=== PATIENT | male | born 1935 | race Caucasian/White ===

== ENCOUNTER 2016-06-16 18:01 | Inpatient (IN) | payer OTHER ==
[~2016-06-16] VITALS: Ht 170.2 cm; Wt 59.3 kg
[2016-06-16 18:47] LABS: BASO % 1.1 %; BASO ABS # 0.06 K/uL (0-0.2); COMPLETE YES; EOS % 3.9 %; HEMATOCRIT 35.6 % (42-52); IG% 0.2 %; LYMPH % 35.4 %; LYMPH ABS # 1.92 K/uL (1.2-3.4); MEAN CELL VOLUME 92.2 fL (80-100); MEAN CORPUSCULAR HEMOGLOBIN 32.6 pg (25-34); MEAN CORPUSCULAR HGB CONC 35.4 g/dl (32-36); MEAN PLATELET VOLUME 9.3 fL (7.4-10.4); MONO % 11.2 %; NEUT % 48.2 %; PLATELET COUNT 182 K/uL (130-400); RED BLOOD COUNT 3.86 M/uL (4.7-6.1); WHITE BLOOD COUNT 5.43 K/uL (4.8-10.8)
[2016-06-16 19:08] LABS: BUN/CREATININE RATIO 16.5 (10-20); CALCIUM 8.6 mg/dl (8.5-10.1); CREATININE 0.83 mg/dl (0.60-1.40); POTASSIUM 4.1 mmol/L (3.5-5.1)
[2016-06-16] MEDS ORDERED: SODIUM CHLORIDE 0.9% 1000ML 250 ML IV STA (19:12)
[2016-06-16] MEDS ORDERED: SODIUM CHLORIDE 0.9% 1000ML 1,000 ML IV STA (19:12)
--- NOTE | 2016-06-16 19:32 | DIAGNOSTIC IMAGING REPORT ---
CHEST ONE VIEW PORTABLE CLINICAL HISTORY: CHEST PAIN dyspnea COMPARISON STUDY: No previous studies for comparison. FINDINGS: Mild emphysematous change. Platelike atelectasis left base. No focal infiltrate. No evidence for cardiac enlargement. IMPRESSION: Chronic change. No acute process. Electronically signed by: Timbo Araujo M.D. 06/16/2016 7:30 PM Dictated Date/Time: 06/16/2016 7:30 PM
[2016-06-16 19:39] LABS: PARTIAL THROMBOPLASTIN RATIO 1.2; PROTHROMBIN TIME (PATIENT) 10.4 SECONDS (9.0-12.0)
[2016-06-16 19:42] LABS: CKMB/CK RATIO 2.2 (0-3.0)
--- NOTE | 2016-06-16 20:05 | DIAGNOSTIC IMAGING REPORT ---
HEAD CT NONCONTRAST CT DOSE: 687.98 mGy.cm HISTORY: Mental status change eval for CVA, rt retinal occlusion TECHNIQUE: Multiaxial CT images of the head were performed without the use of intravenous contrast. Comparison: None. Findings: The paranasal sinuses and mastoid air cells are clear. The calvarium and skull base are intact. The ventricles and sulci are within normal limits. There is no mass, hematoma, midline shift, or acute infarct. Mild age-related atrophy as well as chronic small vessel change. Impression: Age-related change. No acute process. Electronically signed by: Timbo Araujo M.D. 06/16/2016 8:03 PM Dictated Date/Time: 06/16/2016 8:02 PM
[2016-06-16] MEDS ORDERED: ASPIRIN 324 MG CHEW PO STA (20:38)
--- NOTE | 2016-06-16 20:41 | EMERGENCY ROOM VISIT NOTE ---
History Report prepared by Feli: iLvan Torres Under the Supervision of: Dr. Chris Park M.D. First contact with patient: 18:52 Chief Complaint: HYPERTENSION Stated Complaint: HIGH BLOOD PRESSURE History of Present Illness The patient is a 81 year old male who presents to the Emergency Room with complaints of persistent vision issues starting yesterday night. He was evaluated by his glass cut off tender today who diagnosed him with retinal artery occlusion and referred him to the Emergency Room. The patient was sitting down and watching TV when he had a sudden onset of his symptoms. He denies any strenuous activities. While watching TV, he lost the top part of his vision in the right eye. It is not a straight line across. He is narrow sighted in the right eye. He also had high blood pressure today. He denies any history of hypertension. He currently denies any pain. He denies any history of similar symptoms. He denies any history of trauma or surgeries. He denies any recent trauma, or injuries. He denies any fevers, numbness, weakness, confusion, trouble speaking, slurred speech, chest pain, heart palpitations, shortness of breath, or any other complaints. He denies any blood thinners. He does not have any medical problems. Source of History: patient, family, spouse/significant other Onset: yesterday night Position: eye (right) Symptom Intensity: No pain Quality: other (vision issues) Timing: other (persistent) Associated Symptoms: No SOB, No chest pain, No fevers, No numbness, No weakness Review of Systems See HPI for pertinent positives & negatives. A total of 10 systems reviewed and were otherwise negative. Past Medical & Surgical Medical Problems: (1) Migraine Old medical records were reviewed. Nurse's notes were reviewed and I agree with. Denies history of cardiac disease or high blood pressure or stroke. Family History FHx: cancer Stroke Social History Smoking Status: Never Smoker Alcohol Use: occasionally Marital Status: Housing Status: lives with family Occupation Status: retired Current/Historical Medications No Active Prescriptions or Reported Meds Allergies Coded Allergies: No Known Allergies (Unverified , 06/16/16) Physical Exam Vital Signs Date Time Temp Pulse Resp B/P Pulse Ox O2 Delivery O2 Flow Rate FiO2 06/16/16 22:04 67 06/16/16 22:00 70 16 146/70 99 06/16/16 21:52 72 16 162/82 93 06/16/16 20:30 60 24 176/100 99 06/16/16 18:34 68 18 189/93 95 Room Air 06/16/16 18:32 73 06/16/16 18:15 98 Room Air 06/16/16 18:09 36.6 76 16 201/106 98 Room Air Physical Exam General: Non-ill appearing, older male, in no acute distress. HEENT: Normal cephalic atraumatic. Pupils are round and reactive to light. Right eye is dilated from earlier glass cut off tender exam. Extraocular movements are intact. Oropharynx is pink with moist mucous membranes. No swelling of the mouth lips or tongue. Speaking and swallowing without difficulty. Neck: Supple with a midline trachea. No meningeal signs or stiffness, no JVD or bruits. No Stridor. Chest: Clear to auscultation bilaterally. No wheezes or rhonchi. No increased work of breathing. Heart: regular rate and rhythm. Abdomen: Soft nontender, nondistended without rebound guarding or rigidity. Extremities: No cyanosis clubbing or edema. No calf tenderness or assymetry Spine/Back. Non tender to palpation. No CVA tenderness Skin: Good turgor without rashes. Neurologic exam: Cranial nerves two through 12 are intact. Motor and sensation are intact and symmetrical throughout. Medical Decision & Procedures ER Provider Diagnostic Interpretation: X-ray results as stated below per interpretation by me and the radiologist: CHEST ONE VIEW PORTABLE CLINICAL HISTORY: CHEST PAIN dyspnea COMPARISON STUDY: No previous studies for comparison. FINDINGS: Mild emphysematous change. Platelike atelectasis left base. No focal infiltrate. No evidence for cardiac enlargement. IMPRESSION: Chronic change. No acute process. Electronically signed by: Timbo Araujo M.D. 06/16/2016 7:30 PM Dictated Date/Time: 06/16/2016 7:[address] results as stated below per my review and radiologist interpretation: HEAD CT NONCONTRAST CT DOSE: 687.98 mGy.cm HISTORY: Mental status change eval for CVA, rt retinal occlusion TECHNIQUE: Multiaxial CT images of the head were performed without the use of intravenous contrast. Comparison: None. Findings: The paranasal sinuses and mastoid air cells are clear. The calvarium and skull base are intact. The ventricles and sulci are within normal limits. There is no mass, hematoma, midline shift, or acute infarct. Mild age-related atrophy as well as chronic small vessel change. Impression: Age-related change. No acute process. Electronically signed by: Timbo Araujo M.D. 06/16/2016 8:03 PM Dictated Date/Time: 06/16/2016 8:02 PM Laboratory Results 06/16/16 18:30 Red Blood Count 3.86, Mean Corpuscular Volume 92.2, Mean Corpuscular Hemoglobin 32.6, Mean Corpuscular Hemoglobin Concent 35.4, Mean Platelet Volume 9.3, Neutrophils (%) (Auto) 48.2, Lymphocytes (%) (Auto) 35.4, Monocytes (%) (Auto) 11.2, Eosinophils (%) (Auto) 3.9, Basophils (%) (Auto) 1.1, Neutrophils # (Auto ) 2.62, Lymphocytes # (Auto) 1.92, Monocytes # (Auto) 0.61, Eosinophils # (Auto ) 0.21, Basophils # (Auto) 0.06 06/16/16 18:30 Test 06/16/16 17:30 06/16/16 18:30 06/16/16 19:12 06/16/16 19:47 Prothrombin Time 10.4 SECONDS (9.0-12.0) Prothromb Time International Ratio 1.0 (0.9-1.1) Activated Partial Thromboplast Time 30.3 SECONDS (21.0-31.0) Partial Thromboplastin Ratio 1.2 White Blood Count 5.43 K/uL (4.8-10.8) Red Blood Count 3.86 M/uL (4.7-6.1) Hemoglobin 12.6 g/dL (14.0-18.0) Hematocrit 35.6 % (42-52) Mean Corpuscular Volume 92.2 fL (80-100) Mean Corpuscular Hemoglobin 32.6 pg (25-34) Mean Corpuscular Hemoglobin Concent 35.4 g/dl (32-36) Platelet Count 182 K/uL (130-400) Mean Platelet Volume 9.3 fL (7.4-10.4) Neutrophils (%) (Auto) 48.2 % Lymphocytes (%) (Auto) 35.4 % Monocytes (%) (Auto) 11.2 % Eosinophils (%) (Auto) 3.9 % Basophils (%) (Auto) 1.1 % Neutrophils # (Auto) 2.62 K/uL (1.4-6.5) Lymphocytes # (Auto) 1.92 K/uL (1.2-3.4) Monocytes # (Auto) 0.61 K/uL (0.11-0.59) Eosinophils # (Auto) 0.21 K/uL (0-0.5) Basophils # (Auto) 0.06 K/uL (0-0.2) RDW Standard Deviation 43.5 fL (36.4-46.3) RDW Coefficient of Variation 12.9 % (11.5-14.5) Immature Granulocyte % (Auto) 0.2 % Immature Granulocyte # (Auto) 0.01 K/uL (0.00-0.02) Erythrocyte Sedimentation Rate 34 mm/hr (0-14) Anion Gap 6.0 mmol/L (3-11) Est Creatinine Clear Calc Drug Dose 59.5 ml/min Estimated GFR () 96.3 Estimated GFR (Non- 83.1 BUN/Creatinine Ratio 16.5 (10-20) Calcium Level 8.6 mg/dl (8.5-10.1) Total Bilirubin 0.3 mg/dl (0.2-1) Direct Bilirubin 0.1 mg/dl (0-0.2) Aspartate Amino Transf (AST/SGOT) 23 U/L (15-37) Alanine Aminotransferase (ALT/SGPT) 19 U/L (12-78) Alkaline Phosphatase 55 U/L (45-117) Total Creatine Kinase 128 U/L (39-308) Creatine Kinase MB 2.8 ng/ml (0.5-3.6) Total Protein 7.8 gm/dl (6.4-8.2) Albumin 3.9 gm/dl (3.4-5.0) Globulin 3.9 gm/dl (2.5-4.0) Albumin/Globulin Ratio 1.0 (0.9-2) Lipase 106 U/L (73-393) Creatine Kinase MB Ratio (0-3.0) Bedside Troponin I 0.000 ng/ml (0-0.045) Test 06/16/16 21:55 Laboratory studies as stated above per my review. Medications Administered Medications (Trade) Dose Ordered Sig/Carmen Route Start Time Stop Time Status Last Admin Dose Admin Sodium Chloride 250 ml @ 999 mls/hr Q16M STAT IV 06/16/16 19:12 06/16/16 19:27 DC 06/16/16 19:45 999 MLS/HR Sodium Chloride (Nss 1000ml) 1,000 ml @ 100 mls/hr Q10H STAT IV 06/16/16 19:12 06/17/16 05:11 06/16/16 19:45 100 MLS/HR Aspirin (Aspirin Chew) 324 mg NOW STAT PO 06/16/16 20:38 06/16/16 20:56 DC 06/16/16 20:58 324 MG ECG Indication: other (vision issues) Rate (beats per minute): 69 Rhythm: normal sinus Findings: nonspecific-ST abn, RBBB (incomplete), no ectopy Comparison ECG Date: no prior available ED Course 1851: Past medical records reviewed. The patient was evaluated in room A11B, and a complete history and physical examination were performed. 1911: Sodium Chloride 1000 ml 100 mls/hr IV, Sodium Chloride 250 ml @ 999 mls/ hr IV 1919: I discussed the patient's case with Dr. Siddiqui, manager of application development, who did not recommend any acute interventions. 2015: Upon reevaluation, the patient is resting comfortably. I discussed the results and treatment plan with the patient. He verbalized agreement of the treatment plan. The patient will be evaluated for further management. 2037: Aspirin 324 mg PO 2107: I discussed the patient's case with Dr. Fine, from [facility]. Medical Decision Differential diagnosis includes but is not limited to retinal occlusion, CVA, temporal arteritis, hypertension, A-Fib, carotid disease, electrolyte or metabolic abnormalities. This patient comes in as described above. He had acute vision loss yesterday. He is about 24 hours out. He saw his glass cut off tender today who felt that he is central retinal artery occlusion on the right. At this point he is beyond acute treatment. I did discuss this with Dr. Gómez, our manager of application development, on- call who agrees. He does need to be worked up however for stroke and other potential etiologies. He was given aspirin 324 mg chewable. CAT scan of his head was obtained as well as EKG and chest x-ray and multiple other blood testing. His EKG does not suggest acute coronary syndrome or arrhythmia. He is not in A. fib. He has no significant electrolyte or metabolic abnormalities. CAT scan of his head is unremarkable and besides the visual field, there is no other acute neurologic findings. He does need to be admitted for stroke workup and further treatment and evaluation. He is certainly not a TPA candidate at this point given the timeframe of approximately 24 hours since onset. I did consult Dr. Freire, who saw him the ER, who will admit him for these measures. Consults Time Called: 1917 Consulting Physician: Dr. Siddiqui, manager of application development Returned Call: 1919 I discussed the patient's case with Dr. Siddiqui, manager of application development, who did not recommend any acute interventions. Additional Consults: Time Called: 2040 Consulted Physician: Dr. Fine, from [facility] Returned Call: [phone] Additional Comments: I discussed the patient's case with Dr. Fine, from [facility]. Impression Primary Impression: Retinal artery occlusion Additional Impression: Stroke Scribe Attestation The scribe's documentation has been prepared under my direction and personally reviewed by me in its entirety. I confirm that the note above accurately reflects all work, treatment, procedures, and medical decision making performed by me. Departure Information Dispostion Being Evaluated By Hospitalist Prescriptions No Active Prescriptions or Reported Meds Referrals No Doctor, Assigned (PCP) Patient Instructions My [facility] Stroke History Time Last Known Well 24 hours ago Stroke t-PA Criteria Reviewed Does NOT meet criteria for t-PA Reason t-PA Not Given Treatment not indicated Problem Qualifiers
[2016-06-16] MEDS ORDERED: ONDANSETRON INJ 2 MG/ML 2 ML VIAL IV PRN (21:15)
[2016-06-16] MEDS ORDERED: ACETAMINOPHEN 325 MG TAB PO PRN (21:15)
--- NOTE | 2016-06-16 22:42 | DIAGNOSTIC IMAGING REPORT ---
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 COMPARISON STUDY: None. FINDINGS: Visualized intracranial internal carotid arteries, distal vertebral arteries, and basilar artery are widely patent. There is no significant stenosis, occlusion, or aneurysm seen within the bilateral ACAs, MCAs, or shift superintendent. IMPRESSION: No significant stenosis, occlusion, or aneurysm within the campo of [place]. Electronically signed by: Timbo Araujo M.D. 06/16/2016 10:40 PM Dictated Date/Time: 06/16/2016 10:39 PM
--- NOTE | 2016-06-16 22:54 | History and Physical ---
History & Physical Date & Time of Service: Jun 16, 2016 at 22:53 Chief Complaint: High Blood Pressure Primary Care Physician: Tanner Scherer M.D. History of Present Illness Source: patient The patient is an 81-year-old male who developed sudden, painless loss of vision in the right eye that began the previous evening. He was seen by his baker helper today, who diagnosed him with a retinal artery occlusion and referred him to the emergency department for assessment. The patient reports that while watching TV, he lost the upper part of vision in the right eye, and he was also noted in his eye doctor's office to have elevated blood pressure today, which is unusual for him. He denies any other neurologic symptoms such as confusion, difficulty with speech, memory loss, focal weakness in arms or legs, or difficulty swallowing. He is not on any medications routinely, including aspirin, although he did take aspirin today. Past Medical/Surgical History Medical Problems: (1) Migraine Status: Resolved Family History FHx: cancer Stroke Social History Smoking Status: Never Smoker Smokeless Tobacco Use: No Alcohol Use: none Drug Use: none Marital Status: Housing status: lives with family Occupational Status: retired Multi-Drug Resistant Organisms History of MDRO: No Allergies Coded Allergies: No Known Allergies (Unverified , 06/16/16) Home Medications No Active Prescriptions or Reported Meds Review of Systems The patient denies chest pain, palpitations, shortness of breath, cough, lower extremity swelling, hearing change, sore throat, fevers, chills, sweats, weight change, fatigue, nausea, vomiting, abdominal pain, pelvic pain, blood in urine or stool, dysuria, urinary frequency or urgency, lightheadedness, dizziness, headache, memory loss, rash, abnormal bruising or bleeding, imbalance, focal or generalized weakness, numbness or tingling in arms or legs, arthralgias or myalgias, back or neck pain, night sweats, or allergy symptoms. The review of systems is otherwise negative other than for that already noted above, and at least 10 systems have been reviewed. Physical Exam Vital Signs Date Time Temp Pulse Resp B/P Pulse Ox O2 Delivery O2 Flow Rate FiO2 06/16/16 22:04 67 06/16/16 22:00 70 16 146/70 99 06/16/16 21:52 72 16 162/82 93 06/16/16 20:30 60 24 176/100 99 06/16/16 18:34 68 18 189/93 95 Room Air 06/16/16 18:32 73 06/16/16 18:15 98 Room Air 06/16/16 18:09 36.6 76 16 201/106 98 Room Air The patient is awake, well-developed and adequately nourished, alert and oriented 3, normocephalic and atraumatic, lying in bed and in no acute distress. HEENT--right pupil is pharmacologically dilated, EOMI, mucous membranes and oropharynx normal. Neck--supple, no JVD or bruits, thyroid normal, trachea midline, no adenopathy. Heart--normal S1 and S2, no extra beats, no murmurs, rubs or gallops. Lungs--clear bilaterally with good air movement, no respiratory distress, no accessory muscle use. Abdomen--normal bowel sounds and soft, nontender and nondistended, no hernias or masses, no organomegaly. Extremities--no cyanosis, clubbing or edema. There are good distal pulses b/l. Dermatologic--normal skin turgor, normal color, warm and dry, no abnormal lymph nodes, no rash. Neurologic--cranial nerves II through XII grossly intact, motor and sensory examination normal. Rheumatologic--normal range of motion, nontender, muscles and joints. Psychiatric--normal affect. Diagnostics Laboratory Results Results Past 24 Hours Test 06/16/16 17:30 06/16/16 18:30 06/16/16 19:12 06/16/16 19:47 Range/Units Prothrombin Time 10.4 9.0-12.0 SECONDS Prothromb Time International Ratio 1.0 0.9-1.1 Activated Partial Thromboplast Time 30.3 21.0-31.0 SECONDS Partial Thromboplastin Ratio 1.2 White Blood Count 5.43 4.8-10.8 K/uL Red Blood Count 3.86 4.7-6.1 M/uL Hemoglobin 12.6 14.0-18.0 g/dL Hematocrit 35.6 42-52 % Mean Corpuscular Volume 92.2 80-100 fL Mean Corpuscular Hemoglobin 32.6 25-34 pg Mean Corpuscular Hemoglobin Concent 35.4 32-36 g/dl Platelet Count 182 130-400 K/uL Mean Platelet Volume 9.3 7.4-10.4 fL Neutrophils (%) (Auto) 48.2 % Lymphocytes (%) (Auto) 35.4 % Monocytes (%) (Auto) 11.2 % Eosinophils (%) (Auto) 3.9 % Basophils (%) (Auto) 1.1 % Neutrophils # (Auto) 2.62 1.4-6.5 K/uL Lymphocytes # (Auto) 1.92 1.2-3.4 K/uL Monocytes # (Auto) 0.61 0.11-0.59 K/uL Eosinophils # (Auto) 0.21 0-0.5 K/uL Basophils # (Auto) 0.06 0-0.2 K/uL RDW Standard Deviation 43.5 36.4-46.3 fL RDW Coefficient of Variation 12.9 11.5-14.5 % Immature Granulocyte % (Auto) 0.2 % Immature Granulocyte # (Auto) 0.01 0.00-0.02 K/uL Erythrocyte Sedimentation Rate 34 0-14 mm/hr Sodium Level 129 136-145 mmol/L Potassium Level 4.1 3.5-5.1 mmol/L Chloride Level 93 98-107 mmol/L Carbon Dioxide Level 30 21-32 mmol/L Anion Gap 6.0 3-11 mmol/L Blood Urea Nitrogen 14 7-18 mg/dl Creatinine 0.83 0.60-1.40 mg/dl Est Creatinine Clear Calc Drug Dose 59.5 ml/min Estimated GFR () 96.3 Estimated GFR (Non- 83.1 BUN/Creatinine Ratio 16.5 10-20 Random Glucose 92 70-99 mg/dl Calcium Level 8.6 8.5-10.1 mg/dl Total Bilirubin 0.3 0.2-1 mg/dl Direct Bilirubin 0.1 0-0.2 mg/dl Aspartate Amino Transf (AST/SGOT) 23 15-37 U/L Alanine Aminotransferase (ALT/SGPT) 19 12-78 U/L Alkaline Phosphatase 55 45-117 U/L Total Creatine Kinase 128 39-308 U/L Creatine Kinase MB 2.8 0.5-3.6 ng/ml Creatine Kinase MB Ratio 2.2 0-3.0 Total Protein 7.8 6.4-8.2 gm/dl Albumin 3.9 3.4-5.0 gm/dl Globulin 3.9 2.5-4.0 gm/dl Albumin/Globulin Ratio 1.0 0.9-2 Lipase 106 73-393 U/L Bedside Troponin I 0.000 0-0.045 ng/ml Test 06/16/16 21:55 Range/Units Diagnostic Radiology Patient Name: ISAI BANKS Unit Number: [id number] Dictated: 06/16/162001 Transcribed: 06/16/162001 MS Printed Date/Time: [~ rep prt dt]/[~ rep prt tm] [~ rep ct labl] - [~ rep ct ivnm] [facility] [place] [address] Dictated: 06/16/162001 Transcribed: 06/16/162001 MS Printed Date/Time: [~ rep prt dt]/[~ rep prt tm] [~ rep ct labl] - [~ rep ct ivnm] [~ rep ct add3]] HEAD CT NONCONTRAST CT DOSE: 687.98 mGy.cm HISTORY: Mental status change eval for CVA, rt retinal occlusion TECHNIQUE: Multiaxial CT images of the head were performed without the use of intravenous contrast. Comparison: None. Findings: The paranasal sinuses and mastoid air cells are clear. The calvarium and skull base are intact. The ventricles and sulci are within normal limits. There is no mass, hematoma, midline shift, or acute infarct. Mild age-related atrophy as well as chronic small vessel change. Impression: Age-related change. No acute process. Electronically signed by: Timbo Araujo M.D. 06/16/2016 8:03 PM Dictated Date/Time: 06/16/2016 8:02 PM The status of this report is Signed. Draft = Not yet reviewed or approved by Radiologist. Signed = Reviewed and approved by Radiologist. <AttendingPhy></AttendingPhy> <FamilyPhy>Tanner Scherer M.D.</FamilyPhy> < PrimaryPhy>Tanner Scherer M.D.</PrimaryPhy> <UnitNumber>[id number]</ UnitNumber> <VisitNumber>[id number]</VisitNumber> <PatientName>ISAI BANKS </PatientName> <DateOfBirth>1935</DateOfBirth> <Location>[facility]</Location> <ServiceDate>06/16/16</ServiceDate> <MNE>ESINDI</MNE> <OrderingPhy>Chris Park M.D.</OrderingPhy> <OrderingPhyMNE>f rep ord dr connelly</OrderingPhyMNE> < DictatingPhyMNE>f rep dict dr connelly</DictatingPhyMNE> <CCListMNE>f rep ct mne</ CCListMNE> <AdmittingPhyMNE>f pt admit dr connelly</AdmittingPhyMNE> <AttendingPhyMNE >f pt attend dr connelly</AttendingPhyMNE> <ConsultingPhyMNE>f pt consult dr connelly</ConsultingPhyMNE> <FamilyPhyMNE>f pt fam dr connelly</FamilyPhyMNE> <OtherPhyMNE>f pt other dr connelly</OtherPhyMNE> < PrimaryPhyMNE>f pt prim care dr connelly</PrimaryPhyMNE> <ReferringPhyMNE>f pt referring dr connelly</ReferringPhyMNE> Patient Name: ISAI BANKS Unit Number: [id number] Dictated: 06/16/161929 Transcribed: 06/16/161929 MS Printed Date/Time: [~ rep prt dt]/[~ rep prt tm] [~ rep ct labl] - [~ rep ct ivnm] [facility] Radiology Department [place] [id number] Dictated: 06/16/161929 Transcribed: 06/16/161929 MS Printed Date/Time: [~ rep prt dt]/[~ rep prt tm] [~ rep ct labl] - [~ rep ct ivnm] CHEST ONE VIEW PORTABLE CLINICAL HISTORY: CHEST PAIN dyspnea COMPARISON STUDY: No previous studies for comparison. FINDINGS: Mild emphysematous change. Platelike atelectasis left base. No focal infiltrate. No evidence for cardiac enlargement. IMPRESSION: Chronic change. No acute process. Electronically signed by: Timbo Araujo M.D. 06/16/2016 7:30 PM Dictated Date/Time: 06/16/2016 7:30 PM The status of this report is Signed. Draft = Not yet reviewed or approved by Radiologist. Signed = Reviewed and approved by Radiologist. <AttendingPhy></AttendingPhy> <FamilyPhy>Tanner Scherer M.D.</FamilyPhy> < PrimaryPhy>Tanner Scherer M.D.</PrimaryPhy> <UnitNumber>[id number]</ UnitNumber> <VisitNumber>[id number]</VisitNumber> <PatientName>ISAI BANKS </PatientName> <DateOfBirth>1935</DateOfBirth> <Location>[facility]</Location> <ServiceDate>06/16/16</ServiceDate> <MNE>ESINDI</MNE> <OrderingPhy>Chris Park M.D.</OrderingPhy> <OrderingPhyMNE>f rep ord dr connelly</OrderingPhyMNE> < DictatingPhyMNE>f rep dict dr connelly</DictatingPhyMNE> <CCListMNE>f rep ct maricel</ CCListMNE> <AdmittingPhyMNE>f pt admit dr connelly</AdmittingPhyMNE> <AttendingPhyMNE >f pt attend dr connelly</AttendingPhyMNE> <ConsultingPhyMNE>f pt consult dr connelly</ConsultingPhyMNE> <FamilyPhyMNE>f pt fam dr conenlly</FamilyPhyMNE> <OtherPhyMNE>f pt other dr connelly</OtherPhyMNE> < PrimaryPhyMNE>f pt prim care dr connelly</PrimaryPhyMNE> <ReferringPhyMNE>f pt referring dr connelly</ReferringPhyMNE> EKG EKG shows normal sinus rhythm at 69 bpm, right bundle branch block, nonspecific ST-T changes. 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 The patient will be admitted to the telemetry unit for serial cardiac enzymes, cardiac rhythm monitoring and a 2-D echocardiogram with Dopplers. Tonight he'll get an MRI of the brain combo, MRA of the neck combo, and MRA of the head without contrast.. He had Aspirin earlier today, and will be continued on aspirin 81 mg by mouth every morning. His blood pressure was initially elevated upon arrival to the emergency department, however, it has come down to the normal range with no intervention. Hyponatremia--sodium was 129 on admission laboratories. He is unaware of any issues with sodium in the past. We'll repeat his laboratories in a.m., it is possible, he may be in the process of developing SIADH. Level of Care Telemetry Advanced Directives Existing Advance Directive: No Existing Living Will: No Existing Power of Elastic Attacher Coverstitch: No Resuscitation Status FULL RESUSCITATION VTE Prophylaxis Given or contraindicated: SCD's
--- NOTE | 2016-06-16 23:05 | DIAGNOSTIC IMAGING REPORT ---
NECK MRA HISTORY: Visual change [employer] OCCLUSION RIGHT EYE TECHNIQUE: [id number] and gadolinium-enhanced MRA of the neck was performed both before and after the intravenous administration of contrast. All measurements were calculated based on NASCET criteria. COMPARISON STUDY: None. FINDINGS: Somewhat compromised exam technically due to patient motion There is no significant stenosis, occlusion, or dissection identified within the bilateral common carotid, internal carotid, or vertebral arteries. IMPRESSION: No significant stenosis, occlusion, or dissection identified within the carotid or vertebral arteries. Somewhat compromised exam technically due to patient motion Electronically signed by: Timbo Araujo M.D. 06/16/2016 11:03 PM Dictated Date/Time: 06/16/2016 11:01 PM
[2016-06-17] MEDS ORDERED: IV FLUIDS COMPLETED PRN (00:45)
[2016-06-17 01:00] VITALS: BP 151/94; PULSE 66; TEMP 36.6; O2SAT 99; Ht 170.2 cm; Wt 59.3 kg
[2016-06-17 04:05] VITALS: BP 146/74; PULSE 97; TEMP 36.5; O2SAT 97
[2016-06-17 06:18] LABS: BASO ABS # 0.05 K/uL (0-0.2); COMPLETE YES; EOS % 4.3 %; HEMATOCRIT 35.7 % (42-52); IG% 0.2 %; LYMPH % 29.2 %; LYMPH ABS # 1.42 K/uL (1.2-3.4); MEAN CELL VOLUME 92.5 fL (80-100); MEAN CORPUSCULAR HEMOGLOBIN 33.4 pg (25-34); MEAN CORPUSCULAR HGB CONC 36.1 g/dl (32-36); MONO % 11.1 %; NEUT % 54.2 %; PLATELET COUNT 184 K/uL (130-400); RED BLOOD COUNT 3.86 M/uL (4.7-6.1); WHITE BLOOD COUNT 4.87 K/uL (4.8-10.8)
--- NOTE | 2016-06-17 06:25 | DIAGNOSTIC IMAGING REPORT ---
MRI OF THE BRAIN WITHOUT AND WITH IV CONTRAST CLINICAL HISTORY: Right eye retinal occlusion. Hypertension. COMPARISON STUDY: Head CT dated 06/16/2016 TECHNIQUE: MRI of the brain was performed from the vertex to the skull base utilizing various T1 and T2 weighted sequences. Following the IV administration of 6 mL of Gadavist contrast, additional enhanced images were obtained. FINDINGS: Sagittal T1, axial diffusion, proton density and T2 weighted axial, coronal FLAIR, and pre and post axial T1-weighted images were acquired. These were supplemented with post gadolinium coronal T1 weighted images. No intra or extra-axial mass lesions are visualized. Axial diffusion-weighted images reveal scattered tiny foci of restricted water diffusion within the right frontal and parietal lobes, consistent with areas of acute infarction. There is no evidence of ventricular dilatation. Proton density T2-weighted and FLAIR images reveal moderate foci of increased T2 signal within the white matter, likely on a small vessel basis. 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 There are no abnormal flow voids. There are no pathologically enhancing masses. There are a few tiny foci of enhancement within the right hemisphere which may relate to enhancing areas of infarction. IMPRESSION: 1. Scattered small foci of acute/subacute infarcts within the anterior circulation of the right hemisphere. 2. No evidence of intracranial mass 3. Foci of increased T2 signal within the white matter likely a small vessel basis 4. Small foci of enhancement within the right hemisphere, likely secondary to enhancing areas of infarction Electronically signed by: Daniel Euceda M.D. 06/17/2016 6:23 AM Dictated Date/Time: 06/17/2016 6:16 AM
[2016-06-17 06:55] LABS: BLOOD UREA NITROGEN 12 mg/dl (7-18); BUN/CREATININE RATIO 16.9 (10-20); CALCIUM 8.2 mg/dl (8.5-10.1); CARBON DIOXIDE 26 mmol/L (21-32); CHLORIDE 99 mmol/L (98-107); CREATININE 0.69 mg/dl (0.60-1.40); GLUCOSE 82 mg/dl (70-99); MAGNESIUM 2.3 mg/dl (1.8-2.4); POTASSIUM 3.8 mmol/L (3.5-5.1); SODIUM 132 mmol/L (136-145)
[2016-06-17 07:01] LABS: CKMB/CK RATIO 2.2 (0-3.0)
[2016-06-17 07:26] VITALS: BP 135/82; PULSE 56; TEMP 36.4; O2SAT 98
[2016-06-17] MEDS: ASPIRIN 81 MG ECTAB PO SCH (08:57)
[2016-06-17] MEDS: ATORVASTATIN 20 MG TAB PO SCH (08:57)
[2016-06-17 10:57] LABS: CHOLESTEROL/HDL RATIO 2.4
[2016-06-17 11:06] LABS: ESTIMATED AVERAGE GLUCOSE 117 mg/dl; HA1C FLAG Normal (Normal)
--- NOTE | 2016-06-17 11:37 | DIAGNOSTIC IMAGING REPORT ---
ULTRASOUND OF THE CAROTID ARTERIES CLINICAL HISTORY: Acute right hemispheric stroke COMPARISON STUDY: MR angiography neck dated 06/16/2016 TECHNIQUE: Real-time, grayscale, and color Doppler sonography of the carotid arteries was performed. Imaging reviewed in the transverse and longitudinal planes. NASCET criteria was utilized for stenosis calcification. FINDINGS: There is mild to moderate atherosclerotic plaque present left greater than right. The peak systolic velocity within the right internal carotid artery is 74 cm/sec. The systolic velocity ratio of right internal to common carotid artery is 1.0. The peak systolic velocity within the left internal carotid artery is 166 cm/sec. The systolic velocity ratio left internal to common carotid artery is 2.9. Antegrade flow is seen in the vertebral arteries. The external carotid arteries are patent. Blood pressure in the right arm measured 172 mm/Hg. Blood pressure in the left arm measured 180 mm/Hg. IMPRESSION: 1. 50-69% stenosis of the left internal carotid artery by velocity criteria. 2. No evidence of hemodynamically significant right internal carotid artery stenosis Electronically signed by: Daniel Euceda M.D. 06/17/2016 11:35 AM Dictated Date/Time: 06/17/2016 11:31 AM
[2016-06-17 11:45] VITALS: BP_SYST 175; BP_SYST 178; BP_DIAS 97; PULSE 64; TEMP 36.4; O2SAT 97
--- NOTE | 2016-06-17 12:21 | ECHOCARDIOGRAM REPORT ---
*NOTICE TO RECEIVING LIBERTARIAN AGENCY This information is strictly Confidential and protected under [place] law. [place] law prohibits you from making any further disclosure of this information unless further disclosure is expressly permitted by the written consent of the person to whom it pertains or is authorized by law. A general authorization for the release of medical or other information is not sufficient for this purpose. Hospital accepts no responsibility if the information is made available to any other person, INCLUDING THE PATIENT. 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 Normal LV size and wall thickness. * 2. Normal LV systolic function. LVEF 50-55%. No regional wall motion abnormalities. * 3. Normal RV size and function. * 4. Trace mitral regurgitation. * 5. Mild TR. Normal estimated PA and RA pressure. * 6. No prior study for comparison. Procedure Details * A complete two-dimensional transthoracic echocardiogram was performed (2D, M-mode, Doppler and color flow Doppler). * The study was technically adequate. Left Ventricle * The left ventricle is grossly normal size. * There is normal left ventricular wall thickness. * Ejection Fraction = 50-55%. * No regional wall motion abnormalities noted. Right Ventricle * The right ventricle is grossly normal size. * The right ventricular systolic function is normal as assessed by tricuspid annular plane systolic excursion (TAPSE) (normal >1.5 cm). Atria * The left atrial size is normal. * Right atrial size is normal. * No ASD detected; PFO is not assessed. Mitral Valve * The mitral valve is grossly normal. * There is mild mitral annular calcification. * Mitral stenosis is absent. * There is trace mitral regurgitation. Tricuspid Valve * The tricuspid valve is not well visualized, but is grossly normal. * There is no tricuspid stenosis. * There is mild tricuspid regurgitation. Aortic Valve * The aortic valve opens well. * The aortic valve is trileaflet. * No hemodynamically significant valvular aortic stenosis. * There is no significant aortic regurgitation. Pulmonic Valve * The pulmonary valve is not well seen, but the Doppler examination is normal without significant regurgitation or stenosis. Great Vessels * The aortic root and proximal ascending aorta are normal sized. * Normal inferior vena cava size and collapsability with sniff indicates a normal right atrial pressure of 3 mmHg * There is no evidence of pulmonary hypertension. The PA systolic pressure is less than 36 mmHg. Left Ventricular Diastolic Function * Grade I diastolic dysfunction, (abnormal relaxation pattern). MMode 2D Measurements and Calculations IVSd 0.99 cm IVSs 1.4 cm LVIDd 4.5 cm LVIDs 3.0 cm LVPWd 0.89 cm LVPWs 1.4 cm IVS/LVPW 1.1 FS 33.7 % EDV(Teich) 94.9 ml ESV(Teich) 35.5 ml EF(Teich) 62.6 % EDV(cubed) 94.2 ml ESV(cubed) 27.5 ml EF(cubed) 70.8 % % IVS thick 42.6 % % LVPW thick 62.9 % LV mass(C)d 142.9 grams LV mass(C)dI 84.9 grams/m\S\2 LV mass(C)s 146.2 grams LV mass(C)sI 86.8 grams/m\S\2 SV(Teich) 59.3 ml SI(Teich) 35.2 ml/m\S\2 SV(cubed) 66.7 ml SI(cubed) 39.6 ml/m\S\2 EPSS 0.76 cm Ao root diam 3.3 cm Ao root area 8.4 cm\S\2 ACS 1.6 cm LA dimension 3.4 cm asc Aorta Diam 3.2 cm LA/Ao 1.0 LVOT diam 2.0 cm LVOT area 3.2 cm\S\2 LVAd ap4 25.1 cm\S\2 LVLd ap4 7.5 cm EDV(MOD-sp4) 70.0 ml LVAs ap4 15.9 cm\S\2 LVLs ap4 6.3 cm ESV(MOD-sp4) 34.0 ml EF(MOD-sp4) 51.4 % LVAd ap2 21.7 cm\S\2 LVLd ap2 7.5 cm EDV(MOD-sp2) 53.0 ml LVAs ap2 13.6 cm\S\2 LVLs ap2 6.3 cm ESV(MOD-sp2) 25.0 ml EF(MOD-sp2) 52.8 % SV(MOD-sp4) 36.0 ml SI(MOD-sp4) 21.4 ml/m\S\2 SV(MOD-sp2) 28.0 ml SI(MOD-sp2) 16.6 ml/m\S\2 Doppler Measurements and Calculations MV E max eusebia 68.4 cm/sec MV A max eusebia 84.4 cm/sec MV E/A 0.81 MV dec time 0.21 sec Ao V2 max 100.4 cm/sec Ao max PG 4.0 mmHg Ao max PG (full) 2.1 mmHg BRIANNA(V,A) 2.2 cm\S\2 BRIANNA(V,D) 2.2 cm\S\2 LV V1 max PG 1.9 mmHg LV V1 max 69.6 cm/sec PA V2 max 76.0 cm/sec PA max PG 2.3 mmHg TR max eusebia 237.5 cm/sec
[2016-06-17 13:55] LABS: CKMB/CK RATIO 2.4 (0-3.0)
[2016-06-17 14:42] VITALS: BP 174/80
[2016-06-17 15:45] VITALS: BP 168/88; PULSE 56; TEMP 36.8; O2SAT 98
--- NOTE | 2016-06-17 17:22 | Progress Note ---
Subjective Date of Service: Jun 17, 2016. Subjective Pt evaluation today including: conversation w/ patient, conversation w/ family , physical exam, chart review, lab review, review of studies, review of inpatient medication list feeling the same - visual field cuts R eye. no other sx. no numbness no weakness - only vision loss tries to eat very healthy. discussed further eval and treatment answered all questions to the best of my ability no other complaints Problem List Medical Problems: (1) Retinal artery occlusion Status: Acute (2) Stroke Status: Acute Review of Systems ros otherwise negative except for as above Objective Vital Signs Date Time Temp Pulse Resp B/P Pulse Ox O2 Delivery O2 Flow Rate FiO2 06/17/16 15:45 36.8 56 16 168/88 98 06/17/16 15:40 Room Air 06/17/16 14:42 174/80 06/17/16 12:00 Room Air 06/17/16 11:45 36.4 64 16 178/97 97 Room Air 175/97 06/17/16 08:00 Room Air 06/17/16 07:26 36.4 56 16 135/82 98 Room Air 06/17/16 04:05 36.5 97 16 146/74 97 Room Air 06/17/16 04:05 Room Air 06/17/16 01:00 36.6 66 16 151/94 99 Room Air 06/16/16 22:04 67 06/16/16 22:00 70 16 146/70 99 06/16/16 21:52 72 16 162/82 93 06/16/16 20:30 60 24 176/100 99 06/16/16 18:34 68 18 189/93 95 Room Air 06/16/16 18:32 73 06/16/16 18:15 98 Room Air 06/16/16 18:09 36.6 76 16 201/106 98 Room Air Physical Exam General Appearance: no apparent distress Eyes: EOMI ENT: hearing grossly normal Neck: trachea midline Respiratory/Chest: no respiratory distress, no accessory muscle use Extremities: normal range of motion Neurologic/Psychiatric: 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 nml as tested, alert, normal mood/affect Skin: normal color, warm/dry Laboratory Results Last 24 Hours Test 06/16/16 17:30 06/16/16 18:30 06/16/16 19:12 06/16/16 19:47 Prothrombin Time 10.4 SECONDS Prothromb Time International Ratio 1.0 Activated Partial Thromboplast Time 30.3 SECONDS Partial Thromboplastin Ratio 1.2 White Blood Count 5.43 K/uL Red Blood Count 3.86 M/uL Hemoglobin 12.6 g/dL Hematocrit 35.6 % Mean Corpuscular Volume 92.2 fL Mean Corpuscular Hemoglobin 32.6 pg Mean Corpuscular Hemoglobin Concent 35.4 g/dl Platelet Count 182 K/uL Mean Platelet Volume 9.3 fL Neutrophils (%) (Auto) 48.2 % Lymphocytes (%) (Auto) 35.4 % Monocytes (%) (Auto) 11.2 % Eosinophils (%) (Auto) 3.9 % Basophils (%) (Auto) 1.1 % Neutrophils # (Auto) 2.62 K/uL Lymphocytes # (Auto) 1.92 K/uL Monocytes # (Auto) 0.61 K/uL Eosinophils # (Auto) 0.21 K/uL Basophils # (Auto) 0.06 K/uL RDW Standard Deviation 43.5 fL RDW Coefficient of Variation 12.9 % Immature Granulocyte % (Auto) 0.2 % Immature Granulocyte # (Auto) 0.01 K/uL Erythrocyte Sedimentation Rate 34 mm/hr Sodium Level 129 mmol/L Potassium Level 4.1 mmol/L Chloride Level 93 mmol/L Carbon Dioxide Level 30 mmol/L Anion Gap 6.0 mmol/L Blood Urea Nitrogen 14 mg/dl Creatinine 0.83 mg/dl Est Creatinine Clear Calc Drug Dose 59.5 ml/min Estimated GFR () 96.3 Estimated GFR (Non- 83.1 BUN/Creatinine Ratio 16.5 Random Glucose 92 mg/dl Calcium Level 8.6 mg/dl Total Bilirubin 0.3 mg/dl Direct Bilirubin 0.1 mg/dl Aspartate Amino Transf (AST/SGOT) 23 U/L Alanine Aminotransferase (ALT/SGPT) 19 U/L Alkaline Phosphatase 55 U/L Total Creatine Kinase 128 U/L Creatine Kinase MB 2.8 ng/ml Creatine Kinase MB Ratio 2.2 Total Protein 7.8 gm/dl Albumin 3.9 gm/dl Globulin 3.9 gm/dl Albumin/Globulin Ratio 1.0 Lipase 106 U/L Bedside Troponin I 0.000 ng/ml Test 06/16/16 21:55 06/17/16 05:05 06/17/16 07:03 06/17/16 13:15 White Blood Count 4.87 K/uL Red Blood Count 3.86 M/uL Hemoglobin 12.9 g/dL Hematocrit 35.7 % Mean Corpuscular Volume 92.5 fL Mean Corpuscular Hemoglobin 33.4 pg Mean Corpuscular Hemoglobin Concent 36.1 g/dl Platelet Count 184 K/uL Mean Platelet Volume 10.0 fL Neutrophils (%) (Auto) 54.2 % Lymphocytes (%) (Auto) 29.2 % Monocytes (%) (Auto) 11.1 % Eosinophils (%) (Auto) 4.3 % Basophils (%) (Auto) 1.0 % Neutrophils # (Auto) 2.64 K/uL Lymphocytes # (Auto) 1.42 K/uL Monocytes # (Auto) 0.54 K/uL Eosinophils # (Auto) 0.21 K/uL Basophils # (Auto) 0.05 K/uL RDW Standard Deviation 43.4 fL RDW Coefficient of Variation 12.9 % Immature Granulocyte % (Auto) 0.2 % Immature Granulocyte # (Auto) 0.01 K/uL Sodium Level 132 mmol/L Potassium Level 3.8 mmol/L Chloride Level 99 mmol/L Carbon Dioxide Level 26 mmol/L Anion Gap 7.0 mmol/L Blood Urea Nitrogen 12 mg/dl Creatinine 0.69 mg/dl Est Creatinine Clear Calc Drug Dose 71.6 ml/min Estimated GFR () 103.9 Estimated GFR (Non- 89.7 BUN/Creatinine Ratio 16.9 Random Glucose 82 mg/dl Estimated Average Glucose 117 mg/dl Hemoglobin A1c 5.7 % Calcium Level 8.2 mg/dl Magnesium Level 2.3 mg/dl Total Creatine Kinase 105 U/L 93 U/L Creatine Kinase MB 2.3 ng/ml 2.2 ng/ml Creatine Kinase MB Ratio 2.2 2.4 Troponin I < 0.015 ng/ml < 0.015 ng/ml Triglycerides Level 63 mg/dl Cholesterol Level 160 mg/dl HDL Cholesterol 66 mg/dl LDL Cholesterol, Calculated 81 mg/dl VLDL Cholesterol, Calculated 13 mg/dl Cholesterol/HDL Ratio 2.4 Osmolality 268 mOsm/kg Assessment and Plan retinal artery occlusion/ CVA -asa -secondary assessment fairly nil: echo/rhythm monitoring without cardioembolic source, carotid on L w 50-69% stenosis but R clear, A1c/lipids fairly good; BP is up but ?true HTN vs autoregulation -suspect has underlying HTN and unaware -- with this + age/male would certainly then have enough risks to explain atherosclerotic stroke and treatment would be asa, statin, BP management -since this is not entirely clear, however, we discussed utility of neurology evaluation - since the "why" underlying the "what" of his stroke isn' t completely discerned. discussed with his stability possibly doing this expedited as outpt, but for a variety of reasons he preferred staying in hospital until neurology sees him carotid artery disease -contralateral side to stroke so not significant in acute setting -suspect statin would benefit stabilizing this -f/u serial carotid US as outpt DVT proph -lovenox
[2016-06-18 00:02] VITALS: BP 174/92; PULSE 70; TEMP 36.5; O2SAT 97
[2016-06-18 06:23] LABS: BASO ABS # 0.04 K/uL (0-0.2); COMPLETE YES; EOS % 5.7 %; HEMATOCRIT 37.4 % (42-52); IG% 0.2 %; LYMPH % 34.4 %; LYMPH ABS # 1.44 K/uL (1.2-3.4); MEAN CELL VOLUME 92.8 fL (80-100); MEAN CORPUSCULAR HEMOGLOBIN 32.8 pg (25-34); MEAN CORPUSCULAR HGB CONC 35.3 g/dl (32-36); MEAN PLATELET VOLUME 9.7 fL (7.4-10.4); MONO % 16.5 %; NEUT % 42.2 %; PLATELET COUNT 195 K/uL (130-400); RED BLOOD COUNT 4.03 M/uL (4.7-6.1); WHITE BLOOD COUNT 4.19 K/uL (4.8-10.8)
[2016-06-18 06:58] LABS: BUN/CREATININE RATIO 17.2 (10-20); CALCIUM 8.5 mg/dl (8.5-10.1); CREATININE 0.87 mg/dl (0.60-1.40); MAGNESIUM 2.3 mg/dl (1.8-2.4); POTASSIUM 3.7 mmol/L (3.5-5.1)
[2016-06-18 07:28] VITALS: BP 140/69; PULSE 64; TEMP 36.6; O2SAT 98
--- NOTE | 2016-06-18 08:08 | Neurology Consultation ---
Neurology Consultation Date of Consultation: Jun 18, 2016. Attending Physician: Dino Fine M.D. Primary Care Physician: Tanner Scherer M.D. Reason for Consultation: Patient is an 81-year-old, who was asked to see the request of , for neurologic consultation regarding stroke History of Present Illness Source: patient, caregiver, hospital records This patient has no history of stroke, heart problems, or diabetes. He tells me that occasionally his blood pressure has been "up a little" but he has never been treated for hypertension. He does have a history of migraine headaches in the past. He has been doing well and takes no medications on a regular basis. On June 15, in the evening, he noted the sudden onset of decreased vision in the top half of the right eye. It looked dark. There was no pain, double vision, or headache. When he closed his right eye his left eye could see well in all directions. When he closed his left eye is right eye could not see well up in the upper half. He saw his outside parts sales June 16, who diagnosed a retinal artery occlusion and sent him to the emergency room. He arrived at the emergency room at 03/05/08 hours on June 16 with a temperature 36.6, pulse of 76 and regular, respiratory rate of 16 and comfortable, and blood pressure of 201/106. O2 saturation was 98%. He had no focal neurologic deficits on examination. CT scan of the head was unremarkable. Chest x-ray was unremarkable. CBC was normal and a sedimentation rate was 34. Tito liver profile were unremarkable although sodium was 129. He will A1c was 5.7. Lipid profile was unremarkable and he had a cholesterol of 160. MRI of the brain showed a few tiny scattered subacute infarcts in the anterior two thirds of the right hemisphere. There was mild to moderate old very small ischemic changes bilaterally. Carotid ultrasound showed a 50-69% stenosis in the left internal carotid artery , but MR angiography of the neck was unremarkable. MR angiography of the head was unremarkable. Echocardiogram was unremarkable. The patient is asymptomatic with no headache, pain in the limbs or spine, double vision, speech or swallowing problems, confusion or mentation problems, weakness or numbness, or incontinence. Past Medical/Surgical History Medical Problems: (1) Retinal artery occlusion Status: Acute (2) Stroke Status: Acute History of migraine headaches No history of previous surgeries Family History Mother age 80 with possible early dementia but he is not sure of any other medical problems. Father age 72 of a stroke. He had had multiple strokes. 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 Smoking Status: Never smoker Smokeless Tobacco Use: No Alcohol Use: none Drug Use: none Marital Status: Housing Status: lives with family Occupation Status: retired Allergies Coded Allergies: No Known Allergies (Unverified , 06/16/16) Current Inpatient Medications Current Inpatient Medications Medications (Trade) Dose Ordered Sig/Carmen Route Start Time Stop Time Status Last Admin Dose Admin Acetaminophen (Tylenol Tab) 650 mg Q4H PRN PO 06/16/16 21:15 07/16/16 21:14 Aspirin (Ecotrin Tab) 81 mg QAM PO 06/17/16 09:00 07/17/16 08:59 06/17/16 08:57 81 MG Ondansetron HCl (Zofran Inj) 4 mg Q6H PRN IV 06/16/16 21:15 07/16/16 21:14 Miscellaneous (Iv Fluids Completed) 1 ea PRN PRN N/A 06/17/16 00:45 06/17/17 00:44 Atorvastatin Calcium (Lipitor Tab) 20 mg QAM PO 06/17/16 09:00 07/17/16 08:59 Enoxaparin Sodium (Lovenox Inj) 40 mg QAM SQ 06/18/16 09:00 07/18/16 08:59 Review of Systems Constitutional: No fatigue, No weakness Eyes: + worsening of vision, No diplopia ENT: + hearing loss, No tinnitus, No trouble swallowing Respiratory: No cough, No shortness of breath Cardiovascular: No chest pain, No palpitations Abdomen: No nausea, No pain Musculoskeletal: No joint pain, No muscle pain Genitourinary - Male: No dysuria, No urinary incontinence Neurologic: No balance problems, No memory loss, No numbness/tingling, No vertigo, No weakness Psychiatric: No anxiety, No depression symptoms Endocrine: No fatigue Hematologic / Lymphatic: No abnormal bleeding/bruising Integumentary: No rash Allergic / Immunologic: No hives Physical Exam Vital Signs (Past 24 Hrs): Date Time Temp Pulse Resp B/P Pulse Ox O2 Delivery O2 Flow Rate FiO2 06/18/16 07:28 36.6 64 16 140/69 98 Room Air 06/18/16 00:05 Room Air 06/18/16 00:02 36.5 70 20 174/92 97 Room Air 06/17/16 20:05 Room Air 06/17/16 15:45 36.8 56 16 168/88 98 06/17/16 15:40 Room Air 06/17/16 14:42 174/80 06/17/16 12:00 Room Air 06/17/16 11:45 36.4 64 16 178/97 97 Room Air 175/97 06/17/16 08:00 Room Air Patient is right-handed. The patient is awake and alert. Speech is normal without aphasia or dysarthria. Mentation and thought processes are intact with orientation and normal fund of knowledge. Mood and affect are normal and appropriate. Appearance and grooming are normal. The discs are sharp with positive venous pulsations. There are no exudates, hemorrhages, or blood vessel changes seen. Pupils are 4mm bilaterally and reactive to light. Extraocular eye muscles are intact without nystagmus. Visual acuity and visual peralta seem normal grossly to confrontation, except, there is some decreased vision in the right eye only superiorly.. There are no deficits to sensation of the face bilaterally. Corneal reflexes are positive bilaterally. Facial strength and symmetry is normal bilaterally. Hearing is decreased bilaterally wears bilateral hearing aids. Palate moves well without asymmetry. There is normal sternocleidomastoid and trapezius strength bilaterally. Tongue is midline with good strength bilaterally. Neck is with full range of motion without discomfort. There are no cervical bruits. There are no cranial or ocular bruits. Heart is without murmur. Cervical, thoracic, and lumbar spine are nontender to palpation. Gait is normal. There is good are swing, turn, stance, and balance. With outstretched arms there is no drift. There are no resting, postural, or action tremors. There is no ataxia with [id number] testing. There is good facility in the hands. There are no abnormal involuntary movements noted. Motor strength is 5/5 diffusely in the arms bilaterally including deltoids, biceps, brachioradialis, wrist flexors and extensors, pizza baker, and intrinsic hand muscles. Motor strength is 5/5 diffusely in the legs bilaterally including hip flexors, quadriceps, hamstring, gastrocnemius, tibialis anterior, tibialis posterior, and peroneii muscles bilaterally. Toe extensors are normal and there is good bulk in the extensor digitorum brevis muscle bilaterally. The limbs have good tone without rigidity or spasticity, and there is no atrophy noted. Muscle bulk is normal, there is no tenderness, no myotonia noted to percussion, and no fasciculations seen. Sensory examination is intact to pin and touch throughout all four limbs. Reflexes are 1/4 in the biceps, triceps, brachioradialis, quadriceps, and Achilles tendons bilaterally. Toes are downgoing with plantar stimulation bilaterally. Peripheral pulses are present and of normal quality distally in all four limbs. There is no peripheral edema noted. Laboratory Results Past 24 Hours: 06/18/16 05:20 Red Blood Count 4.03, Mean Corpuscular Volume 92.8, Mean Corpuscular Hemoglobin 32.8, Mean Corpuscular Hemoglobin Concent 35.3, Mean Platelet Volume 9.7, Neutrophils (%) (Auto) 42.2, Lymphocytes (%) (Auto) 34.4, Monocytes (%) (Auto) 16.5, Eosinophils (%) (Auto) 5.7, Basophils (%) (Auto) 1.0, Neutrophils # (Auto ) 1.77, Lymphocytes # (Auto) 1.44, Monocytes # (Auto) 0.69, Eosinophils # (Auto ) 0.24, Basophils # (Auto) 0.04 06/18/16 05:20 Test 06/17/16 13:15 06/17/16 20:20 06/18/16 05:20 Total Creatine Kinase 93 U/L (39-308) Creatine Kinase MB 2.2 ng/ml (0.5-3.6) Creatine Kinase MB Ratio 2.4 (0-3.0) Troponin I < 0.015 ng/ml (0-0.045) Urine Osmolality 476 mOms/kg (500-800) White Blood Count 4.19 K/uL (4.8-10.8) Red Blood Count 4.03 M/uL (4.7-6.1) Hemoglobin 13.2 g/dL (14.0-18.0) Hematocrit 37.4 % (42-52) Mean Corpuscular Volume 92.8 fL (80-100) Mean Corpuscular Hemoglobin 32.8 pg (25-34) Mean Corpuscular Hemoglobin Concent 35.3 g/dl (32-36) Platelet Count 195 K/uL (130-400) Mean Platelet Volume 9.7 fL (7.4-10.4) Neutrophils (%) (Auto) 42.2 % Lymphocytes (%) (Auto) 34.4 % Monocytes (%) (Auto) 16.5 % Eosinophils (%) (Auto) 5.7 % Basophils (%) (Auto) 1.0 % Neutrophils # (Auto) 1.77 K/uL (1.4-6.5) Lymphocytes # (Auto) 1.44 K/uL (1.2-3.4) Monocytes # (Auto) 0.69 K/uL (0.11-0.59) Eosinophils # (Auto) 0.24 K/uL (0-0.5) Basophils # (Auto) 0.04 K/uL (0-0.2) RDW Standard Deviation 43.7 fL (36.4-46.3) RDW Coefficient of Variation 12.8 % (11.5-14.5) Immature Granulocyte % (Auto) 0.2 % Immature Granulocyte # (Auto) 0.01 K/uL (0.00-0.02) Anion Gap 8.0 mmol/L (3-11) Est Creatinine Clear Calc Drug Dose 56.8 ml/min Estimated GFR () 94.5 Estimated GFR (Non- 81.5 BUN/Creatinine Ratio 17.2 (10-20) Calcium Level 8.5 mg/dl (8.5-10.1) Magnesium Level 2.3 mg/dl (1.8-2.4) Imaging MRI OF THE BRAIN WITHOUT AND WITH IV CONTRAST CLINICAL HISTORY: Right eye retinal occlusion. Hypertension. COMPARISON STUDY: Head CT dated 06/16/2016 TECHNIQUE: MRI of the brain was performed from the vertex to the skull base utilizing various T1 and T2 weighted sequences. Following the IV administration of 6 mL of Gadavist contrast, additional enhanced images were obtained. FINDINGS: Sagittal T1, axial diffusion, proton density and T2 weighted axial, coronal FLAIR, and pre and post axial T1-weighted images were acquired. These were supplemented with post gadolinium coronal T1 weighted images. No intra or extra-axial mass lesions are visualized. Axial diffusion-weighted images reveal scattered tiny foci of restricted water diffusion within the right frontal and parietal lobes, consistent with areas of acute infarction. There is no evidence of ventricular dilatation. Proton density T2-weighted and FLAIR images reveal moderate foci of increased T2 signal within the white matter, likely on a small vessel basis. 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 There are no abnormal flow voids. There are no pathologically enhancing masses. There are a few tiny foci of enhancement within the right hemisphere which may relate to enhancing areas of infarction. IMPRESSION: 1. Scattered small foci of acute/subacute infarcts within the anterior circulation of the right hemisphere. 2. No evidence of intracranial mass 3. Foci of increased T2 signal within the white matter likely a small vessel basis 4. Small foci of enhancement within the right hemisphere, likely secondary to enhancing areas of infarction Electronically signed by: Daniel Euceda M.D. 06/17/2016 6:23 AM Impression 1. 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 His vision seems to be fairly stable and, grossly, to confrontation he has a mild superior defect in the right eye in his visual field testing. 2. A few punctate scattered right hemispheric (middle cerebral artery distribution) acute stroke lesions. He has no neurologic deficits on examination and his NIH stroke scale equals 0 ( there is no score for a partial field defect in one eye) 3. Mild to moderate scattered old small vessel ischemic changes seen on MRI 4. Ultrasound with 50-69% stenosis of the left internal carotid artery with a normal MRI angiography of the head and neck, thus showing no significant arterial stenosis or occlusion. 5. Hypertension, which was significant on admission This is his most significant risk factor for stroke. I suspect hypertension has led to the acute right hemispheric tiny strokes and the right eye retinal occlusion. Embolic phenomenon cannot be excluded but there was no large vessel stenosis and echocardiogram showed no source of embolus 6. Bilateral hearing loss with hearing aids Plan 1. 81 mg aspirin tablet daily. 2. Since we could not find a source, I see no indication for anticoagulation. 3. Since his cholesterol was 160, he is not a candidate for high-dose statin therapy. 4. I have no further neurologic testing or treatment recommendations to make at this time except control blood pressure, keeping the mean arterial pressure around 100. The patient should follow-up with his primary care physician.
[2016-06-18] MEDS: ASPIRIN 81 MG ECTAB PO SCH (08:38)
[2016-06-18] MEDS: ATORVASTATIN 20 MG TAB PO SCH (08:38)
[2016-06-18] MEDS ORDERED: ENOXAPARIN 40 MG/0.4 ML SYR SQ SCH (09:00)
[2016-06-18] MEDS ORDERED: ASPEC81 PO (09:38)
--- NOTE | 2016-06-18 09:51 | Discharge Instructions ---
Discharge Instructions Date of Service Jun 18, 2016. Admission Reason for Admission: Retinal Artery Occlusion Discharge Discharge Diagnosis / Problem: retinal artery occlusion, small stroke Discharge Goals Goal(s): Diagnostic testing, Therapeutic intervention Activity Recommendations Activity Limitations: resume your previous activity . Instructions / Follow-Up Instructions / Follow-Up your retinal artery occlusion appears to have been due to a stroke, the MRI of your brain also showed small area of stroke in the brain as well --in your evaluation, we did not see any "traditional" risks for stroke ( typical ways that people clog arteries or throw clots to the brain); at this time the most appropriate treatment is to prevent future strokes with an 81mg aspirin. we also suspect you might be "hiding" high blood pressure that you weren't aware of. to determine this, please take the following steps: -get a home blood pressure cuff (arm cuff - the wrist cuffs are usually highly inaccurate) and check random blood pressure readings throughout the day, at different times, with and without activity, etc. Try to get somewhere on the order of 10 random readings a week (record what time of day, how you were feeling, and such, when you record the blood pressure --- as a francisco who clearly is good with technology, they do make cuffs that automatically bluetooth to an shan, making recording far easier). -follow up with Dr Scherer in 1-2 weeks - bring the readings with you, and bring the cuff as well, so they can check your blood pressure with their cuff and yours to ensure accuracy (obviously, save the receipt for yours until they' ve been able to check it) -if it appears that you do have underlying high blood pressure, he'll guide you from there on treatment -continue the healthy eating and exercise habits you already have carotid artery blockage -your LEFT carotid showed a blockage of about 50-69% (this sounds like an oddly wide range, but by ultrasound, blockages typically get categorized into that kind of a range) -since it is the opposite side of the stroke (and your right carotid was clear) this wasn't an immediate culprit for stroke, but rather represents a risk for future stroke -by guidelines, typically surgery to clean out the plaque is more beneficial for people with really high grade (somewhere in the greater than 80% blockage range) carotid blockages. at this point the left carotid blockage will be more of an issue of medication management (the aspirin, as well as possibly blood pressure medication depending on your readings; a statin is a bit controversial in your case - the argument for using it would be that statins stabilize plaques that are already in an artery, but the argument against would be with your cholesterol numbers being so good, people in your age range sometimes have overall higher rates of problems with treatment than without --- the best approach here will be to have ongoing risk/benefit discussions with Dr Scherer as the balance of risks/benefits may change as your situation changes). Dr Scherer will also follow up ultrasounds periodically to ensure the blockage isn't getting tighter. Risk Factors for Stroke: You can reduce your chances of stroke by working with your medical provider to adopt a healthy lifestyle. Some specific ways to lower your chance of stroke are: * If you are a smoker, now is the time to stop smoking cigarettes * If you are diabetic, improve the control of your blood sugars * Avoid excessive amounts of alcohol * Control high blood pressure * Lose weight if you are overweight * Be sure to lead an active lifestyle * Eat a healthy diet low in salt, cholesterol and fat You should know about other risk factors for stroke that you are unable to control. These include: * Age 55 years or older * Male gender * Certain racial groups: , or / * Family History of Stroke, Mini stroke or Heart Attack * Sickle Cell Disease Follow Up: It is important for you to keep your follow up appointments with your medical provider. Current Hospital Diet Patient's current hospital diet: AHA Diet (Heart Healthy) Discharge Diet Recommended Diet: AHA Diet (Heart Healthy) (continue your current diet - as you 've described it, you eat quite healthy) Pending Studies Studies pending at discharge: no Laboratory Results Hemoglobin A1c Test 06/17/16 05:05 Range/Units Estimated Average Glucose 117 mg/dl Hemoglobin A1c 5.7 H 4.5-5.6 % Lipid Panel Test 06/17/16 05:05 Range/Units Triglycerides Level 63 0-150 mg/dl Cholesterol Level 160 0-200 mg/dl HDL Cholesterol 66 mg/dl Cholesterol/HDL Ratio 2.4 LDL Cholesterol, Calculated 81 mg/dl Medical Emergencies . Who to Call and When: Medical Emergencies: Call 911 immediately if you experience any of the following warning signs and symptoms of Stroke: * Sudden numbness or weakness of the face, arm or leg, especially on one side of the body * Sudden confusion, trouble speaking or understanding * Sudden trouble seeing in one or both eyes * Sudden trouble walking, dizziness, loss of balance or coordination * Sudden severe headache with no cause Do not delay calling 911 if you experience any warning signs or symptoms of a stroke. Delay in seeking medical attention may affect what treatments can be given to you. . Non-Emergent Contact Non-Emergency issues call your: Primary Care Provider (follow up with Dr Scherer in 1-2 weeks) . . "Provider Documentation" section prepared by Willi Min. . Stroke Core Measures Reason no t-PA for Stroke: Treatment not indicated Reason no antithrom by day 2: Treatment provided - N/A Reason no antithrom at D/C: Treatment provided - N/A Reason no statin at D/C: Contraindicated (relative contraindication with age + lipid numbers - see above) Reason no anticoag w/a fib: Treatment not indicated VTE Core Measure Inpt VTE Proph given/why not?: Enoxaparin (Lovenox)SQ, SCD's
[2016-06-18 10:23] VITALS: BP 140/69; PULSE 64; TEMP 36.6; O2SAT 98
--- NOTE | 2016-06-18 14:15 | Discharge Summary ---
Discharge Summary Date of Service Jun 18, 2016. Discharge Summary Admission Date: Jun 18, 2016 at 08:04 Discharge Date: Jun 18, 2016 Discharge Disposition: Home Principal Diagnosis: CVA, retinal artery occlusion Procedures: echo: * Name: ISAI BANKS Study Date: 06/17/2016 09:32 AM BP: 146/74 mmHg * Patient Location: [facility]\S\1 HR: 61 * : 1935 (M/d/yyyy) Gender: Male Height: 67 in * Age: 81 yrs Ethnicity: [place] Weight: 130 lb * Ordering Physician: Dino Fine * Referring Physician: Self, Referred * Performed By: Kelby Diaz RDCS * * Reason For Study: STUDENT SPECIALIST Occlusion of the right eye * BSA: 1.7 m2 * -- Conclusions -- * 1. Normal LV size and wall thickness. * 2. Normal LV systolic function. LVEF 50-55%. No regional wall motion abnormalities. * 3. Normal RV size and function. * 4. Trace mitral regurgitation. * 5. Mild TR. Normal estimated PA and RA pressure. * 6. No prior study for comparison. Procedure Details * A complete two-dimensional transthoracic echocardiogram was performed (2D, M-mode, Doppler and color flow Doppler). * The study was technically adequate. Left Ventricle * The left ventricle is grossly normal size. * There is normal left ventricular wall thickness. * Ejection Fraction = 50-55%. * No regional wall motion abnormalities noted. Right Ventricle * The right ventricle is grossly normal size. * The right ventricular systolic function is normal as assessed by tricuspid annular plane systolic excursion (TAPSE) (normal >1.5 cm). Atria * The left atrial size is normal. * Right atrial size is normal. * No ASD detected; PFO is not assessed. Mitral Valve * The mitral valve is grossly normal. * There is mild mitral annular calcification. * Mitral stenosis is absent. * There is trace mitral regurgitation. Tricuspid Valve * The tricuspid valve is not well visualized, but is grossly normal. * There is no tricuspid stenosis. * There is mild tricuspid regurgitation. Aortic Valve * The aortic valve opens well. * The aortic valve is trileaflet. * No hemodynamically significant valvular aortic stenosis. * There is no significant aortic regurgitation. Pulmonic Valve * The pulmonary valve is not well seen, but the Doppler examination is normal without significant regurgitation or stenosis. Great Vessels * The aortic root and proximal ascending aorta are normal sized. * Normal inferior vena cava size and collapsability with sniff indicates a normal right atrial pressure of 3 mmHg * There is no evidence of pulmonary hypertension. The PA systolic pressure is less than 36 mmHg. Left Ventricular Diastolic Function * Grade I diastolic dysfunction, (abnormal relaxation pattern). carotids: [~ rep ct add3]] ULTRASOUND OF THE CAROTID ARTERIES CLINICAL HISTORY: Acute right hemispheric stroke COMPARISON STUDY: MR angiography neck dated 06/16/2016 TECHNIQUE: Real-time, grayscale, and color Doppler sonography of the carotid arteries was performed. Imaging reviewed in the transverse and longitudinal planes. NASCET criteria was utilized for stenosis calcification. FINDINGS: There is mild to moderate atherosclerotic plaque present left greater than right. The peak systolic velocity within the right internal carotid artery is 74 cm/sec. The systolic velocity ratio of right internal to common carotid artery is 1.0. The peak systolic velocity within the left internal carotid artery is 166 cm/sec. The systolic velocity ratio left internal to common carotid artery is 2.9. Antegrade flow is seen in the vertebral arteries. The external carotid arteries are patent. Blood pressure in the right arm measured 172 mm/Hg. Blood pressure in the left arm measured 180 mm/Hg. IMPRESSION: 1. 50-69% stenosis of the left internal carotid artery by velocity criteria. 2. No evidence of hemodynamically significant right internal carotid artery stenosis Electronically signed by: Daniel Euceda M.D. 06/17/2016 11:35 AM Dictated Date/Time: 06/17/2016 11:31 AM lipids/A1c: Hemoglobin A1c Test 06/17/16 05:05 Range/Units Estimated Average Glucose 117 mg/dl Hemoglobin A1c 5.7 H 4.5-5.6 % Lipid Panel Test 06/17/16 05:05 Range/Units Triglycerides Level 63 0-150 mg/dl Cholesterol Level 160 0-200 mg/dl HDL Cholesterol 66 mg/dl Cholesterol/HDL Ratio 2.4 LDL Cholesterol, Calculated 81 mg/dl MRI brain: MRI OF THE BRAIN WITHOUT AND WITH IV CONTRAST CLINICAL HISTORY: Right eye retinal occlusion. Hypertension. COMPARISON STUDY: Head CT dated 06/16/2016 TECHNIQUE: MRI of the brain was performed from the vertex to the skull base utilizing various T1 and T2 weighted sequences. Following the IV administration of 6 mL of Gadavist contrast, additional enhanced images were obtained. FINDINGS: Sagittal T1, axial diffusion, proton density and T2 weighted axial, coronal FLAIR, and pre and post axial T1-weighted images were acquired. These were supplemented with post gadolinium coronal T1 weighted images. No intra or extra-axial mass lesions are visualized. Axial diffusion-weighted images reveal scattered tiny foci of restricted water diffusion within the right frontal and parietal lobes, consistent with areas of acute infarction. There is no evidence of ventricular dilatation. Proton density T2-weighted and FLAIR images reveal moderate foci of increased T2 signal within the white matter, likely on a small vessel basis. 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 There are no abnormal flow voids. There are no pathologically enhancing masses. There are a few tiny foci of enhancement within the right hemisphere which may relate to enhancing areas of infarction. IMPRESSION: 1. Scattered small foci of acute/subacute infarcts within the anterior circulation of the right hemisphere. 2. No evidence of intracranial mass 3. Foci of increased T2 signal within the white matter likely a small vessel basis 4. Small foci of enhancement within the right hemisphere, likely secondary to enhancing areas of infarction Electronically signed by: Daniel Euceda M.D. 06/17/2016 6:23 AM Dictated Date/Time: 06/17/2016 6:16 AM other: Last Resulted CBC 06/18/16 05:20 Red Blood Count 4.03, Mean Corpuscular Volume 92.8, Mean Corpuscular Hemoglobin 32.8, Mean Corpuscular Hemoglobin Concent 35.3, Mean Platelet Volume 9.7, Neutrophils (%) (Auto) 42.2, Lymphocytes (%) (Auto) 34.4, Monocytes (%) (Auto) 16.5, Eosinophils (%) (Auto) 5.7, Basophils (%) (Auto) 1.0, Neutrophils # (Auto ) 1.77, Lymphocytes # (Auto) 1.44, Monocytes # (Auto) 0.69, Eosinophils # (Auto ) 0.24, Basophils # (Auto) 0.04 Last Resulted BMP 06/18/16 05:20 [~ rep ct add3]] HEAD CT NONCONTRAST CT DOSE: 687.98 mGy.cm HISTORY: Mental status change eval for CVA, rt retinal occlusion TECHNIQUE: Multiaxial CT images of the head were performed without the use of intravenous contrast. Comparison: None. Findings: The paranasal sinuses and mastoid air cells are clear. The calvarium and skull base are intact. The ventricles and sulci are within normal limits. There is no mass, hematoma, midline shift, or acute infarct. Mild age-related atrophy as well as chronic small vessel change. Impression: Age-related change. No acute process. Electronically signed by: Timbo Araujo M.D. 06/16/2016 8:03 PM Dictated Date/Time: 06/16/2016 8:02 PM Brain MRA HISTORY: MRA brain STUDENT SPECIALIST OCCLUSION RIGHT EYE TECHNIQUE: 3-D [id number] MRA of the brain was performed without contrast. COMPARISON STUDY: None. FINDINGS: Visualized intracranial internal carotid arteries, distal vertebral arteries, and basilar artery are widely patent. There is no significant stenosis, occlusion, or aneurysm seen within the bilateral ACAs, MCAs, or cupola operator insulation. IMPRESSION: No significant stenosis, occlusion, or aneurysm within the [place]. Electronically signed by: Timbo Araujo M.D. 06/16/2016 10:40 PM Dictated Date/Time: 06/16/2016 10:39 PM NECK MRA HISTORY: Visual change STUDENT SPECIALIST OCCLUSION RIGHT EYE TECHNIQUE: [id number] and gadolinium-enhanced MRA of the neck was performed both before and after the intravenous administration of contrast. All measurements were calculated based on NASCET criteria. COMPARISON STUDY: None. FINDINGS: Somewhat compromised exam technically due to patient motion There is no significant stenosis, occlusion, or dissection identified within the bilateral common carotid, internal carotid, or vertebral arteries. IMPRESSION: No significant stenosis, occlusion, or dissection identified within the carotid or vertebral arteries. Somewhat compromised exam technically due to patient motion Electronically signed by: Timbo Araujo M.D. 06/16/2016 11:03 PM Dictated Date/Time: 06/16/2016 11:01 PM CHEST ONE VIEW PORTABLE CLINICAL HISTORY: CHEST PAIN dyspnea COMPARISON STUDY: No previous studies for comparison. FINDINGS: Mild emphysematous change. Platelike atelectasis left base. No focal infiltrate. No evidence for cardiac enlargement. IMPRESSION: Chronic change. No acute process. Electronically signed by: Timbo Araujo M.D. 06/16/2016 7:30 PM Dictated Date/Time: 06/16/2016 7:30 PM Consultations: Neurology: Impression 1. 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 His vision seems to be fairly stable and, grossly, to confrontation he has a mild superior defect in the right eye in his visual field testing. 2. A few punctate scattered right hemispheric (middle cerebral artery distribution) acute stroke lesions. He has no neurologic deficits on examination and his NIH stroke scale equals 0 ( there is no score for a partial field defect in one eye) 3. Mild to moderate scattered old small vessel ischemic changes seen on MRI 4. Ultrasound with 50-69% stenosis of the left internal carotid artery with a normal MRI angiography of the head and neck, thus showing no significant arterial stenosis or occlusion. 5. Hypertension, which was significant on admission This is his most significant risk factor for stroke. I suspect hypertension has led to the acute right hemispheric tiny strokes and the right eye retinal occlusion. Embolic phenomenon cannot be excluded but there was no large vessel stenosis and echocardiogram showed no source of embolus 6. Bilateral hearing loss with hearing aids Plan 1. 81 mg aspirin tablet daily. 2. Since we could not find a source, I see no indication for anticoagulation. 3. Since his cholesterol was 160, he is not a candidate for high-dose statin therapy. 4. I have no further neurologic testing or treatment recommendations to make at this time except control blood pressure, keeping the mean arterial pressure around 100. The patient should follow-up with his primary care physician. 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, alert, normal mood/affect Skin: normal color, warm/dry Hospital Course retinal artery occlusion/ CVA -asa -secondary assessment fairly nil: echo/rhythm monitoring without cardioembolic source, carotid on L w 50-69% stenosis but R clear, A1c/lipids fairly good; BP is up but ?true HTN vs autoregulation -suspect has underlying HTN and unaware -- with this + age/male would certainly then have enough risks to explain atherosclerotic stroke and treatment would be asa, ?statin (controversial due to conflicting data given his age and lipid panel - would hold off for now), BP management -neuro input as above carotid artery disease -contralateral side to stroke so not significant in acute setting -see above for current med management -f/u serial carotid US as outpt mild hyponatremia -nonspecific ? mild SiADH from chronic lung changes as noted on CXR -outpt f/u DVT proph -lovenox stable for home ambulatory BP monitoring PCP 1-2wks Total Time Spent: Less than 30 minutes This includes examination of the patient, discharge planning, medication reconciliation, and communication with other providers. Discharge Instructions Please refer to the electronic Patient Visit Report (Discharge Instructions) for additional information. Additional Copies To Tanner Scherer M.D.
[2016-06-20 23:32] LABS: B2 GLYCOPROTEIN IGA <9 SAU (<=20); B2 GLYCOPROTEIN IGG <9 SGU (<=20); B2 GLYCOPROTEIN IGM <9 SMU (<=20); DRVVT MIX INTERPRETAION Not Indicated; LAC PTT SCREEN 43 sec (<=40); LUPUS ANTICOAGULANT** TC36573X Weak Positive (Negative); PHOSPHATIDYLSERINE IGA <20 U/mL (<20); PHOSPHATIDYLSERINE IGG <10 U/mL (<10); PHOSPHATIDYLSERINE IGM <25 U/mL (<25)
[2016-06-21 12:52] LABS: THROMBIN TIME(REFLEX!DO NOTORD 16 sec (13-19)
== END 2016-06-18 11:00 | disposition home or self-care (01) | DRG 65 ==
LOC: ENRESERVTM → ENRESERVDT → C.EDB 18:02 → C.MED 23:30 → OBSVTOIN 06-18 08:04
PROVIDERS: ADMIT Hospitalist; ATTEND Family Medicine
DX: I63.8 Other cerebral infarction (principal); H34.9 Unspecified retinal vascular occlusion; E87.1 Hypo-osmolality and hyponatremia; I65.22 Occlusion and stenosis of left carotid artery; I10 Essential (primary) hypertension; H54.61 Unqualified visual loss, right eye, normal vision left eye; H91.93 Unspecified hearing loss, bilateral; Z86.69 Personal history of other diseases of the nervous system and sense organs

== ENCOUNTER → 2016-08-28 | Outpatient (CLI) | payer OTHER ==
[~2016-08-28] MED LIST: ASPEC81 PO
--- NOTE | 2016-08-28 11:40 | DIAGNOSTIC IMAGING REPORT ---
RIGHT HIP UNILATERAL 2 VIEWS CLINICAL HISTORY: 81 year-old Male presenting with UNILATERAL PRIMARY OSTEOARTHRITIS R HIP Right. TECHNIQUE: Frontal and lateral views of the right hip were performed. COMPARISON: None. FINDINGS: Degenerative changes of the right hip joint with joint space loss predominantly superiorly. Subchondral sclerosis in both the femoral head and acetabulum noted. Osteophytosis also noted. The hip joint is congruent. No acute fracture or malalignment. IMPRESSION: 1. Degenerative changes of the right hip joint including joint space narrowing and subchondral sclerosis. Electronically signed by: Jese Ball 08/28/2016 11:39 AM Dictated Date/Time: 08/28/2016 11:34 AM
== END | disposition home or self-care (01) ==
LOC: C.RAD 10:35
PROVIDERS: ATTEND Family Medicine
DX: M16.11 Unilateral primary osteoarthritis, right hip (principal)

== ENCOUNTER 2017-04-16 16:14 | Inpatient (IN) | payer OTHER ==
[~2017-04-16] VITALS: Ht 170.2 cm; Wt 55.5 kg
--- NOTE | 2017-04-16 16:42 | EMERGENCY ROOM VISIT NOTE ---
History Report prepared by Feli: Sabra Luevano Under the Supervision of: Dr. Tanner Burnett D.O. First contact with patient: 16:17 Stated Complaint: REFFERED BY PCP TO RULE OUT CVA, HIP FX & PNX History of Present Illness The patient is an 82 year old male who presents to the Emergency Room with complaints of persistent right hip pain starting several months ago. The patient was referred to the ED by his PCP to rule out a hip fracture, pneumonia , and stroke. The patient denies any injury or swelling to his right hip. The pain worsens with lying flat. He has had a cough for the past week. He is having rib pain from the cough. He has had diarrhea for the past 5 days. He denies any back pain, fever, SOB, or abdominal pain. He states that he has been gradually getting weaker, but denies any new weakness. He has a history of mini stroke 5-6 months ago. Source of History: patient, EMS Onset: several months ago Position: other (right hip) Quality: other (pain) Timing: other (persistent) Modifying Factors (Worsening): other (lying flat) Associated Symptoms: + cough, + diarrhea, No fevers, No SOB, No abdominal pain, No back pain, No weakness Review of Systems See HPI for pertinent positives & negatives. A total of 10 systems reviewed and were otherwise negative. Past Medical & Surgical Medical Problems: (1) Hyponatremia (2) Migraine Family History FHx: cancer Stroke Social History Smoking Status: Never Smoker Alcohol Use: occasionally Drug Use: none Marital Status: Housing Status: lives with family Occupation Status: retired Current/Historical Medications Scheduled Aspirin (Aspirin EC Low Dose), 81 MG PO QAM Oseltamivir (Tamiflu), 75 MG PO BID Allergies Coded Allergies: No Known Allergies (Unverified , 06/16/16) Physical Exam Vital Signs Date Time Temp Pulse Resp B/P (MAP) Pulse Ox O2 Delivery O2 Flow Rate FiO2 04/16/17 18:34 73 18 177/67 97 Room Air 04/16/17 17:37 69 18 154/74 94 Room Air 04/16/17 16:47 96 Room Air 04/16/17 16:33 36.9 78 18 160/84 94 Room Air 04/16/17 16:33 94 Room Air Physical Exam GENERAL: Patient is awake, alert, and in no acute distress. Patient is resting comfortably and showing no signs of anxiety EYES: The conjunctivae are clear. The pupils are round and reactive. EARS, NOSE, MOUTH AND THROAT: The nose is without any evidence of any deformity. Mucous membranes are moist tongue is midline NECK: The neck is nontender and supple. RESPIRATORY: Normal respiratory effort is noted there is no evidence of wheezing rhonchi or rales CARDIOVASCULAR: Regular rate and rhythm noted there no murmurs rubs or gallops normal S1 normal S2 GASTROINTESTINAL: The abdomen is soft. Bowel sounds are present in all quadrants. Abdomen is nontender BACK: No midline tenderness or or step-off noted range of motion in flexion extension as well as rotation no signs of muscle spasm noted MUSCULOSKELETAL/EXTREMITIES: There is no deformity or decreased ROM in either lower extremity, but there was tenderness over the lateral aspect of the right hip. SKIN: There is no obvious evidence of any rash. There are no petechiae, pallor or cyanosis noted. NEUROLOGIC: Patient is awake alert and oriented x3 strength is symmetric patellar reflexes are 2+ bilaterally Medical Decision & Procedures ER Provider Diagnostic Interpretation: X-ray results as stated below per interpretation by me and the radiologist. Radiology results as stated below per my review and radiologist interpretation: CHEST ONE VIEW PORTABLE CLINICAL HISTORY: CHEST PAIN dyspnea COMPARISON STUDY: 06/16/2016 FINDINGS: Minimal chronic atelectatic change left base. Mild emphysematous change. No well-defined focal infiltrate. IMPRESSION: Chronic atelectasis left base. Mild emphysematous change. No acute process. The above report was generated using voice recognition software. It may contain grammatical, syntax or spelling errors. Electronically signed by: Timbo Araujo M.D. 04/16/2017 4:54 PM Dictated Date/Time: 04/16/2017 4:53 PM R PELVIS/UNILATERAL HIP 2-3VIEWS CLINICAL HISTORY: sent by PCP or xays pain COMPARISON: 08/28/2016 DISCUSSION: Degenerative change right hip similar as compared to the prior study. Moderate subchondral cyst formation. Reactive sclerosis of the acetabular margin. No evidence for acetabular protrusion. No evidence for fracture or dislocation. There is no evidence for soft tissue swelling. IMPRESSION: Significant degenerative change right femoral head unchanged from the prior study of 2017. No acute process. No evidence for fracture. The above report was generated using voice recognition software. It may contain grammatical, syntax or spelling errors. Electronically signed by: Timbo Araujo M.D. 04/16/2017 4:55 PM Dictated Date/Time: 04/16/2017 4:[address]AST CT DOSE: 729.78 mGycm HISTORY: sent by PCP for possible CVA, vision loss, right eye TECHNIQUE: Multiaxial CT images of the head were performed without the use of intravenous contrast. Automated exposure control was utilized for this study. A dose lowering technique was utilized adhering to the principles of ALARA. Comparison: Head CT 06/16/2016. Findings: Mild motion artifact. Trace fluid level within the right maxillary sinus. The mastoid air cells are clear. The calvarium and skull base are intact. There is no mass, hematoma, midline shift, acute infarct. White matter hypodensity is nonspecific but suggestive of microvascular ischemic change. The ventricles and sulci demonstrate mild age-related involutional changes. Impression: No acute intracranial abnormality. Atrophy and microvascular ischemic changes. Trace fluid within the right maxillary sinus. Electronically signed by: Charlie Nicole M.D. 04/16/2017 5:14 PM Dictated Date/Time: 04/16/2017 5:08 PM Laboratory Results 04/16/17 16:50 Red Blood Count 3.98, Mean Corpuscular Volume 90.2, Mean Corpuscular Hemoglobin 32.7, Mean Corpuscular Hemoglobin Concent 36.2, Mean Platelet Volume 8.9, Neutrophils (%) (Auto) 64.3, Lymphocytes (%) (Auto) 23.1, Monocytes (%) (Auto) 11.8, Eosinophils (%) (Auto) 0.2, Basophils (%) (Auto) 0.4, Neutrophils # (Auto ) 3.26, Lymphocytes # (Auto) 1.17, Monocytes # (Auto) 0.60, Eosinophils # (Auto ) 0.01, Basophils # (Auto) 0.02 04/16/17 16:50 Test 04/16/17 16:45 04/16/17 16:50 Influenza Type A Antigen POS for Influ A (NEG) Influenza Type B Antigen Neg for Influ B (NEG) White Blood Count 5.07 K/uL (4.8-10.8) Red Blood Count 3.98 M/uL (4.7-6.1) Hemoglobin 13.0 g/dL (14.0-18.0) Hematocrit 35.9 % (42-52) Mean Corpuscular Volume 90.2 fL (80-100) Mean Corpuscular Hemoglobin 32.7 pg (25-34) Mean Corpuscular Hemoglobin Concent 36.2 g/dl (32-36) Platelet Count 156 K/uL (130-400) Mean Platelet Volume 8.9 fL (7.4-10.4) Neutrophils (%) (Auto) 64.3 % Lymphocytes (%) (Auto) 23.1 % Monocytes (%) (Auto) 11.8 % Eosinophils (%) (Auto) 0.2 % Basophils (%) (Auto) 0.4 % Neutrophils # (Auto) 3.26 K/uL (1.4-6.5) Lymphocytes # (Auto) 1.17 K/uL (1.2-3.4) Monocytes # (Auto) 0.60 K/uL (0.11-0.59) Eosinophils # (Auto) 0.01 K/uL (0-0.5) Basophils # (Auto) 0.02 K/uL (0-0.2) RDW Standard Deviation 41.0 fL (36.4-46.3) RDW Coefficient of Variation 12.4 % (11.5-14.5) Immature Granulocyte % (Auto) 0.2 % Immature Granulocyte # (Auto) 0.01 K/uL (0.00-0.02) Prothrombin Time 10.2 SECONDS (9.0-12.0) Prothromb Time International Ratio 1.0 (0.9-1.1) Activated Partial Thromboplast Time 32.4 SECONDS (21.0-31.0) Partial Thromboplastin Ratio 1.2 Anion Gap 12.0 mmol/L (3-11) Est Creatinine Clear Calc Drug Dose 40.0 ml/min Estimated GFR () 78.6 Estimated GFR (Non- 67.8 BUN/Creatinine Ratio 17.4 (10-20) Calcium Level 8.7 mg/dl (8.5-10.1) Total Bilirubin 0.5 mg/dl (0.2-1) Direct Bilirubin 0.2 mg/dl (0-0.2) Aspartate Amino Transf (AST/SGOT) 58 U/L (15-37) Alanine Aminotransferase (ALT/SGPT) 37 U/L (12-78) Alkaline Phosphatase 64 U/L (45-117) Total Creatine Kinase 462 U/L (39-308) Creatine Kinase MB 2.5 ng/ml (0.5-3.6) Creatine Kinase MB Ratio 0.5 (0-3.0) Troponin I 0.018 ng/ml (0-0.045) Total Protein 7.7 gm/dl (6.4-8.2) Albumin 3.5 gm/dl (3.4-5.0) Lipase 178 U/L (73-393) Laboratory results per my review. Medications Administered Medications (Trade) Dose Ordered Sig/Carmen Route Start Time Stop Time Status Last Admin Dose Admin Oseltamivir Phosphate (Tamiflu Cap) 75 mg NOW STAT PO 04/16/17 17:31 04/16/17 17:32 DC 04/16/17 17:44 75 MG Sodium Chloride 1,000 ml @ 80 mls/hr [id number] IV 04/16/17 18:59 05/16/17 18:58 04/16/17 21:20 80 MLS/HR ECG Per My Interpretation Indication: weakness Rate (beats per minute): 74 Rhythm: normal sinus Findings: nonspecific-ST abn (Inferior, Lateral), no ectopy Comparison ECG Date: 18-Jun-2016 Change: no significant change ED Course 1621: The patient was evaluated in room C5. A complete history and physical examination were performed. 1723: I reevaluated the patient. I updated him on the results. 1731: Tamiflu Cap 75 mg PO. 1736: I discussed the patient's case with Dr. Stringer, [facility]. He was worried about the patient's ataxia. 1743: I reevaluated the patient. I updated him on the results. 1827: Upon reevaluation, the patient is resting comfortably. I discussed results and treatment plan with him. He verbalizes agreement and understanding. The patient will be evaluated for further management and care. 1831: I discussed the patient's case with Dr. Burdick, [facility] hospitalist. The patient will be evaluated for further management. Medical Decision Prior records reviewed and summarized above. Triage Nursing notes reviewed. Additional history obtained from EMS. The patient's history was concerning for right hip pain. Differential diagnosis: Etiologies such as fracture, dislocation, neurovascular compromise, compartment syndrome, soft tissue injury, as well as others were entertained. The patient is an 82-year-old male who presented to the emergency department for an evaluation of generalized weakness and ataxia. The patient was seen at his primary care physician's office and sent to the emergency department for further evaluation. Patient also has a history of right hip pain. This appears to be consistent with arthritis of the hip. I discussed the patient's laboratory and radiographic studies with him. He has also been complaining of cough and has a positive flu swab at this time. The patient has very significant ataxia and was also found to have hyponatremia. Given the patient' s overall findings I discussed his case with the on-call [facility] hospitalist. They have agreed to evaluate the patient in the emergency department for further management and disposition. Head Trauma GCS Score: 15 Medication Reconcilliation Current Medication List: was personally reviewed by me Blood Pressure Screening Patient's blood pressure: Elevated blood pressure Blood pressure disposition: Elevated BP felt to be situational Consults Time Called: 173 Consulting Physician: Dr. Stringer, [facility] Returned Call: 173 I discussed the patient's case with him. He was worried about the patient's ataxia. Additional Consults: Time Called: 1828 Consulted Physician: Dr. Burdick, [facility] hospitalist Returned Call: 1832 Additional Comments: I discussed the patient's case with her. The patient will be evaluated for further management. Impression Primary Impression: Arthritis of right hip Additional Impressions: Influenza Weakness Hyponatremia Scribe Attestation The scribe's documentation has been prepared under my direction and personally reviewed by me in its entirety. I confirm that the note above accurately reflects all work, treatment, procedures, and medical decision making performed by me. Departure Information Dispostion Being Evaluated By Hospitalist Prescriptions Oseltamivir (Tamiflu) 75 Mg Cap 75 MG PO BID, #10 CAP Prov: Tanner Burnett, DO 04/16/17 Referrals Tanner Scherer M.D. (PCP) Problem Qualifiers
--- NOTE | 2017-04-16 16:55 | DIAGNOSTIC IMAGING REPORT ---
CHEST ONE VIEW PORTABLE CLINICAL HISTORY: CHEST PAIN dyspnea COMPARISON STUDY: 06/16/2016 FINDINGS: Minimal chronic atelectatic change left base. Mild emphysematous change. No well-defined focal infiltrate. IMPRESSION: Chronic atelectasis left base. Mild emphysematous change. No acute process. The above report was generated using voice recognition software. It may contain grammatical, syntax or spelling errors. Electronically signed by: Timbo Araujo M.D. 04/16/2017 4:54 PM Dictated Date/Time: 04/16/2017 4:53 PM
--- NOTE | 2017-04-16 16:57 | DIAGNOSTIC IMAGING REPORT ---
R PELVIS/UNILATERAL HIP 2-3VIEWS CLINICAL HISTORY: sent by PCP or xays pain COMPARISON: 08/28/2016 DISCUSSION: Degenerative change right hip similar as compared to the prior study. Moderate subchondral cyst formation. Reactive sclerosis of the acetabular margin. No evidence for acetabular protrusion. No evidence for fracture or dislocation. There is no evidence for soft tissue swelling. IMPRESSION: Significant degenerative change right femoral head unchanged from the prior study of 2017. No acute process. No evidence for fracture. The above report was generated using voice recognition software. It may contain grammatical, syntax or spelling errors. Electronically signed by: Timbo Araujo M.D. 04/16/2017 4:55 PM Dictated Date/Time: 04/16/2017 4:54 PM
[2017-04-16 17:00] LABS: BASO % 0.4 %; BASO ABS # 0.02 K/uL (0-0.2); EOS % 0.2 %; EOS ABS # 0.01 K/uL (0-0.5); HEMATOCRIT 35.9 % (42-52); IG# 0.01 K/uL (0.00-0.02); LYMPH % 23.1 %; LYMPH ABS # 1.17 K/uL (1.2-3.4); MEAN CELL VOLUME 90.2 fL (80-100); MEAN CORPUSCULAR HEMOGLOBIN 32.7 pg (25-34); MEAN CORPUSCULAR HGB CONC 36.2 g/dl (32-36); MEAN PLATELET VOLUME 8.9 fL (7.4-10.4); MONO % 11.8 %; NEUT % 64.3 %; NEUT ABS # 3.26 K/uL (1.4-6.5); PLATELET COUNT 156 K/uL (130-400); RED CELL DISTRIBUTION WIDTH CV 12.4 % (11.5-14.5); WHITE BLOOD COUNT 5.07 K/uL (4.8-10.8)
[2017-04-16 17:10] LABS: PTT PATIENT 32.4 SECONDS (21.0-31.0)
[2017-04-16 17:16] LABS: ALBUMIN 3.5 gm/dl (3.4-5.0); CALCIUM 8.7 mg/dl (8.5-10.1); CREATININE 1.03 mg/dl (0.60-1.40); POTASSIUM 3.9 mmol/L (3.5-5.1)
--- NOTE | 2017-04-16 17:16 | DIAGNOSTIC IMAGING REPORT ---
HEAD CT NONCONTRAST CT DOSE: 729.78 mGycm HISTORY: sent by PCP for possible CVA, vision loss, right eye TECHNIQUE: Multiaxial CT images of the head were performed without the use of intravenous contrast. Automated exposure control was utilized for this study. A dose lowering technique was utilized adhering to the principles of ALARA. Comparison: Head CT 06/16/2016. Findings: Mild motion artifact. Trace fluid level within the right maxillary sinus. The mastoid air cells are clear. The calvarium and skull base are intact. There is no mass, hematoma, midline shift, acute infarct. White matter hypodensity is nonspecific but suggestive of microvascular ischemic change. The ventricles and sulci demonstrate mild age-related involutional changes. Impression: No acute intracranial abnormality. Atrophy and microvascular ischemic changes. Trace fluid within the right maxillary sinus. Electronically signed by: Charlie Nicole M.D. 04/16/2017 5:14 PM Dictated Date/Time: 04/16/2017 5:08 PM
[2017-04-16 17:22] LABS: CKMB 2.5 ng/ml (0.5-3.6); TOTAL PROTEIN 7.7 gm/dl (6.4-8.2)
[2017-04-16 17:23] LABS: INFLUENZA B ANTIGEN Neg for Influ B (NEG)
[2017-04-16] MEDS ORDERED: OSELTAMIVIR PHOSPHATE 75 MG CAP PO STA (17:31)
[2017-04-16] MEDS ORDERED: OSEL75CA12 PO (17:34)
[2017-04-16] MEDS ORDERED: MAGNESIUM HYDROXIDE SUSP 30 ML UDC PO PRN (19:00)
[2017-04-16] MEDS ORDERED: ACETAMINOPHEN 325 MG TAB PO PRN (19:00)
[2017-04-16] MEDS ORDERED: ONDANSETRON INJ 2 MG/ML 2 ML VIAL IV PRN (19:00)
--- NOTE | 2017-04-16 19:30 | History and Physical ---
History & Physical Date & Time of Service: Apr 16, 2017 at 19:06 Chief Complaint: Reffered By Pcp To Rule Out Cva, Hip Fx & Pnx Primary Care Physician: Tanner Scherer M.D. History of Present Illness Source: patient, spouse 82 y/o M c/o weakness and falls. Pt states he has had R hip pain for months, but it got much worse over the last week and he has had several falls over the last week as well. He denies feeling dizzy or lightheaded. His states that he is walking along and suddenly falls backwards. He feels he cannot hold himself when this is happening, but just prior he is fine. states he is also having issues getting up out of a chair. He starts to stand and then falls backwards into the chair at times. He has had no falls today. He went to see his PCP today for this issue and was sent to the ED by the resident physician. His has flu and pt has started to have similar sx as well. He has had decreased PO intake with this and has had diarrhea for several days. He generally gets a good amount of sodium from their diet as they use sea salt and eat a lot of salty foods like seaweed and millet crackers. This has been down lately due to generally decreased appetite. He drinks a large water bottle of fluids daily and he cannot really say if this has been down or not with his decreased appetite. Pt denies fever, SOB, chest pain, abd pain, n/v/c/d, LE swelling. 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 Hx of hypoNa, baseline 130 Family History FHx: cancer Stroke Father with CVA at 61 y/o Social History Smoking Status: Never Smoker Alcohol Use: occasionally (small glass of wine several nights per week, none recently) Drug Use: none Marital Status: Housing status: lives with family Occupational Status: retired Multi-Drug Resistant Organisms History of MDRO: No Allergies Coded Allergies: No Known Allergies (Unverified , 06/16/16) Home Medications Scheduled Aspirin (Aspirin EC Low Dose), 81 MG PO QAM Oseltamivir (Tamiflu), 75 MG PO BID Review of Systems Pertinent positives and negatives reviewed in HPI--all others negative Physical Exam Vital Signs Date Time Temp Pulse Resp B/P (MAP) Pulse Ox O2 Delivery O2 Flow Rate FiO2 04/16/17 18:34 73 18 177/67 97 Room Air 04/16/17 17:37 69 18 154/74 94 Room Air 04/16/17 16:47 96 Room Air 04/16/17 16:33 36.9 78 18 160/84 94 Room Air 04/16/17 16:33 94 Room Air General Appearance: no apparent distress, + thin Head: normocephalic, atraumatic Eyes: EOMI, sclerae normal Respiratory/Chest: normal breath sounds, no respiratory distress Cardiovascular: regular rate, rhythm, no edema Abdomen/GI: non tender, soft Extremities/Musculoskelatal: no calf tenderness, no pedal edema Neurologic/Psych: alert, normal mood/affect, oriented x 3 Skin: normal color, warm/dry Diagnostics Laboratory Results Results Past 24 Hours Test 04/16/17 16:45 04/16/17 16:50 Range/Units Influenza Type A Antigen POS for Influ A NEG Influenza Type B Antigen Neg for Influ B NEG White Blood Count 5.07 4.8-10.8 K/uL Red Blood Count 3.98 4.7-6.1 M/uL Hemoglobin 13.0 14.0-18.0 g/dL Hematocrit 35.9 42-52 % Mean Corpuscular Volume 90.2 80-100 fL Mean Corpuscular Hemoglobin 32.7 25-34 pg Mean Corpuscular Hemoglobin Concent 36.2 32-36 g/dl Platelet Count 156 130-400 K/uL Mean Platelet Volume 8.9 7.4-10.4 fL Neutrophils (%) (Auto) 64.3 % Lymphocytes (%) (Auto) 23.1 % Monocytes (%) (Auto) 11.8 % Eosinophils (%) (Auto) 0.2 % Basophils (%) (Auto) 0.4 % Neutrophils # (Auto) 3.26 1.4-6.5 K/uL Lymphocytes # (Auto) 1.17 1.2-3.4 K/uL Monocytes # (Auto) 0.60 0.11-0.59 K/uL Eosinophils # (Auto) 0.01 0-0.5 K/uL Basophils # (Auto) 0.02 0-0.2 K/uL RDW Standard Deviation 41.0 36.4-46.3 fL RDW Coefficient of Variation 12.4 11.5-14.5 % Immature Granulocyte % (Auto) 0.2 % Immature Granulocyte # (Auto) 0.01 0.00-0.02 K/uL Prothrombin Time 10.2 9.0-12.0 SECONDS Prothromb Time International Ratio 1.0 0.9-1.1 Activated Partial Thromboplast Time 32.4 21.0-31.0 SECONDS Partial Thromboplastin Ratio 1.2 Sodium Level 123 136-145 mmol/L Potassium Level 3.9 3.5-5.1 mmol/L Chloride Level 89 98-107 mmol/L Carbon Dioxide Level 22 21-32 mmol/L Anion Gap 12.0 3-11 mmol/L Blood Urea Nitrogen 18 7-18 mg/dl Creatinine 1.03 0.60-1.40 mg/dl Est Creatinine Clear Calc Drug Dose 40.0 ml/min Estimated GFR () 78.6 Estimated GFR (Non- 67.8 BUN/Creatinine Ratio 17.4 10-20 Random Glucose 85 70-99 mg/dl Calcium Level 8.7 8.5-10.1 mg/dl Total Bilirubin 0.5 0.2-1 mg/dl Direct Bilirubin 0.2 0-0.2 mg/dl Aspartate Amino Transf (AST/SGOT) 58 15-37 U/L Alanine Aminotransferase (ALT/SGPT) 37 12-78 U/L Alkaline Phosphatase 64 45-117 U/L Total Creatine Kinase 462 39-308 U/L Creatine Kinase MB 2.5 0.5-3.6 ng/ml Creatine Kinase MB Ratio 0.5 0-3.0 Troponin I 0.018 0-0.045 ng/ml Total Protein 7.7 6.4-8.2 gm/dl Albumin 3.5 3.4-5.0 gm/dl Lipase 178 73-393 U/L Diagnostic Radiology CXR neg CT head: neg for CVA but does note trace R maxillary sinus fluid R Hip XR neg for acute but with significant femoral head degeneration Normal EKG Impression Assessment and Plan 82 y/o M who was admitted on 04/16 for admission for weakness and falls. Weakness and falls: Likely multifactorial in the setting of hypoNa and flu + B12 pending PT/OT pending CT head neg for CVA however with trace R maxillary sinus fluid which could be contributing as well R Hip XR neg for acute but with significant femoral head degeneration HypoNa: in the setting of poor PO intake and diarrhea NaCl tab 0.5mg and IVF Monitor Baseline is 130 Flu A+: tamiflu, IVF Hx of CVA: continue aspirin Other: Full code Reg diet SCDs for DVT proph Level of Care Telemetry Resuscitation Status FULL RESUSCITATION VTE Prophylaxis VTE Risk Assessment Done? Y/N: Yes Risk Level: Low
[2017-04-16 20:24] VITALS: BP 184/87; PULSE 76; TEMP 36.9; O2SAT 97
[2017-04-16] MEDS ORDERED: SODIUM CHLORIDE 1 GM TAB PO ONE (20:30)
[2017-04-16 20:55] VITALS: BP 184/87; PULSE 76; TEMP 36.9; BMI 17.4
[2017-04-16] MEDS: SODIUM CHLORIDE 0.9% 1000ML 1,000 ML IV SCH (21:20)
[2017-04-16 23:50] VITALS: O2SAT 97
[2017-04-16 23:58] VITALS: BP 170/84; PULSE 79; TEMP 37.4; O2SAT 95
[2017-04-17] VITALS (8 sets, daily range): BP systolic 160–187; BP diastolic 81–99; PULSE 71–86; TEMP 36.4–37; O2SAT 94–97; Ht 170.2 cm; Wt 55.5 kg
[2017-04-17] MEDS ORDERED: NURSING VERBAL MED ORDER ONE (02:15)
[2017-04-17] MEDS ORDERED: INFLUENZA ADMINISTRATION CHARGE ONE (03:45)
[2017-04-17] MEDS ORDERED: PNEUMOCOCCAL ADMINISTRATION CHARGE ONE (03:45)
[2017-04-17] MEDS ORDERED: INFLUENZA VACCINE HIGH DOSE 65+ 0.5 ML SYR IM. ONE (03:45)
[2017-04-17] MEDS ORDERED: PNEUMOCOCCAL POLYSACCHARIDES 25 MCG/0.5 ML VIAL/SYR IM. ONE (03:45)
[2017-04-17] MEDS: BENZONATATE 100MG CAP PO PRN ×2 (05:00→08:04)
[2017-04-17 07:43] LABS: CALCIUM 7.9 mg/dl (8.5-10.1); CREATININE 0.81 mg/dl (0.60-1.40); POTASSIUM 3.5 mmol/L (3.5-5.1)
[2017-04-17] MEDS: OSELTAMIVIR PHOSPHATE SUSP 30 MG/5 ML UDP PO SCH ×2 (08:04→20:45)
[2017-04-17] MEDS: SODIUM CHLORIDE 0.9% 1000ML 1,000 ML IV SCH ×2 (08:06→20:07)
[2017-04-17] MEDS: ASPIRIN 81 MG ECTAB PO SCH (08:06)
[2017-04-17 14:31] LABS: CALCIUM 8.3 mg/dl (8.5-10.1); CREATININE 0.93 mg/dl (0.60-1.40); POTASSIUM 3.6 mmol/L (3.5-5.1)
--- NOTE | 2017-04-17 15:45 | Family Medicine Progress Note ---
Progress Note Date of Service Apr 17, 2017. Subjective Pt evaluation today including: conversation w/ patient, conversation w/ family , physical exam, chart review, lab review, review of studies Pain: No pain reported Voiding: no voiding problems, no incontinence Patient states he is feeling more steady and alert today since being admitted. He state he had been feeling unwell for the last several weeks but over the last week specifically was having flu like symptoms and diarrhea. Patient continues to have mild hip pain at this time. Additional Comments: See HPI for pertinent positives and negatives. A total of ten systems were reviewed and were otherwise negative. Medications Current Inpatient Medications Medications (Trade) Dose Ordered Sig/Carmen Route Start Time Stop Time Status Last Admin Dose Admin Sodium Chloride 1,000 ml @ 80 mls/hr [id number] IV 04/16/17 18:59 05/16/17 18:58 04/17/17 20:07 80 MLS/HR Acetaminophen (Tylenol Tab) 650 mg Q4H PRN PO 04/16/17 19:00 05/16/17 18:59 Magnesium Hydroxide (Milk Of Magnesia Susp) 30 ml Q12H PRN PO 04/16/17 19:00 05/16/17 18:59 Ondansetron HCl (Zofran Inj) 4 mg Q6H PRN IV 04/16/17 19:00 05/16/17 18:59 Aspirin (Ecotrin Tab) 81 mg QAM PO 04/17/17 09:00 05/17/17 08:59 04/17/17 08:06 81 MG Oseltamivir Phosphate (Tamiflu Susp) 30 mg BID PO 04/17/17 09:00 04/22/17 08:59 04/17/17 20:45 30 MG Benzonatate (Tessalon Perles Cap) 100 mg TID PRN PO 04/17/17 02:15 05/17/17 02:14 04/17/17 08:04 100 MG Objective Vital Signs Date Time Temp Pulse Resp B/P (MAP) Pulse Ox O2 Delivery O2 Flow Rate FiO2 04/17/17 15:55 36.4 73 20 161/92 (115) 95 04/17/17 15:34 36.9 79 18 163/89 (113) 96 Room Air 174/85 (114) 04/17/17 14:03 37.0 77 18 96 04/17/17 12:00 Room Air 04/17/17 11:44 37.0 77 18 187/99 (128) 96 Room Air 04/17/17 08:00 Room Air 04/17/17 07:32 37.0 75 18 160/81 (107) 94 Room Air 04/17/17 04:43 97 Room Air 04/17/17 04:10 37.0 71 20 164/87 (112) 96 Room Air 04/16/17 23:58 37.4 79 20 170/84 (112) 95 Room Air 04/16/17 23:50 97 Room Air Physical Exam General Appearance: WD/WN, no apparent distress Eyes: normal inspection, sclerae normal Neck: supple, no carotid bruits, trachea midline Respiratory/Chest: chest non-tender, lungs clear, normal breath sounds Cardiovascular: regular rate, rhythm, no edema, no gallop Abdomen: soft, no organomegaly, no pulsatile mass Neurologic/Psychiatric: alert, normal mood/affect, oriented x 3 Laboratory Results Results Past 24 Hours Test 04/17/17 06:49 04/17/17 13:44 Range/Units Sodium Level 126 124 136-145 mmol/L Potassium Level 3.5 3.6 3.5-5.1 mmol/L Chloride Level 94 93 98-107 mmol/L Carbon Dioxide Level 21 20 21-32 mmol/L Anion Gap 11.0 11.0 3-11 mmol/L Blood Urea Nitrogen 13 17 7-18 mg/dl Creatinine 0.81 0.93 0.60-1.40 mg/dl Est Creatinine Clear Calc Drug Dose 56.1 48.9 ml/min Estimated GFR () 96.6 88.9 Estimated GFR (Non- 83.4 76.7 BUN/Creatinine Ratio 15.5 18.5 10-20 Random Glucose 68 100 70-99 mg/dl Calcium Level 7.9 8.3 8.5-10.1 mg/dl Vitamin B12 Level > 2000 211-911 pg/mL Assessment and Plan Generalized weakness and falls in the setting of Hyponatremia and falls - PT/OT --> Currently Recommend continued P.T. & pt return home c home health services. - CT head neg for CVA - X-Ray of Right Hip - No acute fractures --> significant femoral neck degeneration - B12 normal Hyponatremia - Most likely secondary to poor oral intake and diarrhea in the setting of influenza - Na 126 this afternoon (baseline 130) - Normal Saline at 80mls/hr - Hold NaCl tabs at this time due acute increase in Na overnight Influenza A - Rapid flu testing positive - Tamiflu 75mg BID Hx of CVA - Aspirin DVT - SCDs Code Status - Full Resuscitation Resident Physician Supervision Note: I interviewed and examined the patient. Discussed with Dr. Guzman and agree with findings and plan as documented in the note. Any exceptions or clarifications are listed here: None Documented By: Willi Min feeling better still coughing discussed hyponatremia vitals noted nad breathing unlabored no pallor or icterus flu - improving hyponatremia - improving stable for med surg, otheriwse as above Resident Tracking Resident Involvement: Resident Care Provided Care Provided: Adult Hospital Medicine
[2017-04-18] MEDS ORDERED: DIGE1CAP PO (01:50)
[2017-04-18] MEDS ORDERED: IODI1MIS PO (01:51)
[2017-04-18] MEDS ORDERED: FOLI1POW10 PO (01:52)
[2017-04-18] MEDS ORDERED: MULTTAB58 PO (01:54)
[2017-04-18] MEDS ORDERED: OMEG10007 PO (01:55)
[2017-04-18 06:59] VITALS: BP 146/81; PULSE 77; TEMP 36.6; O2SAT 93
[2017-04-18] MEDS: OSELTAMIVIR PHOSPHATE SUSP 30 MG/5 ML UDP PO SCH (07:11)
[2017-04-18] MEDS: ASPIRIN 81 MG ECTAB PO SCH (07:11)
[2017-04-18] MEDS: SODIUM CHLORIDE 0.9% 1000ML 1,000 ML IV SCH (07:12)
[2017-04-18 08:07] VITALS: O2SAT 93
[2017-04-18 08:10] LABS: CALCIUM 8.1 mg/dl (8.5-10.1); CREATININE 0.83 mg/dl (0.60-1.40); POTASSIUM 3.2 mmol/L (3.5-5.1)
[2017-04-18] MEDS ORDERED: POTASSIUM CHLORIDE 20 MEQ TABCR PO STA (10:31)
[2017-04-18] MEDS ORDERED: OSEL75CA12 PO (11:05)
[2017-04-18] MEDS ORDERED: BENZ100C7 PO (11:05)
[2017-04-18 11:21] VITALS: BP 146/81; PULSE 77; TEMP 36.6; O2SAT 93
--- NOTE | 2017-04-18 11:22 | Discharge Instructions ---
Discharge Instructions Date of Service Apr 18, 2017. Admission Reason for Admission: Hyponatremia Discharge Discharge Diagnosis / Problem: Generalized weakness secondary to influenza and hyponatremia Discharge Goals Goal(s): Decrease discomfort, Therapeutic intervention Activity Recommendations Activity Limitations: as noted below Lifting Limitations: gradually increase as tolerated May Resume Sexual Activity: when tolerated Shower/Bathe: no limitations ( ) . Instructions / Follow-Up Instructions / Follow-Up You were treated in the hospital for generalized weakness and falls. You were found to have the influenza virus (Flu) and also a low sodium level. Both of these in addition to a poor recent diet and diarrhea were thought to be the cause of your weakness. With correction of your sodium and treatment of the flu your status improved and at this time are ready for discharge. We will arrange home health to provide therapy and assistance at home. Medications: - Tamiflu 75mg Tab: Take 1 tablet twice daily --> There are 7 more doses remaining over the next 4 days --> This is a medication to treat the flu - Benzonatate 100mg Tab: Take 1 tablet three times per day if you need it --> This medication is a cough suppressant and helps you if you are having a cough - Resume all other home medications Follow Up: - Follow up with Dr. Guzman next Sunday in clinic --> This appointment will be arranged by our manager case If you present with any concerning symptoms including fever, chills, sweats, worsening shortness of breath, abdominal pain, or any other red flag symptoms please contact your primary care doctors office to be seen or return to the Emergency Department in the case of emergency Current Hospital Diet Patient's current hospital diet: Gluten Free Diet Discharge Diet Recommended Diet: Regular Diet Pending Studies Studies pending at discharge: no Medical Emergencies . Who to Call and When: Medical Emergencies: If at any time you feel your situation is an emergency, please call 911 immediately. . Non-Emergent Contact Non-Emergency issues call your: Primary Care Provider . . "Provider Documentation" section prepared by Aries Guzman. . VTE Core Measure Inpt VTE Proph given/why not?: SCD's
--- NOTE | 2017-04-18 13:06 | Discharge Summary ---
Discharge Summary Date of Service Apr 18, 2017. Discharge Summary Admission Date: Apr 16, 2017 at 19:04 Discharge Date: Apr 18, 2017 Discharge Disposition: Home with services Principal Diagnosis: Generalized Weakness Problems/Secondary Diagnoses: Influenza Virus, Hyponatremia Medication Reconciliation New Medications: Benzonatate (Benzonatate) 100 Mg Cap 100 MG PO TID PRN for Cough for 7 Days, #21 CAP Continued Medications: Aspirin (Aspirin EC Low Dose) 81 Mg Ectab 81 MG PO QAM, #30 TAB Digestive Aids Mixture (Digestion Gb) 1 Cap Cap 2 CAP PO AC Fish Oil (Gomer-3) 1 Ea Cap 1 CAP PO BID, CAP Folic Acid (Folic Acid) 1 Pow Pow 1 TAB PO DAILY Iodine (Bulk) (Iodine) 1 Mis Mis 1 CAP PO DAILY Multiple Vitamin (Multivitamin) 1 Tab Tab 1 TAB PO BID for 90 Days, #180 TAB 3 Refills Oseltamivir (Tamiflu) 75 Mg Cap 75 MG PO BID, #7 CAP (This prescription has been renewed) Discharge Exam Review of Systems: Constitutional: + fatigue, No fever, No chills Respiratory: No cough, No sputum, No shortness of breath Cardiovascular: No chest pain, No palpitations Abdomen: No pain, No nausea, No vomiting, No diarrhea, No constipation Musculoskeletal: No joint pain, No muscle pain Neurologic: No numbness/tingling Physical Exam: General Appearance: WD/WN, no apparent distress Neck: supple, trachea midline Respiratory/Chest: chest non-tender, lungs clear, normal breath sounds Cardiovascular: regular rate, rhythm, no edema, no gallop Abdomen / GI: normal bowel sounds, non tender, soft Extremities: no calf tenderness, no pedal edema Neurologic/Psychiatric: alert, normal mood/affect, oriented x 3 Hospital Course Patient admitted for Generalized weakness secondary to Hyponatremia and Influenza in addition to diarrhea and poor PO intake - Discharged at [facility] Na (130) --> Follow up BMP scheduled for Sunday and f/u with Dr Guzman on Sunday04/27/17 - Discharge on Tamiflu 75mg PO BID x 5 day course - Home health services and rehab Generalized weakness and falls in the setting of Hyponatremia and falls - PT/OT --> Currently Recommend continued P.T. & pt return home c home health services. - CT head neg for CVA - X-Ray of Right Hip - No acute fractures --> significant femoral neck degeneration - B12 normal Hyponatremia - Resolved - Most likely secondary to poor oral intake and diarrhea in the setting of influenza - Na 130 on discharge (baseline 130) - Discontinue fluids --> Previously on NS throughout hospitalization - Previously required NaCl tabs during hospitalization but holding at this time due acute increase in Na overnight Influenza A - Rapid flu testing positive - Tamiflu 75mg BID --> Discharge home on 5 day course Hx of CVA - Aspirin DVT - SCDs Code Status - Full Resuscitation Resident Physician Supervision Note: I interviewed and examined the patient. Discussed with Dr. Guzman and agree with findings and plan as documented in the note. Any exceptions or clarifications are listed here: None Documented By: Willi Pako feeling better feels up to going home no new complaints, does worry about unsteadiness since it seems to have preceded acute illness although hes less sure now on timing vitals noted nad breathing unlabored no pallor or icterus flu / hypoxia / hyponatremia -all improved and stable for home unsteadiness/weakness - seems improved, may have been all acute and all related to above but since he's not sure definitely close f/u for this and secondary w/ u if it does not improve w all of above doing better --> close f/u in office - PCP out of office for several months, Dr Guzman now knows his case well and will be following through Total Time Spent: Greater than 30 minutes This includes examination of the patient, discharge planning, medication reconciliation, and communication with other providers. Discharge Instructions Please refer to the electronic Patient Visit Report (Discharge Instructions) for additional information. Additional Copies To Aries Guzman MD
== END 2017-04-18 13:25 | disposition home health service (06) | DRG 194 ==
LOC: EDBD 16:14 → C.EDC 16:15 → C.2T 19:04 → ENRESERV 19:47 → C.MS2W 04-17 14:49
PROVIDERS: ADMIT Family Medicine; ATTEND Family Medicine
DX: J10.1 Influenza due to other identified influenza virus with other respiratory manifestations (principal); E87.1 Hypo-osmolality and hyponatremia; M16.11 Unilateral primary osteoarthritis, right hip; Z86.73 Personal history of transient ischemic attack (TIA), and cerebral infarction without residual deficits; Z79.82 Long term (current) use of aspirin; Z80.9 Family history of malignant neoplasm, unspecified; Z82.3 Family history of stroke

== ENCOUNTER → 2017-09-18 | Outpatient (CLI) | payer OTHER ==
[~2017-09-18] MED LIST changes: -ASPEC81 PO; +ASPI-320 PO; +BENZ100C7 PO; +DIGE1CAP PO; +FOLI1POW10 PO; +IODI1MIS PO; +MULTTAB58 PO; +OMEG10007 PO; +OSEL75CA12 PO
== END | disposition home or self-care (01) ==
LOC: C.RDSM 14:56
PROVIDERS: ATTEND Orthopaedic Surgery
DX: R52 Pain, unspecified (principal)

== ENCOUNTER → 2017-10-16 | Outpatient (CLI) | payer OTHER ==
[~2017-10-16] MED LIST changes: +ASCO500C4 PO; -ASPI-320 PO; +ASPI81TA28 PO; +B-COTAB18 PO; -BENZ100C7 PO; +BLAC1CAP4 PO; +LEVO25TA5 PO; -MULTTAB58 PO; -OSEL75CA12 PO; +SACC250C11 PO; +[UNRECOGNIZED DRUG - OTHER] PO; +[UNRECOGNIZED DRUG - OTHER] PO
[2017-10-16 12:40] LABS: BASO % 0.9 %; BASO ABS # 0.05 K/uL (0-0.2); EOS % 3.7 %; HEMATOCRIT 35.4 % (42-52); HEMOGLOBIN 12.2 g/dL (14.0-18.0); IG# 0.01 K/uL (0.00-0.02); LYMPH % 27.7 %; MEAN CELL VOLUME 95.4 fL (80-100); MEAN CORPUSCULAR HEMOGLOBIN 32.9 pg (25-34); MEAN CORPUSCULAR HGB CONC 34.5 g/dl (32-36); MEAN PLATELET VOLUME 9.4 fL (7.4-10.4); MONO % 11.5 %; MONO ABS # 0.62 K/uL (0.11-0.59); NEUT ABS # 3.03 K/uL (1.4-6.5); PLATELET COUNT 227 K/uL (130-400); RED CELL DISTRIBUTION WIDTH CV 13.5 % (11.5-14.5); RED CELL DISTRIBUTION WIDTH SD 47.1 fL (36.4-46.3); WHITE BLOOD COUNT 5.41 K/uL (4.8-10.8)
[2017-10-16 12:51] LABS: ALBUMIN 3.5 gm/dl (3.4-5.0); ALKALINE PHOSPHATASE 60 U/L (45-117); ALT/SGPT 26 U/L (12-78); AST/SGOT 24 U/L (15-37); BLOOD UREA NITROGEN 26 mg/dl (7-18); CALCIUM 9.4 mg/dl (8.5-10.1); CARBON DIOXIDE 29 mmol/L (21-32); CREATININE 0.97 mg/dl (0.60-1.40); GLUCOSE 84 mg/dl (70-99); POTASSIUM 4.5 mmol/L (3.5-5.1); SODIUM 130 mmol/L (136-145); TOTAL PROTEIN 7.9 gm/dl (6.4-8.2)
[2017-10-16 12:56] LABS: INR 0.9 (0.9-1.1); PTT PATIENT 28.4 SECONDS (21.0-31.0)
[2017-10-16 13:25] LABS: HEMOGLOBIN A1C 5.6 % (4.5-5.6)
== END | disposition home or self-care (01) ==
LOC: C.CPL 10:41
PROVIDERS: ATTEND Orthopaedic Surgery
DX: M16.11 Unilateral primary osteoarthritis, right hip (principal); Z01.812 Encounter for preprocedural laboratory examination; Z01.810 Encounter for preprocedural cardiovascular examination

== ENCOUNTER 2019-06-03 20:49 | Inpatient (IN) ==
--- NOTE | 2019-06-03 21:18 | Emergency Department Note ---
Impression & Plan Cerebrovascular accident, Hyponatremia, Abnormal ECG ED Provider Note NAME: ISAI BANKS AGE: 84 SEX: M : 1935 ARRIVES VIA: Walk-In INFORMANT: Patient ED PROVIDER(S): Willi Alexis DO CHIEF COMPLAINT: Left arm weakness HPI: Patient is an 84-year-old male who presents the ER for weakness of his left upper extremity. This started 2 days ago when he woke up in the morning. He notes nothing has improved or worsened. He notes he has trouble holding things and has been dropping them. He notices the weakness with flexion extension at the elbow as well. He denies any weakness or numbness in any of his other extremities. No trouble talking, swallowing or eating. Denies any chest pain shortness of breath nausea vomiting or diarrhea. No other exacerbating or remitting factors. ROS: See above HPI for pertinent positives & negatives. A total of 10 systems reviewed and were otherwise negative. PAST MEDICAL HISTORY:See Below PAST SURGICAL HISTORY:See Below FAMILY HISTORY:See Below SOCIAL HISTORY:See Below HOME MEDICATIONS:See Below ALLERGIES:See Below VITALS:See Below PHYSICAL EXAMINATION: GENERAL: Sitting up in bed, alert, well appearing, well nourished, no distress, non-toxic EYE EXAM: normal conjunctiva. OROPHARYNX: no exudate, no erythema, lips, buccal mucosa, and tongue normal and mucous membranes are moist NECK: supple, no nuchal rigidity, no adenopathy, non-tender LUNGS: Clear to auscultation. Normal chest wall mechanics HEART: no murmurs, S1 normal and S2 normal ABDOMEN: abdomen soft, non-tender, normo-active bowel sounds, no masses, no rebound or guarding. BACK: Back is symmetrical on inspection and there is no deformity, no midline tenderness, no CVA tenderness. SKIN: no rashes and no bruising UPPER EXTREMITIES: upper extremities are grossly normal. LOWER EXTREMITIES: No pitting edema. NEURO EXAM: Normal sensorium, cranial nerves II-XII intact, normal speech, weakness with grasp and abduction of his left hand as well as flexion extension at the elbow and wrist. No weakness in the right upper extremity. Hkhrjp-[id number] intact. MEDICAL DECISION MAKING: Patient is an 84-year-old male past medical history of anemia and hyponatremia that presents the ER for left arm/hand weakness. This started 2 mornings ago when he woke up it was there. Nothing has improved her worsen the symptoms. He denies any headache or change in vision. No chest pain shortness of breath nausea vomiting or diarrhea. No other complaints. He does have focal deficit on exam. CT head was negative. Patient was given aspirin. He was given small bolus of IV fluids. He was updated bedside. EKG was unremarkable with exception of some nonspecific ST wave changes in the inferior leads. Patient h as no chest pain or shortness of breath. Updated bedside and discussed with the hospitalist for observation. Triage Nursing notes reviewed. Prior medical records reviewed Vital Signs: reviewed and remarkable for hypertension Differential diagnosis: Differential Diagnosis includes but is not limited to ischemic Stroke, hemorrhagic stroke, bells palsy, mass, neoplasm, migraine headache, seizure, subarachnoid hemorrhage, TIA, and transient global amnesia. ER treatment provided: See below Diagnostics interpreted by me: ECG: Sinus rhythm rate of [address] wave changes in the inferior leads Normal QTC Cardiac Monitoring: Sinus rhythm rate 81 Laboratory studies: Please see below Imaging studies: CT of the head shows multiple old infarcts. Consultation(s): Discussed with Dr. Dino Fine for admission ED COURSE: Procedures: none Critical Care: None Past Med/Surg History Social History Preferred Language: German Communication Ability: Effective Visual Impairment: No Limitations Hearing Ability: Hard of Hearing Beliefs That Will Affect Care: None Current Living Situation: Spouse Feels Safe at Home: Yes Smoking Status: Never smoker Second Hand Exposure: No ; Hx Alcohol Use: Yes Alcohol type: wine Hx Substance Use: No Allergies Allergies Allergy/AdvReac Type Severity Reaction Status Date / Time No Known Allergies Allergy Unverified 06/03/19 21:45 Home Meds Home Medications Medication Instructions Recorded Confirmed digestive enzymes 3 tab PO AC #0 04/18/17 06/03/19 folic acid 1 mg PO QAM #0 04/18/17 06/03/19 omega 2-reh-zbq-fish oil [Fish Oil] 1 tab PO QAM #0 cap 04/18/17 06/03/19 Probiotic 0 mmu cells PO TIDM #0 10/09/17 06/03/19 Raw Material Synergy 1 tab PO QAM 10/22/17 06/03/19 ascorbic acid (vitamin C) [Vitamin 500 mg PO TID 10/22/17 06/03/19 C] Adrenal Support 1 tab PO DAILY 06/03/19 06/03/19 Boswella 1 - 3 tabs PO DAILY 06/03/19 06/03/19 Anthony 40 1 tab PO DAILY 06/03/19 06/03/19 Organic Bound Minerals 1 tab PO DAILY 06/03/19 06/03/19 Saligesic 1 tab PO DAILY 06/03/19 06/03/19 Soy Valles Lecisin 1 tab PO DAILY 06/03/19 06/03/19 Zypam 1 tab PO DAILY 06/03/19 06/03/19 vitamin E 0 unit PO DAILY 06/03/19 06/03/19 Results & Data (ED) Vital Signs Vital Signs - 24 hr 06/03/19 20:52 06/03/19 21:30 06/03/19 22:00 Temperature 36.3 C L Temperature Source Oral Pulse Rate 90 78 69 Pulse Rate from SpO2 Sensor 77 70 Respiratory Rate 18 24 15 Respiratory Effort / Characteristics Non-Labored Spontaneous Respiratory Depth Normal Respiratory Pattern Regular Blood Pressure 184/104 H 153/88 H 141/78 H Blood Pressure Mean 130 117 109 Blood Pressure Position Sitting Pulse Oximetry 94 95 94 Oxygen Delivery Method Room Air Room Air Room Air Sepsis Recent Fever Within 48 Hours No Sepsis Action Taken by Nursing No Action Required 06/03/19 22:17 06/03/19 22:30 Temperature Temperature Source Pulse Rate 70 67 Pulse Rate from SpO2 Sensor 70 67 Respiratory Rate 21 17 Respiratory Effort / Characteristics Respiratory Depth Respiratory Pattern Blood Pressure 174/96 H 156/87 H Blood Pressure Mean 143 116 Blood Pressure Position Pulse Oximetry 94 95 Oxygen Delivery Method Room Air Room Air Sepsis Recent Fever Within 48 Hours Sepsis Action Taken by Nursing Laboratory Data Result diagrams: 06/03/19 21:16 06/03/19 21:16 Lab Results 06/03/19 06/03/19 06/03/19 Range/Units 21:16 21:16 21:16 WBC 6.02 (4.8-10.8) K/uL RBC 3.92 L (4.7-6.1) M/uL Hgb 13.0 L (14.0-18.0) g/dL Hct 37.4 L (42-52) % MCV 95.4 (80-100) fL MCH 33.2 (25-34) pg MCHC 34.8 (32-36) g/dL RDW Std Deviation 44.1 (36.4-46.3) fL RDW Coeff of Arvind 12.8 (11.5-14.5) % Plt Count 207 (130-400) K/uL MPV 9.1 (7.4-10.4) fL Immature Gran % (Auto) 0.2 % Neut % (Auto) 54.1 % Lymph % (Auto) 33.6 % Bay % (Auto) 8.6 % Eos % (Auto) 2.7 % Baso % (Auto) 0.8 % Immature Gran # (Auto) 0.01 (0.00-0.02) K/uL Neut # (Auto) 3.26 (1.4-6.5) K/uL Lymph # (Auto) 2.02 (1.2-3.4) K/uL Bay # (Auto) 0.52 (0.11-0.59) K/uL Eos # (Auto) 0.16 (0-0.5) K/uL Baso # (Auto) 0.05 (0-0.2) K/uL PT 10.4 (9.0-12.0) Seconds INR 1.0 (0.9-1.1) APTT 27.7 (21.0-31.0) Seconds PTT Ratio 1.0 Sodium 132 L (136-145) mmol/L Potassium 4.1 (3.5-5.1) mmol/L Chloride 99 (98-107) mmol/L Carbon Dioxide 28 (21-32) mmol/L Anion Gap 6.0 (3-11) BUN 24 H (7-18) mg/dl Creatinine 1.01 (0.6-1.4) mg/dl Est Cr Clr Drug Dosing 44.7 ml/min Est GFR ( Amer) 79.4 Est GFR (Non-Af Amer) 68.5 BUN/Creatinine Ratio 24.2 H (10-20) Glucose 103 H (70-99) mg/dl Calcium 9.7 (8.5-10.1) mg/dl Magnesium 2.2 (1.8-2.4) mg/dl Total Bilirubin 0.4 (0.2-1) mg/dl AST 27 (15-37) U/L ALT 30 (12-78) U/L Alkaline Phosphatase 92 (45-117) U/L Troponin I < 0.015 (0-0.045) ng/ml Total Protein 7.9 (6.4-8.2) gm/dl Albumin 3.6 (3.4-5.0) gm/dl Globulin 4.3 H (2.5-4.0) gm/dl Albumin/Globulin Ratio 0.8 L (0.9-2) TSH 4.300 (0.300-4.500) uIu/ml Administered Medications Discontinued Medications Aspirin (Aspirin) 324 mg PO NOW STA Stop: 06/03/19 22:55 Last Admin: 06/03/19 23:01 Dose: 324 mg Documented by: [id number] Discharge Plan Visit Data Chief Complaint: Stroke/CVA Symptoms Stated Complaint: POSS STROKE LEFT ARM WEAK ED Provider: Willi Alexis Discharge Problem: Cerebrovascular accident, Hyponatremia, Abnormal ECG Forms Stand Alone Forms: [facility] Prescriptions Prescriptions: No Action digestive enzymes Tablet 3 tab PO AC Qty: 0 RF: 0 folic acid 1 mg Tablet 1 mg PO QAM Qty: 0 RF: 0 omega 0-qjz-wwv-fish oil [Fish Oil] 1,000 mg (120 mg-180 mg) Capsule 1 tab PO QAM Qty: 0 RF: 0 Probiotic 3 billion cell Capsule 0 mmu cells PO TIDM Qty: 0 RF: 0 Adrenal Support 1 tab PO DAILY RF: 0 vitamin E 400 unit Capsule 0 unit PO DAILY RF: 0 Boswella 1 - 3 tabs PO DAILY RF: 0 Anthony 40 1 tab PO DAILY RF: 0 Organic Bound Minerals 1 tab PO DAILY RF: 0 Saligesic 1 tab PO DAILY RF: 0 Soy Valles Lecisin 1 tab PO DAILY RF: 0 Zypam 1 tab PO DAILY RF: 0 ascorbic acid (vitamin C) [Vitamin C] 500 mg Capsule, Extended Release 500 mg PO TID RF: 0 Raw Material Synergy 1 tab PO QAM RF: 0 Discharge Problem: Cerebrovascular accident Qualifiers: CVA mechanism: unspecified Qualified Code(s): I63.9 - Cerebral infarction, unspecified
[2019-06-03 21:32] LABS: Basophils # (auto) 0.05 K/uL (0-0.2); Basophils % (auto) 0.8 %; Eosinophils # (auto) 0.16 K/uL (0-0.5); Eosinophils % (auto) 2.7 %; Hematocrit (blood only) 37.4 % (42-52); Immature Granulocytes # (auto) 0.01 K/uL (0.00-0.02); Immature Granulocytes % (auto) 0.2 %; Lymphocytes # (auto) 2.02 K/uL (1.2-3.4); Lymphocytes % (auto) 33.6 %; Mean Corpuscular Hemoglobin 33.2 pg (25-34); Mean Corpuscular Hgb Conc 34.8 g/dL (32-36); Mean Corpuscular Volume 95.4 fL (80-100); Mean Platelet Volume 9.1 fL (7.4-10.4); Monocytes # (auto) 0.52 K/uL (0.11-0.59); Monocytes % (auto) 8.6 %; Neutrophils # (auto) 3.26 K/uL (1.4-6.5); Neutrophils % (auto) 54.1 %; Platelet Count 207 K/uL (130-400); RDW Coefficient of Variation 12.8 % (11.5-14.5); RDW Standard Deviation 44.1 fL (36.4-46.3); Red Blood Count 3.92 M/uL (4.7-6.1); White Blood Count 6.02 K/uL (4.8-10.8)
[2019-06-03 21:42] LABS: Partial Thromboplastin Time 27.7 Seconds (21.0-31.0); Prothrombin Time 10.4 Seconds (9.0-12.0)
[2019-06-03 22:05] LABS: Alanine Aminotransferase 30 U/L (12-78); Albumin Level 3.6 gm/dl (3.4-5.0); Aspartate Aminotransferase 27 U/L (15-37); BUN Creatinine Ratio 24.2 (10-20); Blood Urea Nitrogen 24 mg/dl (7-18); Calcium 9.7 mg/dl (8.5-10.1); Carbon Dioxide 28 mmol/L (21-32); Chloride 99 mmol/L (98-107); Creatinine Clr Calc Pharmacy 44.7 ml/min; Est GFR (African American) 79.4; Est GFR (Non-African American) 68.5; Glucose 103 mg/dl (70-99); Magnesium 2.2 mg/dl (1.8-2.4); Potassium 4.1 mmol/L (3.5-5.1); Sodium 132 mmol/L (136-145)
[2019-06-03 22:16] LABS: Albumin Globulin Ratio 0.8 (0.9-2); Alkaline Phosphatase 92 U/L (45-117); Bilirubin,Total 0.4 mg/dl (0.2-1); Globulin 4.3 gm/dl (2.5-4.0); Total Protein 7.9 gm/dl (6.4-8.2); Troponin I < 0.015 ng/ml (0-0.045)
--- NOTE | 2019-06-03 22:36 | CT Scan Report ---
CT OF THE HEAD WITHOUT CONTRAST CLINICAL HISTORY: Stroke evaluation COMPARISON STUDY: Head CT April 16, 2017. CT DOSE: 960.06 mGy.cm TECHNIQUE: Helical axial images of the head were obtained without IV contrast. Automated exposure con trol was utilized for the study. A dose lowering technique was utilized adhering to the principles o f ALARA. FINDINGS: No acute intracranial hemorrhage, midline shift or mass effect is present. The ventricular system is stable. Basilar cisterns are patent. There are no extra-axial collections. White matter hyp odensity suggests small vessel disease. These are unchanged. Old left parietal infarct is noted. An o ld left external capsule infarct is present. Old left frontal lobe infarct is noted. The appearance o f the brain is unchanged. There are no significant calvarial abnormalities. IMPRESSION: No acute intracranial findings. No change in appearance of the brain. 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 ACT 112: Negative or not required by law. Electronically signed by: Tan Briseno M.D. 06/03/2019 10:34 PM
[2019-06-03] MEDS ORDERED: ASPIRIN CHEW 324 MG PO STA (22:54)
--- NOTE | 2019-06-03 23:58 | History & Physical Report ---
Date of Service June 03, 2019 Assessment & Plan (1) Cerebrovascular accident: Mario Lopez is a 84 y/o M with PMH significant for L carotid artery stenosis, and previous CVA; who presented to the ER for weakness of his left upper extremity that has been persistent for the last 36hours Cerebrovascular accident: - based off the presentation, this likely represents new CVA; patient outside tPA window, with last known well time at least 48 hours prior to presentation - CT head w/o contrast demonstrated no acute intracranial findings. No change in appearance of the brain. Multiple old infarcts and small vessel disease. - CTA head per STAT rad report demonstrated age indeterminant L M3 MCA occlusion, new since MRA from 06/16/16 - CTA neck per STAT rad report demonstrated 70% stenosis of L ICA, with moderate proximal stenosis, and moderate atherosclerotic plaque and calcifications at the carotid bulbs and proximal ICA b/l - MRI ordered - Echo ordered - Lipid profile and A1c pending - PT/OT ordered - Speech eval ordered - Neurology consulted - Neuro checks Q2h Carotid artery stenosis: - CTA neck per STAT rad report demonstrated 70% stenosis of L ICA, with moderate proximal stenosis, and moderate atherosclerotic plaque and calcifications at the carotid bulbs and proximal ICA b/l - consider Vascular surgery consult Hypertension: - permissive in the post CVA setting - continue to monitor Diet: NPO, advance diet after bedside eval DVT ppx: SCDs Code Status: Conditional code: DNI, no mechanical ventilation (2) Carotid artery stenosis: (3) Hypertension: History of Present Illness Chief Complaint: L upper extremity weakness Primary Care Provider: Tanner Scherer MD Mario Lopez is a 84 y/o M with PMH significant for L carotid artery stenosis, and previous CVA; who presented to the ER for weakness of his left upper extremity that has been persistent for the last 36hours; that has not improved or worsened since he woke up yesterday, was last known well >48 hours ago. First noticed the difficulty with holding items in his L hand, and consistently dropping them. He did not think this was initially a big problem as he did not notice any other weaknesses, and it was not until he discussed with his friend in [place] that he realized that he needed to be evaluated. Currently he feels some weakness with flexion extension at the elbow as well, but no other changes in any of his other extremities. Also feels like he has been drooling more out the L side of his face more over this same time. Over the last several weeks, he has noticed that he has fallen approximately 5 times; feels like he is just tripping on items. Denies dizziness, weakness during these episodes; denies palpitations, or chest pain. Allergies Allergy/AdvReac Type Severity Reaction Status Date / Time No Known Allergies Allergy Unverified 06/03/19 21:45 Home Medications Home Medications Medication Instructions Recorded Confirmed Type digestive enzymes 3 tab PO AC #0 04/18/17 06/03/19 History folic acid 1 mg PO QAM #0 04/18/17 06/03/19 History omega 9-jgw-naw-fish oil [Fish Oil] 1 tab PO QAM #0 cap 04/18/17 06/03/19 History Probiotic 0 mmu cells PO TIDM #0 10/09/17 06/03/19 History Raw Material Synergy 1 tab PO QAM 10/22/17 06/03/19 History ascorbic acid (vitamin C) [Vitamin 500 mg PO TID 10/22/17 06/03/19 History C] Adrenal Support 1 tab PO DAILY 06/03/19 06/03/19 History Boswella 1 - 3 tabs PO DAILY 06/03/19 06/03/19 History Anthony 40 1 tab PO DAILY 06/03/19 06/03/19 History Organic Bound Minerals 1 tab PO DAILY 06/03/19 06/03/19 History Saligesic 1 tab PO DAILY 06/03/19 06/03/19 History Soy Valles Lecisin 1 tab PO DAILY 06/03/19 06/03/19 History Zypam 1 tab PO DAILY 06/03/19 06/03/19 History Desiccated Adrenal 06/04/19 History Garden Of Life Probiotic 06/04/19 History Mrm Bone Maximizer 06/04/19 History Spleen Descciated 06/04/19 History Thytrophin Pmg 06/04/19 History aspirin 81 mg PO QAM #30 tab 06/04/19 Rx atorvastatin 40 mg PO HS #30 tab 06/04/19 Rx lisinopril 2.5 mg PO HS #30 tab 06/04/19 Rx Past Med/Surg History Family History (Updated 06/04/19 @ 10:42 by Chris Turpin MD) Father Stroke Social History Preferred Language: Kitt[place] Communication Ability: Effective Visual Impairment: No Limitations Hearing Ability: Hard of Hearing Beliefs That Will Affect Care: None marital status: Current Living Situation: Spouse Current Living Situation Comment: Jim home alone Feels Safe at Home: Yes Smoking Status: Never smoker Second Hand Exposure: No ; Hx Alcohol Use: No Hx Substance Use: No Review of Systems 2 Review of Systems: All systems reviewed & are unremarkable except as noted in HPI & below Physical Exam Constitutional: WD/WN, vitals as above Eyes: PERRL, conjunctivae normal, anicteric sclerae ENMT: external ear and nose normal, oropharynx normal Neck: normal visual inspection Respiratory: normal respiratory effort, lungs clear to auscultation Cardiovascular: Rate/Rhythm: regular rate and regular rhythm Heart Sounds: normal S1 and normal S2; no gallop, no murmur and no cardiac rub Vessels: normal peripheral pulses; no JVD Extremities: no pedal edema Chest (Breasts): Additional Comments: pes excavatum Gastrointestinal (Abdomen): normal bowel sounds, soft, nontender, no hepatosplenomegaly Musculoskeletal: intact ROM of shoulder b/l; 4/5 strength on flexion/extension of L elbow; intact ROM of wrists b/l; 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 Skin: no rashes, warm and dry Neurologic: normal touch/pain/proprioception, CN's II-XI intact bilaterally, deep tendon reflexes 2+ bilaterally, plantar reflexes intact bilaterally and moves all extremities Speech / Cognition: normal speech and no expressive aphasia Motor/Sensory: no tremor Cranial Nerves: normal facial strength, able to rotate head bilaterally, able to elevate shoulders bilaterally, no nystagmus and symmetric palate elevation Psychiatric: A+Ox3, euthymic affect Lymphatic: no cervical or axillary lymphadenopathy Results & Data Results & Data ([facility]) Vital Signs (Past 12 Hours) Vital Signs Temp Pulse Pulse Resp BP BP Pulse Ox 06/03/19 23:07 74 16 188/97 H 96 06/03/19 22:30 67 17 156/87 H 95 06/03/19 22:17 70 21 174/96 H 94 06/03/19 22:00 69 15 141/78 H 94 06/03/19 21:30 78 24 153/88 H 95 06/03/19 20:52 36.3 C L 90 18 184/104 H 94 Laboratory Results 06/03/19 06/03/19 06/03/19 Range/Units 21:16 21:16 21:16 WBC 6.02 (4.8-10.8) K/uL RBC 3.92 L (4.7-6.1) M/uL Hgb 13.0 L (14.0-18.0) g/dL Hct 37.4 L (42-52) % MCV 95.4 (80-100) fL MCH 33.2 (25-34) pg MCHC 34.8 (32-36) g/dL RDW Std Deviation 44.1 (36.4-46.3) fL RDW Coeff of Arvind 12.8 (11.5-14.5) % Plt Count 207 (130-400) K/uL MPV 9.1 (7.4-10.4) fL Immature Gran % (Auto) 0.2 % Neut % (Auto) 54.1 % Lymph % (Auto) 33.6 % Dawson % (Auto) 8.6 % Eos % (Auto) 2.7 % Baso % (Auto) 0.8 % Immature Gran # (Auto) 0.01 (0.00-0.02) K/uL Neut # (Auto) 3.26 (1.4-6.5) K/uL Lymph # (Auto) 2.02 (1.2-3.4) K/uL Dawson # (Auto) 0.52 (0.11-0.59) K/uL Eos # (Auto) 0.16 (0-0.5) K/uL Baso # (Auto) 0.05 (0-0.2) K/uL PT 10.4 (9.0-12.0) Seconds INR 1.0 (0.9-1.1) APTT 27.7 (21.0-31.0) Seconds PTT Ratio 1.0 Sodium 132 L (136-145) mmol/L Potassium 4.1 (3.5-5.1) mmol/L Chloride 99 (98-107) mmol/L Carbon Dioxide 28 (21-32) mmol/L Anion Gap 6.0 (3-11) BUN 24 H (7-18) mg/dl Creatinine 1.01 (0.6-1.4) mg/dl Est Cr Clr Drug Dosing 44.7 ml/min Est GFR ( Amer) 79.4 Est GFR (Non-Af Amer) 68.5 BUN/Creatinine Ratio 24.2 H (10-20) Glucose 103 H (70-99) mg/dl Calcium 9.7 (8.5-10.1) mg/dl Magnesium 2.2 (1.8-2.4) mg/dl Total Bilirubin 0.4 (0.2-1) mg/dl AST 27 (15-37) U/L ALT 30 (12-78) U/L Alkaline Phosphatase 92 (45-117) U/L Troponin I < 0.015 (0-0.045) ng/ml Total Protein 7.9 (6.4-8.2) gm/dl Albumin 3.6 (3.4-5.0) gm/dl Globulin 4.3 H (2.5-4.0) gm/dl Albumin/Globulin Ratio 0.8 L (0.9-2) TSH 4.300 (0.300-4.500) uIu/ml Code Status & VTE Plan Code Status Conditional code: DNI, no mechanical ventilation Supervising Physician Co-Signing Physician Notes Attending addendum: I have physically seen this patient, have supervised the medical residents activities, and agree with the H&P unless as otherwise noted. Assessment and Plan: CVA/left upper extremity weakness/last known well time 48 hours prior to presentation- CT head without contrast negative for new findings multiple old infarcts and small vessel disease noted. CTA head and neck with age-indeterminate left MCA M3 occlusion, new compared MRA from 06/16/2016. 70% stenosis of left internal carotid artery with moderate pro ximal stenosis. MRI brain pending Echocardiogram pending Hemoglobin A1c and fasting lipid panel pending Admission the stroke without TPA protocol order set. Patient was started on aspirin 4 x 81 mg tablets while in the ED. Consult PT/OT/speech therapy/neurology. N.p.o. IV fluids Remainder of orders and notations as noted. Resident Activity Tracking Resident Involvement: Resident Care Provided Care Provided: Adult Hospital Medicine (1) Cerebrovascular accident CVA mechanism: unspecified Qualified Code(s): I63.9 - Cerebral infarction, unspecified
[2019-06-04] MEDS ORDERED: OPTIRAY 320 125ml IV PRN (00:13)
[2019-06-04] MEDS ORDERED: PHARMACIST DISCHARGE MED REC CONSULT PRN (00:53)
[2019-06-04 06:08] LABS: Basophils # (auto) 0.04 K/uL (0-0.2); Basophils % (auto) 0.7 %; Eosinophils # (auto) 0.23 K/uL (0-0.5); Eosinophils % (auto) 4.3 %; Hematocrit (blood only) 36.5 % (42-52); Hemoglobin 12.8 g/dL (14.0-18.0); Immature Granulocytes # (auto) 0.01 K/uL (0.00-0.02); Immature Granulocytes % (auto) 0.2 %; Lymphocytes # (auto) 1.74 K/uL (1.2-3.4); Lymphocytes % (auto) 32.3 %; Mean Corpuscular Hemoglobin 33.2 pg (25-34); Mean Corpuscular Hgb Conc 35.1 g/dL (32-36); Mean Corpuscular Volume 94.6 fL (80-100); Mean Platelet Volume 8.9 fL (7.4-10.4); Monocytes # (auto) 0.66 K/uL (0.11-0.59); Monocytes % (auto) 12.3 %; Neutrophils % (auto) 50.2 %; Platelet Count 198 K/uL (130-400); RDW Coefficient of Variation 12.7 % (11.5-14.5); RDW Standard Deviation 44.1 fL (36.4-46.3); Red Blood Count 3.86 M/uL (4.7-6.1); White Blood Count 5.38 K/uL (4.8-10.8)
--- NOTE | 2019-06-04 06:48 | CT Scan Report ---
CT angio head w con CLINICAL HISTORY: L upper extremity weakness TECHNIQUE: CT angiography of the head was performed in a dynamic helical fashion during intravenous a dministration of 118 cc of Optiray 320. MIP imaging was performed. A dose lowering technique was util ized adhering to the principles of ALARA. 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 The dural venous sinuses appear pat ent. There is a high-grade stenosis/short segment occlusion (2 mm) of the left M3 segment. IMPRESSION: 1. High-grade stenosis/short segment occlusion of the left M3 segment 2. 3 mm anterior communicating artery aneurysm (this finding was not described in the preliminary rep ort) ACT 112: Negative or not required by law. Electronically signed by: Daniel Euceda M.D. 06/04/2019 6:47 AM
[2019-06-04 06:51] LABS: BUN Creatinine Ratio 26.5 (10-20); Calcium 8.7 mg/dl (8.5-10.1); Creatinine Clr Calc Pharmacy 50.2 ml/min; Est GFR (African American) 92.5; Est GFR (Non-African American) 79.8
--- NOTE | 2019-06-04 07:01 | CT Scan Report ---
CT angio neck with con CLINICAL HISTORY: 84 years-old Male with L upper extrem weakness. Acute left upper extremity weakn ess COMPARISON STUDY: CTA of the head of same day, MRA of the neck 06/16/2016 TECHNIQUE: Following the IV administration of 118 mL of Optiray 320, CT angiogram of the neck was per formed from the aortic arch to the skull base. Images are reviewed in the axial, sagittal, and charlton l planes. 3-D MIPS images are created and assessed. IV contrast was administered without complication . All measurements were calculated based on NASCET criteria. A dose lowering technique was utilized adhering to the principles of ALARA. CT DOSE: 543.69 mGy.cm FINDINGS: Moderate mixed plaque of the thoracic aortic arch. The opacified imaged pulmonary arterial tree is un remarkable. There is patency of the imaged subclavian arteries. The common carotid arteries and innom inate artery are patent. Severe mixed plaque of the carotid bulbs bilaterally with less than 50% sten osis of the proximal right ICA. There is high-grade, approximately 90% stenosis of the proximal left ICA extending for a length of approximately 4 mm in craniocaudal dimension with an additional focal 7 0% area of luminal narrowing of the proximal cervical segment left ICA to the level of C4, image 222 series 4. Calcified plaque of the cavernous and supraclinoid segments without high-grade stenosis. Calcified plaque at the origin of the left vertebral artery without high-grade stenosis. The vertebra l arteries are codominant and tortuous. 2 mm area of saccular outpouching involves the V2 segment lef t vertebral artery at the level of C2, image 283 series 4. Mild multifocal luminal narrowing of the v ertebral arteries secondary to atherosclerosis. No definite dissection or occlusion. Imaged basilar a rtery is patent. Biapical pleural-parenchymal scarring. No pneumothorax. Unremarkable thyroid. No adenopathy. Calcific ations of the superficial lobe left parotid. Multilevel degenerative changes of the spine results in multilevel foraminal narrowing. Remote appearing infarct of the right cerebellar hemisphere. IMPRESSION: 1. Severe mixed plaque of the bilateral carotid bulbs and proximal internal carotid arteries results in high-grade stenosis of the proximal left ICA of approximately 90% as above. 2. Less than 50% luminal narrowing of the proximal right ICA. 3. 2 mm area of saccular outpouching involves the V2 segment left vertebral artery at the level of C2 , possibly reflective of a small aneurysm. Attention at follow-up recommended. ACT 112: Negative or not required by law. The above report was generated using voice recognition software. It may contain grammatical, syntax o r spelling errors. Electronically signed by: Vinicio Luciano M.D. 06/04/2019 7:00 AM
[2019-06-04 08:30] LABS: Estimated Average Glucose 117 mg/dl; Hemoglobin A1C 5.7 % (4.5-5.6)
[2019-06-04] MEDS ORDERED: ASPIRIN 81 MG ECTAB PO SCH (09:00)
--- NOTE | 2019-06-04 10:40 | XCELERA ---
[id number] \\[email or web address]\[id number]
--- NOTE | 2019-06-04 10:44 | Neurology Consultation ---
Date of Consultation June 04, 2019 Assessment & Plan (1) Cerebrovascular accident: Probable acute stroke affecting the right cerebral hemisphere and resulting in a mild to moderate left hemiparesis affecting the face and arm primarily. Stroke symptoms began 3 days ago and have been fairly persistent. Stroke etiology likely small vessel ischemic disease. Carotid and cardiac embolism less likely but not excluded. Patient's severe stenosis of the left internal carotid artery would not likely be responsible for his acute stroke symptoms. I agree with initiation of daily low-dose aspirin. Patient should also be prescribed a statin. Patient has been modestly hypertensive as well. C ontinue medical management of hypertension, avoid aggressive treatment of hypertension to lower the risk of hypoperfusion injury. Current systolic blood pressure goal 140 to 160 mmHg. Patient's hypertension will need ongoing outpatient management with his PCP. Transthoracic echocardiogram should be completed. (2) Carotid artery stenosis: 90% stenosis of the proximal left internal carotid artery. As above, this vascular lesion would not be responsible for his current acute stroke symptoms which would localize to the right cerebral hemisphere. This patient should really be on a statin and daily low-dose aspirin therapy. However, it looks like he has preferred to take [id number] supplements as an alternative treatment/remedy. I would, however, recommend continuing daily low-dose aspirin as well as initiation of a statin. Also as described below, this patient should have a consultation with vascular surgery to potentially address his severe stenosis of the left internal carotid artery which likely has been symptomatic in the past given the presence of multifocal chronic ischemic infarct within the left cerebral hemisphere, see below for further details. (3) H/O stroke without residual deficits: History of multifocal, small, chronic left hemispheric infarcts in the context of the above 90% proximal stenosis of the left ICA. He also has an intracranial stenosis involving the left M3 segment. I do suspect that his left ICA stenosis has been symptomatic on the basis of these multiple chronic infarcts. Patient should really discuss this issue with a vascular surgeon as he would likely be an appropriate candidate for nonemergent left carotid endarterectomy. Fortunately, he does not appear to have any obvious or significant right-sided deficits as a result of these infarcts. 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 Although the rupture risk for a small aneurysm such as this is small, it will need some monitoring going forward. Control of hypertension will also be important on an ongoing basis as described above. A follow-up CTA or MRA of the head should be completed in 1 year. Would also consider consultation with a vascular neurosurgeon at a tertiary center for further guidance. There is also an incidental small outpouching, possible small aneurysm at the cervical segment of the left vertebral artery/V2. This vascular lesion may also require some monitoring going forward. Surgical intervention will likely not be required going forward for either of these aneurysms, however, in light of this patient's advanced age and small aneurysm size. History of Present Illness Reason for Consultation: stroke Requesting Physician: Jg Pope MD Attending Physician: Jason Matos History of Present Illness The patient is an 84-year-old male with a chief complaint of left arm weakness. He indicates that he noticed that his left hand and arm felt mildly weak beginning 3 days ago. He reports difficulty grasping objects with the left hand. He also complains of some associated mild weakness of the left side of the face. His symptoms have been persistent since onset and remain mild in severity. He denies any associated weakness of the left leg. He denies any associated headache, dizziness, vertigo, or acute vision change. 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 The patient also indicates that he had 2 minor falls recently, 1 about 1 week ago, and the other fall about 1 week prior to that. He denies any associated dizziness or loss of consciousness with either of these falls. He does have a small area of ecchymosis under the right eye related to 1 of these falls. He does not think either of these falls was related to weakness or other obvious strokelike symptoms. He indicates that he simply tripped. He denies any headache or neck pain at this time. Past medical history is notable for several small chronic left hemispheric ischemic infarcts and 90% stenosis of the left internal carotid artery. He does not report any chronic right hemiparesis or other focal neurological signs or symptoms related to these remote infarcts. He has not been taking any prescription medications or other pharmaceuticals such as daily low-dose aspirin or a statin. He does take a variety of kwvj-cbb-oypkbre supplements which may have some cardiovascular risk modifying effects. As above, his left-sided weakness has been persistent and remains mild and unchanged this morning predominantly affecting the left side of the face and left upper limb only. Allergies Allergy/AdvReac Type Severity Reaction Status Date / Time No Known Allergies Allergy Unverified 06/03/19 21:45 Home Medications Home Medications Medication Instructions Recorded Confirmed Type digestive enzymes 3 tab PO AC #0 04/18/17 06/03/19 History folic acid 1 mg PO QAM #0 04/18/17 06/03/19 History omega 2-xte-hbg-fish oil [Fish Oil] 1 tab PO QAM #0 cap 04/18/17 06/03/19 History Probiotic 0 mmu cells PO TIDM #0 10/09/17 06/03/19 History Raw Material Synergy 1 tab PO QAM 10/22/17 06/03/19 History ascorbic acid (vitamin C) [Vitamin 500 mg PO TID 10/22/17 06/03/19 History C] Adrenal Support 1 tab PO DAILY 06/03/19 06/03/19 History Boswella 1 - 3 tabs PO DAILY 06/03/19 06/03/19 History Anthony 40 1 tab PO DAILY 06/03/19 06/03/19 History Organic Bound Minerals 1 tab PO DAILY 06/03/19 06/03/19 History Saligesic 1 tab PO DAILY 06/03/19 06/03/19 History Soy Valles Lecisin 1 tab PO DAILY 06/03/19 06/03/19 History Zypam 1 tab PO DAILY 06/03/19 06/03/19 History vitamin E 0 unit PO DAILY 06/03/19 06/03/19 History Desiccated Adrenal 06/04/19 History Garden Of Life Probiotic 06/04/19 History Mrm Bone Maximizer 06/04/19 History Spleen Descciated 06/04/19 History Thytrophin Pmg 06/04/19 History Patient History Family History (Updated 06/04/19 @ 10:42 by Chris Turpin MD) Father Stroke Social History Preferred Language: Monegasque Communication Ability: Effective Visual Impairment: No Limitations Hearing Ability: Hard of Hearing Beliefs That Will Affect Care: None marital status: Current Living Situation: Spouse Current Living Situation Comment: , Jim home alone Other Information That Helps Us Care for You: No Feels Safe at Home: Yes Safety Concerns: Feels Safe At This Time Smoking Status: Never smoker Second Hand Exposure: No ; Hx Alcohol Use: No Hx Substance Use: No Review of Systems Constitutional: no fever and no chills Eyes: as per Subjective / HPI Ear, Nose, Mouth, Throat: no hearing loss Respiratory: no cough and no dyspnea Cardiovascular: no chest pain and no palpitations Gastrointestinal: no nausea and no vomiting Genitourinary: no urinary incontinence Musculoskeletal: no neck pain and no myalgia Integumentary: no rash and no lesions Neurologic: as per Subjective / HPI Psychiatric: no depression and no anxiety Hematologic / Lymphatic: no easy bleeding and no easy bruising Exam (Neuro) Constitutional: well developed and well nourished Eyes: PERRL and EOM intact bilaterally Direct ophthalmoscopic examination deferred due to requirement to utilize face shield in the context of the current [place] [address] environment. Cardiovascular: Vessels: normal carotid upstroke; no carotid bruit Neurologic: Oriented to:: Person, Place and Time Memory: Short Term Intact and Remote Intact Attention: Span Intact and Concentration Intact Language: Naming Objects and Repeating Phrases Speech Fluency: negative Dysarthria Speech Aphasia: negative Aphasia Fund of Knowledge: Current Events, Past History and Vocabulary Cranial Nerves: Normal II (Visual peralta full to confrontation, visual acuity normal), III, IV, (Pupils equal round reactive to light and accommodation, eye movements normal), V (Facial sensation intact), VII (There is a mild left lower facial droop noted.), VIII (Hearing intact), IX, X (Palate elevates to midline), XI (Shoulder shrug intact) and XII (Tongue protrudes to midline) Motor Strength: Normal Lower Extremities and Pronator Drift Laterality: Left; negative Normal Upper Extremities (There is mild weakness of the left upper limb, distal greater than proximal. Mild weakness of left clinical geneticist strength noted. Mild impairment of facility of the left hand noted. There is a mild to moderate left upper extremity pronator drift and fix with arm roll on the left as well.) Motor Tone: Normal Lower Extremities and Normal Upper Extremities Muscle Bulk/Involuntary Movements: No Involuntary Movements; negative Muscle Atrophy Sensation: Light Touch Intact, Pain/Temperature Intact, Vibration Intact and Proprioception Intact Coordination: Finger-Nose Abnormal Laterality: Left; negative Heel-Felder Abnormal Deep Tendon Reflexes: Rt Triceps: 2+, Lt Triceps: 2+, Rt Biceps: 2+, Lt Biceps: 2+, Rt Brachioradialis: 2+, Lt Brachioradialis: 2+, Rt Patellar: 2+, Lt Patellar: 2+, Rt Ankle: 2+ and Lt Ankle: 2+ Special Tests: negative Babinski Present Details: Gait not tested due to safety concerns in context of patient's current medical condition/stroke. Results & Data ([facility]) Vital Signs (Past 12 Hours) Vital Signs Temp Pulse Pulse Resp BP BP Pulse Ox 06/04/19 07:40 36.5 C 72 20 157/72 H 92 06/04/19 07:32 66 06/04/19 03:00 36.6 C 73 20 168/88 H 95 06/04/19 00:54 36.6 C 74 24 189/97 H 94 06/04/19 00:30 74 16 166/95 H 94 06/03/19 23:07 74 16 188/97 H 96 06/03/19 22:30 67 17 156/87 H 95 06/03/19 22:17 70 21 174/96 H 94 06/03/19 22:00 69 15 141/78 H 94 Laboratory Results WBC 5.38, hemoglobin 12.8, hematocrit 36.5, platelet count 198, sodium 132, potassium 4.0, BUN 23, creatinine 0.87, glucose 83, hemoglobin A1c 5.7, troponin less than 0.015, triglycerides 46, cholesterol 156, LDL 90, VLDL 9, HDL [address] of the head negative for hemorrhage or acute process. There are several small acute chronic infarcts noted within the left cerebral hemisphere, left parietal lobe, left frontal lobe, and left external capsule. There is chronic small vessel ischemic change. No hemorrhage or acute process. I reviewed the images as well as the radiologist interpretation of this test. A CT angiogram of the head reveals a high-grade stenosis/occlusion of the left M3 segment. There is a 3 mm anterior communicating artery aneurysm as well. A CT angiogram of the neck reveals severe mixed plaque of the bilateral carotid bulbs and proximal internal carotid arteries with a high-grade stenosis of the proximal left ICA, approximately 90%. There is a 50% stenosis of the proximal right ICA. There is a 2 mm saccular outpouching involving the left V2 segment. Electrocardiogram reveals a sinus rhythm, 76 bpm. Coding Level of Care Code 73056 Initial Inpt Care Lvl 3 Diagnoses Cerebrovascular accident I63.9 CVA mechanism: unspecified Carotid artery stenosis I65.29 H/O stroke without residual deficits Z86.73 Cerebral aneurysm I67.1 (1) Cerebrovascular accident CVA mechanism: unspecified Qualified Code(s): I63.9 - Cerebral infarction, unspecified
--- NOTE | 2019-06-04 11:42 | Magnetic Resonance Report ---
MRI OF THE BRAIN WITHOUT CONTRAST CLINICAL HISTORY: L upper extremity weakness COMPARISON STUDY: CT scan dated 06/03/2019 FINDINGS: Sagittal T1, axial diffusion, proton density and T2 weighted axial, coronal FLAIR, and axial T1-weigh tray images were acquired. No intra or extra-axial mass lesions are visualized There is a 10 x 3 mm focus of restricted water diffusion in the region of the right external capsule consistent with acute/subacute infarct. There is no evidence of ventricular dilatation. Proton density T2-weighted and FLAIR images reveal moderate foci of increased T2 signal within the wh ite matter, likely on a small vessel basis. In addition there are cortical foci of increased FLAIR si gnal within the left posterior parietal lobe and right frontal lobe consistent with old infarcts. There are no abnormal flow voids. IMPRESSION: 1. Small acute/subacute infarct in the region of the right external capsule. 2. Moderate white matter disease is evidence for bilateral remote cortical infarcts ACT 112: Negative or not required by law. Electronically signed by: Daniel Euceda M.D. 06/04/2019 11:41 AM
[2019-06-04] MEDS ORDERED: ATORVASTATIN 40 MG TAB PO SCH (14:00)
[2019-06-04] MEDS ORDERED: STROKE PATIENT DISCHARGE STA (14:29)
--- NOTE | 2019-06-04 15:03 | Pharmacy Report ---
Pharmacist Stroke Counseling - Date of Service June 04, 2019 - Scope: Pharmacy has been consulted to provide medication discharge counseling for this patient admitted with ischemic stroke as per the Pharmacist Discharge Counseling for Stroke Patients Protocol. - Medications on Discharge: Home Medications Medication Instructions Recorded Confirmed digestive enzymes 3 tab PO AC #0 04/18/17 06/03/19 folic acid 1 mg PO QAM #0 04/18/17 06/03/19 omega 5-lwr-wmj-fish oil [Fish Oil] 1 tab PO QAM #0 cap 04/18/17 06/03/19 Probiotic 0 mmu cells PO TIDM #0 10/09/17 06/03/19 Raw Material Synergy 1 tab PO QAM 10/22/17 06/03/19 ascorbic acid (vitamin C) [Vitamin 500 mg PO TID 10/22/17 06/03/19 C] Adrenal Support 1 tab PO DAILY 06/03/19 06/03/19 Boswella 1 - 3 tabs PO DAILY 06/03/19 06/03/19 Anthony 40 1 tab PO DAILY 06/03/19 06/03/19 Organic Bound Minerals 1 tab PO DAILY 06/03/19 06/03/19 Saligesic 1 tab PO DAILY 06/03/19 06/03/19 Soy Valles Lecisin 1 tab PO DAILY 06/03/19 06/03/19 Zypam 1 tab PO DAILY 06/03/19 06/03/19 vitamin E 0 unit PO DAILY 06/03/19 06/03/19 Desiccated Adrenal 06/04/19 Garden Of Life Probiotic 06/04/19 Mrm Bone Maximizer 06/04/19 Spleen Descciated 06/04/19 Thytrophin Pmg 06/04/19 New Rx's Medication Instructions Recorded aspirin 81 mg PO QAM #30 tab 06/04/19 atorvastatin 40 mg PO HS #30 tab 06/04/19 lisinopril 2.5 mg PO HS #30 tab 06/04/19 - Action: The above medications, specifically ones for stroke treatment/prophylaxis, have been reviewed in detail with the patient and/or patient hvac sales representative(s) prior to discharge. This includes indication, common adverse reactions, drug interactions, and medication administration. Medication counseling has been employed using the teach-back method to ensure understanding. - Outcome: The patient and/or patient hvac sales representative(s) have demonstrated understanding of the medications. Please note, they are aware that the pharmacist will call them within 72 hours post-discharge to confirm that the appropriate medications are being taken and answer any further medication related questions the patient might have at that t elsy. Contact information Individual to be contacted: Self Relationship to patient (if applicable): Phone number: [phone] Best time to call: Anytime Additional comments: Spoke over the phone with Mario campuzano. Reviewed new medications to prevent stroke including Aspirin and Atorvastatin. Discussed why they are being used and common side effects in great detail. Reviewed how to use the medications, what to do if doses are missed, common drug interactions, common side effects, what to watch out for while using the medications, and how to store the medications. Pt verbalized understanding and restated the riojas points of each medication. Pt agreeable to follow up phone call in 2-3 days Thank you for allowing pharmacy to be involved in the care of this patient. Please call [phone] or [phone] with any additional questions
--- NOTE | 2019-06-04 22:44 | Billing Data ---
Date of Service June 04, 2019 Coding Level of Care Code 02288 Initial Inpt Care Lvl 3
--- NOTE | 2019-06-05 10:22 | Electrocardiogram Report ---
Test Reason : Blood Pressure : / mmHG Vent. Rate : 076 BPM Atrial Rate : 076 BPM P-R Int : 186 ms QRS Dur : 092 ms QT Int : 392 ms P-R-T Axes : 074 000 014 degrees QTc Int : 441 ms Normal sinus rhythm Normal ECG When compared with ECG of 01-NOV-2017 15:19, Questionable change in QRS axis Confirmed by José Miguel Mcrae ([id number]) on 06/05/2019 10:22:08 AM Referred By: REFERRED SELF Confirmed By:José Miguel Mcrae
--- NOTE | 2019-06-06 10:42 | Pharmacy Report ---
Pharmacist Post D/C Phone Note - Phone Note: Date of phone call: June 06, 2019. Individual with whom pharmacist spoke to: ISAI BANKS The following questions were reviewed during the phone call with responses listed below each: Can you tell me the medications that you are currently taking as well as when and how you take each medication? -See Table Below When have you missed any doses of your medications? - n/a What side effects are you having from your medications, specifically, the new medications you were started on? - none What questions do you have about your medications? - none What problems are you having obtaining your medications? 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 - pt had a tele-visit with MD this morning (he states that it lasted ~1 hour and he got many questions answered) Additional comments: - MD recommends waiting for vascular surgery for ~1month. Pt has an appt for physical therapy at [facility] on Sunday. His left hand is still not working well, but he reports feeling well. As per the Pharmacist Discharge Counseling for Stroke Patients Protocol, this phone call has been completed within 72 hours of discharge. Thank you for allowing us to be involved in the care of this patient. - Home Medications: Home Medications Medication Instructions Recorded Confirmed digestive enzymes 3 tab PO AC #0 04/18/17 06/03/19 folic acid 1 mg PO QAM #0 04/18/17 06/03/19 omega 4-xrh-dxr-fish oil [Fish Oil] 1 tab PO QAM #0 cap 04/18/17 06/03/19 Probiotic 0 mmu cells PO TIDM #0 10/09/17 06/03/19 Raw Material Synergy 1 tab PO QAM 10/22/17 06/03/19 ascorbic acid (vitamin C) [Vitamin 500 mg PO TID 10/22/17 06/03/19 C] Adrenal Support 1 tab PO DAILY 06/03/19 06/03/19 Boswella 1 - 3 tabs PO DAILY 06/03/19 06/03/19 Anthony 40 1 tab PO DAILY 06/03/19 06/03/19 Organic Bound Minerals 1 tab PO DAILY 06/03/19 06/03/19 Saligesic 1 tab PO DAILY 06/03/19 06/03/19 Soy Valles Lecisin 1 tab PO DAILY 06/03/19 06/03/19 Zypam 1 tab PO DAILY 06/03/19 06/03/19 Desiccated Adrenal 06/04/19 Garden Of Life Probiotic 06/04/19 Mrm Bone Maximizer 06/04/19 Spleen Descciated 06/04/19 Thytrophin Pmg 06/04/19 New Rx's Medication Instructions Recorded aspirin 81 mg PO QAM #30 tab 06/04/19 atorvastatin 40 mg PO HS #30 tab 06/04/19 lisinopril 2.5 mg PO HS #30 tab 06/04/19
--- NOTE | 2019-06-10 23:32 | Discharge Summary ---
Date of Service June 04, 2019 Admission HPI Per Admitting Provider Mario Lopez is a 84 y/o M with PMH significant for L carotid artery stenosis, and previous CVA; who presented to the ER for weakness of his left upper extremity that has been persistent for the last 36hours; that has not improved or worsened since he woke up yesterday, was last known well >48 hours ago. First noticed the difficulty with holding items in his L hand, and consistently dropping them. He did not think this was initially a big problem as he did not notice any other weaknesses, and it was not until he discussed with his friend in [place] that he realized that he needed to be evaluated. Currently he feels some weakness with flexion extension at the elbow as well, but no other changes in any of his other extremities. Also feels like he has been drooling more out the L side of his face more over this same time. Over the last several weeks, he has noticed that he has fallen approximately 5 times; feels like he is just tripping on items. Denies dizziness, weakness during these episodes; denies palpitations, or chest pain. Principal Diagnosis CVA Discharge Data Allergies Allergy/AdvReac Type Severity Reaction Status Date / Time No Known Allergies Allergy Unverified 06/03/19 21:45 Consultations 06/03/19 22:38 ED Decision to Admit Stat 06/04/19 00:53 Consult Case Management - Discharge Planning Routine Consult Neurology Routine 06/04/19 13:57 Consult [facility] body masker Routine Ordered Studies 06/03/19 21:11 CT head/brain wo con Stat 06/03/19 23:37 CT angio head w con Urgent CT angio neck with con Urgent 06/04/19 00:53 MR brain wo con Routine Hospital Course (1) Cerebrovascular accident: Mario Lopez is a 84 y/o M with PMH significant for L carotid artery stenosis, and previous CVA; who presented to the ER for weakness of his left upper extremity that has been persistent for the last 36hours Cerebrovascular accident: - based off the presentation, this likely represents new CVA; patient outside tPA window, with last known well time at least 48 hours prior to presentation - CT head w/o contrast demonstrated no acute intracranial findings. No change in appearance of the brain. Multiple old infarcts and small vessel disease. - CTA head per STAT rad report demonstrated age indeterminant L M3 MCA occlus ion, new since MRA from 06/16/16 - CTA neck per STAT rad report demonstrated 70% stenosis of L ICA, with moderate proximal stenosis, and moderate atherosclerotic plaque and calcifications at the carotid bulbs and proximal ICA b/l - MRI ordered - Echo ordered - Lipid profile and A1c pending - PT/OT ordered - Speech eval ordered - Neurology consulted - Neuro checks Q2h Xompleted above tests, including echo. Appreciate input from Neuro:Cerebrovascular accident: Probable acute stroke affecting the right cerebral hemisphere and resulting in a mild to moderate left hemiparesis affecting the face and arm primarily. Stroke symptoms began 3 days ago and have been fairly persistent. Stroke etiology likely small vessel ischemic disease. Carotid and cardiac embolism less likely but not excluded. Patient's severe stenosis of the left internal carotid artery would not likely be responsible for his acute stroke symptoms. I agree with initiation of daily low-dose aspirin. Patient should also be prescribed a statin. Patient has been modestly hypertensive as well. Continue medical management of hypertension, avoid aggressive treatment of hypertension to lower the risk of hypoperfusion injury. Current systolic blood pressure goal 140 to 160 mmHg. Patient's hypertension will need ongoing outpatient management with his PCP. Transthoracic echocardiogram should be completed. (2) Carotid artery stenosis: 90% stenosis of the proximal left internal carotid artery. As above, this vascular lesion would not be responsible for his current acute stroke symptoms which would localize to the right cerebral hemisphere. This patient should really be on a statin and daily low-dose aspirin therapy. However, it looks like he has preferred to take [id number] supplements as an alternative treatment/remedy. I would, however, recommend continuing daily low-dose aspirin as well as initiation of a statin. Also as described below, this patient should have a consultation with vascular surgery to potentially address his severe stenosis of the left internal carotid artery which likely has been symptomatic in the past given the presence of multifocal chronic ischemic infarct within the left cerebral hemisphere, see below for further details. (3) H/O stroke without residual deficits: History of multifocal, small, chronic left hemispheric infarcts in the c ontext of the above 90% proximal stenosis of the left ICA. He also has an intracranial stenosis involving the left M3 segment. I do suspect that his left ICA stenosis has been symptomatic on the basis of these multiple chronic infarcts. Patient should really discuss this issue with a vascular surgeon as he would likely be an appropriate candidate for nonemergent left carotid endarterectomy. Fortunately, he does not appear to have any obvious or significant right-sided deficits as a result of these infarcts. 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 Although the rupture risk for a small aneurysm such as this is small, it will need some monitoring going forward. Control of hypertension will also be important on an ongoing basis as described above. A follow-up CTA or MRA of the head should be completed in 1 year. Would also consider consultation with a vascular neurosurgeon at a tertiary center for further guidance. There is also an incidental small outpouching, possible small aneurysm at the cervical segment of the left vertebral artery/V2. This vascular lesion may also require some monitoring going forward. Surgical intervention will likely not be required going forward for either of these aneurysms, however, in light of this patient's advanced age and small aneurysm size. Carotid artery stenosis: - CTA neck per STAT rad report demonstrated 70% stenosis of L ICA, with moderate proximal stenosis, and moderate atherosclerotic plaque and calcifications at the carotid bulbs and proximal ICA b/l - consider Vascular surgery consult: will set this up as outpatient. Hypertension: - permissive in the post CVA setting - continue to monitor (2) Carotid artery stenosis: (3) Hypertension: Total Time Total Time Spent Total Time Spent (In Minutes): 32 Total Time Includes: Examination of the Patient, Discharge Planning and Medication Reconciliation Discharge Plan Discharge Items Patient Disposition: Home - Self-Care Reason For Visit: L UPPER EXTREMITY WEAKNESS Discharge Diagnosis: Acute ischemic Stroke Activity: Resume your previous activity Non-emergency contact: Primary Care Provider Call non-emergency contact if: you have any medication questions Follow-up/Referrals: Tanner Scherer MD [Primary Care Provider] - Diet: Regular Addtl Attending Provider Instructions: Recommend followup with Vascular surgeon within next month. Will continue with Aspirin, and atrovastatin. For the short term, will recommend plavix but this should be stopped by time you see vascular surgeon. Risk Factors for Stroke: You can reduce your chances of stroke by working with your medical provider to adopt a healthy lifestyle. Some specific ways to lower your chance of stroke are: * If you are a smoker, now is the time to stop smoking cigarettes * If you are diabetic, improve the control of your blood sugars * Avoid excessive amounts of alcohol * Control high blood pressure * Lose weight if you are overweight * Be sure to lead an active lifestyle * Eat a healthy diet low in salt, cholesterol and fat You should know about other risk factors for stroke that you are unable to control. These include: * Age 55 years or older * Male gender * Certain racial groups: , or / * Family History of Stroke, Mini stroke or Heart Attack * Sickle Cell Disease Follow Up: It is important for you to keep your follow up appointments with your medical provider. Who to Call and When: Medical Emergencies: Call 911 immediately if you experience any of the following warning signs and symptoms of Stroke: * Sudden numbness or weakness of the face, arm or leg, especially on one side of the body * Sudden confusion, trouble speaking or understanding * Sudden trouble seeing in one or both eyes * Sudden trouble walking, dizziness, loss of balance or coordination * Sudden severe headache with no cause Do not delay calling 911 if you experience any warning signs or symptoms of a stroke. Delay in seeking medical attention may affect what treatments can be given to you. . Pending Studies at Discharge: No Stand-Alone Forms: My [facility], Smoking Cessation Medications and DC Order Prescriptions: New atorvastatin 40 mg Tablet 40 mg PO HS Qty: 30 RF: 0 aspirin 81 mg Tablet,Delayed Release (Dr/Ec) 81 mg PO QAM Qty: 30 RF: 0 lisinopril 2.5 mg tablet 2.5 mg PO HS Qty: 30 RF: 0 Continued digestive enzymes Tablet 3 tab PO AC Qty: 0 RF: 0 folic acid 1 mg Tablet 1 mg PO QAM Qty: 0 RF: 0 omega 0-hov-iiq-fish oil [Fish Oil] 1,000 mg (120 mg-180 mg) Capsule 1 tab PO QAM Qty: 0 RF: 0 Probiotic 3 billion cell Capsule 0 mmu cells PO TIDM Qty: 0 RF: 0 Adrenal Support 1 tab PO DAILY RF: 0 Boswella 1 - 3 tabs PO DAILY RF: 0 Antohny 40 1 tab PO DAILY RF: 0 Organic Bound Minerals 1 tab PO DAILY RF: 0 Saligesic 1 tab PO DAILY RF: 0 Soy Valles Lecisin 1 tab PO DAILY RF: 0 Zypam 1 tab PO DAILY RF: 0 Desiccated Adrenal RF: 0 Garden Of Life Probiotic RF: 0 Mrm Bone Maximizer RF: 0 Spleen Descciated RF: 0 Thytrophin Pmg RF: 0 ascorbic acid (vitamin C) [Vitamin C] 500 mg Capsule, Extended Release 500 mg PO TID RF: 0 Raw Material Synergy 1 tab PO QAM RF: 0 Discontinued vitamin E 400 unit Capsule 0 unit PO DAILY RF: 0 Discharge Orders: Discharge Order (Routine); Ordered 06/04/19 Ordered By: Jason Matos Admission Data Admit Date/Time: 06/03/19 23:53 Attending Provider: Jason Matos Admit Provider: Jg Pope Primary Care Provider: Tanner Scherer Other Providers: Dino Fine ; Chris Turpin Other Interventions: Discharge Summary Assessment (RN) Last Done: 06/04/19 15:40 DC Date/Time DO NOT enter until pt leaves facility: 06/04/19 16:18 Coding Level of Care Code D/C Day Management >30 mins Diagnoses Cerebrovascular accident I63.9 CVA mechanism: unspecified Carotid artery stenosis I65.29 Hypertension I10 Time Spent (min) 32
== END 2019-06-04 16:18 | disposition home or self-care (01) | DRG 65 ==
LOC: ED 20:49 → SUATTDRO 23:53 → 2N 23:53
DX: G81.94 Hemiplegia, unspecified affecting left nondominant side; I63.9 Cerebral infarction, unspecified; I67.1 Cerebral aneurysm, nonruptured; Z82.3 Family history of stroke; I25.10 Atherosclerotic heart disease of native coronary artery without angina pectoris; I10 Essential (primary) hypertension

== ENCOUNTER 2019-08-05 06:11 | Inpatient (IN) ==
--- NOTE | 2019-07-31 14:16 | Anesthesiology Consultation ---
Date of Service July 31, 2019 Assessment & Plan (1) Encounter for pre-operative examination: Chart Review Chart Review: Acceptable Risk for Surgery (pending Covid testing) and Patient NOT seen in Pre Admission Testing Per nursing assessment 07/30/19, pt has had no recent travel. No known contact with PUIs or Covid positive people. No current Covid related symptoms or history of Covid testing. Per new guidelines, patient will need Covid testing done at least 3 days prior to procedure Admitted 06/03/19-06/04/19 for CVA= pt was outside tPA window. CT of head showed no issues. CTA head per STAT rad report demonstrated age indeterminant L M3 MCA occlusion, new since MRA from 06/16/16. Per neuro "Probable acute stroke affecting the right cerebral hemisphere and resulting in a mild to moderate left hemiparesis affecting the face and arm primarily. Stroke symptoms began 3 days ago and have been fairly persistent. Stroke etiology likely small vessel ischemic disease.Carotid and cardiac embolism less likely but not excluded... Also as described below, this patient should have a consultation with vascular surgery to potentially address his severe stenosis of the left internal carotid artery which likely has been symptomatic in the past given the presence of multifocal chronic ischemic infarct within the left cerebral hemisphere" Pt will also continue to have 3mm anterior communicating artery aneurysm monitored. History Surgery Operation Date: 08/05/19 07:30 Proposed Procedures p Left Carotid Endarterectomy - Dru Gibbs MD Height/Weight Height: 5 ft 6.5 in Weight: 55.792 kg Allergies Allergy/AdvReac Type Severity Reaction Status Date / Time No Known Allergies Allergy Unverified 07/30/19 08:06 Medications Home Medications Medication Instructions Recorded Confirmed Last Taken digestive enzymes 3 tab PO AC #0 04/18/17 07/30/19 10/31/17 06:30 folic acid 1 mg PO QAM #0 04/18/17 07/30/19 10/31/17 06:30 omega 2-gpo-awo-fish oil [Fish Oil] 1 tab PO QAM #0 cap 04/18/17 07/30/19 10/25/17 06:30 Probiotic 0 mmu cells PO TIDM #0 10/09/17 07/30/19 10/31/17 06:30 Raw Material Synergy 1 tab PO QAM 10/22/17 07/30/19 Unknown ascorbic acid (vitamin C) [Vitamin 500 mg PO TID 10/22/17 07/30/19 10/31/17 18:00 C] Adrenal Support 1 tab PO DAILY 06/03/19 07/30/19 Unknown Boswella 1 - 3 tabs PO DAILY 06/03/19 07/30/19 Unknown Anthony 40 1 tab PO DAILY 06/03/19 07/30/19 Unknown Organic Bound Minerals 1 tab PO DAILY 06/03/19 07/30/19 Unknown Saligesic 1 tab PO DAILY 06/03/19 07/30/19 Unknown Soy Valles Lecisin 1 tab PO DAILY 06/03/19 07/30/19 Unknown Zypam 1 tab PO DAILY 06/03/19 07/30/19 Unknown Desiccated Adrenal 1 dose PO DAILY 06/04/19 07/30/19 Unknown Garden Of Life Probiotic 1 dose PO DAILY 06/04/19 07/30/19 Unknown Mrm Bone Maximizer 1 dose PO DAILY 06/04/19 07/30/19 Unknown Spleen Descciated 1 dose PO DAILY 06/04/19 07/30/19 Unknown Thytrophin Pmg 1 dose PO DAILY 06/04/19 07/30/19 Unknown aspirin 81 mg PO QAM #30 tab 06/04/19 07/30/19 Unknown atorvastatin 40 mg PO HS #30 tab 06/04/19 07/30/19 Unknown lisinopril 2.5 mg PO HS #30 tab 06/04/19 07/30/19 Unknown Past Medical History Medical History (Updated 07/31/19 @ 14:34 by Sara Ennis PA-C) Carotid artery stenosis CVA (cerebral vascular accident) 05/2016, retinal artery occlusion; most recently admitted 06/03/19 for CVA GERD (gastroesophageal reflux disease) diet controlled Hearing deficit [place] Hyponatremia Chronic/stable Hypothyroid Osteoarthritis Past Surgical History Surgical History History of tonsillectomy S/P total hip arthroplasty Rt Social History Smoking Status: Never smoker Do You Dip or Chew Tobacco: No Hx Alcohol Use: No Alcohol type: wine alcohol intake frequency: 0-2 drinks per day Hx Substance Use: No substance use type: does not use Testing Laboratory Results Laboratory Tests 06/03/19 06/04/19 07/23/19 21:16 05:43 14:55 WBC 4.98 Hgb 12.7 L Hct 37.7 L Plt Count 194 PT INR APTT Sodium Potassium Chloride Carbon Dioxide BUN Creatinine Glucose Hemoglobin A1c 5.7 H TSH 4.300 07/23/19 07/23/19 14:55 14:55 WBC Hgb Hct Plt Count PT 10.2 INR 1.0 APTT 28.2 Sodium 132 L Potassium 4.2 Chloride 99 Carbon Dioxide 28 BUN 23 H Creatinine 0.84 Glucose 104 H Hemoglobin A1c TSH Electrocardiogram Date: 07/23/19 Findings: + SB @ (57) Chest X-Ray Date: 07/23/19 Mild emphysematous change. No acute process. Echocardiogram Date: 06/04/19 EF: 60 to 65% LV Function: normal RWMA: + none Other Findings: + LVH (Mild/concentric) Mild TR. Compared to study from 06/17/2016, no significant change. Other Testing Neck CTA 06/03/19= Severe mixed plaque of the bilateral carotid bulbs and proximal internal carotid arteries results in high-grade stenosis of the proximal left ICA of approximately 90% as above. Less than 50% luminal narrowing of the proximal right ICA. 2 mm area of saccular outpouching involves the V2 segment left vertebral artery at the level of C2, possibly reflective of a small aneurysm. Attention at follow-up recommended.
[~2019-08-05 06:11] MED LIST changes: -ASCO500C4 PO; -ASPI81TA28 PO; -B-COTAB18 PO; -BLAC1CAP4 PO; -DIGE1CAP PO; -FOLI1POW10 PO; -IODI1MIS PO; +LACTATED RINGER'S 1,000 ML IV SCH; -LEVO25TA5 PO; -OMEG10007 PO; -SACC250C11 PO; -[UNRECOGNIZED DRUG - OTHER] PO; -[UNRECOGNIZED DRUG - OTHER] PO
[2019-08-05] MEDS ORDERED: NITROGLYCERIN 5 MG/ML 10 ML VIAL ONE (06:53)
[2019-08-05] MEDS ORDERED: DEXAMETHASONE SOD INJ 4 MG/ML VIAL ONE (06:53)
[2019-08-05] MEDS ORDERED: GLYCOPYRROLATE 0.2 MG/ML VIAL ONE (06:53)
[2019-08-05] MEDS ORDERED: ROCURONIUM BROMIDE 10 MG/ML 5 ML VIAL ONE (06:53)
[2019-08-05] MEDS ORDERED: fentaNYL citrate 100 MCG/2 ML VIAL ONE (06:53)
[2019-08-05] MEDS ORDERED: LIDOCAINE HCL 2% 2 ML VIAL/AMP(20MG/ML) INFIL ONE ×2 (06:53→08:55)
[2019-08-05] MEDS ORDERED: NEOSTIGMINE METHYLSULFATE 5 MG/5 ML SYR ONE (06:53)
[2019-08-05] MEDS ORDERED: ONDANSETRON INJ 2 MG/ML 2 ML VIAL ONE (06:53)
[2019-08-05] MEDS ORDERED: PHENYLEPHRINE HCL 10 MG/ML VIAL ONE (06:53)
[2019-08-05] MEDS ORDERED: LARYING-O-JET KIT (LTA) ONE (06:53)
[2019-08-05] MEDS ORDERED: PROPOFOL IV EMULSION 10 MG/ML 20 ML VIAL IV ONE (06:53)
[2019-08-05] MEDS ORDERED: NITROGLYCERIN/D5W 100 MCG/ML BTL ONE (06:56)
[2019-08-05] MEDS ORDERED: HEPARIN SOD (PORCINE) 1000 UNIT/ML 10 ML VIAL ONE (07:02)
--- NOTE | 2019-08-05 07:04 | History & Physical Report ---
Date of Service August 05, 2019 History of Present Illness Chief Complaint: left carotid stenosis Primary Care Provider: Tanner Scherer MD History of Present Illness I the pleasure of seeing Mario today for follow-up for his carotid disease. As you know he is a 84-year-old gentleman who was admitted to the hospital with left hand numbness and tingling and slight weakness. His right carotid showed a 50% stenosis of his left side showed a significant severe 90% narrowing. Although the narrowing was on the left side he was asymptomatic from this lesion. Denies any complaints of claudication. Review of Systems Review of 10 systems was negative except for the HPI. Physical Exam On exam the patient is awake alert and oriented x3. His blood pressure is 154/76 on the right 156/76 on the left. Lungs are clear. Heart has a RRR. Abdominal exam is benign. He does have a left carotid bruit. Radials and femorals are +2 bilaterally. Is a good capillary refill both feet. He has good strength in his upper and lower extremities. Neuro exam is grossly intact. Assessment/Plan 1. Occlusion and stenosis of left carotid artery At this point we recommended left carotid endarterectomy. He understands the risks options and benefits of undergoing this procedure and agrees to go ahead with this procedure. We will keep you informed as to his results. Thank you very much for letting us participate in the care of this patient. Sincerely, Cydney Gibbs MD Problem List/Past Medical History Ongoing B12 deficiency Carotid artery stenosis Cerebral aneurysm Constipation CVA (cerebrovascular accident) Dyshidrotic eczema Facial droop due to acute stroke Hypertension Hypothyroidism Hypovitaminosis D Left hand weakness Memory dysfunction Partial retinal artery occlusion Patient has active power of transactional attorney for health care Raynaud disease Skin lesions Status post total hip replacement, right Historical Arthritis of right hip Preop examination Procedure/Surgical History CT angiography of head (06/03/2019) CT angiography of neck vessels (06/03/2019) MRI of brain w/o con (06/03/2019) Hip Medications aspirin 81 mg oral tablet, 81 mg= 1 tab, PO, Daily atorvastatin 40 mg oral tablet, 40 mg= 1 tab, PO, qhs, Not taking Fish Oil 1000 mg oral capsule folic acid 1 mg oral tablet, 1 mg= 1 tab, PO, Daily lisinopril 2.5 mg oral tablet, 2.5 mg= 1 tab, PO, qhs, Not taking Probiotic Formula see comments for list, See Instructions Vitamin C, 500 mg, PO, tid Allergies No Known Medication Allergies Social History Smoking Status - 06/18/2019 Never smoked cigarettes Alcohol - Denies Alcohol Use, 06/06/2019 Current, Wine, Daily, 03/17/2016 Employment/School Retired, 06/06/2019 Exercise Exercise frequency: Daily. Self assessment: Good condition. Exercise type: Walking., 03/17/2016 Home/Environment Lives with Spouse. Living situation: Home/Independent. Alcohol abuse in household: No. Feels unsafe at home: No. Family/Friends available for support: Yes. Concern for family members at home: No. Major illness in household: No. Financial concerns: No., 06/06/2019 Nutrition/Health Type of diet: No red meat. Consumes fish., 06/06/2019 Sexual Sexually active: No., 03/17/2016 Substance Abuse - Denies Substance Abuse, 06/06/2019 Tobacco - Denies Tobacco Use, 03/17/2016 Family History Stroke: Father. Immunizations Vaccine Date Status pneumococcal 13-valent vaccine 01/09/2018 Given influenza virus vaccine, inactivated 01/09/2018 Given Signature Line Electronic Signature on File Dru Gibbs MD Author Signature Dt/Tm: 07/22/2019 03:24 PM Property Staff Accountant Celestino Nielsen [facility] [place], [address] [place] [address] EJS Result Type: .Outpt Ltr Date of Service: July 22, 2019 15:24 EDT Authorization Status: Final Subject: Office Visit Note Author or Import Date: MD Gibbs Eugene J on July 22, 2019 15:24 EDT Verified By: MD Gibbs Eugene J on July 22, 2019 15:24 EDT Encounter info: [id number], [facility], Clinic, 07/22/2019 - 07/22/2019 Allergies Allergy/AdvReac Type Severity Reaction Status Date / Time No Known Allergies Allergy Unverified 07/30/19 08:06 Home Medications Home Medications Medication Instructions Recorded Confirmed Type digestive enzymes 3 tab PO AC #0 04/18/17 08/05/19 History folic acid 1 mg PO QAM #0 04/18/17 08/05/19 History omega 3-xae-umx-fish oil [Fish Oil] 1 tab PO QAM #0 cap 04/18/17 08/05/19 History Probiotic 0 mmu cells PO TIDM #0 10/09/17 08/05/19 History Raw Material Synergy 1 tab PO QAM 10/22/17 08/05/19 History ascorbic acid (vitamin C) [Vitamin 500 mg PO TID 10/22/17 08/05/19 History C] Adrenal Support 1 tab PO DAILY 06/03/19 08/05/19 History Boswella 1 - 3 tabs PO DAILY 06/03/19 08/05/19 History Anthony 40 1 tab PO DAILY 06/03/19 08/05/19 History Organic Bound Minerals 1 tab PO DAILY 06/03/19 08/05/19 History Saligesic 1 tab PO DAILY 06/03/19 08/05/19 History Soy Valles Lecisin 1 tab PO DAILY 06/03/19 08/05/19 History Zypam 1 tab PO DAILY 06/03/19 08/05/19 History Desiccated Adrenal 1 dose PO DAILY 06/04/19 08/05/19 History Garden Of Life Probiotic 1 dose PO DAILY 06/04/19 08/05/19 History Mrm Bone Maximizer 1 dose PO DAILY 06/04/19 08/05/19 History Spleen Descciated 1 dose PO DAILY 06/04/19 08/05/19 History Thytrophin Pmg 1 dose PO DAILY 06/04/19 08/05/19 History aspirin 81 mg PO QAM #30 tab 06/04/19 08/05/19 Rx atorvastatin 40 mg PO HS #30 tab 06/04/19 08/05/19 Rx lisinopril 2.5 mg PO HS #30 tab 06/04/19 08/05/19 Rx Past Med/Surg History Social History Preferred Language: [place] Communication Ability: Effective Visual Impairment: No Limitations Hearing Ability: Hard of Hearing 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
[2019-08-05] MEDS ORDERED: LIDOCAINE HCL 1% 20 ML VIAL ONE (07:06)
[2019-08-05] MEDS ORDERED: GELATIN SPONGE SZ 100 ONE (07:06)
[2019-08-05] MEDS ORDERED: CEFAZOLIN 250 MG/ML 1 GM VIAL ONE (07:06)
[2019-08-05] MEDS ORDERED: THROMBIN FOR SOLN 20000 UNIT KIT ONE (07:06)
[2019-08-05] MEDS ORDERED: HEPARIN (PORCINE) 1000 UNIT/ML 10 ML (CATH LAB USE ONLY) ONE (07:06)
[2019-08-05] MEDS ORDERED: BUPIVACAINE 0.5 % 5 MG/1 ML MPF 30ML VIAL ONE (07:07)
[2019-08-05] MEDS ORDERED: EPINEPHrine INJ 1 MG/ML AMP ONE (07:07)
--- NOTE | 2019-08-05 07:12 | History & Physical Bridge Note ---
Date of Service August 05, 2019 History & Physical Bridge Note I have examined the patient, reviewed the History & Physical and in the interval since the performance of the History & Physical I have noted the following changes of clinical significance: no changes noted
[2019-08-05] MEDS: CEFAZOLIN 1000MG 1,000 MG/7.5 ML SYR IV SCH ×4 (07:30→22:18)
[2019-08-05] MEDS ORDERED: fentaNYL citrate 100 MCG/2 ML VIAL IV PRN (07:46)
[2019-08-05] MEDS ORDERED: ePHEDrine sulfate 50 MG/ML AMP IV PRN (07:46)
[2019-08-05] MEDS ORDERED: ONDANSETRON INJ 2 MG/ML 2 ML VIAL IV PRN ×2 (07:46→12:20)
[2019-08-05] MEDS ORDERED: ATROPINE SULFATE 0.1 MG/ML 10ML SYR IV PRN (07:46)
--- NOTE | 2019-08-05 08:18 | Procedure Note ---
Procedure Note Date of Service August 05, 2019 Radial arterial line placed in OR12 post induction in preparation for carotid endarterectomy with Dr. Gibbs. Left wrist prepped with chlorhexidine and draped with sterile towels. 20 G angiocath placed under sterile technique utilizing sterile gloves, surgical hats and masks. Catheter threaded using seldinger technique with return of pulsatile, bright red blood. Site covered with occlusive dressing and taped in place. Waveform consistent with correct arterial placement. After placement, fingers of procedural hand had normal perfusion. Patient tolerated procedure well without complications. Leanne Lou MD, PhD Anesthesiologist Coding
[2019-08-05] MEDS ORDERED: PROTAMINE SULFATE 10 MG/ML 5 ML VIAL ONE (09:09)
[2019-08-05] MEDS ORDERED: LABETALOL HCL IV 5 MG/ML 20ML IV ONE (09:16)
--- NOTE | 2019-08-05 09:17 | Operative Report ---
Post Operative Report Pre & Post Diagnosis Operation Date: 08/05/19 08:00 Pre-Op Diagnosis: Left Internal Carotid Artery Stenosis Post-Op Diagnosis: Left Internal Carotid Artery Stenosis I identified the patient and participated in the time-out.: Yes Procedure Operation Date: 08/05/19 08:00 Actual Procedures p Left Carotid Endarterectomy(Left) - Dru Gibbs MD Surgeon Dru Gibbs MD Traffic Sign Erection Supervisor ShelliPAC Estimated Blood Loss 80 Findings Consistent with Post-Op Diagnosis Specimens Left internal carotid artery plaque Anesthesia Type General Regional Complications none Disposition Accompanied Patient To Recovery: No Disposition: Recovery Room Indications This is an 84-year-old gentleman who came to the hospital with right hemispheric TIA. At that time he was found to have a less than 50% narrowing of his right internal and a greater 90% narrowing of his left internal carotid artery. He recovered nicely from his TIA. Left carotid enterectomy was recommended. I have discussed the risks options and benefits of the procedure with the patient. The patient understands the risks options and benefits and agrees to the procedure. Description of Procedure The patient was taken to the operating room and placed in supine position. After general anesthesia was accomplished the left side of the neck was prepped and draped in a sterile manner. The patient was identified and a timeout performed. A longitudinal neck incision was then made coursing along the medial border of the sternocleidomastoid muscle. The incision was taken down through the platysmal layer. The facial vein was identified, ligated, and divided. The common carotid artery was then seen. It was dissected free down to the omohyoid muscle. The dissection was carried upward until the external carotid artery and superior thyroid artery was seen. The superior thyroid artery was slung with a 2-0 silk suture. The external carotid was slung with a red rubber vessel loop. Next the dissection was carried up along the internal carotid artery. This was carried upward to beyond the area of narrowing. The hypoglossal nerve was seen and preserved. The patient was heparinized. After adequate heparinization was accomplished, the internal, external, and common carotid arteries were clamped. A longitudinal arteriotomy was started on the common carotid artery and extended upward along the internal carotid artery to a point beyond the area of narrowing. There was calcified plaque of the internal carotid artery origin causing approximately 85-90% narrowing. A Doppler shunt was then placed in the internal, followed by the common carotid artery and held in place with Bucky clamps. There was good back bleeding seen from the internal carotid artery. The endarterectomy was then started in the appropriate plane on the common carotid artery. This was carried upward and the external carotid was everted and endarterectomized. The endarterectomy was then carried up along the internal carotid artery till a nice feathering breakoff point was accomplished beyond the end of the plaque. The endarterectomy was then carried down further on the common carotid artery. At end of the arteriotomy, the plaque was then transected. Under loop magnification, all loose debris and flaps werer removed. There is no distal flap seen at the end of the endarterectomy site. The arteriotomy then closed using a bovine patch and a running 6-0 Prolene suture. This was done in the usual vascular fashion. Prior to completing the closure, the doppler shunt was removed and the internal and common carotid arteries were reclamped. Backbleeding and forward bleeding was allowed to occur. The flow surface was irrigated with heparinized saline. The final few sutures were then placed and securely tied. Clamps were then removed off the external and common carotid arteries. The clamp was then removed the internal carotid artery. Good distal flow was seen. Adequate hemostasis was seen of the patch. The wound was inspected and adequate hemostasis was obtained. The wound was irrigated with antibiotic solution. It was then closed with a running 3-0 Vicryl suture for the platysmal layer and a 4-0 subcuticular Vicryl suture for the skin edges. Dermabond was used for dressing. The patient left the operation room in satisfactory condition and tolerated the procedure well. All needle and sponge counts were correct at the end of the procedure. Imelda Frances Pac assisted due to lack of resident availability and was necessary for prepping, draping, retraction, wound closure defects, subQ and skin closure and was necessary for the case. I attest to the content of the Intraoperative Record and any orders documented therein. Any exceptions are noted below.
--- NOTE | 2019-08-05 11:08 | Anesthesiology Progress Note ---
Date of Service August 05, 2019 Anesthesia Post Procedure Vital Signs Vital Signs: Temp Pulse Pulse Resp BP BP Pulse Ox 08/05/19 11:00 58 L 13 142/63 H 137/75 97 08/05/19 10:50 61 17 155/71 H 149/68 H 97 08/05/19 10:40 36.7 C 58 L 12 152/66 H 151/79 H 97 08/05/19 10:30 60 13 144/65 H 138/77 98 08/05/19 10:20 64 12 156/72 H 139/77 96 08/05/19 10:10 59 L 13 149/68 H 138/79 97 08/05/19 10:00 65 12 141/67 H 131/75 96 08/05/19 09:53 36.1 C L 67 15 101/58 L 98 08/05/19 06:48 36.6 C 65 97 H 174/93 H 98 Transfer of Care Handoff Completed per policy Notes Mental Status: alert / awake / arousable and participated in evaluation Patient Amnestic to Procedure: Yes Nausea / Vomiting: adequately controlled Pain: adequately controlled Airway Patency, RR, SpO2: stable & adequate BP & HR: stable & adequate Hydration State: stable & adequate Anesthetic Complications: no major complications apparent and Pt Satisfied with anesthetic care
[2019-08-05] MEDS ORDERED: DIGESTIVE ENZYMES PO SCH (12:20)
[2019-08-05] MEDS ORDERED: ACETAMINOPHEN 325 MG TAB PO PRN (12:20)
[2019-08-05] MEDS ORDERED: OXYCODONE/ACETAMINOPHEN 5mg/325mg TAB PO PRN (12:20)
[2019-08-05] MEDS ORDERED: LACTATED RINGER'S 1,000 ML IV SCH (12:20)
[2019-08-05] MEDS ORDERED: MoRPHine SULFATE 4 MG/ML 1 ML CARP\\VIAL IV PRN ×2 (12:20→12:46)
[2019-08-05] MEDS ORDERED: MoRPHine SULFATE 2 MG/ML CARP IV PRN (12:46)
[2019-08-05] MEDS: ASCORBIC ACID 500 MG TAB PO SCH ×2 (15:11→20:29)
[2019-08-05] MEDS ORDERED: Nursing to Pharmacy Communication SCH (20:00)
[2019-08-05] MEDS ORDERED: ATORVASTATIN 40 MG TAB PO SCH (21:00)
--- NOTE | 2019-08-05 22:13 | Critical Care Consultation ---
Date of Consultation August 05, 2019 Assessment & Plan (1) Carotid artery stenosis: Impression: 84-year-old male with history of CVA without residual and carotid artery stenosis presents to the ICU for monitoring following a elective left carotid endarterectomy Neuro - [facility]: Negative History of CVA: No residual -Continue ASA, statin therapy Carotid artery stenosiss/p left carotid endarterectomy 08/05/2019 -A-line for continuous hemodynamic monitoring, will avoid hypertensive -Management deferred to surgical team Cardiac - Currently hemodynamically stable and in NSR on financial services auditor Respiratory - Moderate emphysematous changes on chest x-ray -Currently stable and maintaining sats on room air, will continue to monitor on pulse ox overnight GI - Heart healthy diet RENAL/LYTES - Creatinine within normal limits, will monitor electrolytes and replete as indicated - Strict I's and O's ENDO - No history of diabetes, ICU hyperglycemic protocol TSH within normal limits HEME - H&H within normal limits, monitor with CBC ID - No indication for infectious process at this time LINES/IV ACCESS - Peripheral IVs, A-line DVT PROPHYLAXIS - SCDs, holding anticoagulation at this time following surgical procedure Thank you for allowing us to participate in the care of this patient. Please refer to my attending physician's documentation for any further recommendations. (2) Hypothyroid: (3) Anemia: (4) H/O stroke without residual deficits: History of Present Illness Attending Physician: Dru Gibbs MD History of Present Illness Mr. Lopez is a 84-year-old male with PMH of left carotid artery stenosis and previous CVA without residual, HTN, who presents to the ICU postop following an elective left carotid endarterectomy. Currently patient is alert and oriented, hemodynamically stable without vasopressors and on room air. He currently denies headache, dizziness, syncope, changes in vision, numbness or tingling, or weakness. He denies sore throat, shortness of breath, chest pain or palpitations, nausea or vomiting, diarrhea, or abdominal pain. Patient is neurologically intact and shows no signs of neurological deficit. Surgical incision is well approximated with Dermabond with minimal bruising at the site. Patient to remain in ICU overnight following surgery for close monitoring. Allergies Allergy/AdvReac Type Severity Reaction Status Date / Time No Known Allergies Allergy Unverified 07/30/19 08:06 Home Medications Home Medications Medication Instructions Recorded Confirmed Type digestive enzymes 3 tab PO AC #0 04/18/17 08/05/19 History folic acid 1 mg PO QAM #0 04/18/17 08/05/19 History omega 1-ppy-pdn-fish oil [Fish Oil] 1 tab PO QAM #0 cap 04/18/17 08/05/19 History Probiotic 0 mmu cells PO TIDM #0 10/09/17 08/05/19 History Raw Material Synergy 1 tab PO QAM 10/22/17 08/05/19 History ascorbic acid (vitamin C) [Vitamin 500 mg PO TID 10/22/17 08/05/19 History C] Adrenal Support 1 tab PO DAILY 06/03/19 08/05/19 History Boswella 1 - 3 tabs PO DAILY 06/03/19 08/05/19 History Anthony 40 1 tab PO DAILY 06/03/19 08/05/19 History Organic Bound Minerals 1 tab PO DAILY 06/03/19 08/05/19 History Saligesic 1 tab PO DAILY 06/03/19 08/05/19 History Soy Valles Lecisin 1 tab PO DAILY 06/03/19 08/05/19 History Zypam 1 tab PO DAILY 06/03/19 08/05/19 History Desiccated Adrenal 1 dose PO DAILY 06/04/19 08/05/19 History Garden Of Life Probiotic 1 dose PO DAILY 06/04/19 08/05/19 History Mrm Bone Maximizer 1 dose PO DAILY 06/04/19 08/05/19 History Spleen Descciated 1 dose PO DAILY 06/04/19 08/05/19 History Thytrophin Pmg 1 dose PO DAILY 06/04/19 08/05/19 History aspirin 81 mg PO QAM #30 tab 06/04/19 08/05/19 Rx atorvastatin 40 mg PO HS #30 tab 06/04/19 08/05/19 Rx lisinopril 2.5 mg PO HS #30 tab 06/04/19 08/05/19 Rx Patient History Social History Preferred Language: And[place] Communication Ability: Effective Visual Impairment: No Limitations Hearing Ability: Hard of Hearing Recruitment Assistant Required: No Beliefs That Will Affect Care: None marital status: Current Living Situation: Spouse Current Living Situation Comment: , Jim home alone Other Information That Helps Us Care for You: No Feels Safe at Home: Yes Safety Concerns: Feels Safe At This Time Smoking Status: Never smoker Do You Dip or Chew Tobacco: No ; Second Hand Exposure: Yes (as a child) ; Tobacco Cessation Education Requested by Patient: No Hx Alcohol Use: No Hx Substance Use: No Review of Systems Review of Systems: All systems reviewed & are unremarkable except as noted in HPI & below Physical Exam Constitutional: WD/WN, vitals as above cooperative and comfortable Eyes: PERRL, conjunctivae normal, anicteric sclerae ENMT: external ear and nose normal, oropharynx normal Neck: trachea midline, no thyromegaly Respiratory: normal respiratory effort, lungs clear to auscultation Cardiovascular: RRR, no murmur, no edema Gastrointestinal (Abdomen): normal bowel sounds, soft, nontender, no hepatosplenomegaly Musculoskeletal: no cyanosis or clubbing, extremities motor strength 5/5 Skin: no rashes, warm and dry Well approximated surgical incision to the left anterior neck Neurologic: PERRL, EOMI, accommodation nl, no face palsy, no dysarthria not confused Speech / Cognition: normal speech Psychiatric: A+Ox3, euthymic affect Results & Data Results & Data ([facility]) Vital Signs (Past 12 Hours) Vital Signs Temp Pulse Pulse Resp BP BP BP 08/05/19 22:00 73 21 133/75 08/05/19 21:08 69 08/05/19 21:00 64 12 08/05/19 20:00 36.6 C 83 21 08/05/19 19:22 69 21 128/83 08/05/19 19:00 59 L 24 08/05/19 17:30 61 16 08/05/19 17:00 81 21 08/05/19 16:30 36.4 C L 62 20 08/05/19 16:00 60 17 08/05/19 15:30 77 27 H 08/05/19 15:00 71 18 08/05/19 14:45 79 21 08/05/19 14:30 87 18 08/05/19 14:15 67 15 08/05/19 14:00 78 21 08/05/19 13:45 67 15 08/05/19 13:30 69 17 08/05/19 13:15 72 19 08/05/19 13:08 80 16 142/83 H 08/05/19 13:00 80 26 H 08/05/19 12:55 80 22 143/76 H 08/05/19 12:45 64 20 08/05/19 12:30 63 12 08/05/19 12:15 62 15 08/05/19 12:09 63 16 08/05/19 11:54 36.4 C L 66 15 143/76 H 08/05/19 11:30 75 20 122/55 L 118/66 08/05/19 11:15 57 L 12 131/58 L 126/72 08/05/19 11:00 58 L 13 142/63 H 137/75 08/05/19 10:50 61 17 155/71 H 149/68 H 08/05/19 10:40 36.7 C 58 L 12 152/66 H 151/79 H 08/05/19 10:30 60 13 144/65 H 138/77 08/05/19 10:20 64 12 156/72 H 139/77 Pulse Ox 08/05/19 22:00 93 08/05/19 21:08 08/05/19 21:00 93 08/05/19 20:00 96 08/05/19 19:22 08/05/19 19:00 96 08/05/19 17:30 96 08/05/19 17:00 90 08/05/19 16:30 96 08/05/19 16:00 97 08/05/19 15:30 94 08/05/19 15:00 08/05/19 14:45 08/05/19 14:30 08/05/19 14:15 94 08/05/19 14:00 95 08/05/19 13:45 94 08/05/19 13:30 93 08/05/19 13:15 94 08/05/19 13:08 93 08/05/19 13:00 98 08/05/19 12:55 98 08/05/19 12:45 98 08/05/19 12:30 98 08/05/19 12:15 97 08/05/19 12:09 98 08/05/19 11:54 98 08/05/19 11:30 96 08/05/19 11:15 96 08/05/19 11:00 97 08/05/19 10:50 97 08/05/19 10:40 97 08/05/19 10:30 98 08/05/19 10:20 96 Coding Level of Care Code 01687 Inpt Consult Level 3 Diagnoses Carotid artery stenosis I65.29 Hypothyroid E03.9 Anemia D64.9 H/O stroke without residual deficits Z86.73
[2019-08-06] MEDS ORDERED: CALCIUM CARBONATE 500 MG CHEWABLE TAB PO PRN ×2 (00:03→01:33)
[2019-08-06 04:50] LABS: Basophils # (auto) 0.01 K/uL (0-0.2); Basophils % (auto) 0.1 %; Eosinophils # (auto) 0.01 K/uL (0-0.5); Eosinophils % (auto) 0.1 %; Hematocrit (blood only) 33.8 % (42-52); Hemoglobin 11.3 g/dL (14.0-18.0); Immature Granulocytes # (auto) 0.01 K/uL (0.00-0.02); Immature Granulocytes % (auto) 0.1 %; Lymphocytes % (auto) 17.5 %; Mean Corpuscular Hemoglobin 31.8 pg (25-34); Mean Corpuscular Hgb Conc 33.4 g/dL (32-36); Mean Corpuscular Volume 95.2 fL (80-100); Mean Platelet Volume 9.4 fL (7.4-10.4); Monocytes # (auto) 0.94 K/uL (0.11-0.59); Monocytes % (auto) 9.7 %; Neutrophils # (auto) 7.04 K/uL (1.4-6.5); Neutrophils % (auto) 72.5 %; Platelet Count 197 K/uL (130-400); RDW Coefficient of Variation 12.8 % (11.5-14.5); RDW Standard Deviation 44.4 fL (36.4-46.3); Red Blood Count 3.55 M/uL (4.7-6.1); White Blood Count 9.71 K/uL (4.8-10.8)
[2019-08-06] MEDS: ASCORBIC ACID 500 MG TAB PO SCH (08:17)
--- NOTE | 2019-08-06 08:19 | Anesthesiology Progress Note ---
Date of Service August 06, 2019 Anesthesia Post Procedure Vital Signs Vital Signs: Temp Pulse Pulse Resp BP BP BP 08/06/19 05:00 65 16 124/64 08/06/19 04:00 36.5 C 70 18 119/63 08/06/19 03:25 36.7 C 67 17 113/64 08/06/19 03:17 67 15 113/64 08/06/19 03:00 70 18 129/66 08/06/19 02:00 76 18 127/73 08/06/19 01:00 71 14 08/06/19 00:00 36.5 C 63 32 H 146/76 H 08/05/19 23:54 36.8 C 78 20 139/82 08/05/19 23:33 79 22 139/82 08/05/19 22:00 73 21 133/75 08/05/19 21:08 69 08/05/19 21:00 64 12 08/05/19 20:00 36.6 C 83 21 08/05/19 19:22 69 21 128/83 08/05/19 19:00 59 L 24 08/05/19 17:30 61 16 08/05/19 17:00 81 21 08/05/19 16:30 36.4 C L 62 20 08/05/19 16:00 60 17 08/05/19 15:30 77 27 H 08/05/19 15:00 71 18 08/05/19 14:45 79 21 08/05/19 14:30 87 18 08/05/19 14:15 67 15 08/05/19 14:00 78 21 08/05/19 13:45 67 15 08/05/19 13:30 69 17 08/05/19 13:15 72 19 08/05/19 13:08 80 16 142/83 H 08/05/19 13:00 80 26 H 08/05/19 12:55 80 22 143/76 H 08/05/19 12:45 64 20 08/05/19 12:30 63 12 08/05/19 12:15 62 15 08/05/19 12:09 63 16 08/05/19 11:54 36.4 C L 66 15 143/76 H 08/05/19 11:30 75 20 122/55 L 118/66 08/05/19 11:15 57 L 12 131/58 L 126/72 08/05/19 11:00 58 L 13 142/63 H 137/75 08/05/19 10:50 61 17 155/71 H 149/68 H 08/05/19 10:40 36.7 C 58 L 12 152/66 H 151/79 H 08/05/19 10:30 60 13 144/65 H 138/77 08/05/19 10:20 64 12 156/72 H 139/77 08/05/19 10:10 59 L 13 149/68 H 138/79 08/05/19 10:00 65 12 141/67 H 131/75 08/05/19 09:53 36.1 C L 67 15 101/58 L Pulse Ox 08/06/19 05:00 93 08/06/19 04:00 94 08/06/19 03:25 93 08/06/19 03:17 93 08/06/19 03:00 94 08/06/19 02:00 08/06/19 01:00 91 08/06/19 00:00 93 08/05/19 23:54 94 08/05/19 23:33 93 08/05/19 22:00 93 08/05/19 21:08 08/05/19 21:00 93 08/05/19 20:00 96 08/05/19 19:22 08/05/19 19:00 96 08/05/19 17:30 96 08/05/19 17:00 90 08/05/19 16:30 96 08/05/19 16:00 97 08/05/19 15:30 94 08/05/19 15:00 08/05/19 14:45 08/05/19 14:30 08/05/19 14:15 94 08/05/19 14:00 95 08/05/19 13:45 94 08/05/19 13:30 93 08/05/19 13:15 94 08/05/19 13:08 93 08/05/19 13:00 98 08/05/19 12:55 98 08/05/19 12:45 98 08/05/19 12:30 98 08/05/19 12:15 97 08/05/19 12:09 98 08/05/19 11:54 98 08/05/19 11:30 96 08/05/19 11:15 96 08/05/19 11:00 97 08/05/19 10:50 97 08/05/19 10:40 97 08/05/19 10:30 98 08/05/19 10:20 96 08/05/19 10:10 97 08/05/19 10:00 96 08/05/19 09:53 98 Pain Intensity Left Neck: Pain Intensity: 1 Notes Mental Status: alert / awake / arousable and participated in evaluation Nausea / Vomiting: improving with treatment (pt c/o nausea) Pain: adequately controlled Airway Patency, RR, SpO2: stable & adequate BP & HR: stable & adequate Hydration State: stable & adequate
[2019-08-06 08:32] LABS: BUN Creatinine Ratio 38.4 (10-20); Calcium 9.1 mg/dl (8.5-10.1); Creatinine Clr Calc Pharmacy 41.1 ml/min; Est GFR (African American) 91.6; Est GFR (Non-African American) 79.1; Magnesium 2.2 mg/dl (1.8-2.4); Potassium 4.4 mmol/L (3.5-5.1)
[2019-08-06] MEDS ORDERED: [UNRECOGNIZED DRUG - OTHER] PO SCH (09:00)
[2019-08-06] MEDS ORDERED: [UNRECOGNIZED DRUG - OTHER] PO SCH (09:00)
[2019-08-06] MEDS ORDERED: [UNRECOGNIZED DRUG - OTHER] PO SCH (09:00)
[2019-08-06] MEDS ORDERED: [UNRECOGNIZED DRUG - OTHER] PO SCH (09:00)
[2019-08-06] MEDS ORDERED: [UNRECOGNIZED DRUG - OTHER] PO SCH (09:00)
[2019-08-06] MEDS ORDERED: [UNRECOGNIZED DRUG - OTHER] PO SCH (09:00)
[2019-08-06] MEDS ORDERED: NEO PO SCH (09:00)
[2019-08-06] MEDS ORDERED: [UNRECOGNIZED DRUG - OTHER] PO SCH (09:00)
[2019-08-06] MEDS ORDERED: ADRENAL SUPPORT PO SCH (09:00)
[2019-08-06] MEDS ORDERED: [UNRECOGNIZED DRUG - OTHER] PO SCH (09:00)
[2019-08-06] MEDS ORDERED: ASPIRIN 81 MG ECTAB PO SCH (09:00)
[2019-08-06] MEDS ORDERED: [UNRECOGNIZED DRUG - OTHER] PO SCH (09:00)
[2019-08-06] MEDS ORDERED: [UNRECOGNIZED DRUG - OTHER] PO SCH (09:00)
[2019-08-06] MEDS ORDERED: FOLIC ACID 1 MG TAB PO SCH (09:00)
[2019-08-06] MEDS ORDERED: OMEGA-3 (PURIFIED FISH OIL) 1 GM CAP PO SCH (09:00)
[2019-08-06] MEDS ORDERED: [UNRECOGNIZED DRUG - OTHER] PO SCH (09:00)
--- NOTE | 2019-08-06 09:07 | Critical Care Progress Note ---
Date of Service August 06, 2019 Assessment & Plan (1) Carotid artery stenosis: Impression: 84-year-old male with history of CVA without residual and carotid artery stenosis presents to the ICU for monitoring following a elective left carotid endarterectomy Neuro - [facility]: Negative History of CVA: No residual -Continue ASA, statin therapy Carotid artery stenosiss/p left carotid endarterectomy 08/05/2019 -A-line for continuous hemodynamic monitoring, will avoid hypertensive -Management deferred to surgical team Cardiac - Currently hemodynamically stable and in NSR on monitoring specialist Respiratory - Moderate emphysematous changes on chest x-ray -Currently stable and maintaining sats on room air, will continue to monitor on pulse ox overnight GI - Heart healthy diet RENAL/LYTES - Creatinine within normal limits, will monitor electrolytes and replete as indicated - Strict I's and O's ENDO - No history of diabetes, ICU hyperglycemic protocol TSH within normal limits HEME - H&H within normal limits, monitor with CBC ID - No indication for infectious process at this time LINES/IV ACCESS - Peripheral IVs, A-line DVT PROPHYLAXIS - SCDs, defer management to surgery. Patient is likely safe to be transferred out of the ICU. Will defer to surgery. (2) Hypothyroid: (3) Anemia: (4) H/O stroke without residual deficits: Admission and Anticipated Discharge Date Admission Date: August 05, 2019 Subjective No issues this morning. Overnight he had some heartburn. Denies any chest pain this morning. Minimal pain in the incision site. No dysarthria. No significant hematoma. No bleeding. Physical Exam Constitutional: WD/WN, vitals as above cooperative and comfortable Eyes: PERRL, conjunctivae normal, anicteric sclerae ENMT: external ear and nose normal, oropharynx normal Neck: trachea midline, no thyromegaly Respiratory: normal respiratory effort, lungs clear to auscultation Cardiovascular: RRR, no murmur, no edema Gastrointestinal (Abdomen): normal bowel sounds, soft, nontender, no hepatosplenomegaly Musculoskeletal: no cyanosis or clubbing, extremities motor strength 5/5 Skin: no rashes, warm and dry Well approximated surgical incision to the left anterior neck Neurologic: PERRL, EOMI, accommodation nl, no face palsy, no dysarthria not confused Speech / Cognition: normal speech Psychiatric: A+Ox3, euthymic affect Results & Data Results & Data ([facility]) Vital Signs (Past 12 Hours) Vital Signs Temp Pulse Pulse Resp BP BP BP 08/06/19 08:53 78 105/53 L 08/06/19 08:50 97.7 F 73 16 102/51 L 128/67 08/06/19 08:00 66 08/06/19 05:00 65 16 124/64 08/06/19 04:00 97.7 F 70 18 119/63 08/06/19 03:25 98.1 F 67 17 113/64 08/06/19 03:17 67 15 113/64 08/06/19 03:00 70 18 129/66 08/06/19 02:00 76 18 127/73 08/06/19 01:00 71 14 08/06/19 00:00 97.7 F 63 32 H 146/76 H 08/05/19 23:54 98.2 F 78 20 139/82 08/05/19 23:33 79 22 139/82 08/05/19 22:00 73 21 133/75 08/05/19 21:08 69 Pulse Ox 08/06/19 08:53 08/06/19 08:50 92 08/06/19 08:00 08/06/19 05:00 93 08/06/19 04:00 94 08/06/19 03:25 93 08/06/19 03:17 93 08/06/19 03:00 94 08/06/19 02:00 08/06/19 01:00 91 08/06/19 00:00 93 08/05/19 23:54 94 08/05/19 23:33 93 08/05/19 22:00 93 08/05/19 21:08 Coding Level of Care Code 96114 Subseq Hosp Care Lvl 2 Diagnoses Carotid artery stenosis I65.29 Hypothyroid E03.9 Anemia D64.9 H/O stroke without residual deficits Z86.73
--- NOTE | 2019-08-06 12:46 | Surgery Progress Note ---
Date of Service August 06, 2019 Assessment & Plan (1) Carotid artery stenosis: Patient is day 1 after left carotid enterectomy. He has an uneventful course. He will be discharged today. Subjective The patient is in good spirits. He has no complaints of discomfort. He has no complaints of difficulty swallowing. He has no neurological deficit complaints. Physical Exam Constitutional: WD/WN, vitals as above Neck: trachea midline Skin: + incision (Incision is dry and clean. There is no hematoma present.) Neurologic: He has no new neurological deficit or motor or sensory function. Facial muscles are normal. Results & Data Vital Signs (Past 12 Hours) Vital Signs Temp Pulse Pulse Resp BP BP BP 08/06/19 11:00 36.9 C 85 16 152/71 H 08/06/19 10:00 69 13 143/59 H 125/66 08/06/19 09:00 80 19 131/57 L 107/60 08/06/19 08:53 78 105/53 L 08/06/19 08:50 36.5 C 73 16 102/51 L 128/67 08/06/19 08:00 66 08/06/19 05:00 65 16 124/64 08/06/19 04:00 36.5 C 70 18 119/63 08/06/19 03:25 36.7 C 67 17 113/64 08/06/19 03:17 67 15 113/64 08/06/19 03:00 70 18 129/66 08/06/19 02:00 76 18 127/73 08/06/19 01:00 71 14 Pulse Ox 08/06/19 11:00 93 08/06/19 10:00 92 08/06/19 09:00 96 08/06/19 08:53 08/06/19 08:50 92 08/06/19 08:00 08/06/19 05:00 93 08/06/19 04:00 94 08/06/19 03:25 93 08/06/19 03:17 93 08/06/19 03:00 94 08/06/19 02:00 08/06/19 01:00 91
--- NOTE | 2019-08-08 08:34 | Discharge Summary ---
Date of Service August 08, 2019 Admission HPI Per Admitting Provider History of Present Illness I the pleasure of seeing Mario today for follow-up for his carotid disease. As you know he is a 84-year-old gentleman who was admitted to the hospital with left hand numbness and tingling and slight weakness. His right carotid showed a 50% stenosis of his left side showed a significant severe 90% narrowing. Although the narrowing was on the left side he was asymptomatic from this lesion. Denies any complaints of claudication. Review of Systems Review of 10 systems was negative except for the HPI. Assessment/Plan 1. Occlusion and stenosis of left carotid artery At this point we recommended left carotid endarterectomy. He understands the risks options and benefits of undergoing this procedure and agrees to go ahead with this procedure. We will keep you informed as to his results. Thank you very much for letting us participate in the care of this patient. Sincerely, Cydney Gibbs MD Admission Exam Per Admitting Provider On exam the patient is awake alert and oriented x3. His blood pressure is 154/76 on the right 156/76 on the left. Lungs are clear. Heart has a RRR. Abdominal exam is benign. He does have a left carotid bruit. Radials and femorals are +2 bilaterally. Is a good capillary refill both feet. He has good strength in his upper and lower extremities. Neuro exam is grossly intact. Principal Diagnosis 1. s/p Left CEA 2. Severe L ICA stenosis Discharge Exam Constitutional WD/WN, vitals as above Neck trachea midline Skin + incision (Incision is dry and clean. There is no hematoma present.) Discharge Data Allergies Allergy/AdvReac Type Severity Reaction Status Date / Time No Known Allergies Allergy Unverified 07/30/19 08:06 Consultations 08/05/19 22:04 Consult Inside Polisher Routine Procedures Performed Operation Date: 08/05/19 08:00 Actual Procedures p Left Carotid Endarterectomy(Left) - Dru Gibbs MD Hospital Course (1) Carotid artery stenosis: Patient is post op day 1 after left carotid enterectomy. He has an uneventful course. He was discharged home in stable condition. Total Time Total Time Spent Total Time Spent (In Minutes): 0 Discharge Plan Discharge Items Patient Disposition: Home - Self-Care Reason For Visit: Left Internal Carotid Artery Stenosis Discharge Diagnosis: Left carotid stenosis, left carotid endarterectomy Activity: Per Instructions section Bathing: May shower/bathe in 3 days Non-emergency contact: Surgeon Call non-emergency contact if: your temperature is above 101.5, your wound has increased redness, your wound has increased drainage and your wound pain has increased Follow-up/Referrals: Tanner Scherer MD [Primary Care Provider] - Diet: Heart Healthy Addtl Attending Provider Instructions: SPECIAL CARE INSTRUCTIONS: Medications: * Continue to take Aspirin as directed. Incision Care: * You may shower, but do not rub incision. You may let the warm soapy water run over it. Be sure to dry the incision well after bathing. * Do not shave directly over the incision until it is healed. * DO NOT IMMERSE THE INCISION IN A TUB/POOL/etc. UNTIL HEALED. Restrictions: * Do not drive for at least one week or if you are still taking any narcotic pain medication. * Do not lift anything heavier than a gallon of milk for one week after going home. Possible Complications: * Numbness - It is normal to have some numbness around the incision. Numbness can extend beyond the incision to areas of the neck, ear and face. The numbness is due to bruising of nerves during the surgery and will gradually improve over a period of months. * Hoarseness/Difficulty Speaking and Swallowing - The bruising of nerves in the neck can also cause a hoarse voice, difficulty speaking or swallowing. This may improve over time, HOWEVER, if it continues for more than a few days please contact our office ([phone]). * Excessive Swelling - There will be some swelling immediately after surgery which usually resolves within one week. If you notice that the swelling is getting worse, notify your surgeon ([phone]). * Drainage/Bleeding - If there is any drainage or bleeding, it should be a very small amount (less than a teaspoon per day). If you have excessive bleeding or drainage from the incision, call your surgeon ([phone]) right away. ACTIVATION OF EMERGENCY MEDICAL SYSTEM: Call 911, immediately, if you experience any of the following: Warning Signs and Symptoms of Stroke: * Sudden numbness or weakness of the face, arm or leg, especially on one side of the body * Sudden confusion, trouble speaking or understanding * Sudden trouble seeing in one or both eyes * Sudden trouble walking, dizziness, loss of balance or coordination * Sudden severe headache with no cause Do not delay calling 911 if you experience any warning signs or symptoms of a stroke. Delay in seeking medical attention may affect what treatments can be given to you. Risk Factors for Stroke: You can reduce your chances of stroke by working with your medical provider to adopt a healthy lifestyle. Some specific ways to lower your chance of stroke are: * If you are a smoker, now is the time to stop smoking cigarettes * If you are diabetic, improve the control of your blood sugars * Avoid excessive amounts of alcohol * Control high blood pressure * Lose weight if you are overweight * Be sure to lead an active lifestyle * Eat a healthy diet low in salt, cholesterol and fat You should know about other risk factors for stroke that you are unable to control. These include: * Age 55 years or older * Male gender * Certain racial groups: , or / * Family History of Stroke, Mini stroke or Heart Attack * Sickle Cell Disease You will be receiving a call from the Vascular Surgery Nurse after you are discharged. FOLLOW UP VISIT: It is important for you to keep your follow up appointments with your medical p gema. Keep any scheduled doctor appointments. Call [phone] to schedule a follow up appointment if one not already scheduled. Pending Studies at Discharge: No Stand-Alone Forms: [facility], Smoking Cessation Medications and DC Order Prescriptions: New oxycodone-acetaminophen [Percocet] 5-325 mg tablet 1 tab PO Q6H PRN (Reason: pain) Qty: 10 RF: 0 Continued digestive enzymes Tablet 3 tab PO AC Qty: 0 RF: 0 folic acid 1 mg Tablet 1 mg PO QAM Qty: 0 RF: 0 omega 2-hxu-lcv-fish oil [Fish Oil] 1,000 mg (120 mg-180 mg) Capsule 1 tab PO QAM Qty: 0 RF: 0 Probiotic 3 billion cell Capsule 0 mmu cells PO TIDM Qty: 0 RF: 0 Adrenal Support 1 tab PO DAILY RF: 0 Boswella 1 - 3 tabs PO DAILY RF: 0 Anthony 40 1 tab PO DAILY RF: 0 Organic Bound Minerals 1 tab PO DAILY RF: 0 Saligesic 1 tab PO DAILY RF: 0 Soy Valles Lecisin 1 tab PO DAILY RF: 0 Zypam 1 tab PO DAILY RF: 0 Desiccated Adrenal 1 dose PO DAILY RF: 0 Garden Of Life Probiotic 1 dose PO DAILY RF: 0 Mrm Bone Maximizer 1 dose PO DAILY RF: 0 Spleen Descciated 1 dose PO DAILY RF: 0 Thytrophin Pmg 1 dose PO DAILY RF: 0 atorvastatin 40 mg Tablet 40 mg PO HS Qty: 30 RF: 0 aspirin 81 mg Tablet,Delayed Release (Dr/Ec) 81 mg PO QAM Qty: 30 RF: 0 lisinopril 2.5 mg tablet 2.5 mg PO HS Qty: 30 RF: 0 ascorbic acid (vitamin C) [Vitamin C] 500 mg Capsule, Extended Release 500 mg PO TID RF: 0 Raw Material Synergy 1 tab PO QAM RF: 0 Discharge Orders: Discharge Order (Routine); Ordered 08/06/19 Ordered By: Dru Gibbs Admission Data Admit Date/Time: 08/05/19 09:17 Attending Provider: Dru Gibbs Admit Provider: Dru Gibbs Primary Care Provider: Tanner Scherer Other Providers: Marino Cedeño Other Interventions: Discharge Summary Assessment (RN) Last Done: 08/06/19 13:15 DC Date/Time DO NOT enter until pt leaves facility: 08/06/19 13:52
== END 2019-08-06 13:52 | disposition home or self-care (01) | DRG 39 ==
LOC: ASU 06:11 → 1E 09:17

== ENCOUNTER 2021-11-01 12:07 | Inpatient (IN) ==
[2021-11-01 13:23] LABS: Basophils # (auto) 0.04 K/uL (0-0.2); Basophils % (auto) 0.8 %; Eosinophils # (auto) 0.07 K/uL (0-0.50); Eosinophils % (auto) 1.5 %; Hematocrit (blood only) 43.2 % (40.1-51.0); Hemoglobin 14.8 g/dl (14.0-18.0); Immature Granulocytes # (auto) 0.03 K/uL (0.00-0.02); Immature Granulocytes % (auto) 0.6 %; Lymphocytes # (auto) 1.35 K/uL (1.2-3.4); Lymphocytes % (auto) 28.1 %; Mean Corpuscular Hemoglobin 32.2 pg (25.0-34.0); Mean Corpuscular Hgb Conc 34.3 g/dL (32.0-36.0); Mean Corpuscular Volume 93.9 fL (80.0-100.0); Mean Platelet Volume 9.8 fL (9.4-12.4); Monocytes # (auto) 0.55 K/uL (0.24-0.82); Monocytes % (auto) 11.5 %; Neutrophils # (auto) 2.76 K/uL (1.4-6.5); Neutrophils % (auto) 57.5 %; Platelet Count 212 K/uL (130-400); RDW Coefficient of Variation 12.7 % (11.5-14.5); RDW Standard Deviation 43.7 fL (36.4-46.3)
[2021-11-01 13:45] LABS: Alanine Aminotransferase 47 U/L (7-52); Albumin Globulin Ratio 1.2 (0.9-2); Alkaline Phosphatase 57 U/L (34-104); Anion Gap 9 (3-11); Aspartate Aminotransferase 107 U/L (13-39); Bilirubin,Total 0.9 mg/dl (0.2-1.0); Blood Urea Nitrogen 27 mg/dl (6-23); Calcium 10.6 mg/dl (8.5-10.1); Carbon Dioxide 27 mmol/L (21-32); Chloride 98 mmol/L (98-107); Est GFR (African American) 75.5 ml/min; Est GFR (Non-African American) 65.2 ml/min; Globulin 3.4 gm/dl (2.5-4.0); Glucose 92 mg/dl (70-99(Fasting)); Potassium 3.6 mmol/L (3.5-5.1); Sodium 134 mmol/L (136-145); Total Protein 7.4 gm/dl (6.0-8.3)
--- NOTE | 2021-11-01 13:48 | Emergency Department Note ---
Impression & Plan Elevated troponin, Weakness, Acute dehydration, Frequent falls ED Provider Note NAME: ISAI BANKS AGE: 86 SEX: M : 1935 ARRIVES VIA: Walk-In INFORMANT: Patient, ED PROVIDER(S): Temo Cruz MD Chief Complaint: Weakness, outpatient referral, recent falls HPI: Patient presents from home due to concern for recent falls and inability to care for himself. The patient did have a fall last week was diagnosed with vertebral fractures went home but has had increasing inability to ambulate and perform his activities of daily living including getting to and from the bathroom. Patient denies any fevers chills or chest pains. The patient denies any nausea vomiting. The patient has had smaller falls over the last week but no head strike or LOC. The patient does not take any blood thinning medica tions. Patient does admit to intermittent back discomfort but when at rest he does not have any pain. Patient denies any upper extremity face head or neck pain. The patient denies any abdominal chest or back pain. ROS: See HPI for pertinent positives and negatives. A total of 10 systems were rev iewed and otherwise negative. Past medical history: See below Surgical history: See below Social history: See below Physical Exam: GENERAL: Thin and fatigued in appearance, hard of hearing, wearing glasses and a mask. EYE EXAM: Normal conjunctiva. PERRL, no anisocoria and EOM's grossly intact w/o pain. NECK: Supple, no nuchal rigidity, no adenopathy, non-tender. No signs of meningismus. FROM of the neck with good chin to chest and neck extension. No stridor. LUNGS: Clear to auscultation. Normal chest wall mechanics. HEART: NSR, no MRG. ABDOMEN: Abdomen soft, non-tender, normo-active bowel sounds, no masses, no rebound or guarding. BACK: No CVA TTP. SKIN: No rashes and no bruising. UPPER EXTREMITIES: Upper extremities are grossly normal. No TTP or obvious deformity. LOWER EXTREMITIES: Grossly normal, no edema. No TTP or obvious deformity. NEURO EXAM: A&O x3, cranial nerves II-XII grossly intact, normal speech, moves all 4 extremities. Differential diagnoses: Infection, dehydration, metabolic abnormality, hypo/hyperglycemia, electrolyte disturbance, anemia, hypoxia, cardiac sources, intracerebral event, toxicologic, neurologic, as well as other pathologies. Course: Patient was seen and evaluated the bedside. Full history physical exam was performed. EKG interpreted by me Normal sinus rhythm, rate 71, normal intervals, left axis deviation, slight elevation in the lateral leads. Slight elevations appears slightly improved from comparison EKG that was completed earlier in the patient's presentation. Prior EKG Completed 1224 which does show elevations in the lateral leads, ventricular rate of 78, normal intervals, left axis deviation. Imaging Studies: See Below Cardiac monitoring: An order was placed for continuous cardiac monitoring. The monitor shows a rate of 77 with sinus rhythm. MDM: Patient was seen due to concern for weakness. Blood work was obtained. The patient's blood work showed a normal white count H&H and platelet count. The patient's kidney function did show prerenal azotemia. Mild hypercalcemia. The patient did receive some IV fluids. I did receive a call with the patient's troponin was 2500. I did review the patient's EKG which shows some slight elevations in the lateral leads but I did discuss with the patient if he had any chest pains or shortness of breath and denies any current active chest pain or shortness of breath and has not had any recent. I did review the patient's triage EKG which did show the elevations as well. I did speak with the on-call tax assessor Dr. Rios who did review his EKG and bloodwork. 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 The patient was ordered the heparin as well as metoprolol to 12.5 twice daily. Patient was ordered an aspirin but reportedly has an aspirin allergy. It is speak with the on-call hospitalist Dr. Guerrero and the patient was admitted to the medicine service. The patient's triage EKG was never presented to a physician prior to the patient being seen and the patient did have triage blood work and EKG completed prior to him being placed in a room. EKG that I had ordered was the second EKG after he had been placed in the room. Patient at no time stated that he had any chest pain or shortness of breath. Critical Care: I have personally spent 45 minutes of critical care time in direct management of this patient. This includes bedside care, interpretation of diagnostic studies, and testing, discussion with consultants, patient, and family members, and other require inpatient management activities. This 45 minutes is in excess of all separately billable procedures. Past Med/Surg History Medical History Carotid artery stenosis CVA (cerebral vascular accident) 05/2016, retinal artery occlusion; most recently admitted 06/03/19 for CVA GERD (gastroesophageal reflux disease) diet controlled Hearing deficit [place] [facility] Hyponatremia Chronic/stable Hypothyroid Osteoarthritis Surgical History History of tonsillectomy S/P total hip arthroplasty Rt Family History Father Stroke Other No family history of adverse response to anesthesia Social History Smoking Status: Never smoker Second Hand Exposure: Yes (as a child); Hx Alcohol Use: No Hx Substance Use: No Preferred Language: Niuean Communication Ability: Effective Visual Impairment: No Limitations Hearing Ability: Hard of Hearing Director Of Recruiting Required: No Beliefs That Will Affect Care: None marital status: Current Living Situation: Spouse Current Living Situation Comment: Jim home alone Feels Safe at Home: No Is there a partner from a previous relationship who is making you feel unsafe now?: No Assistive Devices: Contacts and Hearing Aid - Bilateral Allergies Allergies Allergy/AdvReac Type Severity Reaction Status Date / Time No Known Allergies Allergy Unverified 07/30/19 08:06 Home Meds Home Medications Medication Instructions Recorded Confirmed digestive enzymes 3 tab PO AC ##0 04/18/17 08/05/19 folic acid 1 mg tablet 1 mg PO QAM ##0 04/18/17 08/05/19 omega 1-vrn-xxy-fish oil 1,000 mg 1 tab PO QAM #0 caps 04/18/17 08/05/19 (120 mg-180 mg) capsule (Fish Oil) lactobacillus combination no.4 3 0 mmu cells PO TIDM ##0 10/09/17 08/05/19 billion cell capsule (Probiotic) Raw Material Synergy 1 tab PO QAM 10/22/17 08/05/19 ascorbic acid (vitamin C) 500 mg 500 mg PO TID 10/22/17 08/05/19 capsule,extended release (Vitamin C) Adrenal Support 1 tab PO DAILY 06/03/19 08/05/19 Boswella 1 - 3 tabs PO DAILY 06/03/19 08/05/19 Anthony 40 1 tab PO DAILY 06/03/19 08/05/19 Organic Bound Minerals 1 tab PO DAILY 06/03/19 08/05/19 Saligesic 1 tab PO DAILY 06/03/19 08/05/19 Soy Valles Lecisin 1 tab PO DAILY 06/03/19 08/05/19 Zypam 1 tab PO DAILY 06/03/19 08/05/19 Desiccated Adrenal 1 dose PO DAILY 06/04/19 08/05/19 Garden Of Life Probiotic 1 dose PO DAILY 06/04/19 08/05/19 Mrm Bone Maximizer 1 dose PO DAILY 06/04/19 08/05/19 Spleen Descciated 1 dose PO DAILY 06/04/19 08/05/19 Thytrophin Pmg 1 dose PO DAILY 06/04/19 08/05/19 Previous Rx's Medication Instructions Recorded aspirin 81 mg tablet,delayed 81 mg PO QAM #30 tabs 06/04/19 release atorvastatin 40 mg tablet 40 mg PO HS #30 tabs 06/04/19 lisinopril 2.5 mg tablet 2.5 mg PO HS #30 tabs 06/04/19 oxycodone-acetaminophen 5 mg-325 1 tab PO Q6H PRN pain #10 tabs 08/06/19 mg tablet (Percocet) Results & Data (ED) Vital Signs Vital Signs - 24 hr 11/01/21 12:21 11/01/21 14:03 Temperature 36.5 C Temperature Source Oral Pulse Rate 87 Pulse Rate [Radial] 78 Pulse Rhythm Regular Pulse Rhythm [Radial] Regular Pulse Strength Normal Pulse Strength [Radial] Normal Respiratory Rate 16 20 Respiratory Effort / Characteristics Non-Labored Respiratory Depth Normal Respiratory Pattern Regular Blood Pressure 107/64 Blood Pressure [Right Arm] 125/78 Blood Pressure Mean 78 Blood Pressure Mean [Right Arm] 93 Blood Pressure Position Sitting Blood Pressure Position [Right Arm] Lying Pulse Oximetry 97 98 Oxygen Delivery Method Room Air Room Air Sepsis Recent Fever Within 48 Hours No Sepsis New/Unexplained Change in Mental Status No Sepsis Action Taken by Nursing No Action Required Home Medications Current Medication List: was personally reviewed by me Laboratory Data Attestation: I reviewed the patient's lab results. Result diagrams: 11/01/21 13:03 11/01/21 13:03 Lab Results 11/01/21 11/01/21 11/01/21 Range/Units 13:03 13:03 13:03 WBC 4.80 (4.8-10.8) K/ul RBC 4.60 L (4.63-6.08) M/uL Hgb 14.8 (14.0-18.0) g/dl Hct 43.2 (40.1-51.0) % MCV 93.9 (80.0-100.0) fL MCH 32.2 (25.0-34.0) pg MCHC 34.3 (32.0-36.0) g/dL RDW Std Deviation 43.7 (36.4-46.3) fL RDW Coeff of Arvind 12.7 (11.5-14.5) % Plt Count 212 (130-400) K/uL MPV 9.8 (9.4-12.4) fL Immature Gran % (Auto) 0.6 % Neut % (Auto) 57.5 % Lymph % (Auto) 28.1 % Ada % (Auto) 11.5 % Eos % (Auto) 1.5 % Baso % (Auto) 0.8 % Neut # (Auto) 2.76 (1.4-6.5) K/uL Lymph # (Auto) 1.35 (1.2-3.4) K/uL Ada # (Auto) 0.55 (0.24-0.82) K/uL Eos # (Auto) 0.07 (0-0.50) K/uL Baso # (Auto) 0.04 (0-0.2) K/uL Immature Gran # (Auto) 0.03 H (0.00-0.02) K/uL PT 10.8 (9.0-12.0) Seconds INR 1.0 (0.9-1.1) APTT (21.0-31.0) Seconds PTT Ratio Sodium 134 L (136-145) mmol/L Potassium 3.6 (3.5-5.1) mmol/L Chloride 98 (98-107) mmol/L Carbon Dioxide 27 (21-32) mmol/L Anion Gap 9 (3-11) BUN 27 H (6-23) mg/dl Creatinine 1.04 (0.6-1.4) mg/dl Est Cr Clr Drug Dosing Not Reportable Est GFR ( Amer) 75.5 ml/min Est GFR (Non-Af Amer) 65.2 ml/min BUN/Creatinine Ratio 26.0 H (10-20) Glucose 92 (70-99(Fasting)) mg/dl Calcium 10.6 H (8.5-10.1) mg/dl Magnesium (1.7-2.4) mg/dl Total Bilirubin 0.9 (0.2-1.0) mg/dl AST 107 H (13-39) U/L ALT 47 (7-52) U/L Alkaline Phosphatase 57 (34-104) U/L Troponin I High Sens (0-20) pg/ml Total Protein 7.4 (6.0-8.3) gm/dl Albumin 4.0 (3.4-5.0) gm/dl Globulin 3.4 (2.5-4.0) gm/dl Albumin/Globulin Ratio 1.2 (0.9-2) TSH (0.300-4.500) uIu/ml Free T4 (0.61-1.60) ng/dl Urine Color Urine Appearance (Clear) Urine pH (4.5-7.5) Ur Specific [place] (1.000-1.030) Urine Protein (Negative) Urine Glucose (UA) (Negative) Urine Ketones (Negative) Urine Blood (Negative) Urine Nitrite (Negative) Urine Bilirubin (Negative) Urine Urobilinogen (Negative) Ur Leukocyte Esterase (Negative) Urine WBC (Auto) (0-5) /hpf Urine RBC (Auto) (0-4) /hpf U Hyaline Cast (Auto) (0-5) /lpf U Epithel Cells (Auto) (0-5) /lpf Urine Bacteria (Auto) (Negative) Ur Renal Epithelial Cell Urine Crystals (None Prsent) Calcium Oxalate Crystal (None Prsent) Triple Phos Crystals (None Prsent) SARS-CoV-2, RNA, NAAT (NEGATIVE) 11/01/21 11/01/21 11/01/21 Range/Units 13:03 13:06 13:06 WBC (4.8-10.8) K/ul RBC (4.63-6.08) M/uL Hgb (14.0-18.0) g/dl Hct (40.1-51.0) % MCV (80.0-100.0) fL MCH (25.0-34.0) pg MCHC (32.0-36.0) g/dL RDW Std Deviation (36.4-46.3) fL RDW Coeff of Arvind (11.5-14.5) % Plt Count (130-400) K/uL MPV (9.4-12.4) fL Immature Gran % (Auto) % Neut % (Auto) % Lymph % (Auto) % Ada % (Auto) % Eos % (Auto) % Baso % (Auto) % Neut # (Auto) (1.4-6.5) K/uL Lymph # (Auto) (1.2-3.4) K/uL Ada # (Auto) (0.24-0.82) K/uL Eos # (Auto) (0-0.50) K/uL Baso # (Auto) (0-0.2) K/uL Immature Gran # (Auto) (0.00-0.02) K/uL PT (9.0-12.0) Seconds INR (0.9-1.1) APTT 29.4 (21.0-31.0) Seconds PTT Ratio 1.1 Sodium (136-145) mmol/L Potassium (3.5-5.1) mmol/L Chloride (98-107) mmol/L Carbon Dioxide (21-32) mmol/L Anion Gap (3-11) BUN (6-23) mg/dl Creatinine (0.6-1.4) mg/dl Est Cr Clr Drug Dosing Est GFR ( Amer) ml/min Est GFR (Non-Af Amer) ml/min BUN/Creatinine Ratio (10-20) Glucose (70-99(Fasting)) mg/dl Calcium (8.5-10.1) mg/dl Magnesium 1.9 (1.7-2.4) mg/dl Total Bilirubin (0.2-1.0) mg/dl AST (13-39) U/L ALT (7-52) U/L Alkaline Phosphatase (34-104) U/L Troponin I High Sens 2510.5 H* (0-20) pg/ml Total Protein (6.0-8.3) gm/dl Albumin (3.4-5.0) gm/dl Globulin (2.5-4.0) gm/dl Albumin/Globulin Ratio (0.9-2) TSH 5.623 H (0.300-4.500) uIu/ml Free T4 1.06 (0.61-1.60) ng/dl Urine Color Urine Appearance (Clear) Urine pH (4.5-7.5) Ur Specific [place] (1.000-1.030) Urine Protein (Negative) Urine Glucose (UA) (Negative) Urine Ketones (Negative) Urine Blood (Negative) Urine Nitrite (Negative) Urine Bilirubin (Negative) Urine Urobilinogen (Negative) Ur Leukocyte Esterase (Negative) Urine WBC (Auto) (0-5) /hpf Urine RBC (Auto) (0-4) /hpf U Hyaline Cast (Auto) (0-5) /lpf U Epithel Cells (Auto) (0-5) /lpf Urine Bacteria (Auto) (Negative) Ur Renal Epithelial Cell Urine Crystals (None Prsent) Calcium Oxalate Crystal (None Prsent) Triple Phos Crystals (None Prsent) SARS-CoV-2, RNA, NAAT (NEGATIVE) 11/01/21 11/01/21 Range/Units 14:33 15:38 WBC (4.8-10.8) K/ul RBC (4.63-6.08) M/uL Hgb (14.0-18.0) g/dl Hct (40.1-51.0) % MCV (80.0-100.0) fL MCH (25.0-34.0) pg MCHC (32.0-36.0) g/dL RDW Std Deviation (36.4-46.3) fL RDW Coeff of Arvind (11.5-14.5) % Plt Count (130-400) K/uL MPV (9.4-12.4) fL Immature Gran % (Auto) % Neut % (Auto) % Lymph % (Auto) % Ada % (Auto) % Eos % (Auto) % Baso % (Auto) % Neut # (Auto) (1.4-6.5) K/uL Lymph # (Auto) (1.2-3.4) K/uL Ada # (Auto) (0.24-0.82) K/uL Eos # (Auto) (0-0.50) K/uL Baso # (Auto) (0-0.2) K/uL Immature Gran # (Auto) (0.00-0.02) K/uL PT (9.0-12.0) Seconds INR (0.9-1.1) APTT (21.0-31.0) Seconds PTT Ratio Sodium (136-145) mmol/L Potassium (3.5-5.1) mmol/L Chloride (98-107) mmol/L Carbon Dioxide (21-32) mmol/L Anion Gap (3-11) BUN (6-23) mg/dl Creatinine (0.6-1.4) mg/dl Est Cr Clr Drug Dosing Est GFR ( Amer) ml/min Est GFR (Non-Af Amer) ml/min BUN/Creatinine Ratio (10-20) Glucose (70-99(Fasting)) mg/dl Calcium (8.5-10.1) mg/dl Magnesium (1.7-2.4) mg/dl Total Bilirubin (0.2-1.0) mg/dl AST (13-39) U/L ALT (7-52) U/L Alkaline Phosphatase (34-104) U/L Troponin I High Sens (0-20) pg/ml Total Protein (6.0-8.3) gm/dl Albumin (3.4-5.0) gm/dl Globulin (2.5-4.0) gm/dl Albumin/Globulin Ratio (0.9-2) TSH (0.300-4.500) uIu/ml Free T4 (0.61-1.60) ng/dl Urine Color Yellow Urine Appearance Cloudy A (Clear) Urine pH 6.0 (4.5-7.5) Ur Specific [place] 1.020 (1.000-1.030) Urine Protein Trace H (Negative) Urine Glucose (UA) Negative (Negative) Urine Ketones 1+ H (Negative) Urine Blood Negative (Negative) Urine Nitrite Negative (Negative) Urine Bilirubin Negative (Negative) Urine Urobilinogen Negative (Negative) Ur Leukocyte Esterase 1+ H (Negative) Urine WBC (Auto) 10-30 H (0-5) /hpf Urine RBC (Auto) 10-30 H (0-4) /hpf U Hyaline Cast (Auto) 10-30 H (0-5) /lpf U Epithel Cells (Auto) >30 H (0-5) /lpf Urine Bacteria (Auto) Negative (Negative) Ur Renal Epithelial Cell Not Reportable Urine Crystals Calcium Oxalate A (None Prsent) Calcium Oxalate Crystal Present A (None Prsent) Triple Phos Crystals Present A (None Prsent) SARS-CoV-2, RNA, NAAT NEGATIVE (NEGATIVE) Administered Medications Heparin Sodium/Dextrose (Heparin Sodium/Dextrose) 25,000 units in 500 mls @ 19 mls/hr IV .Q24H JEYSON; Protocol Stop: 12/01/21 16:44 Last Admin: 11/01/21 16:31 Dose: 950 units/hr, 19 mls/hr Documented By: CELSA Co-signed By: KADEN Discontinued Medications Aspirin (Aspirin Chew 324 Mg) 324 mg PO NOW STA Stop: 11/01/21 16:21 Last Admin: 11/01/21 16:35 Dose: Not Given Documented By: CELSA Heparin Sodium/Dextrose (Heparin Iv Adult Wt-Based Standard *No* Bolus Protocol) 1 each IV ONE ONE; Protocol Stop: 11/01/21 16:19 Last Admin: 11/01/21 16:49 Dose: Not Given Documented By: CELSA Sodium Chloride (Nss 1000ml) 1,000 mls @ 999 mls/hr IV .Q1H1M JEYSON Stop: 11/01/21 15:15 Last Infusion: 11/01/21 15:53 Dose: 0 mls/hr Documented By: Admin: 11/01/21 14:41 Dose: 999 mls/hr Documented By: CELSA Metoprolol Succinate (Metoprolol Succ 25mg Ext Rel Tab) 12.5 mg PO BID STA Stop: 11/01/21 16:20 Last Admin: 11/01/21 17:02 Dose: 12.5 mg Documented By: CELSA Imaging Data Radiologist's Impression: Chest X-Ray 11/01/21 14:06 XR chest 1V portable HISTORY: 86 years-old Male weakness acute weakness COMPARISON: Chest radiograph 02/01/2021 TECHNIQUE: Portable AP view of the chest FINDINGS: Cardiomediastinal and hilar silhouettes are unchanged. Lungs are hyperinflated areas of chronic interstitial coarsening and possible emphysema. No pneumothorax, large pleural effusion or lobar airspace consolidation. Degenerative changes of the shoulders and spine. Several thoracic compression deformities are again noted. IMPRESSION: No acute process. ACT 112: Negative or not required by law. The above report was generated using voice recognition software. It may contain grammatical, syntax or spelling errors. Electronically signed by: Aries Luciano M.D. 11/01/2021 2:58 PM Discharge Plan Visit Data Chief Complaint: Fall Stated Complaint: FALL, REFERRED BY ED Provider: Temo Cruz Discharge Problem: Elevated troponin, Weakness, Acute dehydration, Frequent falls Patient Disposition: Admitted As Inpatient Discharge Instructions Interventions: ED Discharge Assessment Last Done: 11/01/21 18:17
[2021-11-01] MEDS ORDERED: SODIUM CHLORIDE 0.9% 1000ML 1,000 ML IV SCH (14:15)
--- NOTE | 2021-11-01 14:59 | XRay Report ---
XR chest 1V portable HISTORY: 86 years-old Male weakness acute weakness COMPARISON: Chest radiograph 02/01/2021 TECHNIQUE: Portable AP view of the chest FINDINGS: Cardiomediastinal and hilar silhouettes are unchanged. Lungs are hyperinflated areas of chronic inter stitial coarsening and possible emphysema. No pneumothorax, large pleural effusion or lobar airspace consolidation. Degenerative changes of the shoulders and spine. Several thoracic compression deformit ies are again noted. IMPRESSION: No acute process. ACT 112: Negative or not required by law. The above report was generated using voice recognition software. It may contain grammatical, syntax o r spelling errors. Electronically signed by: Aries Luciano M.D. 11/01/2021 2:58 PM
[2021-11-01 15:35] LABS: Magnesium 1.9 mg/dl (1.7-2.4)
[2021-11-01 15:42] LABS: Prothrombin Time 10.8 Seconds (9.0-12.0)
[2021-11-01 15:48] LABS: Thyroid Stimulating Hormone 5.623 uIu/ml (0.300-4.500)
[2021-11-01 15:54] LABS: Troponin I High Sensitivity 2510.5 pg/ml (0-20)
--- NOTE | 2021-11-01 16:15 | History & Physical Report ---
Date of Service November 01, 2021 Assessment & Plan (1) Falls: Plan: Multiple falls at home, all due to general weakness by history. - Check B12/folate/thiamine - PT/OT - Patient willing to be placed in short-term rehab. (2) Elevated troponin: Plan: Troponin of 2500 on random check when patient was not having chest pain. EKG in the triage has some mild ST elevations in V5-V6 (concave up), but these had resolved by the second EKG. - ER provider reached out to cardiology -> Recommended usual conservative care: ASA, heparin gtt, beta-jaret, statin. - Echo ordered - Cardiology consulted (3) Abrasion: Plan: 3 pressure ulcers on back from lying on his back for several hours and on elbow. - Wound RN consult placed (4) Compression fracture: Plan: Lumbar x-ray on admission showed "interval progression of the mild to moderate superior endplate compression fractures from T11 through L3." Patient not in any pain during my interview and exam. - Tylenol PRN (5) Delusion: Plan: Patient believes that he must use a pendulum to test all his food to make sure it is safe for his body because he was given cow's milk as a baby. If the pendulum spins clockwise, he can safely eat the food. If it spins counterclockwise, he must discard the food. His friend Radha reports this is also why he must use lots of supplements. - Discussed his beliefs with the on-call psychiatrist. 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 Odd fixation, but usually function quite well and does not rise to the level of a full psychosis. Did not see need for consult at this time. - Will get HOSIERY BAGGER consult for cognitive evaluation. Not due to delusion per se, but because he was also having some memory issues during the interview (forgetting fairly recent events, getting confused on whether his friend was still in the room when she was behind him). Presently, I don't see any need to try to geologist petroleum decision-making capacity, but this could be helpful if it comes to that. (6) CVA (cerebral vascular accident): Plan: In 05/2019. - Continue ASA, statin (7) Hypothyroid: Plan: Not on levothyroxine from my review, but does take thyroid supplement. TSH was mildly elevated at 5.6 with FT4 pending. - Follow FT4 (8) DVT prophylaxis: Plan: SCDs History of Present Illness Primary Care Provider: Tanner Scherer MD 86yo M w/ hx of HTN who presents with falls from home. The patient is with a friend and together they recount that he fell about 3-4 days ago. He denies any prodromal symptoms before the falls such as lightheadedness, chest pain, dizziness, palpitations, nausea, or anything else. He reports his legs just feel week. He has had at least 3-4 other falls in the last month. He reports he hit the back of his head on one of the falls, but did not lose consciousness. He otherwise has not injured himself in any of the falls. However, one time, he was not able to get up after the fall and was on his back for 3-4 hours until a friend found him. In ER, troponin was noted to be quite elevated at 2500, and initial EKG in triage had some ST elevations in V5-V6. Patient reports no present or recent chest pain. Allergies Allergy/AdvReac Type Severity Reaction Status Date / Time No Known Allergies Allergy Unverified 07/30/19 08:06 Home Medications Medication Instructions Recorded Confirmed Type digestive enzymes 3 tab PO AC ##0 04/18/17 08/05/19 History folic acid 1 mg tablet 1 mg PO QAM ##0 04/18/17 08/05/19 History omega 9-ejw-wgm-fish oil 1,000 mg 1 tab PO QAM #0 caps 04/18/17 08/05/19 History (120 mg-180 mg) capsule (Fish Oil) lactobacillus combination no.4 3 0 mmu cells PO TIDM ##0 10/09/17 08/05/19 History billion cell capsule (Probiotic) Raw Material Synergy 1 tab PO QAM 10/22/17 08/05/19 History ascorbic acid (vitamin C) 500 mg 500 mg PO TID 10/22/17 08/05/19 History capsule,extended release (Vitamin C) Adrenal Support 1 tab PO DAILY 06/03/19 08/05/19 History Boswella 1 - 3 tabs PO DAILY 06/03/19 08/05/19 History Anthony 40 1 tab PO DAILY 06/03/19 08/05/19 History Organic Bound Minerals 1 tab PO DAILY 06/03/19 08/05/19 History Saligesic 1 tab PO DAILY 06/03/19 08/05/19 History Soy Valles Lecisin 1 tab PO DAILY 06/03/19 08/05/19 History Zypam 1 tab PO DAILY 06/03/19 08/05/19 History Desiccated Adrenal 1 dose PO DAILY 06/04/19 08/05/19 History Garden Of Life Probiotic 1 dose PO DAILY 06/04/19 08/05/19 History Mrm Bone Maximizer 1 dose PO DAILY 06/04/19 08/05/19 History Spleen Descciated 1 dose PO DAILY 06/04/19 08/05/19 History Thytrophin Pmg 1 dose PO DAILY 06/04/19 08/05/19 History aspirin 81 mg tablet,delayed 81 mg PO QAM #30 tabs 06/04/19 08/05/19 Rx release atorvastatin 40 mg tablet 40 mg PO HS #30 tabs 06/04/19 08/05/19 Rx lisinopril 2.5 mg tablet 2.5 mg PO HS #30 tabs 06/04/19 08/05/19 Rx oxycodone-acetaminophen 5 mg-325 1 tab PO Q6H PRN pain #10 tabs 08/06/19 Rx mg tablet (Percocet) Past Med/Surg History Medical History (Updated 11/01/21 @ 16:11 by Oscar Guerrero MD) Carotid artery stenosis CVA (cerebral vascular accident) 05/2016, retinal artery occlusion; most recently admitted 06/03/19 for CVA GERD (gastroesophageal reflux disease) diet controlled Hearing deficit BL VILLA Hyponatremia Chronic/stable Hypothyroid Osteoarthritis Surgical History History of tonsillectomy S/P total hip arthroplasty Rt Family History Father Stroke Other No family history of adverse response to anesthesia Social History Smoking Status: Never smoker Second Hand Exposure: Yes (as a child); Hx Alcohol Use: No Hx Substance Use: No Preferred Language: Kazakh Communication Ability: Effective Visual Impairment: No Limitations Hearing Ability: Hard of Hearing High School Coordinator Required: No Beliefs That Will Affect Care: None marital status: Current Living Situation: Spouse Current Living Situation Comment: Jim home alone Feels Safe at Home: No Is there a partner from a previous relationship who is making you feel unsafe now?: No Assistive Devices: Contacts and Hearing Aid - Bilateral Review of Systems Review of Systems: All systems reviewed & are unremarkable except as noted in HPI & below Physical Exam Constitutional: WD/WN, vitals as above Eyes: EOM intact bilaterally; no conjunctival abnormality ENMT: external ear and nose normal, oropharynx normal Neck: trachea midline, no thyromegaly normal visual inspection Respiratory: normal respiratory effort, lungs clear to auscultation no respiratory distress Cardiovascular: RRR, no murmur, no edema Gastrointestinal (Abdomen): Inspection/Auscultation: abdomen normal to inspection; abdomen not distended Musculoskeletal: no cyanosis or clubbing, extremities motor strength 5/5 Skin: Trauma: + abrasion (3 on back, one on elbow, no erythema, no purulence noted.) Neurologic: moves all extremities and awake Psychiatric: Orientation: alert, oriented to person and cooperative Results & Data Results & Data ([facility]) Vital Signs (Past 12 Hours) Vital Signs Temp Pulse Pulse Resp BP BP Pulse Ox 11/01/21 14:03 78 20 125/78 98 11/01/21 12:21 36.5 C 87 16 107/64 97 O2 Del Method 11/01/21 14:03 Room Air 11/01/21 12:21 Room Air Code Status & VTE Plan VTE Prophylaxis Plan VTE Prophylaxis will be ordered: Yes PG Care Time/CCT Total # of Minutes Spent Total Time Spent with Patient: Total time spent is greater than 50% in coordination of care (as documented) at patient's floor/unit and/or counseling patient: Coding Level of Care Code 73449 Initial Inpt Care Lvl 3 Diagnoses Falls W19.XXXA Elevated troponin R77.8 Abrasion T14.8XXA Compression fracture Delusion F22 CVA (cerebral vascular accident) I63.9 Hypothyroid E03.9 DVT prophylaxis Z29.9
[2021-11-01 16:17] LABS: Appearance Urine Cloudy (Clear); Bacteria Urine Automated Negative (Negative); Bilirubin Urine Negative (Negative); Blood Urine Negative (Negative); Color Urine Yellow; Epithelial Cell Urine Auto >30 /lpf (0-5); Glucose Urine UA Negative (Negative); Ketones Urine 1+ (Negative); Leukocyte Esterase Urine 1+ (Negative); Nitrite Urine Negative (Negative); Protein Urine Trace (Negative); Urobilinogen Urine Negative (Negative)
[2021-11-01] MEDS ORDERED: Heparin IV Adult Wt-Based Standard *NO* Bolus Protocol IV ONE (16:18)
[2021-11-01] MEDS ORDERED: METOPROLOL SUCC 25MG EXT REL TAB PO STA (16:19)
[2021-11-01] MEDS ORDERED: ASPIRIN CHEW 324 MG PO STA (16:20)
[2021-11-01] MEDS: HEPARIN SODIUM/DEXTROSE 25,000 UNITS/500 ML BAG IV SCH (16:31)
[2021-11-01 16:36] LABS: T4 Free Thyroxine 1.06 ng/dl (0.61-1.60)
[2021-11-01 17:00] LABS: Partial Thromboplastin Ratio 1.1; Partial Thromboplastin Time 29.4 Seconds (21.0-31.0)
[2021-11-01 17:18] LABS: Calcium Oxalate Crystals Urine Present (None Prsent); Triple Phosphate Crystal Urine Present (None Prsent)
[2021-11-01] MEDS ORDERED: ACETAMINOPHEN 325 MG TAB PO PRN (18:50)
[2021-11-01] MEDS ORDERED: ONDANSETRON INJ 2 MG/ML 2 ML VIAL IV PRN (18:50)
[2021-11-01] MEDS: lisinopril 2.5 MG TAB PO SCH (20:49)
[2021-11-01] MEDS: ATORVASTATIN 40 MG TAB PO SCH ×2 (20:50→20:55)
[2021-11-01] MEDS: METOPROLOL SUCC 25MG EXT REL TAB PO SCH (20:50)
[2021-11-01 23:33] LABS: Partial Thromboplastin Ratio 4.3
[2021-11-01 23:44] LABS: Partial Thromboplastin Time 118.2 Seconds (21.0-31.0)
[2021-11-02 06:24] LABS: Hematocrit (blood only) 34.5 % (40.1-51.0); Hemoglobin 12.1 g/dl (14.0-18.0); Mean Corpuscular Hemoglobin 32.1 pg (25.0-34.0); Mean Corpuscular Hgb Conc 35.1 g/dL (32.0-36.0); Mean Corpuscular Volume 91.5 fL (80.0-100.0); Mean Platelet Volume 9.7 fL (9.4-12.4); Platelet Count 182 K/uL (130-400); RDW Coefficient of Variation 12.7 % (11.5-14.5); RDW Standard Deviation 42.4 fL (36.4-46.3); Red Blood Count 3.77 M/uL (4.63-6.08); White Blood Count 4.53 K/ul (4.8-10.8)
[2021-11-02 06:41] LABS: BUN Creatinine Ratio 26.4 (10-20); Creatinine Clr Calc Pharmacy 47.4 ml/min; Est GFR (African American) 91.2 ml/min; Est GFR (Non-African American) 78.7 ml/min; Magnesium 1.7 mg/dl (1.7-2.4); Phosphorus 2.8 mg/dl (2.5-4.9); Potassium 3.4 mmol/L (3.5-5.1)
[2021-11-02 06:42] LABS: Partial Thromboplastin Ratio 3.5
[2021-11-02 06:46] LABS: Partial Thromboplastin Time 96.4 Seconds (21.0-31.0)
[2021-11-02 06:51] LABS: Troponin I High Sensitivity 2223.4 pg/ml (0-20)
[2021-11-02 07:09] LABS: Folate (Folic Acid) > 22.30 ng/ml (>5.38)
[2021-11-02 07:13] LABS: Vitamin B12 > 1500 pg/ml (180-914)
[2021-11-02 07:22] LABS: Vitamin D, 25 Hydrox > 120.0 ng/ml (30-100)
[2021-11-02] MEDS ORDERED: MAGNESIUM SULFATE / D5W 1 GM/100 ML BAG IV ONE (07:52)
[2021-11-02] MEDS ORDERED: POTASSIUM CHLORIDE CRTAB 20 MEQ TABCR PO STA (07:52)
[2021-11-02] MEDS ORDERED: ASPIRIN 81 MG ECTAB PO SCH (09:00)
[2021-11-02] MEDS: METOPROLOL SUCC 25MG EXT REL TAB PO SCH (09:48)
[2021-11-02] MEDS: CLOPIDOGREL BISULFATE 75 MG TAB PO SCH (10:51)
[2021-11-02 13:40] LABS: Partial Thromboplastin Ratio 2.9
[2021-11-02 13:50] LABS: Partial Thromboplastin Time 80.7 Seconds (21.0-31.0)
--- NOTE | 2021-11-02 15:50 | Cardiology Consultation ---
Date of Consultation November 02, 2021 Assessment & Plan (1) Elevated troponin: Significant elevation in absence of ischemic symptoms. Patient had echo suggesting LAD territory ischemia/infarct. The EKG had changes in the lateral precordial leads borderline for STEMI, likely subacute since no reciprocal ST de pressions. The echo also suggests moderate LV dysfunction. Taken as a whole; patient likely has significant underlying CAD and probably with recent (subacute) OR. He does not appear to have ongoing ischemia on EKG or on exam. We would recommend definitive evaluation of his coronaries by cardiac cath. However, with his current mental status he is contraindicated for cath at this time. We will therefore optimize medical therapy and reassess mental status. Once he is deemed capable for consent, likely to comply with therapy, ans willing to undergo cath/PCI then we will proceed. He should continue with Plavix (hx CVA), atorvastatin, and lisinopril. Beta jaret should be considered prior to DC. Present on Admission?: Yes (2) Weakness: This is multifactorial. Certainly his neurologic issues (hx CVA, compression fracture) can contribute. Also, recent OR and cardiomyopathy likely contribute. No significant arrhythmia identified at present but he is at risk and this could explain accelerated falls. Also, he takes alot of OTC supplements including dessicated adrenal gland and spleen. This may contribute. He has a hx of hypon atremia and appears malnourished and cachectic. Present on Admission?: Yes (3) Frequent falls: unclear etiology but does not seem to be cardiogenic. There is no evidence of syncope. May have some hypotension when dehydrated. Consider neurology consult as I suspect motor nerve pathology. (4) Compression fracture: Question if pathologic fracture from occult malignancy given cachexia, malnutrition, etc. Present on Admission?: Yes (5) Cardiomyopathy: Presumably new diagnosis and likely ischemic in origin. EF greater than 35% so does not meet criteria for ICD. He appears to have modest volume overload with pleural effusion. We recommend guideline directed medical therapy as tolerated. At minimum this will include HF indicated beta jaret and ACEi/ARB/Entresto. Can also consider SGLT2 inhibitor, spironolactone, and if volume overload worsens then loop diuretic. History of Present Illness Attending Physician: Danya Rg MD History of Present Illness 86 yo male without prior cardiac hx was admitted for recurrent falls. Patient is a poor historian. He reportedly has a number of recent falls. 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 He also has compression fracture at T11. He states he is weak and falls. Denies LOC. He also denies any chest pain, heaviness, or pressure. He does not recall any recent episodes either. He denies SOB, orthopnea, PND, tachycardia, palpitations, edema. He does not seem to be aware of why cardiology was asked to see him. He does not have a prior side trimmer to his knowledge. He can't tell me who his PCP is and states he gets his supplements "on his own". I was asked to see him regarding elevated troponin. Allergies Allergy/AdvReac Type Severity Reaction Status Date / Time aspirin Allergy Abdominal Verified 11/02/21 11:24 Pain Home Medications Medication Instructions Recorded Confirmed Type digestive enzymes 3 tab PO AC ##0 04/18/17 08/05/19 History folic acid 1 mg tablet 1 mg PO QAM ##0 04/18/17 08/05/19 History omega 2-lxp-gbj-fish oil 1,000 mg 1 tab PO QAM #0 caps 04/18/17 08/05/19 History (120 mg-180 mg) capsule (Fish Oil) lactobacillus combination no.4 3 0 mmu cells PO TIDM ##0 10/09/17 08/05/19 History billion cell capsule (Probiotic) Raw Material Synergy 1 tab PO QAM 10/22/17 08/05/19 History ascorbic acid (vitamin C) 500 mg 500 mg PO TID 10/22/17 08/05/19 History capsule,extended release (Vitamin C) Adrenal Support 1 tab PO DAILY 06/03/19 08/05/19 History Boswella 1 - 3 tabs PO DAILY 06/03/19 08/05/19 History Anthony 40 1 tab PO DAILY 06/03/19 08/05/19 History Organic Bound Minerals 1 tab PO DAILY 06/03/19 08/05/19 History Saligesic 1 tab PO DAILY 06/03/19 08/05/19 History Soy Valles Lecisin 1 tab PO DAILY 06/03/19 08/05/19 History Zypam 1 tab PO DAILY 06/03/19 08/05/19 History Desiccated Adrenal 1 dose PO DAILY 06/04/19 08/05/19 History Garden Of Life Probiotic 1 dose PO DAILY 06/04/19 08/05/19 History Mrm Bone Maximizer 1 dose PO DAILY 06/04/19 08/05/19 History Spleen Descciated 1 dose PO DAILY 06/04/19 08/05/19 History Thytrophin Pmg 1 dose PO DAILY 06/04/19 08/05/19 History aspirin 81 mg tablet,delayed 81 mg PO QAM #30 tabs 06/04/19 08/05/19 Rx release atorvastatin 40 mg tablet 40 mg PO HS #30 tabs 06/04/19 08/05/19 Rx lisinopril 2.5 mg tablet 2.5 mg PO HS #30 tabs 06/04/19 08/05/19 Rx oxycodone-acetaminophen 5 mg-325 1 tab PO Q6H PRN pain #10 tabs 08/06/19 Rx mg tablet (Percocet) Patient History Medical History Carotid artery stenosis CVA (cerebral vascular accident) 05/2016, retinal artery occlusion; most recently admitted 06/03/19 for CVA GERD (gastroesophageal reflux disease) diet controlled Hearing deficit BL VILL[place] Hyponatremia Chronic/stable Hypothyroid Osteoarthritis Surgical History History of tonsillectomy S/P total hip arthroplasty Rt Family History Father Stroke Other No family history of adverse response to anesthesia Social History Smoking Status: Never smoker Second Hand Exposure: No; Do You Dip or Chew Tobacco: No; Hx Alcohol Use: No Hx Substance Use: No Preferred Language: Micronesian Communication Ability: Effective Visual Impairment: No Limitations Hearing Ability: Hard of Hearing 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 However, he seems unreliable at best. Physical Exam Constitutional: + cachectic, + altered mental status, + frail appearing, + m alnourished and + underweight Eyes: PERRL, conjunctivae normal, anicteric sclerae ENMT: external ear and nose normal, oropharynx normal Neck: normal visual inspection and trachea midline Respiratory: normal respiratory effort, lungs clear to auscultation (L basilar dullness.) Cardiovascular: Rate/Rhythm: regular rate and regular rhythm Heart Sounds: normal S1, normal S2 and + gallop (S4) Palpation: normal PMI Vessels: + carotid bruit no edema Gastrointestinal (Abdomen): normal bowel sounds, soft, nontender, no hepatosplenomegaly Neurologic: + confused Speech / Cognition: + abnormal speech (slightly slurred.) Results & [facility] ([facility]) Vital Signs (Past 12 Hours) Vital Signs Temp Pulse Pulse Resp BP Pulse Ox O2 Del Method 11/02/21 11:00 36.6 C 69 16 128/61 94 11/02/21 07:49 56 L 11/02/21 07:33 36.6 C 63 19 121/80 98 Room Air PG Care Time/CCT Total # of Minutes Spent Total Time Spent with Patient: Total time spent is greater than 50% in coordination of care (as documented) at patient's floor/unit and/or counseling patient: [place] [address] Inpt Consult Level 5 Patient Type New History Comprehensive Exam Detailed Medical Decision Making Moderate Complexity Diagnoses Elevated troponin R77.8 Weakness R53.1 Frequent falls R29.6 Compression fracture Cardiomyopathy I42.9
--- NOTE | 2021-11-02 17:34 | Electrocardiogram Report ---
Test Reason : Blood Pressure : / mmHG Vent. Rate : 078 BPM Atrial Rate : 078 BPM P-R Int : 164 ms QRS Dur : 080 ms QT Int : 378 ms P-R-T Axes : 063 -78 028 degrees QTc Int : 430 ms Poor data quality, interpretation may be adversely affected Normal sinus rhythm Left axis deviation Anterior infarct , age undetermined Abnormal ECG When compared with ECG of 23-JUL-2019 15:39, QRS axis Shifted left Anterior infarct is now Present ST elevation now present in Lateral leads Confirmed by Klever Rios ([id number]) on 11/02/2021 5:34:27 PM Referred By: Confirmed By:Johnathan Rios
--- NOTE | 2021-11-02 17:38 | Electrocardiogram Report ---
Test Reason : Blood Pressure : / mmHG Vent. Rate : 071 BPM Atrial Rate : 071 BPM P-R Int : 184 ms QRS Dur : 076 ms QT Int : 402 ms P-R-T Axes : 088 -39 033 degrees QTc Int : 436 ms Poor data quality, interpretation may be adversely affected Normal sinus rhythm Left axis deviation Anterior infarct (cited on or before 01-NOV-2021) Abnormal ECG When compared with ECG of 01-NOV-2021 12:41, (unconfirmed) No significant change was found Confirmed by Klever Rios ([id number]) on 11/02/2021 5:37:38 PM Referred By: Tanner Scherer Confirmed By:Johnathan Rios
--- NOTE | 2021-11-02 17:55 | Hospitalist Progress Note ---
Date of Service November 02, 2021 Assessment & Plan (1) Myocardial infarction: Plan: Patient presents with falls and weakness over the last week, but no complaints of chest pain or shortness of breath. Noted to have a troponin of 2500 on arrival which has since trended downward to 2200. EKG in the triage has some mild ST elevations in V5-V6 (concave up), but these had resolved by the second EKG. Echocardiogram shows significant wall motion abnormalities in the LAD territory and a reduced EF of 35% consistent with ischemic cardiomyopathy Heparin drip continues Patient is allergic to aspirin but is willing to take clopidogrel-started this today With 7 beats of VT on telemetry thus far Patient is agreeable to cardiac catheterization-make n.p.o. after midnight -Continue clopidogrel -Patient declines to take statin-could consider Zetia -Started Ivtadg-VZ-ukjllfq to 25 mg once daily as he is bradycardic in the 50s with just the 25 mg dose -Started lisinopril 2.5 mg once daily -Continue heparin drip and hold before cardiac catheterization -Follow BMP, magnesium in the morning and keep electrolytes optimized-give magnesium and potassium today (2) Cardiomyopathy: Plan: As above Started guideline directed medical therapy with Toprol-XL and lisinopril Consider Entresto, SGLT2 inhibitor, and Aldactone as per cardiology If becomes volume overloaded, would diurese with Lasix Not a candidate for ICD at this time (3) Hypokalemia: Plan: Replace with potassium Follow BMP and magnesium (4) Hyponatremia: Plan: Sodium mildly low at 133 May be from mild volume overload? No diuresis at this time Follow BMP (5) Hypothyroid: Plan: Not on levothyroxine from my review, but does take natural thyroid supplement. TSH was mildly elevated at 5.6 with FT4 normal Will not start levothyroxine at this time should be monitored as an outpatient (6) Falls: Plan: Multiple falls at home, all due to general weakness by history. 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 (7) Abrasion: Plan: 3 pressure ulcers on back from lying on his back for several hours and on elbow. - Wound RN consult placed-wounds are dressed (8) Compression fracture: Plan: Lumbar x-ray on admission showed "interval progression of the mild to moderate superior endplate compression fractures from T11 through L3." Patient not in any pain during my interview and exam. - Tylenol PRN Would benefit from outpatient therapy for osteoporosis (9) Delusion: Plan: Patient believes that he must use a pendulum to test all his food to make sure it is safe for his body because he was given cow's milk as a baby. If the pendulum spins clockwise, he can safely eat the food. If it spins counterclockwise, he must discard the food. His friend Radha reports this is also why he must use lots of supplements. - Discussed his beliefs with the on-call psychiatrist. 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 Odd fixation, but usually function quite well and does not rise to the level of a full psychosis. Did not see need for consult at this time. - Will get PRESSURE VESSEL INSPECTOR consult for cognitive evaluation. Not due to delusion per se, but because he was also having some memory issues during the interview (forgetting fairly recent events, getting confused on whether his friend was still in the room when she was behind him). Presently, I don't see any need to try to insurance claims analyst decision-making capacity, but this could be helpful if it comes to that. (10) CVA (cerebral vascular accident): Plan: In 05/2019. -He states he is allergic to aspirin so therefore has not been on an antiplatelet Is status post left CEA although his stroke at the time was on the right hemisp here -Start Plavix as above Patient declines statin but it is ordered in case he chooses to take it Plan DVT prophylaxis-remains on heparin drip Disposition-continued stay on PCU Patient has an ex- that he remains close with. He is estranged from a daughter who lives in [place]. He lives with a man and his named Katarzyna and Yvette Chin. He designates [place] to be his healthcare power of assistant attorney general and I advised that they have service excellence assist with paperwork to make this official in the morning. I discussed his care with cardiology. Admission and Anticipated Discharge Date Admission Date: November 01, 2021 Subjective Patient very concerned about the way things are arranged on his desk and he spoke with his friend on the phone asking for a phone director of hemophilia and certain water bottle to be brought in for him. Was able to get his attention at 1 point to tell him about his recent heart attack and newfound cardiomyopathy. He fully understood everything I was telling him and was able to repeat back the disease process today and is agreeable to having a cardiac catheterization. He understands the risks and benefits. He also states that he is agreeable to taking all medications prescribed to him for his cardiomyopathy and if he were to have stents placed. He is not agreeable to statin drugs however but could potentially be treated with an alternative therapy. I also discussed at the josie cervantes's request all of his information with his unofficially designated healthcare power of assistant attorney general, Sheri Chin, at the bedside. The patient denies any chest pains or shortness of breath, no nausea. His friend Katarzyna tells me that for the last week since his 1 fall, the patient has been extremely generally weak, having incontinence to bowel and bladder, hardly able to hold his head up, with increased confusion, and he previously was very independent, "almost annoyingly independent." SN[facility] telemetry with sinus rhythm, rates in the 70s, 8 beats of VT Review of Systems Review of Systems: All systems reviewed & are unremarkable except as noted in HPI & below Physical Exam Constitutional: WD/WN, vitals as above Eyes: PERRL, conjunctivae normal, anicteric sclerae ENMT: external ear and nose normal, oropharynx normal Neck: trachea midline, no thyromegaly Respiratory: normal respiratory effort, lungs clear to auscultation Cardiovascular: RRR, no murmur, no edema Chest (Breasts): Chest: normal inspection of chest Gastrointestinal (Abdomen): normal bowel sounds, soft, nontender, no hepatosplenomegaly Musculoskeletal: Extremities: extremities normal to inspection; no cyanosis and no clubbing Skin: no rashes, warm and dry Neurologic: moves all extremities and awake; no focal motor deficits Speech / Cognition: normal speech Psychiatric: Orientation: alert, oriented x 3 and cooperative Eye Contact: + fair eye contact Speech: normal rate/rhythm/volume of speech Affect: euthymic affect Thought Process: goal directed thought process Does seem to be frequently worried about placement of objects in the room, arrangement of his items Lymphatic: no lymphedema Results & Data Results & Data ([facility]) Vital Signs (Past 12 Hours) Vital Signs Temp Pulse Pulse Resp BP Pulse Ox O2 Del Method 11/02/21 15:36 36.5 C 67 20 133/77 100 Room Air 11/02/21 11:00 36.6 C 69 16 128/61 94 11/02/21 07:49 56 L 11/02/21 07:33 36.6 C 63 19 121/80 98 Room Air Laboratory Results 11/02/21 11/02/21 11/02/21 Range/Units 20:00 13:21 12:55 WBC (4.8-10.8) K/ul RBC (4.63-6.08) M/uL Hgb (14.0-18.0) g/dl Hct (40.1-51.0) % MCV (80.0-100.0) fL MCH (25.0-34.0) pg MCHC (32.0-36.0) g/dL RDW Std Deviation (36.4-46.3) fL RDW Coeff of Arvind (11.5-14.5) % Plt Count (130-400) K/uL MPV (9.4-12.4) fL APTT Pending 80.7 H* (21.0-31.0) Seconds PTT Ratio Pending 2.9 Sodium (136-145) mmol/L Potassium (3.5-5.1) mmol/L Chloride (98-107) mmol/L Carbon Dioxide (21-32) mmol/L Anion Gap (3-11) BUN (6-23) mg/dl Creatinine (0.6-1.4) mg/dl Est Cr Clr Drug Dosing ml/min Est GFR ( Amer) ml/min Est GFR (Non-Af Amer) ml/min BUN/Creatinine Ratio (10-20) Glucose (70-99(Fasting)) mg/dl Calcium (8.5-10.1) mg/dl Phosphorus (2.5-4.9) mg/dl Magnesium (1.7-2.4) mg/dl Troponin I High Sens (0-20) pg/ml Whole Bld Vitamin B1 Vitamin B12 (180-914) pg/ml 25-OH Vitamin D Total (30-100) ng/ml Folate (>5.38) ng/ml Stool Occult Bld Scrn Negative (Negative) 11/02/21 11/02/21 11/02/21 Range/Units 05:40 05:40 05:40 WBC (4.8-10.8) K/ul RBC (4.63-6.08) M/uL Hgb (14.0-18.0) g/dl Hct (40.1-51.0) % MCV (80.0-100.0) fL MCH (25.0-34.0) pg MCHC (32.0-36.0) g/dL RDW Std Deviation (36.4-46.3) fL RDW Coeff of Arvind (11.5-14.5) % Plt Count (130-400) K/uL MPV (9.4-12.4) fL APTT 96.4 H* (21.0-31.0) Seconds PTT Ratio 3.5 Sodium (136-145) mmol/L Potassium (3.5-5.1) mmol/L Chloride (98-107) mmol/L Carbon Dioxide (21-32) mmol/L Anion Gap (3-11) BUN (6-23) mg/dl Creatinine (0.6-1.4) mg/dl Est Cr Clr Drug Dosing ml/min Est GFR ( Amer) ml/min Est GFR (Non-Af Amer) ml/min BUN/Creatinine Ratio (10-20) Glucose (70-99(Fasting)) mg/dl Calcium (8.5-10.1) mg/dl Phosphorus (2.5-4.9) mg/dl Magnesium (1.7-2.4) mg/dl Troponin I High Sens (0-20) pg/ml Whole Bld Vitamin B1 Pending Vitamin B12 > 1500 H (180-914) pg/ml 25-OH Vitamin D Total > 120.0 H (30-100) ng/ml Folate > 22.30 (>5.38) ng/ml Stool Occult Bld Scrn (Negative) 11/02/21 11/02/21 11/01/21 Range/Units 05:40 05:40 22:47 WBC 4.53 L (4.8-10.8) K/ul RBC 3.77 L (4.63-6.08) M/uL Hgb 12.1 L (14.0-18.0) g/dl Hct 34.5 L (40.1-51.0) % MCV 91.5 (80.0-100.0) fL MCH 32.1 (25.0-34.0) pg MCHC 35.1 (32.0-36.0) g/dL RDW Std Deviation 42.4 (36.4-46.3) fL RDW Coeff of Arvind 12.7 (11.5-14.5) % Plt Count 182 (130-400) K/uL MPV 9.7 (9.4-12.4) fL APTT 118.2 H* (21.0-31.0) Seconds PTT Ratio 4.3 Sodium 133 L (136-145) mmol/L Potassium 3.4 L (3.5-5.1) mmol/L Chloride 102 (98-107) mmol/L Carbon Dioxide 25 (21-32) mmol/L Anion Gap 6 (3-11) BUN 23 (6-23) mg/dl Creatinine 0.87 (0.6-1.4) mg/dl Est Cr Clr Drug Dosing 47.4 ml/min Est GFR ( Amer) 91.2 ml/min Est GFR (Non-Af Amer) 78.7 ml/min BUN/Creatinine Ratio 26.4 H (10-20) Glucose 71 (70-99(Fasting)) mg/dl Calcium 9.0 (8.5-10.1) mg/dl Phosphorus 2.8 (2.5-4.9) mg/dl Magnesium 1.7 (1.7-2.4) mg/dl Troponin I High Sens 2223.4 H* (0-20) pg/ml Whole Bld Vitamin B1 Vitamin B12 (180-914) pg/ml 25-OH Vitamin D Total (30-100) ng/ml Folate (>5.38) ng/ml Stool Occult Bld Scrn (Negative) 11/01/21 Range/Units 22:47 WBC (4.8-10.8) K/ul RBC (4.63-6.08) M/uL Hgb (14.0-18.0) g/dl Hct (40.1-51.0) % MCV (80.0-100.0) fL MCH (25.0-34.0) pg MCHC (32.0-36.0) g/dL RDW Std Deviation (36.4-46.3) fL RDW Coeff of Arvind (11.5-14.5) % Plt Count (130-400) K/uL MPV (9.4-12.4) fL APTT (21.0-31.0) Seconds PTT Ratio Sodium (136-145) mmol/L Potassium (3.5-5.1) mmol/L Chloride (98-107) mmol/L Carbon Dioxide (21-32) mmol/L Anion Gap (3-11) BUN (6-23) mg/dl Creatinine (0.6-1.4) mg/dl Est Cr Clr Drug Dosing ml/min Est GFR ( Amer) ml/min Est GFR (Non-Af Amer) ml/min BUN/Creatinine Ratio (10-20) Glucose (70-99(Fasting)) mg/dl Calcium (8.5-10.1) mg/dl Phosphorus (2.5-4.9) mg/dl Magnesium (1.7-2.4) mg/dl Troponin I High Sens 2515.2 H* (0-20) pg/ml Whole Bld Vitamin B1 Vitamin B12 (180-914) pg/ml 25-OH Vitamin D Total (30-100) ng/ml Folate (>5.38) ng/ml Stool Occult Bld Scrn (Negative) PG Care Time/CCT Total # of Minutes Spent Total Time Spent with Patient: Total time spent is greater than 50% in coordination of care (as documented) at patient's floor/unit and/or counseling patient: Coding Level of Care Code 22783 Subseq Hosp Care Lvl 3 Diagnoses Myocardial infarction I21.9 Cardiomyopathy I42.9 Hypokalemia E87.6 Hyponatremia E87.1 Hypothyroid E03.9 Falls W19.XXXA Abrasion T14.8XXA Compression fracture Delusion F22 CVA (cerebral vascular accident) I63.9
[2021-11-02] MEDS: ATORVASTATIN 40 MG TAB PO SCH (20:38)
[2021-11-02 20:52] LABS: Partial Thromboplastin Ratio 2.5
[2021-11-02 22:00] LABS: Partial Thromboplastin Time 69.9 Seconds (21.0-31.0)
[2021-11-02] MEDS: lisinopril 2.5 MG TAB PO SCH (22:02)
[2021-11-03 04:07] LABS: Basophils # (auto) 0.05 K/uL (0-0.2); Basophils % (auto) 0.9 %; Eosinophils % (auto) 3.7 %; Hematocrit (blood only) 36.6 % (40.1-51.0); Hemoglobin 12.9 g/dl (14.0-18.0); Immature Granulocytes # (auto) 0.01 K/uL (0.00-0.02); Immature Granulocytes % (auto) 0.2 %; Lymphocytes # (auto) 2.04 K/uL (1.2-3.4); Lymphocytes % (auto) 37.4 %; Mean Corpuscular Hemoglobin 32.7 pg (25.0-34.0); Mean Corpuscular Hgb Conc 35.2 g/dL (32.0-36.0); Mean Corpuscular Volume 92.7 fL (80.0-100.0); Mean Platelet Volume 9.4 fL (9.4-12.4); Monocytes # (auto) 0.61 K/uL (0.24-0.82); Monocytes % (auto) 11.2 %; Neutrophils # (auto) 2.54 K/uL (1.4-6.5); Neutrophils % (auto) 46.6 %; Platelet Count 183 K/uL (130-400); RDW Coefficient of Variation 12.6 % (11.5-14.5); RDW Standard Deviation 42.8 fL (36.4-46.3); Red Blood Count 3.95 M/uL (4.63-6.08); White Blood Count 5.45 K/ul (4.8-10.8)
[2021-11-03 04:30] LABS: BUN Creatinine Ratio 22.9 (10-20); Calcium 9.2 mg/dl (8.5-10.1); Chol HDL Ratio 3.1 (0-5); Creatinine Clr Calc Pharmacy 49.7 ml/min; Est GFR (Non-African American) 80.2 ml/min; Magnesium 1.7 mg/dl (1.7-2.4); Potassium 3.8 mmol/L (3.5-5.1)
[2021-11-03 05:21] LABS: Partial Thromboplastin Time 83.1 Seconds (21.0-31.0)
[2021-11-03] MEDS: HEPARIN SODIUM/DEXTROSE 25,000 UNITS/500 ML BAG IV SCH (05:25)
[2021-11-03 05:30] LABS: Troponin I High Sensitivity 1306.6 pg/ml (0-20)
--- NOTE | 2021-11-03 06:26 | Electrocardiogram Report ---
Test Reason : Blood Pressure : / mmHG Vent. Rate : 058 BPM Atrial Rate : 058 BPM P-R Int : 184 ms QRS Dur : 092 ms QT Int : 472 ms P-R-T Axes : 076 010 010 degrees QTc Int : 463 ms Sinus bradycardia Low voltage QRS Cannot rule out Anteroseptal infarct (cited on or before 01-NOV-2021) Abnormal ECG When compared with ECG of 01-NOV-2021 14:34, Nonspecific T wave abnormality, worse in Inferior leads Confirmed by Finn Barriga ([id number]) on 11/03/2021 6:25:53 AM Referred By: Tanner Scherer Confirmed By:Finn Barriga
--- NOTE | 2021-11-03 06:52 | CT Scan Report ---
CT head/brain wo con CLINICAL HISTORY: 86 years-old Male with frequent falls,confusion,assess for CVA. Acutely altered me ntal status TECHNIQUE: Multiple axial CT images of the head were obtained without contrast. A dose lowering tech nique was utilized adhering to the principles of ALARA. CT DOSE: 691.05 mGy.cm COMPARISON: Head CT 06/03/2019 FINDINGS: No acute intracranial hemorrhage, midline shift, intracranial mass, hydrocephalus, territorial ischem ia or abnormal extra-axial collection. Age-related involutional changes. White matter hypodensities s uggest chronic microvascular ischemic disease. Chronic left frontal and parietal lobe infarcts. Chron ic infarct of the left external capsule with tiny chronic appearing lacunar infarcts of the basal norberto glia.. Cerebral vascular calcifications. The calvarium is intact. Prior right-sided lens repair. The paranasal sinuses, mastoid air cells, and middle ear cavities are clear. IMPRESSION: Chronic findings as above without acute intracranial abnormality. ACT 112: Negative or not required by law. The above report was generated using voice recognition software. It may contain grammatical, syntax o r spelling errors. Electronically signed by: Aries Luciano M.D. 11/03/2021 6:51 AM
[2021-11-03] MEDS ORDERED: POTASSIUM CHLORIDE CRTAB 20 MEQ TABCR PO STA (08:22)
[2021-11-03] MEDS: CLOPIDOGREL BISULFATE 75 MG TAB PO SCH (08:23)
[2021-11-03] MEDS: THIAMINE HCL 100 MG TAB PO SCH (08:23)
[2021-11-03] MEDS: METOPROLOL SUCC 25MG EXT REL TAB PO SCH (08:23)
[2021-11-03] MEDS: MAGNESIUM SULFATE / D5W 1 GM/100 ML BAG IV SCH ×2 (08:51→10:35)
[2021-11-03] MEDS ORDERED: MIDAZOLAM HCL 1 MG/ML 2ML VIAL ONE (11:42)
[2021-11-03] MEDS ORDERED: fentaNYL citrate 100 MCG/2 ML VIAL ONE (11:42)
[2021-11-03] MEDS ORDERED: niCARdipine HCL INJ 2.5 MG/ML 10 ML AMP ONE (11:42)
[2021-11-03] MEDS ORDERED: HEPARIN (PORCINE) 1000 UNIT/ML 10 ML (CATH LAB USE ONLY) ONE (11:42)
[2021-11-03] MEDS ORDERED: NITROGLYCERIN/D5W 100MCG/ML 20ML SYR ONE (11:43)
[2021-11-03 13:36] LABS: Partial Thromboplastin Ratio 1.2
--- NOTE | 2021-11-03 13:37 | Cardiac Catheterization ---
[facility] Data: Cardiac Nurse Cardiac Status Clinical evaluation leading to the procedure CAD Presenation: Non STEMI Heart Failure: NYHA Class: CCS II Coronary Anatomy Left Main (% Stenosis): Ostial (40 to 50%) LAD (% Stenosis): Ostial (90 to 95%) and Mid (100% (chronic total occlusion)) Circumflex (% Stenosis): Distal (80%) OM1 (% Stenosis): Proximal (60 to 70%) RCA (% Stenosis): Ostial (30%), Proximal (Mild diffuse), Mid (Focal 40 to 50%) and Distal (40%) R PDA (% Stenosis): Normal (Large tortuous collateral to the LAD) Diagnostic Physicians Name: Jean Pierre Flores MD, PhD Closure Device Percutaneous Entry Location: Failed radial Recommendations: Medical Therapy and/or Counseling Cardiac Cath Procedure Full Procedure Date November 03, 2021 Pre-Procedure Diagnosis Pre-Procedure Diagnosis: Non STEMI AUC Score AUC Score: 08 Post-Procedure Diagnosis Post-Procedure Diagnosis: Severe CAD Procedure(s) Performed Procedure(s) Performed: Coronary Angiography [employer] Jean Pierre Flores MD, PhD Estimated Blood Loss Estimated Blood Loss: None (10 ml) Summary of Findings Brief description: Patient was brought to the cardiac catheterization suite where he was shaved and prepped in a sterile fashion. Sedated using IV Versed and fentanyl. Soft tissues of the right wrist were anesthetized using 2 mL of 1% Xylocaine. The right radial artery was accessed and a 6 [place] radial artery sheath was placed. However, we were unable to advance the guidewire up to the radial artery beyond the elbow. Limited angiography revealed no patency of the artery at that level. Therefore, we changed access to the right femoral artery Soft tissues of the right groin were anesthetized using 5 mL of 1% Xylocaine. The right femoral artery was accessed with modified Seldinger technique and a 5 [place] femoral artery sheath was placed. All catheters were advanced and exchanged over a 0.035 J-tip wire. Left coronary angiography in orthogonal views with a 5 [place] JL 4 diagnostic catheter. Right coronary angiography in orthogonal views with a 5 [place] JR4 diagnostic catheter. Diagnostic catheters were removed. Radial artery sheath was removed and hemostasis was obtained using a TR band. The femoral artery sheath was removed and hemostasis was obtained with manual compression. Patient remained hemodynamically stable and asymptomatic. He was returned to the recovery area. This ended the case. Findings: Left main: Large caliber and short. There is an ostial 40 to 50% stenosis with pressure wave dampening on engagement. Vessel bifurcates into the LAD and left circumflex. LAD: Moderately to severely calcified with ostial to proximal 90 to 95% stenosis. Severely diseased and 100% occluded in the midsegment just after the first diagonal and septal branch. The distal vessel fills via right to left collateralization. Left circumflex: Large caliber and probably nondominant or possibly codominant. There is mild to moderate calcification in the AV groove vessel. This vessel is tortuous. Diffuse mild disease proximally and provides a large caliber branching OM1. This has proximal 60 to 70% narrowing. The mid AV groove circumflex is medium to large in caliber and provides an atrial branch and then a small to medium caliber multi branching posterolateral. There is diffuse mild disease. The distal AV groove circumflex tapers and has a focal 80% stenosis before it terminates distally. There is a late filling small caliber relatively short vessel which may be a small PDA or PDA branch. RCA: This is large caliber and codominant or dominant. Ostium has calcification and less than 30% focal stenosis. The proximal vessel has diffuse mild disease with mild calcification. Mid RCA has diffuse disease with a focal up to 50% narrowing and moderate calcification. The distal circumflex has diffuse disease with up to 40% stenosis. It provides a large caliber tortuous PDA which provides a large caliber robust right to left collateral to the LAD. There is also a small posterolateral branch. Hemodynamics Rest Ao:: 110/64 mmHg, mean 74 mmHg Final Ao: 109/52 mmHg, mean 66 mmHg LV: Not performed Recommendations Recommendations: Medical Therapy and/or Counseling Radiation Exposure (mGy) 330 Contrast (mls) 60 Anesthesia 1 mg of IV Versed, 25 mcg of IV fentanyl. Sedation time 23 minutes Procedural Complication(s) None Disposition Recovery Room\PACU I attest to the content of the Intraoperative Record and any orders documented therein. Any exceptions are noted below. [facility] Card Cath Procedure Codes Cardiac Catheterization Procedure 1: Cardiovascular Cath Procedures: 90723 Coronaries PG Care Time/CCT Total # of Minutes Spent Total Time Spent with Patient: Total time spent is greater than 50% in coordination of care (as documented) at patient's floor/unit and/or counseling patient:
--- NOTE | 2021-11-03 13:52 | Cardiology Progress Note ---
Date of Service November 03, 2021 Assessment & Plan (1) Myocardial infarction: Plan: Patient with severe chronic occlusive coronary disease. No evidence of acute thrombotic lesion to suggest ACS. Most likely, type II non-ST elevation NM secondary to global demand ischemia. Patient is a poor candidate for surgical revascularization. There are no appropriate targets at this time for PCI within this institution. Risk to benefit analysis for PCI favors medical management at this time. Therefore, would optimize his guideline directed medical therapy to include a low-dose aspirin or Plavix given prior CVA, high intensity statin therapy, beta-jaret, plus or minus TIERNEY inhibitor/ARB. Patient has been refusing his cholesterol medication. Present on Admission?: Yes (2) Hypertension: Plan: Blood pressure is slightly above target. He is on lisinopril which should continue. I would also consider a low-dose beta-jaret such as metoprolol succinate ER 25 mg daily. Present on Admission?: Yes (3) Atherogenic dyslipidemia: Plan: Patient is considered high risk. Confirmed coronary disease plus prior peripheral arterial disease. Highly recommend high intensity statin therapy. Unfortunately, he is prone to refuse medications in favor of supplements. Present on Admission?: Yes Plan Medical regimen should be titrated as indicated above. He has no evidence of volume overload at the moment and has been receiving Lasix with good diuresis. Low-dose oral Lasix for discharge. He will require follow-up in the cardiology office within 2 to 4 weeks of discharge. Likely appropriate for discharge tomorrow. I would also favor rehab (both cardiac and physical therapy) and suspect long-term he may need placement. Admission and Anticipated Discharge Date Admission Date: November 01, 2021 Subjective Patient without any chest pain or shortness of breath. Prior to catheterization we discussed in detail the risk benefits and alternatives of the procedure. His questions were answered in full. He voiced understanding and wished to proceed with catheterization. Coronary angiography was performed revealing severe multivessel coronary disease not amenable to PCI. Patient would not be a cardiothoracic surgical candidate for bypass surgery for multitude of reasons. Fortunately, there does not appear to be an acute thrombotic/occlusive lesion and I suspect that the elevation in troponin today is actually a type II non-ST elevation NM but we now know that he has severe coronary disease. He has no additional pertinent complaints or concerns. Review of Systems Review of Systems: Negative x12 point review except as per HPI Physical Exam Constitutional: Initially awake alert and oriented. No acute distress. Post procedure he is somnolent but otherwise unchanged. Eyes: PERRL, conjunctivae normal, anicteric sclerae ENMT: external ear and nose normal, oropharynx normal Neck: normal visual inspection (Prior left carotid endarterectomy scar) Respiratory: normal respiratory effort, lungs clear to auscultation Cardiovascular: RRR, no murmur, no edema (Except a soft systolic murmur.) Musculoskeletal: Cachexia Neurologic: Patient has reduced hearing but is more alert today. He is appropriate and seems to understand his clinical situation. There are no focal deficits. Results & Data ([facility]) Vital Signs (Past 12 Hours) Vital Signs Temp Pulse Pulse Pulse Resp BP Pulse Ox 11/03/21 13:34 36.6 C 68 18 156/98 H 100 11/03/21 13:15 36.5 C 58 L 18 147/88 H 100 11/03/21 13:00 36.5 C 59 L 18 163/89 H 98 11/03/21 12:43 78 16 156/93 H 97 11/03/21 11:25 74 20 153/94 H 97 11/03/21 11:05 36.3 C L 60 18 148/96 H 100 11/03/21 09:00 68 11/03/21 07:46 36.7 C 64 16 147/100 H 96 11/03/21 03:00 36.5 C 65 18 165/91 H 95 O2 Del Method 11/03/21 13:34 Room Air 11/03/21 13:15 Room Air 11/03/21 13:00 Room Air 11/03/21 12:43 Room Air 11/03/21 11:25 Room Air 11/03/21 11:05 Room Air 11/03/21 09:00 11/03/21 07:46 Room Air 11/03/21 03:00 Room Air PG Care Time/CCT Total # of Minutes Spent Total Time Spent with Patient: Total time spent is greater than 50% in coordination of care (as documented) at patient's floor/unit and/or counseling patient: C[place] [address] Subseq Hosp Care Lvl 2 Patient Type Established Diagnoses Myocardial infarction I21.9 Hypertension I10 Atherogenic dyslipidemia E78.5
--- NOTE | 2021-11-03 13:57 | Electrocardiogram Report ---
Test Reason : Blood Pressure : / mmHG Vent. Rate : 064 BPM Atrial Rate : 064 BPM P-R Int : 174 ms QRS Dur : 088 ms QT Int : 480 ms P-R-T Axes : 077 -48 025 degrees QTc Int : 496 ms Normal sinus rhythm Left axis deviation Septal infarct (cited on or before 01-NOV-2021) Nonspecific T wave abnormality Prolonged QT Abnormal ECG When compared with ECG of 02-NOV-2021 05:52, QRS axis Shifted left Questionable change in initial forces of Anterior leads Confirmed by Finn Barriga ([id number]) on 11/03/2021 1:57:02 PM Referred By: Tanner Scherer Confirmed By:Finn Barriga
--- NOTE | 2021-11-03 19:16 | Hospitalist Progress Note ---
Date of Service November 03, 2021 Assessment & Plan (1) Myocardial infarction: Plan: Patient presents with falls and weakness over the last week, but no complaints of chest pain or shortness of breath. Noted to have a troponin of 2500 on arrival which has since trended downward to 1306 EKG initially w/ mild ST elevations in V5-V6 (concave up), but these had resolved by the second EKG. Echocardiogram shows significant wall motion abnormalities in the LAD territory and a reduced EF of 35% consistent with ischemic cardiomyopathy Heparin drip was started Patient is allergic to aspirin but is willing to take clopidogrel With 7 beats of VT on telemetry thus far on first day, none since then s/p cardiac catheterization on 11/03--> with 100% occluded mid LAD with R to L collaterals and sevre CAD otherwise but not amenable to intervention Cardiology believes this was a Type II NSTEMI and does not believe the patient is a good candidate for CABG Max medical therapy for CAD, cardiomyopathy is recommended -dc heparin gtt -Continue clopidogrel 75 mg daily -Patient declines to take statin-is willing to take Zetia 10mg daily -Started Toprol-XL 25 mg once daily -unable to titrate up much due to bradycardia -Started lisinopril and will increase to 5 mg once daily -will need outpt f/u with Cardiology and repeat ECHO in near future -Follow BMP, magnesium in the morning and keep electrolytes optimized-give magnesium and potassium again today (2) Cardiomyopathy: Plan: As above Started guideline directed medical therapy with Toprol-XL and lisinopril Consider Entresto, SGLT2 inhibitor, and Aldactone as per cardiology If becomes volume overloaded, would diurese with Lasix Not a candidate for ICD at this time (3) CAD (coronary artery disease), [place] coronary artery: Plan: as above (4) Hypokalemia: Plan: Replace with potassium Follow BMP and magnesium (5) Hyponatremia: Plan: Sodium mildly low at 134 May be from mild volume overload? No diuresis at this time Follow BMP (6) Hypothyroid: Plan: Not on levothyroxine from my review, but does take natural thyroid supplement. TSH was mildly elevated at 5.6 with FT4 normal Will not start levothyroxine at this time should be monitored as an outpatient (7) Falls: Plan: Multiple falls at home, all due to general weakness by history. B12/folate levels are normal, vitamin D is excessively greater than 120 but no hypercalcemia Thiamine level is pending but will start 100 mg daily given cachexia and malnutrition - PT/OT - Patient willing to be placed in short-term rehab. (8) Compression fracture: Plan: osteoporosis w current path fracture, vertebrae T11-L3 Lumbar x-ray on admission showed "interval progression of the mild to moderate superior endplate compression fractures from T11 through L3." Patient not in any pain during my interview and exam. - Tylenol PRN Would benefit from outpatient medical therapy for osteoporosis (9) Delusion: Plan: Patient believes that he must use a pendulum to test all his food to make sure it is safe for his body because he was given cow's milk as a baby. If the pendulum spins clockwise, he can safely eat the food. If it spins counterclockwise, he must discard the food. His friend Radha reports this is also why he must use lots of supplements. - Discussed his beliefs with the on-call psychiatrist. 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 Odd fixation, but usually function quite well and does not rise to the level of a full psychosis. Did not see need for consult at this time. - Will get ELEMENTARY SCHOOL ART TEACHER consult for cognitive evaluation. Not due to delusion per se, but because he was also having some memory issues during the interview (forgetting fairly recent events, getting confused on whether his friend was still in the room when she was behind him). Presently, I don't see any need to try to magistrate judge decision-making capacity, but this could be helpful if it comes to that. (10) CVA (cerebral vascular accident): Plan: In 05/2019. -He states he is allergic to aspirin so therefore has not been on an antiplatelet Is status post left CEA although his stroke at the time was on the right hemisphere -Start Plavix as above Patient declines statin but is willing to take Zetia (11) Open wound of back: Plan: Open wounds of back 3 pressure ulcers on back from lying on his back for several hours and on elbow. - Wound RN consult placed-wounds are dressed Plan DVT prophylaxis-heparin drip now stopped SCDs Disposition-continued stay on PCU, needs OT eval. PT recommends rehab. Referrals placed to rehab by CM Patient has an ex- that he remains close with. He is estranged from a daughter who lives in [place]. He lives with a man and his named Katarzyna and Yvette Chin. He designates Sheri to be his healthcare power of claim attorney and I advised that they have service excellence assist with paperwork to make this official in the morning. Admission and Anticipated Discharge Date Admission Date: November 01, 2021 Subjective Pt had cath today and results of this were reviewed with him. He is still drowsy after the cath from sedation but reports he did eat dinner. Denies CP, SOB, abd pain. No other concerns, says he is willing to take all meds as prescribed. Tele with NSR, PVCs, rates 50-60s Review of Systems Review of Systems: All systems reviewed & are unremarkable except as noted in HPI & below Physical Exam Constitutional: + thin Eyes: + anicteric sclerae Neck: trachea midline, no thyromegaly Respiratory: normal respiratory effort, lungs clear to auscultation Cardiovascular: RRR, no murmur, no edema Chest (Breasts): Chest: normal inspection of chest Gastrointestinal (Abdomen): normal bowel sounds, soft, nontender, no hepatosplenomegaly Musculoskeletal: Extremities: + extremities abnormal to inspection (right wrist with dressing in place), no cyanosis and no clubbing Skin: no rashes, warm and dry Neurologic: moves all extremities and awake; no focal motor deficits Speech / Cognition: normal speech Psychiatric: Orientation: alert, oriented x 3 and cooperative Eye Contact: + fair eye contact Speech: normal rate/rhythm/volume of speech Affect: euthymic affect Thought Process: goal directed thought process Lymphatic: no lymphedema Results & Data Results & Data ([facility]) Vital Signs (Past 12 Hours) Vital Signs Temp Pulse Pulse Pulse Resp BP Pulse Ox 11/03/21 19:00 36.8 C 68 18 110/57 L 97 11/03/21 13:35 57 L 11/03/21 17:00 64 11/03/21 15:34 36.7 C 58 L 20 132/80 98 11/03/21 15:29 36.5 C 59 L 18 144/92 H 92 11/03/21 14:34 36.4 C L 63 18 142/83 H 100 11/03/21 14:04 36.5 C 58 L 18 150/86 H 100 11/03/21 13:34 36.6 C 68 18 156/98 H 100 11/03/21 13:15 36.5 C 58 L 18 147/88 H 100 11/03/21 13:00 36.5 C 59 L 18 163/89 H 98 11/03/21 12:43 78 16 156/93 H 97 11/03/21 11:25 74 20 153/94 H 97 11/03/21 11:05 36.3 C L 60 18 148/96 H 100 11/03/21 09:00 68 11/03/21 07:46 36.7 C 64 16 147/100 H 96 O2 Del Method 11/03/21 19:00 Room Air 11/03/21 13:35 11/03/21 17:00 11/03/21 15:34 Room Air 11/03/21 15:29 Room Air 11/03/21 14:34 Room Air 11/03/21 14:04 Room Air 11/03/21 13:34 Room Air 11/03/21 13:15 Room Air 11/03/21 13:00 Room Air 11/03/21 12:43 Room Air 11/03/21 11:25 Room Air 11/03/21 11:05 Room Air 11/03/21 09:00 11/03/21 07:46 Room Air Laboratory Results 11/03/21 11/03/21 11/03/21 Range/Units 13:00 12:19 03:59 WBC (4.8-10.8) K/ul RBC (4.63-6.08) M/uL Hgb (14.0-18.0) g/dl Hct (40.1-51.0) % MCV (80.0-100.0) fL MCH (25.0-34.0) pg MCHC (32.0-36.0) g/dL RDW Std Deviation (36.4-46.3) fL RDW Coeff of Arvind (11.5-14.5) % Plt Count (130-400) K/uL MPV (9.4-12.4) fL Immature Gran % (Auto) % Neut % (Auto) % Lymph % (Auto) % [place] % (Auto) % Eos % (Auto) % Baso % (Auto) % Neut # (Auto) (1.4-6.5) K/uL Lymph # (Auto) (1.2-3.4) K/uL [place] # (Auto) (0.24-0.82) K/uL Eos # (Auto) (0-0.50) K/uL Baso # (Auto) (0-0.2) K/uL Immature Gran # (Auto) (0.00-0.02) K/uL APTT 33.0 H 83.1 H* (21.0-31.0) Seconds PTT Ratio 1.2 3.0 Activ Coag Time Kaolin 127 (94-140) SECONDS Sodium (136-145) mmol/L Potassium (3.5-5.1) mmol/L Chloride (98-107) mmol/L Carbon Dioxide (21-32) mmol/L Anion Gap (3-11) BUN (6-23) mg/dl Creatinine (0.6-1.4) mg/dl Est Cr Clr Drug Dosing ml/min Est GFR ( Amer) ml/min Est GFR (Non-Af Amer) ml/min BUN/Creatinine Ratio (10-20) Glucose (70-99(Fasting)) mg/dl Calcium (8.5-10.1) mg/dl Magnesium (1.7-2.4) mg/dl Troponin I High Sens (0-20) pg/ml Triglycerides (0-150) mg/dl Cholesterol (0-200) mg/dl LDL Cholesterol, Calc mg/dl VLDL Cholesterol, Calc (0-30) mg/dl HDL Cholesterol mg/dl Cholesterol/HDL Ratio (0-5) 11/03/21 11/03/21 11/02/21 Range/Units 03:59 03:59 20:00 WBC 5.45 (4.8-10.8) K/ul RBC 3.95 L (4.63-6.08) M/uL Hgb 12.9 L (14.0-18.0) g/dl Hct 36.6 L (40.1-51.0) % MCV 92.7 (80.0-100.0) fL MCH 32.7 (25.0-34.0) pg MCHC 35.2 (32.0-36.0) g/dL RDW Std Deviation 42.8 (36.4-46.3) fL RDW Coeff of Arvind 12.6 (11.5-14.5) % Plt Count 183 (130-400) K/uL MPV 9.4 (9.4-12.4) fL Immature Gran % (Auto) 0.2 % Neut % (Auto) 46.6 % Lymph % (Auto) 37.4 % [place] % (Auto) 11.2 % Eos % (Auto) 3.7 % Baso % (Auto) 0.9 % Neut # (Auto) 2.54 (1.4-6.5) K/uL Lymph # (Auto) 2.04 (1.2-3.4) K/uL [place] # (Auto) 0.61 (0.24-0.82) K/uL Eos # (Auto) 0.20 (0-0.50) K/uL Baso # (Auto) 0.05 (0-0.2) K/uL Immature Gran # (Auto) 0.01 (0.00-0.02) K/uL APTT 69.9 H* (21.0-31.0) Seconds PTT Ratio 2.5 Activ Coag Time Kaolin (94-140) SECONDS Sodium 132 L (136-145) mmol/L Potassium 3.8 (3.5-5.1) mmol/L Chloride 101 (98-107) mmol/L Carbon Dioxide 26 (21-32) mmol/L Anion Gap 5 (3-11) BUN 19 (6-23) mg/dl Creatinine 0.83 (0.6-1.4) mg/dl Est Cr Clr Drug Dosing 49.7 ml/min Est GFR ( Amer) 93.0 ml/min Est GFR (Non-Af Amer) 80.2 ml/min BUN/Creatinine Ratio 22.9 H (10-20) Glucose 76 (70-99(Fasting)) mg/dl Calcium 9.2 (8.5-10.1) mg/dl Magnesium 1.7 (1.7-2.4) mg/dl Troponin I High Sens 1306.6 H* D (0-20) pg/ml Triglycerides 78 (0-150) mg/dl Cholesterol 147 (0-200) mg/dl LDL Cholesterol, Calc 83 mg/dl VLDL Cholesterol, Calc 16 (0-30) mg/dl HDL Cholesterol 48 mg/dl Cholesterol/HDL Ratio 3.1 (0-5) PG Care Time/CCT Total # of Minutes Spent Total Time Spent with Patient: Total time spent is greater than 50% in coordination of care (as documented) at patient's floor/unit and/or counseling patient: Coding Level of Care Code 54678 Subseq Hosp Care Lvl 3 Diagnoses Myocardial infarction I21.9 Cardiomyopathy I42.9 CAD (coronary artery disease), [place] coronary artery I25.10 Hypokalemia E87.6 Hyponatremia E87.1 Hypothyroid E03.9 Falls W19.XXXA Compression fracture Delusion F22 CVA (cerebral vascular accident) I63.9 Open wound of back S21.209A
[2021-11-03] MEDS: lisinopril 5 MG TAB PO SCH (20:15)
[2021-11-04 06:01] LABS: Basophils # (auto) 0.06 K/uL (0-0.2); Basophils % (auto) 1.2 %; Eosinophils % (auto) 1.9 %; Hematocrit (blood only) 40.2 % (40.1-51.0); Hemoglobin 14.2 g/dl (14.0-18.0); Immature Granulocytes # (auto) 0.03 K/uL (0.00-0.02); Immature Granulocytes % (auto) 0.6 %; Lymphocytes # (auto) 1.31 K/uL (1.2-3.4); Lymphocytes % (auto) 25.3 %; Mean Corpuscular Hemoglobin 32.3 pg (25.0-34.0); Mean Corpuscular Hgb Conc 35.3 g/dL (32.0-36.0); Mean Corpuscular Volume 91.4 fL (80.0-100.0); Mean Platelet Volume 9.6 fL (9.4-12.4); Monocytes # (auto) 0.44 K/uL (0.24-0.82); Monocytes % (auto) 8.5 %; Neutrophils # (auto) 3.24 K/uL (1.4-6.5); Neutrophils % (auto) 62.5 %; Platelet Count 203 K/uL (130-400); RDW Coefficient of Variation 12.6 % (11.5-14.5); RDW Standard Deviation 41.6 fL (36.4-46.3); White Blood Count 5.18 K/ul (4.8-10.8)
[2021-11-04 06:37] LABS: BUN Creatinine Ratio 19.1 (10-20); Calcium 9.3 mg/dl (8.5-10.1); Creatinine Clr Calc Pharmacy 43.9 ml/min; Est GFR (African American) 85.3 ml/min; Est GFR (Non-African American) 73.6 ml/min
[2021-11-04] MEDS: CLOPIDOGREL BISULFATE 75 MG TAB PO SCH (08:44)
[2021-11-04] MEDS: EZETIMIBE 10 MG TABLET PO SCH (08:44)
[2021-11-04] MEDS: METOPROLOL SUCC 25MG EXT REL TAB PO SCH (08:44)
[2021-11-04] MEDS: THIAMINE HCL 100 MG TAB PO SCH (08:44)
--- NOTE | 2021-11-04 10:04 | Electrocardiogram Report ---
Test Reason : Blood Pressure : / mmHG Vent. Rate : 066 BPM Atrial Rate : 066 BPM P-R Int : 154 ms QRS Dur : 084 ms QT Int : 418 ms P-R-T Axes : 068 -44 053 degrees QTc Int : 438 ms Normal sinus rhythm Left axis deviation Septal infarct (cited on or before 01-NOV-2021) Nonspecific T wave abnormality Abnormal ECG When compared with ECG of 03-NOV-2021 05:46, QT has shortened Confirmed by Finn Barriga [id number] on 11/04/2021 10:03:57 AM Referred By: Tanner Scherer Confirmed By:Finn Barriga
--- NOTE | 2021-11-04 15:34 | Hospitalist Progress Note ---
Date of Service November 04, 2021 Assessment & Plan (1) Myocardial infarction: Plan: Patient presents with falls and weakness over the last week, but no complaints of chest pain or shortness of breath. Noted to have a troponin of 2500 on arrival which has since trended downward to 1306 EKG initially w/ mild ST elevations in V5-V6 (concave up), but these had resolved by the second EKG. Echocardiogram shows significant wall motion abnormalities in the LAD territory and a reduced EF of 35% consistent with ischemic cardiomyopathy Heparin drip was started Patient is allergic to aspirin but is willing to take clopidogrel With 7 beats of VT on telemetry thus far on first day, none since then s/p cardiac catheterization on 11/03--> with 100% occluded mid LAD with R to L collaterals and severe CAD otherwise but not amenable to intervention Cardiology believes this was a Type II NSTEMI and does not believe the patient is a good candidate for CABG Max medical therapy for CAD, cardiomyopathy is recommended Doing well thus far, not volume overloaded and no need for diuretics at this time -Continue clopidogrel 75 mg daily -Patient declines to take statin-is willing to take Zetia 10mg daily -Started Toprol-XL 25 mg once daily -unable to titrate up much due to b radycardia -Started lisinopril 5 mg once daily -will need outpt f/u with Cardiology and repeat ECHO in near future -Follow BMP, magnesium in the morning and keep electrolytes optimized-normal today after replacement last 2 days -continue to monitor on tele (2) Cardiomyopathy: Plan: As above Started guideline directed medical therapy with Toprol-XL and lisinopril Consider Entresto, SGLT2 inhibitor, and Aldactone as per cardiology If becomes volume overloaded, would diurese with Lasix Not a candidate for ICD at this time (3) CAD (coronary artery disease), [place] coronary artery: Plan: as above (4) Hyponatremia: Plan: Sodium mildly low at 132-134 May be from mild volume overload? TSH slightly elevated at 5 but normal FT4 No diuresis at this time check Ur Osm and Na+ Follow BMP (5) Hypothyroid: Plan: Not on levothyroxine from my review, but does take natural thyroid supplement. TSH was mildly elevated at 5.6 with FT4 normal Will not start levothyroxine at this time should be monitored as an outpatient (6) Falls: Plan: Multiple falls at home, all due to general weakness by history. With h/o old CVAs CT head here with chronic left frontal and parietal lobe infarcts,chronic infarct of the left external capsule with tiny chronic appearing lacunar infarcts of the basal ganglia. B12/folate levels are normal, vitamin D is excessively greater than 120 but no hypercalcemia Thiamine level is pending but will start 100 mg daily given cachexia and malnutrition - PT/OT - Patient willing to be placed in short-term rehab. (7) Compression fracture: Plan: osteoporosis w current path fracture, vertebrae T11-L3 Lumbar x-ray on admission showed "interval progression of the mild to moderate superior endplate compression fractures from T11 through L3." Patient not in any pain during my interview and exam. - Tylenol PRN Would benefit from outpatient medical therapy for osteoporosis (8) Delusion: Plan: Patient believes that he must use a pendulum to test all his food to make sure it is safe for his body because he was given cow's milk as a baby. If the pendulum spins clockwise, he can safely eat the food. If it spins counterclockwise, he must discard the food. His friend Radha reports this is also why he must use lots of supplements. - Discussed his beliefs with the on-call psychiatrist. 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 Odd fixation, but usually function quite well and does not rise to the level of a full psychosis. Did not see need for consult at this time. - Will get PROJECT PRODUCT MANAGER consult for cognitive evaluation. Not due to delusion per se, but because he was also having some memory issues during the interview (forgetting fairly recent events, getting confused on whether his friend was still in the room when she was behind him). Presently, I don't see any need to try to natural resources extension educator decision-making capacity, but this could be helpful if it comes to that. (9) CVA (cerebral vascular accident): Plan: In 05/2019. -He states he is allergic to aspirin so therefore has not been on an antiplatelet Is status post left CEA although his stroke at the time was on the right hemisphere -Started Plavix as above Patient declines statin but is willing to take Zetia (10) Open wound of back: Plan: Open wounds of back 3 pressure ulcers on back from lying on his back for several hours and on elbow. - Wound RN consult placed-wounds are dressed Plan DVT prophylaxis-heparin drip now stopped, add Lovenox SQ once daily now SCDs Disposition-continued stay on PCU, Referrals placed to rehab by CM and bed should be available not till Sunday Patient has an ex- that he remains close with. He is estranged from a daughter who lives in [place]. He lives with a man and his named Katarzyna and Yvette Chin. He designates Sheri to be his healthcare power of attorney at law and I advised that they have service excellence assist with paperwork to make this official Admission and Anticipated Discharge Date Admission Date: November 01, 2021 Subjective Pt has no complaints. Denies CP, SOB. Is OOB to chair and very talkative today, telling me a lot about his upbringing and belief systems. Tele with NSR rate 60-70s, PVCs Review of Systems Review of Systems: All systems reviewed & are unremarkable except as noted in HPI & below Physical Exam Constitutional: WD/WN, vitals as above + thin Eyes: + anicteric sclerae Neck: trachea midline, no thyromegaly Respiratory: normal respiratory effort, lungs clear to auscultation Cardiovascular: RRR, no murmur, no edema Chest (Breasts): Chest: normal inspection of chest Gastrointestinal (Abdomen): normal bowel sounds, soft, nontender, no hepatosplenomegaly Musculoskeletal: Extremities: extremities normal to inspection; no cyanosis and no clubbing Skin: no rashes, warm and dry Neurologic: moves all extremities and awake; no focal motor deficits Speech / Cognition: normal speech Psychiatric: Orientation: alert, oriented x 3 and cooperative Speech: normal rate/rhythm/volume of speech Affect: euthymic affect Thought Process: goal directed thought process Lymphatic: no lymphedema Results & Data Results & Data ([facility]) Vital Signs (Past 12 Hours) Vital Signs Temp Pulse Pulse Resp BP Pulse Ox O2 Del Method 11/04/21 15:17 70 11/04/21 11:31 36.5 C 66 16 121/71 96 Room Air 11/04/21 08:00 61 11/04/21 07:31 36.5 C 67 18 130/85 Laboratory Results 11/04/21 11/04/21 Range/Units 05:20 05:20 WBC 5.18 (4.8-10.8) K/ul RBC 4.40 L (4.63-6.08) M/uL Hgb 14.2 (14.0-18.0) g/dl Hct 40.2 (40.1-51.0) % MCV 91.4 (80.0-100.0) fL MCH 32.3 (25.0-34.0) pg MCHC 35.3 (32.0-36.0) g/dL RDW Std Deviation 41.6 (36.4-46.3) fL RDW Coeff of Arvind 12.6 (11.5-14.5) % Plt Count 203 (130-400) K/uL MPV 9.6 (9.4-12.4) fL Immature Gran % (Auto) 0.6 % Neut % (Auto) 62.5 % Lymph % (Auto) 25.3 % [place] % (Auto) 8.5 % Eos % (Auto) 1.9 % Baso % (Auto) 1.2 % Neut # (Auto) 3.24 (1.4-6.5) K/uL Lymph # (Auto) 1.31 (1.2-3.4) K/uL [place] # (Auto) 0.44 (0.24-0.82) K/uL Eos # (Auto) 0.10 (0-0.50) K/uL Baso # (Auto) 0.06 (0-0.2) K/uL Immature Gran # (Auto) 0.03 H (0.00-0.02) K/uL Sodium 132 L (136-145) mmol/L Potassium 4.0 (3.5-5.1) mmol/L Chloride 100 (98-107) mmol/L Carbon Dioxide 26 (21-32) mmol/L Anion Gap 6 (3-11) BUN 18 (6-23) mg/dl Creatinine 0.94 (0.6-1.4) mg/dl Est Cr Clr Drug Dosing 43.9 ml/min Est GFR ( Amer) 85.3 ml/min Est GFR (Non-Af Amer) 73.6 ml/min BUN/Creatinine Ratio 19.1 (10-20) Glucose 69 L (70-99(Fasting)) mg/dl Calcium 9.3 (8.5-10.1) mg/dl Magnesium 2.0 (1.7-2.4) mg/dl PG Care Time/CCT Total # of Minutes Spent Total Time Spent with Patient: Total time spent is greater than 50% in coordination of care (as documented) at patient's floor/unit and/or counseling patient: Coding Level of Care Code 76334 Subseq Hosp Care Lvl 2 Diagnoses Myocardial infarction I21.9 Cardiomyopathy I42.9 CAD (coronary artery disease), [place] coronary artery I25.10 Hyponatremia E87.1 Hypothyroid E03.9 Falls W19.XXXA Compression fracture Delusion F22 CVA (cerebral vascular accident) I63.9 Open wound of back S21.209A
[2021-11-04] MEDS: ENOXAPARIN INJ 40 MG/0.4 ML SYR SQ SCH (17:05)
[2021-11-04] MEDS: lisinopril 5 MG TAB PO SCH (20:23)
[2021-11-05] MEDS ORDERED: MELATONIN 3 MG TAB PO PRN (00:02)
[2021-11-05] MEDS ORDERED: MELATONIN 3 MG TAB PO ONE (00:11)
[2021-11-05 05:56] LABS: Basophils # (auto) 0.03 K/uL (0-0.2); Basophils % (auto) 0.7 %; Eosinophils # (auto) 0.15 K/uL (0-0.50); Eosinophils % (auto) 3.3 %; Immature Granulocytes # (auto) 0.01 K/uL (0.00-0.02); Immature Granulocytes % (auto) 0.2 %; Lymphocytes % (auto) 35.7 %; Mean Corpuscular Hemoglobin 32.6 pg (25.0-34.0); Mean Corpuscular Hgb Conc 35.1 g/dL (32.0-36.0); Mean Corpuscular Volume 92.7 fL (80.0-100.0); Mean Platelet Volume 9.3 fL (9.4-12.4); Monocytes # (auto) 0.51 K/uL (0.24-0.82); Monocytes % (auto) 11.4 %; Neutrophils # (auto) 2.18 K/uL (1.4-6.5); Neutrophils % (auto) 48.7 %; Platelet Count 205 K/uL (130-400); RDW Coefficient of Variation 12.8 % (11.5-14.5); RDW Standard Deviation 43.2 fL (36.4-46.3); Red Blood Count 3.99 M/uL (4.63-6.08); White Blood Count 4.48 K/ul (4.8-10.8)
[2021-11-05 06:16] LABS: BUN Creatinine Ratio 24.2 (10-20); Calcium 9.5 mg/dl (8.5-10.1); Creatinine Clr Calc Pharmacy 43.4 ml/min; Est GFR (African American) 84.3 ml/min; Est GFR (Non-African American) 72.7 ml/min; Potassium 4.2 mmol/L (3.5-5.1)
[2021-11-05] MEDS: CLOPIDOGREL BISULFATE 75 MG TAB PO SCH (08:54)
[2021-11-05] MEDS: METOPROLOL SUCC 25MG EXT REL TAB PO SCH (08:54)
[2021-11-05] MEDS: THIAMINE HCL 100 MG TAB PO SCH (08:54)
[2021-11-05] MEDS: EZETIMIBE 10 MG TABLET PO SCH (08:54)
--- NOTE | 2021-11-05 14:48 | Hospitalist Progress Note ---
Date of Service November 05, 2021 Assessment & Plan (1) Myocardial infarction: Plan: Patient presents with falls and weakness over the last week, but no complaints of chest pain or shortness of breath. Noted to have a troponin of 2500 on arrival which has since trended downward to 1306 EKG initially w/ mild ST elevations in V5-V6 (concave up), but these had resolved by the second EKG. Echocardiogram shows significant wall motion abnormalities in the LAD territory and a reduced EF of 35% consistent with ischemic cardiomyopathy Heparin drip was started Patient is allergic to aspirin but is willing to take clopidogrel With 7 beats of VT on telemetry thus far on first day, none since then. Remains in NSR, SB s/p cardiac catheterization on 11/03--> with 100% occluded mid LAD with R to L collaterals and severe CAD otherwise but not amenable to intervention Cardiology believes this was a Type II NSTEMI and does not believe the patient is a good candidate for CABG Max medical therapy for CAD, cardiomyopathy is recommended Doing well thus far, not volume overloaded and no need for diuretics at this time -Continue clopidogrel 75 mg daily -Patient declines to take statin-is willing to take Zetia 10mg daily -Started Toprol-XL 25 mg once daily -unable to titrate up much due to bradycardia -Started lisinopril 5 mg once daily -will need outpt f/u with Cardiology and repeat ECHO in near future -Follow BMP, magnesium in the morning and keep electrolytes optimized -continue to monitor on tele (2) Cardiomyopathy: Plan: As above Started guideline directed medical therapy with Toprol-XL and lisinopril Consider Entresto, SGLT2 inhibitor, and Aldactone as per cardiology If becomes volume overloaded, would diurese with Lasix Not a candidate for ICD at this time (3) CAD (coronary artery disease), [place] coronary artery: Plan: as above (4) Hyponatremia: Plan: Sodium mildly low at 132-134 Ur Osm high in 600s, Ur Na high at 94--> euvolemic--> consistent with SIADH, hypothyroidism, or adrenal insufficiency TSH slightly elevated at 5 but normal FT4 Doubt adrenal insufficiency given previous HTN Could be SIADH but unclear cause--> is on numerous herbal/supplements which possibly could have an effect? Will see if he is willing to start levothyroxine 25 mcg daily as a boost to the natural thyroid supplement he is already taking Follow BMP (5) Hypothyroid: Plan: Not on levothyroxine from my review, but does take natural thyroid supplement. TSH was mildly elevated at 5.6 with FT4 normal as above, start LT4 25 follow TSH as outpt (6) Falls: Plan: Multiple falls at home, all due to general weakness by history. With h/o old CVAs CT head here with chronic left frontal and parietal lobe infarcts,chronic infa rct of the left external capsule with tiny chronic appearing lacunar infarcts of the basal ganglia. B12/folate levels are normal, vitamin D is excessively greater than 120 but no hypercalcemia Thiamine level is pending but will start 100 mg daily given cachexia and malnutrition - PT/OT - Patient willing to be placed in short-term rehab. (7) Compression fracture: Plan: osteoporosis w current path fracture, vertebrae T11-L3 Lumbar x-ray on admission showed "interval progression of the mild to moderate superior endplate compression fractures from T11 through L3." Patient not in any pain during my interview and exam. - Tylenol PRN Would benefit from outpatient medical therapy for osteoporosis (8) Delusion: Plan: Patient believes that he must use a pendulum to test all his food to make sure it is safe for his body because he was given cow's milk as a baby. If the pendulum spins clockwise, he can safely eat the food. If it spins counterclockwise, he must discard the food. His friend Radha reports this is also why he must use lots of supplements. - Discussed his beliefs with the on-call psychiatrist. 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 Odd fixation, but usually function quite well and does not rise to the level of a full psychosis. Did not see need for consult at this time. - Will get KILN PULLER consult for cognitive evaluation. Not due to delusion per se, but because he was also having some memory issues during the interview (forgetting fairly recent events, getting confused on whether his friend was still in the room when she was behind him). Presently, I don't see any need to try to section weaver decision-making capacity, but this could be helpful if it comes to that. (9) CVA (cerebral vascular accident): Plan: In 05/2019. -He states he is allergic to aspirin so therefore has not been on an antiplatelet Is status post left CEA although his stroke at the time was on the right hemisphere -Started Plavix as above Patient declines statin but is willing to take Zetia (10) Open wound of back: Plan: Open wounds of back 3 pressure ulcers on back from lying on his back for several hours and on elbow. - Wound RN consult placed-wounds are dressed Plan DVT prophylaxis- Lovenox SQ once daily SCDs Disposition-continued stay on PCU, Referrals placed to rehab by CM and bed should be available not till Sunday Patient has an ex- that he remains close with. He is estranged from a daughter who lives in [place]. He lives with a man and his named Katarzyna and Yvette Chin. He designates Sheri to be his healthcare power of deputy prosecuting attorney and I advised that they have service excellence assist with paperwork to make this official Admission and Anticipated Discharge Date Admission Date: November 01, 2021 Subjective Pt taking a nap and was drowsy when I woke him but denied SOB, CP. Tele with SB-NSR rates 50-70s Review of Systems Review of Systems: All systems reviewed & are unremarkable except as noted in HPI & below Physical Exam Constitutional: WD/WN, vitals as above + thin Eyes: + anicteric sclerae Neck: trachea midline, no thyromegaly Respiratory: normal respiratory effort, lungs clear to auscultation Cardiovascular: RRR, no murmur, no edema Chest (Breasts): Chest: normal inspection of chest Gastrointestinal (Abdomen): normal bowel sounds, soft, nontender, no hepatosplenomegaly Musculoskeletal: Extremities: extremities normal to inspection; no cyanosis and no clubbing Skin: no rashes, warm and dry Neurologic: moves all extremities and awake; no focal motor deficits Speech / Cognition: normal speech Lymphatic: no lymphedema Results & Data Results & Data ([facility]) Vital Signs (Past 12 Hours) Vital Signs Temp Pulse Pulse Resp BP BP Pulse Ox 11/05/21 11:06 36.4 C L 60 14 85/56 L 95 11/05/21 11:00 53 L 11/05/21 07:33 36.4 C L 65 14 135/73 96 11/05/21 03:32 36.4 C L 60 16 114/56 L 97 O2 Del Method 11/05/21 11:06 Room Air 11/05/21 11:00 11/05/21 07:33 Room Air 11/05/21 03:32 Room Air Laboratory Results 11/05/21 11/05/21 11/05/21 Range/Units 05:30 05:30 00:13 WBC 4.48 L (4.8-10.8) K/ul RBC 3.99 L (4.63-6.08) M/uL Hgb 13.0 L (14.0-18.0) g/dl Hct 37.0 L (40.1-51.0) % MCV 92.7 (80.0-100.0) fL MCH 32.6 (25.0-34.0) pg MCHC 35.1 (32.0-36.0) g/dL RDW Std Deviation 43.2 (36.4-46.3) fL RDW Coeff of Arvind 12.8 (11.5-14.5) % Plt Count 205 (130-400) K/uL MPV 9.3 L (9.4-12.4) fL Immature Gran % (Auto) 0.2 % Neut % (Auto) 48.7 % Lymph % (Auto) 35.7 % [place] % (Auto) 11.4 % Eos % (Auto) 3.3 % Baso % (Auto) 0.7 % Neut # (Auto) 2.18 (1.4-6.5) K/uL Lymph # (Auto) 1.60 (1.2-3.4) K/uL [place] # (Auto) 0.51 (0.24-0.82) K/uL Eos # (Auto) 0.15 (0-0.50) K/uL Baso # (Auto) 0.03 (0-0.2) K/uL Immature Gran # (Auto) 0.01 (0.00-0.02) K/uL Sodium 132 L (136-145) mmol/L Potassium 4.2 (3.5-5.1) mmol/L Chloride 99 (98-107) mmol/L Carbon Dioxide 26 (21-32) mmol/L Anion Gap 7 (3-11) BUN 23 (6-23) mg/dl Creatinine 0.95 (0.6-1.4) mg/dl Est Cr Clr Drug Dosing 43.4 ml/min Est GFR ( Amer) 84.3 ml/min Est GFR (Non-Af Amer) 72.7 ml/min BUN/Creatinine Ratio 24.2 H (10-20) Glucose 74 (70-99(Fasting)) mg/dl Calcium 9.5 (8.5-10.1) mg/dl Urine Osmolality (500-800) mOsm/kg Ur Random Sodium 94 mmol/L 11/05/21 Range/Units 00:13 WBC (4.8-10.8) K/ul RBC (4.63-6.08) M/uL Hgb (14.0-18.0) g/dl Hct (40.1-51.0) % MCV (80.0-100.0) fL MCH (25.0-34.0) pg MCHC (32.0-36.0) g/dL RDW Std Deviation (36.4-46.3) fL RDW Coeff of Arvind (11.5-14.5) % Plt Count (130-400) K/uL MPV (9.4-12.4) fL Immature Gran % (Auto) % Neut % (Auto) % Lymph % (Auto) % [place] % (Auto) % Eos % (Auto) % Baso % (Auto) % Neut # (Auto) (1.4-6.5) K/uL Lymph # (Auto) (1.2-3.4) K/uL [place] # (Auto) (0.24-0.82) K/uL Eos # (Auto) (0-0.50) K/uL Baso # (Auto) (0-0.2) K/uL Immature Gran # (Auto) (0.00-0.02) K/uL Sodium (136-145) mmol/L Potassium (3.5-5.1) mmol/L Chloride (98-107) mmol/L Carbon Dioxide (21-32) mmol/L Anion Gap (3-11) BUN (6-23) mg/dl Creatinine (0.6-1.4) mg/dl Est Cr Clr Drug Dosing ml/min Est GFR ( Amer) ml/min Est GFR (Non-Af Amer) ml/min BUN/Creatinine Ratio (10-20) Glucose (70-99(Fasting)) mg/dl Calcium (8.5-10.1) mg/dl Urine Osmolality 546 (500-800) mOsm/kg Ur Random Sodium mmol/L PG Care Time/CCT Total # of Minutes Spent Total Time Spent with Patient: Total time spent is greater than 50% in coordination of care (as documented) at patient's floor/unit and/or counseling patient: Coding Level of Care Code 38038 Subseq Hosp Care Lvl 2 Diagnoses Myocardial infarction I21.9 Cardiomyopathy I42.9 CAD (coronary artery disease), [place] coronary artery I25.10 Hyponatremia E87.1 Hypothyroid E03.9 Falls W19.XXXA Compression fracture Delusion F22 CVA (cerebral vascular accident) I63.9 Open wound of back S21.209A
[2021-11-05] MEDS: ENOXAPARIN INJ 40 MG/0.4 ML SYR SQ SCH (17:15)
[2021-11-05] MEDS: lisinopril 5 MG TAB PO SCH (20:19)
[2021-11-06 06:08] LABS: BUN Creatinine Ratio 23.3 (10-20); Calcium 9.7 mg/dl (8.5-10.1); Creatinine Clr Calc Pharmacy 28.8 ml/min; Est GFR (African American) 63.5 ml/min; Est GFR (Non-African American) 54.8 ml/min; Magnesium 1.8 mg/dl (1.7-2.4); Potassium 4.4 mmol/L (3.5-5.1)
[2021-11-06] MEDS: LEVOTHYROXINE SODIUM 25 MCG TABLET PO SCH (06:35)
[2021-11-06] MEDS ORDERED: MAGNESIUM SULFATE / D5W 1 GM/100 ML BAG IV ONE (07:10)
[2021-11-06] MEDS: METOPROLOL SUCC 25MG EXT REL TAB PO SCH (08:51)
[2021-11-06] MEDS: THIAMINE HCL 100 MG TAB PO SCH (08:51)
[2021-11-06] MEDS: CLOPIDOGREL BISULFATE 75 MG TAB PO SCH (08:52)
[2021-11-06] MEDS: EZETIMIBE 10 MG TABLET PO SCH (08:52)
--- NOTE | 2021-11-06 13:36 | Hospitalist Progress Note ---
Date of Service November 06, 2021 Assessment & Plan (1) Myocardial infarction: Plan: Patient presents with falls and weakness over the last week, but no complaints of chest pain or shortness of breath. Noted to have a troponin of 2500 on arrival which has since trended downward to 1306 EKG initially w/ mild ST elevations in V5-V6 (concave up), but these had resolved by the second EKG. Echocardiogram shows significant wall motion abnormalities in the LAD territory and a reduced EF of 35% consistent with ischemic cardiomyopathy Heparin drip was started and then stopped prior to cardiac cath Patient is allergic to aspirin but is willing to take clopidogrel With 7 beats of VT on telemetry thus far on first day, none since then. Remains in NSR, SB s/p cardiac catheterization on 11/03--> with 100% occluded mid LAD with R to L collaterals and severe CAD otherwise but not amenable to intervention Cardiology believes this was a Type II NSTEMI and does not believe the patient is a good candidate for CABG Max medical therapy for CAD, cardiomyopathy is recommended Doing well thus far, not volume overloaded and no need for diuretics at this time -Continue clopidogrel 75 mg daily -Patient declines to take statin-is willing to take Zetia 10mg daily -Started Toprol-XL 25 mg once daily -unable to titrate up much due to bradycardia -Started lisinopril 5 mg once daily -will need outpt f/u with Cardiology and repeat ECHO in near future as an outpatient -Follow BMP, magnesium in the morning and keep electrolytes optimized-give magnesium 1 gram IV today -continue to monitor on tele (2) Cardiomyopathy: Plan: As above Started guideline directed medical therapy with Toprol-XL and lisinopril Consider Entresto, SGLT2 inhibitor, and Aldactone as per cardiology If becomes volume overloaded, would diurese with Lasix Not a candidate for ICD at this time (3) CAD (coronary artery disease), [place] coronary artery: Plan: as above (4) Hyponatremia: Plan: Sodium mildly low at 132-134 and then worse today at 130 Ur Osm high in 600s, Ur Na high at 94--> euvolemic--> consistent with SIADH, hypothyroidism, or adrenal insufficiency TSH slightly elevated at 5 but normal FT4 Doubt adrenal insufficiency given previous HTN Could be SIADH but unclear cause--> is on numerous herbal/supplements which possibly could have an effect? - he is willing to start levothyroxine 25 mcg daily as a boost to the natural thyroid supplement he is already taking -Follow BMP -fluid restrict to 1200mL/day (5) Hypothyroid: Plan: Not on levothyroxine from my review, but does take natural thyroid supplement. T SH was mildly elevated at 5.6 with FT4 normal as above, start LT4 25 follow TSH as outpt (6) Falls: Plan: Multiple falls at home, all due to general weakness by history. With h/o old CVAs CT head here with chronic left frontal and parietal lobe infarcts,chronic infarct of the left external capsule with tiny chronic appearing lacunar infarcts of the basal ganglia. B12/folate levels are normal, vitamin D is excessively greater than 120 but no hypercalcemia Thiamine level is pending but will start 100 mg daily given cachexia and malnutrition - PT/OT - Patient willing to be placed in short-term rehab. (7) Compression fracture: Plan: osteoporosis w current path fracture, vertebrae T11-L3 Lumbar x-ray on admission showed "interval progression of the mild to moderate superior endplate compression fractures from T11 through L3." Patient not in any pain during my interview and exam. - Tylenol PRN Would benefit from outpatient medical therapy for osteoporosis (8) Delusion: Plan: Patient believes that he must use a pendulum to test all his food to make sure it is safe for his body because he was given cow's milk as a baby. If the pendulum spins clockwise, he can safely eat the food. If it spins counterclockwise, he must discard the food. His friend Radha reports this is also why he must use lots of supplements. - Discussed his beliefs with the on-call psychiatrist. 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 Odd fixation, but usually function quite well and does not rise to the level of a full psychosis. Did not see need for consult at this time. - Will get PAN RECLAIM PROCESSOR consult for cognitive evaluation. Not due to delusion per se, but because he was also having some memory issues during the interview (forgetting fairly recent events, getting confused on whether his friend was still in the room when she was behind him). Presently, I don't see any need to try to loan supervisor decision-making capacity, but this could be helpful if it comes to that. (9) CVA (cerebral vascular accident): Plan: In 05/2019. -He states he is allergic to aspirin so therefore has not been on an antiplatelet Is status post left CEA although his stroke at the time was on the right hemisphere -Started Plavix as above Patient declines statin but is willing to take Zetia (10) Open wound of back: Plan: Open wounds of back 3 pressure ulcers on back from lying on his back for several hours and on elbow. - Wound RN consult placed-wounds are dressed Plan DVT prophylaxis- Lovenox SQ once daily SCDs Disposition-continued stay on PCU, Referrals placed to rehab by CM and bed should be available not till Sunday Patient has an ex- that he remains close with. He is estranged from a daughter who lives in [place]. He lives with a man and his named Katarzyna and Yvette Chin. He designates Sheri to be his healthcare power of binder technician and I advised that they have service excellence assist with paperwork to make this official Admission and Anticipated Discharge Date Admission Date: November 01, 2021 Subjective Pt denies any problems except having trouble getting back to Netflix from his email on his iPad. He denies CP, SOB. Is eating. Tele with NSR rates 60-70s Review of Systems Review of Systems: All systems reviewed & are unremarkable except as noted in HPI & below Physical Exam Constitutional: WD/WN, vitals as above + thin Eyes: + anicteric sclerae Neck: trachea midline, no thyromegaly Respiratory: normal respiratory effort, lungs clear to auscultation Cardiovascular: RRR, no murmur, no edema Chest (Breasts): Chest: normal inspection of chest Gastrointestinal (Abdomen): normal bowel sounds, soft, nontender, no hepatosplenomegaly Musculoskeletal: Extremities: extremities normal to inspection; no cyanosis and no clubbing Skin: no rashes, warm and dry Neurologic: moves all extremities and awake; no focal motor deficits Speech / Cognition: normal speech Psychiatric: Orientation: alert, oriented x 3 and cooperative Speech: normal rate/rhythm/volume of speech Affect: euthymic affect Thought Process: goal directed thought process Lymphatic: no lymphedema Results & Data Results & Data ([facility]) Vital Signs (Past 12 Hours) Vital Signs Temp Pulse Pulse Resp BP BP Pulse Ox 11/06/21 12:02 36.6 C 69 14 118/63 96 11/06/21 08:07 36.8 C 67 16 141/82 H 96 11/06/21 07:30 58 L 11/06/21 04:20 36.5 C 68 18 129/62 94 O2 Del Method 11/06/21 12:02 Room Air 11/06/21 08:07 Room Air 11/06/21 07:30 11/06/21 04:20 Room Air Laboratory Results 11/06/21 Range/Units 05:28 Sodium 130 L (136-145) mmol/L Potassium 4.4 (3.5-5.1) mmol/L Chloride 99 (98-107) mmol/L Carbon Dioxide 26 (21-32) mmol/L Anion Gap 5 (3-11) BUN 28 H (6-23) mg/dl Creatinine 1.20 (0.6-1.4) mg/dl Est Cr Clr Drug Dosing 28.8 ml/min Est GFR ( Amer) 63.5 ml/min Est GFR (Non-Af Amer) 54.8 ml/min BUN/Creatinine Ratio 23.3 H (10-20) Glucose 80 (70-99(Fasting)) mg/dl Calcium 9.7 (8.5-10.1) mg/dl Magnesium 1.8 (1.7-2.4) mg/dl PG Care Time/CCT Total # of Minutes Spent Total Time Spent with Patient: Total time spent is greater than 50% in coordination of care (as documented) at patient's floor/unit and/or counseling patient: Coding Level of Care Code 39984 Subseq Hosp Care Lvl 2 Diagnoses Myocardial infarction I21.9 Cardiomyopathy I42.9 CAD (coronary artery disease), [place] coronary artery I25.10 Hyponatremia E87.1 Hypothyroid E03.9 Falls W19.XXXA Compression fracture Delusion F22 CVA (cerebral vascular accident) I63.9 Open wound of back S21.209A
[2021-11-06] MEDS: lisinopril 5 MG TAB PO SCH (20:00)
[2021-11-06] MEDS ORDERED: ENOXAPARIN INJ 30 MG/0.3 ML SYR SQ SCH (21:00)
[2021-11-07 06:27] LABS: BUN Creatinine Ratio 30.3 (10-20); Calcium 9.3 mg/dl (8.5-10.1); Creatinine Clr Calc Pharmacy 35.3 ml/min; Est GFR (African American) 80.2 ml/min; Est GFR (Non-African American) 69.2 ml/min; Magnesium 1.9 mg/dl (1.7-2.4); Potassium 4.7 mmol/L (3.5-5.1)
[2021-11-07] MEDS: LEVOTHYROXINE SODIUM 25 MCG TABLET PO SCH (06:31)
[2021-11-07] MEDS ORDERED: MAGNESIUM SULFATE / D5W 1 GM/100 ML BAG IV ONE (07:58)
[2021-11-07] MEDS: THIAMINE HCL 100 MG TAB PO SCH (08:18)
[2021-11-07] MEDS: CLOPIDOGREL BISULFATE 75 MG TAB PO SCH (08:19)
[2021-11-07] MEDS: EZETIMIBE 10 MG TABLET PO SCH (08:19)
[2021-11-07] MEDS: METOPROLOL SUCC 25MG EXT REL TAB PO SCH (08:19)
--- NOTE | 2021-11-07 16:33 | Hospitalist Progress Note ---
Date of Service November 07, 2021 Assessment & Plan (1) Myocardial infarction: Plan: Patient presents with falls and weakness over the last week, but no complaints of chest pain or shortness of breath. Noted to have a troponin of 2500 on arrival which has since trended downward to 1306 EKG initially w/ mild ST elevations in V5-V6 (concave up), but these had resolved by the second EKG. Echocardiogram shows significant wall motion abnormalities in the LAD territory and a reduced EF of 35% consistent with ischemic cardiomyopathy Heparin drip was started and then stopped prior to cardiac cath Patient is allergic to aspirin but is willing to take clopidogrel With 7 beats of VT on telemetry thus far on first day, none since then. Remains in NSR, SB s/p cardiac catheterization on 11/03--> with 100% occluded mid LAD with R to L collaterals and severe CAD otherwise but not amenable to intervention Cardiology believes this was a Type II NSTEMI and does not believe the patient is a good candidate for CABG Max medical therapy for CAD, cardiomyopathy is recommended Doing well thus far, not volume overloaded and no need for diuretics at this time -Continue clopidogrel 75 mg daily -Patient declines to take statin-is willing to take Zetia 10mg daily -Started Toprol-XL 25 mg once daily -unable to titrate up much due to bradycardia -Started lisinopril 5 mg once daily -will need outpt f/u with Cardiology and repeat ECHO in near future as an outpatient -Follow BMP, magnesium in the morning and keep electrolytes optimized-give magnesium 1 gram IV again today -continue to monitor on tele (2) Cardiomyopathy: Plan: As above Started guideline directed medical therapy with Toprol-XL and lisinopril Consider Entresto, SGLT2 inhibitor, and Aldactone as per cardiology If becomes volume overloaded, would diurese with Lasix Not a candidate for ICD at this time (3) CAD (coronary artery disease), [place] coronary artery: Plan: as above (4) Hyponatremia: Plan: Sodium mildly low at 132-134 and then worse today at 130 Ur Osm high in 600s, Ur Na high at 94--> euvolemic--> consistent with SIADH, hypothyroidism, or adrenal insufficiency TSH slightly elevated at 5 but normal FT4 Doubt adrenal insufficiency given previous HTN Could be SIADH but unclear cause--> is on numerous herbal/supplements which possibly could have an effect? - he is willing to start levothyroxine 25 mcg daily as a boost to the natural thyroid supplement he is already taking -Follow BMP -fluid restrict to 1200mL/day (5) Hypothyroid: Plan: Not on levothyroxine from my review, but does take natural thyroid supplement. TSH was mildly elevated at 5.6 with FT4 normal as above, start LT4 25 follow TSH as outpt (6) Falls: Plan: Multiple falls at home, all due to general weakness by history. With h/o old CVAs CT head here with chronic left frontal and parietal lobe infarcts,chronic infarct of the left external capsule with tiny chronic appearing lacunar infarcts of the basal ganglia. B12/folate levels are normal, vitamin D is excessively greater than 120 but no hypercalcemia Thiamine level is pending but will start 100 mg daily given cachexia and malnutrition - PT/OT - Patient willing to be placed in short-term rehab. (7) Compression fracture: Plan: osteoporosis w current path fracture, vertebrae T11-L3 Lumbar x-ray on admission showed "interval progression of the mild to moderate superior endplate compression fractures from T11 through L3." Patient not in any pain during my interview and exam. - Tylenol PRN Would benefit from outpatient medical therapy for osteoporosis (8) Delusion: Plan: Patient believes that he must use a pendulum to test all his food to make sure it is safe for his body because he was given cow's milk as a baby. If the pendulum spins clockwise, he can safely eat the food. If it spins counterclockwise, he must discard the food. His friend Radha reports this is also why he must use lots of supplements. - Discussed his beliefs with the on-call psychiatrist. 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 Odd fixation, but usually function quite well and does not rise to the level of a full psychosis. Did not see need for consult at this time. - Will get LANDSCAPE CREW MEMBER consult for cognitive evaluation. Not due to delusion per se, but because he was also having some memory issues during the interview (forgetting f airly recent events, getting confused on whether his friend was still in the room when she was behind him). Presently, I don't see any need to try to senior web designer decision-making capacity, but this could be helpful if it comes to that. (9) CVA (cerebral vascular accident): Plan: In 05/2019. -He states he is allergic to aspirin so therefore has not been on an antiplatelet Is status post left CEA although his stroke at the time was on the right hemisphere -Started Plavix as above Patient declines statin but is willing to take Zetia (10) Open wound of back: Plan: Open wounds of back 3 pressure ulcers on back from lying on his back for several hours and on elbow. - Wound RN consult placed-wounds are dressed Plan DVT prophylaxis- Lovenox SQ once daily SCDs Disposition-continued stay on PCU, Referrals placed to rehab by CM and bed at [facility] now available on Sun Patient has an ex- that he remains close with. He is estranged from a daughter who lives in [place]. He lives with a man and his named Katarzyna and Yvette Chin. He designates Sheri to be his healthcare power of deputy commonwealth's attorney and I advised that they have service excellence assist with paperwork to make this official Admission and Anticipated Discharge Date Admission Date: November 01, 2021 Subjective Pt has no complaints, no CP, SOB, Tele with NSR, normal rates i 50-60s Review of Systems Review of Systems: All systems reviewed & are unremarkable except as noted in HPI & below Physical Exam Constitutional: WD/WN, vitals as above + thin Eyes: + anicteric sclerae Neck: trachea midline, no thyromegaly Respiratory: normal respiratory effort, lungs clear to auscultation Cardiovascular: RRR, no murmur, no edema Chest (Breasts): Chest: normal inspection of chest Gastrointestinal (Abdomen): normal bowel sounds, soft, nontender, no hepatosplenomegaly Musculoskeletal: Extremities: extremities normal to inspection; no cyanosis and no clubbing Skin: no rashes, warm and dry Neurologic: moves all extremities and awake; no focal motor deficits Speech / Cognition: normal speech Psychiatric: Orientation: alert, oriented x 3 and cooperative Speech: normal rate/rhythm/volume of speech Affect: euthymic affect Thought Process: goal directed thought process Lymphatic: no lymphedema Results & Data Results & Data ([facility]) Vital Signs (Past 12 Hours) Vital Signs Temp Pulse Pulse Resp BP Pulse Ox O2 Del Method 11/07/21 07:36 60 11/07/21 07:03 36.6 C 65 16 131/74 94 Room Air Laboratory Results 11/07/21 11/02/21 Range/Units 05:39 05:40 Sodium 130 L (136-145) mmol/L Potassium 4.7 (3.5-5.1) mmol/L Chloride 100 (98-107) mmol/L Carbon Dioxide 26 (21-32) mmol/L Anion Gap 4 (3-11) BUN 30 H (6-23) mg/dl Creatinine 0.99 (0.6-1.4) mg/dl Est Cr Clr Drug Dosing 35.3 ml/min Est GFR ( Amer) 80.2 ml/min Est GFR (Non-Af Amer) 69.2 ml/min BUN/Creatinine Ratio 30.3 H (10-20) Glucose 79 (70-99(Fasting)) mg/dl Calcium 9.3 (8.5-10.1) mg/dl Magnesium 1.9 (1.7-2.4) mg/dl Whole Bld Vitamin B1 108 (78-185) nmol/L PG Care Time/CCT Total # of Minutes Spent Total Time Spent with Patient: Total time spent is greater than 50% in coordination of care (as documented) at patient's floor/unit and/or counseling patient: Coding Level of Care Code 78349 Subseq Hosp Care Lvl 1 Diagnoses Myocardial infarction I21.9 Cardiomyopathy I42.9 CAD (coronary artery disease), [place] coronary artery I25.10 Hyponatremia E87.1 Hypothyroid E03.9 Falls W19.XXXA Compression fracture Delusion F22 CVA (cerebral vascular accident) I63.9 Open wound of back S21.209A
[2021-11-07] MEDS: lisinopril 5 MG TAB PO SCH (20:01)
[2021-11-07] MEDS ORDERED: ENOXAPARIN INJ 40 MG/0.4 ML SYR SQ SCH (21:00)
[2021-11-08] MEDS: LEVOTHYROXINE SODIUM 25 MCG TABLET PO SCH (06:47)
[2021-11-08 07:42] LABS: Calcium 9.2 mg/dl (8.5-10.1); Creatinine Clr Calc Pharmacy 32.6 ml/min; Magnesium 1.9 mg/dl (1.7-2.4); Potassium 4.5 mmol/L (3.5-5.1)
[2021-11-08] MEDS: CLOPIDOGREL BISULFATE 75 MG TAB PO SCH (09:11)
[2021-11-08] MEDS: EZETIMIBE 10 MG TABLET PO SCH (09:11)
[2021-11-08] MEDS: THIAMINE HCL 100 MG TAB PO SCH (09:11)
[2021-11-08] MEDS: METOPROLOL SUCC 25MG EXT REL TAB PO SCH (09:11)
--- NOTE | 2021-11-08 14:06 | Discharge Summary ---
Date of Service date of admission - November 01, 2021 date of discharge - November 08, 2021 Admission HPI Per Admitting Provider 86yo M w/ hx of HTN who presents with falls from home. The patient is with a friend and together they recount that he fell about 3-4 days ago. He denies any prodromal symptoms before the falls such as lightheadedness, chest pain, dizziness, palpitations, nausea, or anything else. He reports his legs just feel week. He has had at least 3-4 other falls in the last month. He reports he hit the back of his head on one of the falls, but did not lose consciousness. He otherwise has not injured himself in any of the falls. However, one time, he was not able to get up after the fall and was on his back for 3-4 hours until a friend found him. In ER, troponin was noted to be quite elevated at 2500, and initial EKG in triage had some ST elevations in V5-V6. Patient reports no present or recent chest pain. Principal Diagnosis 1. recent falls at home 2. elevated troponin level - due to type 2 myocardial infarction - significant coronary disease found on heart catheterization with medical management advised 3. ischemic cardiomyopathy with EF 35-40% 4. T11-L3 compression fractures 5. hyponatremia - chronic - discharge Na level of 130 6. history of old strokes Discharge Exam gen - very thin, NAD mouth - MMM neck - no JVD heart - RRR, s1 s2, no murmur lungs - CTA b/l abd - soft NT ND BS+ ext - no edema, pulses 2+ b/l skin - optifoams on back Discharge Data Allergies Allergy/AdvReac Type Severity Reaction Status Date / Time aspirin Allergy Abdominal Verified 11/02/21 11:24 Pain Consultations [facility] - Jean Pierre Flores MD PT, OT Speech therapy Wound care nurse Procedures Performed Operation Date: 11/03/21 12:00 Actual Procedures Left Heart Catheterization - Jean Pierre Flores MD Coronary Anatomy Left Main (% Stenosis): Ostial (40 to 50%) LAD (% Stenosis): Ostial (90 to 95%) and Mid (100% (chronic total occlusion)) Circumflex (% Stenosis): Distal (80%) OM1 (% Stenosis): Proximal (60 to 70%) RCA (% Stenosis): Ostial (30%), Proximal (Mild diffuse), Mid (Focal 40 to 50%) and Distal (40%) R PDA (% Stenosis): Normal (Large tortuous collateral to the LAD) Echocardiogram - * EF 35-40% * grade 1 diastolic dysfunction * multiple segmental wall motion abnormalities consistent with LAD territory ischemia Ordered Studies Chest X-Ray 11/01/21 14:06 XR chest 1V portable HISTORY: 86 years-old Male weakness acute weakness COMPARISON: Chest radiograph 02/01/2021 TECHNIQUE: Portable AP view of the chest FINDINGS: Cardiomediastinal and hilar silhouettes are unchanged. Lungs are hyperinflated areas of chronic interstitial coarsening and possible emphysema. No pneumothorax, large pleural effusion or lobar airspace consolidation. Degenerative changes of the shoulders and spine. Several thoracic compression deformities are again noted. IMPRESSION: No acute process. ACT 112: Negative or not required by law. The above report was generated using voice recognition software. It may contain grammatical, syntax or spelling errors. Electronically signed by: Aries Luciano M.D. 11/01/2021 2:[address] 11/02/21 20:33 CT head/brain wo con CLINICAL HISTORY: 86 years-old Male with frequent falls,confusion,assess for CVA. Acutely altered mental status TECHNIQUE: Multiple axial CT images of the head were obtained without contrast. A dose lowering technique was utilized adhering to the principles of ALARA. CT DOSE: 691.05 mGy.cm COMPARISON: Head CT 06/03/2019 FINDINGS: No acute intracranial hemorrhage, midline shift, intracranial mass, hydrocephalus, territorial ischemia or abnormal extra-axial collection. Age- related involutional changes. White matter hypodensities suggest chronic microvascular ischemic disease. Chronic left frontal and parietal lobe infarcts. Chronic infarct of the left external capsule with tiny chronic appearing lacunar infarcts of the basal ganglia.. Cerebral vascular calcifications. The calvarium is intact. Prior right-sided lens repair. The paranasal sinuses, mastoid air cells, and middle ear cavities are clear. IMPRESSION: Chronic findings as above without acute intracranial abnormality. ACT 112: Negative or not required by law. The above report was generated using voice recognition software. It may contain grammatical, syntax or spelling errors. Electronically signed by: Aries Luciano M.D. 11/03/2021 6:51 AM Hospital Course (1) Myocardial infarction: TYPE 2 KS (myocardial demand ischemia). Patient presented with falls and weakness for about 1 week prior to admission but denied chest pain or shortness of breath. Noted to have a troponin of 2500 on arrival which trended downward to 1300. EKG initially w/ mild ST elevations in V5-V6 (concave up), but these had resolved by the second EKG. Echocardiogram with LAD territory wall motion abnormalities and reduced EF of 35% consistent with ischemic cardiomyopathy. Heparin drip was started. He underwent heart catheterization by Dr Jean Pierre Flores on 11/03/2021. See full heart cath report above. The culprit lesion, however, was a 100% occluded mid LAD with R to L collaterals. Medical management was advised; no stents were deployed. He was also felt NOT to be a CABG candidate. Patient reported an aspirin allergy but was willing to take clopidogrel. He will take zetia 10mg daily. Lipitor 40mg daily was recommended but he often refused to take such. LDL was 83 on lipid profile during the stay. Hopefully he will reconsider the statin agent. Metoprolol succinate 25mg once daily and lisinopril were initiated for his CAD and ischemic cardiomyopathy. The patient remained hemodynamically stable for the remainder of the stay. He had 1 run of asymptomatic NSVT on telemetry while here. He will need follow-up with Dr Flores about 2 weeks post-discharge. (2) Cardiomyopathy: Ischemic, EF 35-40%. Started guideline directed medical therapy with Toprol-XL and lisinopril. Consider Entresto, SGLT2 inhibitor, and Aldactone as outpatient. He was compensated during the entire visit from a volume standpoint. Not a candidate for ICD at this time. (3) CAD (coronary artery disease), [place] coronary artery: see above (4) Hyponatremia: Sodium mildly low with range of 130-134 during the stay; discharge level was 130. Records show mild hyponatremia going back 3-4 years. Ur Osm high in 600s, Ur Na high at 94--> euvolemic--> consistent with SIADH, hyp othyroidism, or adrenal insufficiency. TSH slightly elevated at 5 but normal FT4. No clinical evidence of adrenal insufficiency while here. Could be SIADH but unclear cause--> is on numerous herbal/supplements which possibly could have an effect? Synthroid 25mcg once daily was started for his mild hypothyroidism. Recommend a repeat BMP in 1 week to ensure stable sodium levels. (5) Hypothyroid: TSH = 5.6. FT4 was normal. He was started on synthroid 25mcg once daily. He will need repeat TSH in 6 weeks. (6) Falls: Multiple falls at home, all due to general weakness by history. With h/o old CVAs. CT head here with chronic left frontal and parietal lobe infarcts, chronic infarct of the left external capsule with tiny chronic appearing lacunar infarcts of the basal ganglia. B12/folate levels were normal, vitamin D was greater than 120 but no hypercalcemia fortunately. Thiamine level returned at 108 (wnl). He received PT/OT services - both advised placement for rehab. Transferring to [facility] for such. (7) Compression fracture: osteoporosis w current path fracture, vertebrae T11-L3 Lumbar x-ray on admission showed "interval progression of the mild to moderate superior endplate compression fractures from T11 through L3." He had minimal pain from these chronic appearing fractures. If pain worsens can consider a TLSO brace. Would benefit from outpatient medical therapy for osteoporosis. (8) Delusion: Patient believes that he must use a pendulum to test all his food to make sure it is safe for his body because he was given cow's milk as a baby. If the pendulum spins clockwise, he can safely eat the food. If it spins counterclockwise, he must discard the food. His friend Radha reports this is also why he must use lots of supplements. Discussed his beliefs with psychiatry. Psychiatry felt these beliefs could ref lect a schizotypal personality disorder. Full psychosis not suspected. No treatment at this time. (9) CVA (cerebral vascular accident): In 05/2019. (10) Open wound of back: Open wounds of back 3 pressure ulcers on back from lying on his back for several hours and on elbow. Wound care nurse provided recommendations for skin care. (11) Severely underweight adult: BMI 13.7 Plan Patient has an ex- that he remains close with. He is estranged from a daughter who lives in [place]. He lives with a man and his named Sheri and Yvette Chin. He wishes Sheri to be his healthcare power of claims attorney. These issues will need to be fully addressed at [facility]. Total Time Total Time Spent Total Time Spent (In Minutes): 40 Discharge Plan Discharge Items Patient Disposition: Transfer [facility] Reason For Visit: FALLS AT HOME, ELEVATED TROPONIN Discharge Diagnosis: 1. recent falls at home 2. elevated troponin level - due to type 2 myocardial infarction - significant coronary disease found on heart catheterization with medical management advised 3. ischemic cardiomyopathy with EF 35-40% 4. T11-L3 compression fractures 5. hyponatremia - chronic - discharge Na level of 130 6. history of old strokes Activity: Per Instructions section Non-emergency contact: Primary Care Provider and Record Maker Call non-emergency contact if: you have any medication questions and your symptoms worsen Follow-up/Referrals: Jean Pierre Flores MD, PhD [Physician] - (2-3 weeks - follow-up of CAD) Tanner Scherer MD [Primary Care Provider] - (Dr Scherer or one of his partners within 1 week of discharge from [facility] ) Diet: Heart Healthy Fluids: 1500ml (6 cups) Addtl Attending Provider Instructions: ACTIVITY RECOMMENDATIONS following your heart catheterization: It is common to feel weak and fatigue for a few days. * Do not drive or operate any motorized equipment for the next three days. * Limit stair usage (2 or 3 trips a day only) for the next three days. * Do not lift anything heavier than 10 pounds for the next three days. * Do not engage in vigorous exercise or any sports. * You may shower the day after your procedure, but do not immerse the area for three days. Cleanse the site gently with soap and water. SPECIAL CARE INSTRUCTIONS: * You may replace the pressure dressing or band-aid the morning after the procedure. * After your procedure, it is normal to have a small bruise or small lump at the site. Examine your site daily for any change in the bruise or lump, redness, swelling, drainage or numbness. Notify your doctor if any change. BLEEDING: * If there is a small amount of bleeding at the site, lie down and apply firm pressure with a clean cloth for ten minutes. When the bleeding stops, lie quietly keeping the procedure limb straight for six hours. Notify your doctor as soon as possible. * If the bleeding does not stop after ten minutes or if there is a large amount of bleeding or spurting, call 911 immediately. Continue to lie down and hold firm pressure until help arrives. SKIN IRRITATION: * You may experience some redness and/or swelling in the area where radiation was administered. If any skin irritation occurs, please contact your family physician. FOLLOW UP VISIT: Keep any scheduled doctor appointments. Addtl Scrip Clerk Provider Instructions: Mr Lopez was admitted to [facility] after suffering falls and for generalized weakness. At time of admission his troponin was markedly elevated suggesting heart damage. Heart catheterization was performed by [facility] showing significant coronary artery disease. The disease was quite severe and felt not to be amenable to stents. Medical management (medicines) were recommended for the coronary disease. In addition, it does appear the coronary disease has weakened the heart as echocardiogram showed that the ejection fraction or heart pumping number is 35- 40% (normal is >50%). Due to recent falls there are several compression fractures of the spine from T11 down to L3. Pain medication and lidoderm patches are recommended for this. If pain continues to be an issue could consider a back brace ("TLSO" brace). Recommendations - 1. check TSH in 6 weeks due to institution of thyroid medication 2. check BMP in 3-4 days for stability of electrolytes and sodium level 3. daily standing scale weights due to congestive heart failure/ischemic cardiomyopathy; please notify medical accountant if there is any weight gain of more than 2-3 pounds over 1-2 days 4. orthotics consult for back brace if desired by patient 5. optifoam dressings or similar for pressure ulcers on back, etc; change per protocol Pending Studies at Discharge: No Stand-Alone Forms: My [facility] Skilled Items Patient informed of condition?: Yes DNR: No Discharge Level of Care: Skilled Communicable Disease: No Discharge Prognosis: Stable Lines: None Urinary Catheter: No Medications and DC Order Prescriptions: New clopidogrel 75 mg Tablet 75 mg PO QAM Qty: 30 5RF ezetimibe 10 mg Tablet 10 mg PO QAM Qty: 30 5RF metoprolol succinate 25 mg Tablet Extended Release 24 Hr 25 mg PO QAM Qty: 30 5RF levothyroxine [Synthroid] 25 mcg Tablet 25 mcg PO DAILYBB Qty: 30 5RF thiamine HCl (vitamin B1) 100 mg Tablet 100 mg PO BID 30 Days Qty: 60 0RF lidocaine [Lidoderm] 5 % adhesive patch,medicated 3 patch topical DAILY Qty: 30 1RF Rx Instructions: leave on most painful area for up to 12 hrs, remove for 12 hrs (back, etc) Continued folic acid 1 mg Tablet 1 mg PO QAM Qty: 0 omega 4-hiu-euf-fish oil [Fish Oil] 1,000 mg (120 mg-180 mg) Capsule 1 tab PO QAM Qty: 0 atorvastatin 40 mg Tablet 40 mg PO HS Qty: 30 0RF lisinopril 2.5 mg tablet 2.5 mg PO HS Qty: 30 0RF oxycodone-acetaminophen 5-325 mg tablet 1 tab PO Q6H PRN (Reason: pain) Qty: 10 0RF Discontinued digestive enzymes Tablet 3 tab PO AC Qty: 0 Probiotic 3 billion cell Capsule 0 mmu cells PO TIDM Qty: 0 Adrenal Support 1 tab PO DAILY Boswella 1 - 3 tabs PO DAILY Anthony 40 1 tab PO DAILY Organic Bound Minerals 1 tab PO DAILY Saligesic 1 tab PO DAILY Soy Valles Lecisin 1 tab PO DAILY Zypam 1 tab PO DAILY Desiccated Adrenal 1 dose PO DAILY Garden Of Life Probiotic 1 dose PO DAILY Mrm Bone Maximizer 1 dose PO DAILY Spleen Descciated 1 dose PO DAILY Thytrophin Pmg 1 dose PO DAILY ascorbic acid (vitamin C) [Vitamin C] 500 mg Capsule, Extended Release 500 mg PO TID Raw Material Synergy 1 tab PO QAM Discharge Orders: Discharge Order (Routine); Ordered 11/08/21 Ordered By: Pancho Richards/Other Patient Handouts: CAD Admission Data Admit Date/Time: 11/01/21 16:15 Attending Provider: Pancho Benson Admit Provider: Oscar Guerrero Primary Care Provider: Tanner Scherer Other Providers: Oscar Guerrero ; Klever Rios ; [facility] ; [facility] Other Interventions: Discharge Summary Assessment (RN) Last Done: 11/08/21 13:58 Coding Level of Care Code D/C DAY MANAGEMENT >30 MINS Diagnoses Myocardial infarction I21.9 Cardiomyopathy I42.9 CAD (coronary artery disease), [place] coronary artery I25.10 Hyponatremia E87.1 Hypothyroid E03.9 Falls W19.XXXA Compression fracture Delusion F22 CVA (cerebral vascular accident) I63.9 Open wound of back S21.209A Severely underweight adult R63.6
--- NOTE | 2021-11-17 13:40 | Coding Query ---
CODING QUERY To promote full compliance with coding requirements relating to patient care, provider participation is requested in all cases of medical biller/coder uncertainty. Please assist us with the question(s) below: Coding Question(s): Please specify below, in your opinion, the diagnosis most responsible for occasioning the Inpatient Admission: (x ) Recent Falls at Home/Falls ( ) Type 2 ND ( ) Other: Please Specify Physician's Response(s): Thank you Jesica Ochoa Principal Diagnosis: "that condition established after study, to be chiefly responsible for occasioning the admission of the patient to the hospital for care." Co-Existing Principal Diagnosis: "when two or more diagnoses equally meet the criteria for principal diagnosis as determined by the circumstances of admission, diagnostic work up, and/or therapy provided, and the Alphabetic Index, Tabular List, or another coding guideline does not provide sequencing direction, any one of the diagnoses may be sequenced first." "When the physician has documented what appears to be a current diagnosis in the body of the record, but has not included the diagnosis in the final diagnostic statement, the physician should be asked whether the diagnosis should be added." (Source [facility] 2 QTR90. p3-4) EDU
--- NOTE | 2021-11-17 13:42 | Coding Query ---
MALNUTRITION To promote full compliance with coding requirements relating to patient care, physician participation is requested in all cases of medical coding manager uncertainty. Please assist us with the question(s) below: Please place an X within the parenthesis (x). If other, please document: "Malnutrition" is documented in this record as on Progress Note 11/02/21. If possible, please check the box that provides a more specific diagnosis: ( ) Mild malnutrition (x ) Moderate malnutrition ( ) Severe malnutrition ( ) Protein malnutrition (kwashiorkor) ( ) Severe protein calorie malnutrition ( ) Protein calorie malnutrition, unspecified ( ) Other (please specify): Was this diagnosis present on admission? Please place an X within the parenthesis (x). (x ) Present on admission ( ) Not present on admission ( ) Unable to be clinically determined Thank you Jesica Ochoa [facility]
--- NOTE | 2021-11-17 13:45 | Coding Query ---
PRESSURE ULCER DOCUMENTATION To promote full compliance with coding requirements relating to patient care, physician participation is requested in all cases of machine operator assistant uncertainty. Please assist us with the question(s) below: Please specify the known or suspected type by placing an "X" within the parenthesis (x). Beginning on the H&P there is documentation of, "3 pressure ulcers on back from lying on his back for several hours and on elbow. - Wound RN consult placed". 1. A pressure ulcer of the Back If possible, please check the box that provides the specific stage of the pressure ulcer ( ) Stage I (x ) Stage II ( ) Stage III ( ) Stage IV ( ) Unstageable ( ) Unable to determine 2. A pressure ulcer of the Elbow If possible, please check the box that provides the specific stage of the pressure ulcer (x ) Stage I ( ) Stage II ( ) Stage III ( ) Stage IV ( ) Unstageable ( ) Unable to determine Thank you Jesica Ochoa [facility]
== END 2021-11-08 15:49 | DRG 91 ==
LOC: ED 12:07 → SUATTDRO 15:47 → 2E 15:47 → SUATTDRO 16:15 → 2E 18:17
PROC: CLB.CCO (2021-11-03 12:00)

== ENCOUNTER 2022-01-16 11:59 | Observation (INO) ==
[2022-01-16] MEDS ORDERED: fentaNYL citrate 100 MCG/2 ML VIAL IV ONE (12:35)
--- NOTE | 2022-01-16 12:40 | Emergency Department Note ---
Impression & Plan Periprosthetic fracture of proximal end of femur ED Provider Note HISTORY OF PRESENT ILLNESS: Patient is AN 86-year-old male presenting with right hip pain after a fall. Patient reports that he was ambulating in the bathroom 2 days ago when he turned around and lost his footing, falling to the ground and landing on his right hip. Denies striking his head or loss of consciousness. Reports he was unable to get up on his own and staff facility had to get him up. He states he has been having progressively worsening right hip pain since the incident has been unable to bear weight on the hip since then. Staff sent him to the emergency department for evaluation given that he is normally ambulatory at baseline. Patient denies any Mutz or tingling down his leg. Denies any chest pain, shortness of breath, lightheadedness or dizziness prior to the fall. Patient does have a prosthetic in his right hip ROS: Constitutional: No fever, chills, or weakness Skin: No rash or diaphoresis HENT: No headaches or congestion Eyes: No vision changes Cardio: No chest pain, palpitations or leg swelling Respiratory: No cough, wheezing or shortness of breath GI: No nausea, vomiting, diarrhea, constipation : No dysuria, polyuria MSK: No back pain +right hip pain Neuro: No loss of sensation, confusion, focal deficits, numbness, tingling Psychiatric: No mood changes PHYSICAL EXAM: Constitutional: Patient appears in no acute distress. HENT: Head: Normocephalic and atraumatic. Eyes: EOMI, PERRL Mouth/Throat: Mucous membranes moist. Neck: Trachea midline. Neck supple. Cardiovascular: RRR, No murmurs, rubs or gallops. Intact distal pulses. Pulmonary/Chest: No respiratory distress. Breath sounds clear and equal bilaterally. No wheezes or rales. No chest wall tenderness to palpation. Abdominal: BS +. Abdomen soft, no tenderness, rebound or guarding. Back: No midline spinal tenderness, no paraspinal tenderness, no CVA tenderness. Musculoskeletal: - RLE: Patient has TTP to lateral hip and proximal femur. Unable to range hip secondary to pain. No open wounds or ecchymosis. Able to flex and extend knee. Able to dorsiflex and plantarflex ankle. Sensation intact to light touch throughout nerve distributions of leg. Intact DP pulse. Skin: Warm and dry. No rash, erythema, pallor or cyanosis Psychiatric: Appropriate mood and affect for situation. Neurological: Alert and keenly responsive. CN II-XII grossly intact MDM: - Vitals signs stable. - Laboratory workup showed normal WBC; chronic anemia (Hgb 10.4); hyponatremia (Na 126); normal creatinine - Xray of pelvis and right femur shows nondisplaced periprosthetic fracture involving the proximal residual femur. - Consulted [facility] Orthopedic surgeon, Dr. Ryan. Reports that fracture is nonoperative. Recommended discharge with ambulatory device like a walker if the patient can tolerate weightbearing as tolerated. - Patient is still complaining of significant pain despite multiple doses of fentanyl in the emergency department. Will attempt to admit for pain control and PT/OT evaluation. - Hospitalist Dr. Srivastava consulted for admission. - Patient admitted to [facility] hospitalist service for further evaluation and management. ASSESSMENT AND PLAN: Diagnosis: right periprosthetic femur fracture Plan: admit Past Med/Surg History Medical History (Updated 01/16/22 @ 17:39 by Garima Felder MD) Atherogenic dyslipidemia CAD (coronary artery disease), pala coronary artery Cardiomyopathy Carotid artery stenosis CVA (cerebral vascular accident) 05/2016, retinal artery occlusion; most recently admitted 06/03/19 for CVA GERD (gastroesophageal reflux disease) diet controlled Hearing deficit [place] Hyponatremia Chronic/stable Hypothyroid Myocardial infarction Osteoarthritis Surgical History History of tonsillectomy S/P total hip arthroplasty Rt Family History Father Stroke Other No family history of adverse response to anesthesia Social History Smoking Status: Never smoker Second Hand Exposure: No; Hx Alcohol Use: No Hx Substance Use: No Preferred Language: Spanish Communication Ability: Effective Visual Impairment: No Limitations Hearing Ability: Hard of Hearing 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 Beliefs That Will Affect Care: None marital status: Current Living Situation: Alone Current Living Situation Comment: , Jim home alone Feels Safe at Home: Yes Assistive Devices: Cane and Walker Allergies Allergies Allergy/AdvReac Type Severity Reaction Status Date / Time aspirin Allergy Abdominal Verified 01/16/22 16:45 Pain Home Meds Home Medications Medication Instructions Recorded Confirmed Saccharomyces boulardii 250 mg 250 mg PO BID 01/16/22 01/16/22 capsule (Florastor) acetaminophen 325 mg tablet 650 mg PO Q6 PRN Pain 01/16/22 01/16/22 (Tylenol) acetaminophen 325 mg tablet 650 mg PO Q6 PRN temp>100 01/16/22 01/16/22 (Tylenol) diclofenac sodium 1 % topical gel 4 g topical QID 01/16/22 01/16/22 digestive enzymes 1 tab PO WM 01/16/22 01/16/22 food supplemt, lactose-reduced 1 ea PO .DAILY IN AFTERNOON 01/16/22 01/16/22 levothyroxine 50 mcg tablet 50 mcg PO DAILY 01/16/22 01/16/22 lidocaine 4 % topical patch 1 patch topical .EVERY DAY SHIFT 01/16/22 01/16/22 magnesium oxide 400 mg PO AMHS 01/16/22 01/16/22 oxycodone-acetaminophen 5 mg-325 1 tab PO Q6H PRN mod-severe pain 01/16/22 01/16/22 mg tablet thiamine HCl (vitamin B1) 100 mg 100 mg PO AMHS 01/16/22 01/16/22 tablet triamcinolone acetonide 0.1 % 1 applic topical BID 01/16/22 01/16/22 topical cream Previous Rx's Medication Instructions Recorded lisinopril 2.5 mg tablet 2.5 mg PO HS #30 tabs 06/04/19 clopidogrel 75 mg tablet 75 mg PO QAM #30 tabs 11/08/21 ezetimibe 10 mg tablet 10 mg PO QAM #30 tabs 11/08/21 metoprolol succinate 25 mg 25 mg PO QAM #30 tabs 11/08/21 tablet,extended release 24 hr Results & Data (ED) Vital Signs Vital Signs - 24 hr 01/16/22 11:53 01/16/22 13:22 01/16/22 15:22 Temperature 36.6 C Temperature Source Oral Pulse Rate 70 Pulse Rate [Finger] 65 79 Pulse Rhythm Regular Pulse Rhythm [Finger] Regular Pulse Strength Normal Pulse Strength [Finger] Normal Respiratory Rate 20 20 20 Respiratory Effort / Characteristics Non-Labored Non-Labored Respiratory Depth Normal Normal Normal Respiratory Pattern Regular Blood Pressure 132/69 Blood Pressure [Left Arm] 121/57 L 144/61 H Blood Pressure Mean 90 Blood Pressure Mean [Left Arm] 78 88 Blood Pressure Position Lying Blood Pressure Position [Left Arm] Lying Sitting Pulse Oximetry 96 92 98 Oxygen Delivery Method Room Air Room Air Room Air Sepsis Recent Fever Within 48 Hours No Sepsis New/Unexplained Change in Mental Status No Sepsis Action Taken by Nursing No Action Required 01/16/22 17:00 Temperature Temperature Source Pulse Rate Pulse Rate [Finger] 70 Pulse Rhythm Pulse Rhythm [Finger] Regular Pulse Strength Pulse Strength [Finger] Normal Respiratory Rate 20 Respiratory Effort / Characteristics Non-Labored Respiratory Depth Normal Respiratory Pattern Blood Pressure Blood Pressure [Left Arm] 120/58 L Blood Pressure Mean Blood Pressure Mean [Left Arm] 78 Blood Pressure Position Blood Pressure Position [Left Arm] Pulse Oximetry 92 Oxygen Delivery Method Room Air Sepsis Recent Fever Within 48 Hours Sepsis New/Unexplained Change in Mental Status Sepsis Action Taken by Nursing Laboratory Data Result diagrams: 01/16/22 12:44 01/16/22 12:44 Lab Results 01/16/22 01/16/22 Range/Units 12:44 12:44 WBC 4.81 (4.8-10.8) K/ul RBC 3.13 L (4.63-6.08) M/uL Hgb 10.4 L (14.0-18.0) g/dl Hct 29.3 L (40.1-51.0) % MCV 93.6 (80.0-100.0) fL MCH 33.2 (25.0-34.0) pg MCHC 35.5 (32.0-36.0) g/dL RDW Std Deviation 43.2 (36.4-46.3) fL RDW Coeff of Arvind 12.6 (11.5-14.5) % Plt Count 143 (130-400) K/uL MPV 9.6 (9.4-12.4) fL Immature Gran % (Auto) 0.2 % Neut % (Auto) 63.0 % Lymph % (Auto) 20.4 % Butler % (Auto) 13.5 % Eos % (Auto) 2.3 % Baso % (Auto) 0.6 % Neut # (Auto) 3.03 (1.4-6.5) K/uL Lymph # (Auto) 0.98 L (1.2-3.4) K/uL Butler # (Auto) 0.65 (0.24-0.82) K/uL Eos # (Auto) 0.11 (0-0.50) K/uL Baso # (Auto) 0.03 (0-0.2) K/uL Immature Gran # (Auto) 0.01 (0.00-0.02) K/uL Sodium 126 L (136-145) mmol/L Potassium 4.6 (3.5-5.1) mmol/L Chloride 95 L (98-107) mmol/L Carbon Dioxide 27 (21-32) mmol/L Anion Gap 4 (3-11) BUN 24 H (6-23) mg/dl Creatinine 0.90 (0.6-1.4) mg/dl Est Cr Clr Drug Dosing 42.4 ml/min Est GFR ( Amer) 89.9 ml/min Est GFR (Non-Af Amer) 77.6 ml/min BUN/Creatinine Ratio 26.7 H (10-20) Glucose 88 (70-99(Fasting)) mg/dl Calcium 9.3 (8.5-10.1) mg/dl Total Bilirubin 0.6 (0.2-1.0) mg/dl AST 23 (13-39) U/L ALT 15 (7-52) U/L Alkaline Phosphatase 54 (34-104) U/L Total Protein 6.7 (6.0-8.3) gm/dl Albumin 3.8 (3.4-5.0) gm/dl Globulin 2.9 (2.5-4.0) gm/dl Albumin/Globulin Ratio 1.3 (0.9-2) Administered Medications Discontinued Medications Fentanyl Citrate (Fentanyl Citrate 100 Mcg/2 Ml Vial) 25 mcg IV NOW ONE Stop: 01/16/22 12:36 Last Admin: 01/16/22 12:53 Dose: 25 mcg Documented By: EVELYNE Fentanyl Citrate (Fentanyl Citrate 100 Mcg/2 Ml Vial) 50 mcg IV NOW STA Stop: 01/16/22 15:36 Last Admin: 01/16/22 15:46 Dose: 50 mcg Documented By: EVELYNE Imaging Data Radiologist's Impression: Femur X-Ray 01/16/22 12:35 XR pelvis 1-2V routine, XR femur RT 2V routine CLINICAL HISTORY: right hip pain s/p fall COMPARISON STUDY: Pelvis and right hip 06/03/2021. FINDINGS: The bones are osteopenic. There is a right total hip arthroplasty again noted. The hardware appears intact. There is nondisplaced periprosthetic fracture involving the proximal residual femur. This is located at the base of the greater trochanter. The mid to distal right femur is intact. No dislocation. IMPRESSION: 1. Nondisplaced periprosthetic fracture involving the proximal residual femur. 2. Right total hip arthroplasty again noted. 3. The visualized pelvic bones appear intact. ACT 112: Negative or not required by law. Electronically signed by: Charlie Nicole M.D. 01/16/2022 2:33 PM Pelvis X-Ray 01/16/22 12:35 XR pelvis 1-2V routine, XR femur RT 2V routine CLINICAL HISTORY: right hip pain s/p fall COMPARISON STUDY: Pelvis and right hip 06/03/2021. FINDINGS: The bones are osteopenic. There is a right total hip arthroplasty again noted. The hardware appears intact. There is nondisplaced periprosthetic fracture involving the proximal residual femur. This is located at the base of the greater trochanter. The mid to distal right femur is intact. No dislocation. IMPRESSION: 1. Nondisplaced periprosthetic fracture involving the proximal residual femur. 2. Right total hip arthroplasty again noted. 3. The visualized pelvic bones appear intact. ACT 112: Negative or not required by law. Electronically signed by: Charlie Nicole M.D. 01/16/2022 2:33 PM Chest X-Ray 01/16/22 14:18 XR chest 1V portable CLINICAL HISTORY: Preoperative evaluation. Right hip fracture. COMPARISON STUDY: Chest radiograph November 01, 2021. FINDINGS: Patient is rotated. Lung volumes are normal. Linear left basilar opacity is suggestive of atelectasis. There is no pneumothorax or pleural effusion. Cardiac size is normal. Mediastinal contours are normal. There is no evidence for pulmonary edema. IMPRESSION: No acute cardiopulmonary findings. ACT 112: Negative or not required by law. Electronically signed by: Tan Briseno M.D. 01/16/2022 2:46 PM Discharge Plan Visit Data Chief Complaint: Fall Stated Complaint: hip pain ED Provider: Garima Felder Discharge Problem: Periprosthetic fracture of proximal end of femur Patient Disposition: Admitted As Inpatient Forms Stand Alone Forms: My [facility] Prescriptions Prescriptions: No Action lisinopril 2.5 mg tablet 2.5 mg PO HS Qty: 30 0RF acetaminophen [Tylenol] 325 mg Tablet 650 mg PO Q6 MDD 3g PRN (Reason: temp>100) acetaminophen [Tylenol] 325 mg Tablet 650 mg PO Q6 PRN (Reason: Pain) lidocaine 4 % Adhesive Patch,Medicated 1 patch TOPICAL .EVERY DAY SHIFT Rx Instructions: apply to left hip/thigh apply in AM, remove in PM thiamine HCl (vitamin B1) 100 mg Tablet 100 mg PO AMHS levothyroxine 50 mcg Tablet 50 mcg PO DAILY magnesium oxide 400 mg magnesium Tablet 400 mg PO AMHS oxycodone-acetaminophen 5-325 mg tablet 1 tab PO Q6H PRN (Reason: mod-severe pain) digestive enzymes Tablet 1 tab PO WM Boost Breeze Liquid 1 ea PO .DAILY IN AFTERNOON Saccharomyces boulardii [Florastor] 250 mg Capsule 250 mg PO BID triamcinolone acetonide 0.1 % Cream 1 applic TOPICAL BID Rx Instructions: apply to right posterior calf for eczematous rash for 2 weeks.start 01/10/22 diclofenac sodium [Voltaren] 1 % Gel 4 g TOPICAL QID Rx Instructions: apply to left knee clopidogrel 75 mg Tablet 75 mg PO QAM Qty: 30 5RF ezetimibe 10 mg Tablet 10 mg PO QAM Qty: 30 5RF metoprolol succinate 25 mg Tablet Extended Release 24 Hr 25 mg PO QAM Qty: 30 5RF Referrals Referrals: [facility] [Primary Care Provider] -
[2022-01-16 13:09] LABS: Basophils # (auto) 0.03 K/uL (0-0.2); Basophils % (auto) 0.6 %; Eosinophils # (auto) 0.11 K/uL (0-0.50); Eosinophils % (auto) 2.3 %; Hematocrit (blood only) 29.3 % (40.1-51.0); Hemoglobin 10.4 g/dl (14.0-18.0); Immature Granulocytes # (auto) 0.01 K/uL (0.00-0.02); Immature Granulocytes % (auto) 0.2 %; Lymphocytes # (auto) 0.98 K/uL (1.2-3.4); Lymphocytes % (auto) 20.4 %; Mean Corpuscular Hemoglobin 33.2 pg (25.0-34.0); Mean Corpuscular Hgb Conc 35.5 g/dL (32.0-36.0); Mean Corpuscular Volume 93.6 fL (80.0-100.0); Mean Platelet Volume 9.6 fL (9.4-12.4); Monocytes # (auto) 0.65 K/uL (0.24-0.82); Monocytes % (auto) 13.5 %; Neutrophils # (auto) 3.03 K/uL (1.4-6.5); Platelet Count 143 K/uL (130-400); RDW Coefficient of Variation 12.6 % (11.5-14.5); RDW Standard Deviation 43.2 fL (36.4-46.3); Red Blood Count 3.13 M/uL (4.63-6.08); White Blood Count 4.81 K/ul (4.8-10.8)
[2022-01-16 13:26] LABS: Albumin Globulin Ratio 1.3 (0.9-2); Albumin Level 3.8 gm/dl (3.4-5.0); BUN Creatinine Ratio 26.7 (10-20); Bilirubin,Total 0.6 mg/dl (0.2-1.0); Calcium 9.3 mg/dl (8.5-10.1); Creatinine Clr Calc Pharmacy 42.4 ml/min; Est GFR (African American) 89.9 ml/min; Est GFR (Non-African American) 77.6 ml/min; Globulin 2.9 gm/dl (2.5-4.0); Potassium 4.6 mmol/L (3.5-5.1); Total Protein 6.7 gm/dl (6.0-8.3)
--- NOTE | 2022-01-16 14:35 | XRay Report ---
XR pelvis 1-2V routine, XR femur RT 2V routine CLINICAL HISTORY: right hip pain s/p fall COMPARISON STUDY: Pelvis and right hip 06/03/2021. FINDINGS: The bones are osteopenic. There is a right total hip arthroplasty again noted. The hardware appears intact. There is nondisplaced periprosthetic fracture involving the proximal residual femur. This is located at the base of the greater trochanter. The mid to distal right femur is intact. No d islocation. IMPRESSION: 1. Nondisplaced periprosthetic fracture involving the proximal residual femur. 2. Right total hip arthroplasty again noted. 3. The visualized pelvic bones appear intact. ACT 112: Negative or not required by law. Electronically signed by: Charlie Nicole M.D. 01/16/2022 2:33 PM
--- NOTE | 2022-01-16 14:48 | XRay Report ---
XR chest 1V portable CLINICAL HISTORY: Preoperative evaluation. Right hip fracture. COMPARISON STUDY: Chest radiograph November 01, 2021. FINDINGS: Patient is rotated. Lung volumes are normal. Linear left basilar opacity is suggestive of a telectasis. There is no pneumothorax or pleural effusion. Cardiac size is normal. Mediastinal contour s are normal. There is no evidence for pulmonary edema. IMPRESSION: No acute cardiopulmonary findings. ACT 112: Negative or not required by law. Electronically signed by: Tan Briseno M.D. 01/16/2022 2:46 PM
[2022-01-16] MEDS ORDERED: fentaNYL citrate 100 MCG/2 ML VIAL IV STA (15:35)
--- NOTE | 2022-01-16 17:54 | History & Physical Report ---
Date of Service January 16, 2022 Assessment & Plan (1) Falls: Plan: Fall, periprosthetic fracture Femur x-ray: 1. Nondisplaced periprosthetic fracture involving the proximal residual femur. 2. Right total hip arthroplasty again noted. 3. The visualized pelvic bones appear intact. CXR: No acute findings No leukocytosis, hemoglobin 10.4 Orthopedics consulted, following with medical management at this time Inadequate oral pain control, scale pain control ordered Hyponatremia Suspected SIADH Sodium 126 on admission, prior baseline approximately 130 Fluid restrict, trend Creatinine normal at baseline, 0.9 on admission CAD, heart failure with reduced ejection fraction Follows with Dr. Flores Multivessel coronary disease not amenable to PCI, not a surgical candidate due to comorbidities Continue Plavix, lisinopril, metoprolol, atorvastatin Generally euvolemic, followed clinically for Lasix as needed, deferred at last visit in October Last EF 35-40% Is recommended for consideration of Entresto and SGLT2 at prior discharge, fol lowing up with cardiology for these and deferred as inpatient Hypothyroidism Continue Synthroid TSH recheck pending History of recurrent falls Due to general weakness and deconditioning Lumbar compression fractures, T11-L3 Chronic, can use TLSO brace if worsened Calcium/vitamin D as outpatient Delusions Patient with documented history of delusions, has been discussed with psychiatry previously and 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 No treatment recommended. Follow clinically. Severe protein calorie malnutrition, BMI less than 15 Nutrition consult placed, boost as able to tolerate DVT prophylaxis: Heparin CODE STATUS: Full code discussed with patient Diet: Heart healthy, n.p.o. for surgical intervention anticipated. Not a nticipated at this time Disposition: Medical surgical, no tachycardia arrhythmia or chest pain on admission (2) Hypokalemia: (3) Hypertension: (4) Periprosthetic fracture of proximal end of femur: (5) Severely underweight adult: (6) CAD (coronary artery disease), [place] coronary artery: (7) Cardiomyopathy: (8) Carotid artery stenosis: (9) Anemia: History of Present Illness Primary Care Provider: Charissa Feldman Mario is an 86-year-old male with a past medical history of CAD, cardiomyopath y, [place], hypothyroidism, CVA, RAMIRO, cerebral aneurysm, hyponatremia, and protein calorie malnutrition with BMI of 15.8 who presented after a fall and was found to have a nondisplaced periprosthetic fracture involving the proximal right femur. He is recommended for admission for pain control and management of concurrent hyponatremia Fall pivoting Like R hip always hurts at baseline No cp cp sob syncope that led to fall Patient reports he was not lightheaded, dizzy, with any chest pain or shortness of breath, or syncope that led to his fall. Was pivoting and lost his balance falling and striking his hip without head injury and no loss of consciousness. Immediate pain in the right hip. He has minimal pain at rest but immediately has up to 10/10 pain with any attempted movement or attempts to bear weight. No numbness or tingling in the leg. Is able to wiggle toes without difficulty. Notes that he was recently treated for heart attack and low-sodium, and is aware that he is not a good surgical candidate. Reports normal sodium is around 130 Medical History: Reviewed Medications: Reviewed Surgical History: Reviewed Allergies: Reviewed Social History: Reviewed Code Status: Full code, discussed with patient Allergies Allergy/AdvReac Type Severity Reaction Status Date / Time aspirin Allergy Abdominal Verified 01/16/22 16:45 Pain Home Medications Medication Instructions Recorded Confirmed Type lisinopril 2.5 mg tablet 2.5 mg PO HS #30 tabs 06/04/19 01/16/22 Rx clopidogrel 75 mg tablet 75 mg PO QAM #30 tabs 11/08/21 01/16/22 Rx ezetimibe 10 mg tablet 10 mg PO QAM #30 tabs 11/08/21 01/16/22 Rx metoprolol succinate 25 mg 25 mg PO QAM #30 tabs 11/08/21 01/16/22 Rx tablet,extended release 24 hr Saccharomyces boulardii 250 mg 250 mg PO BID 01/16/22 01/16/22 History capsule (Florastor) acetaminophen 325 mg tablet 650 mg PO Q6 PRN Pain 01/16/22 01/16/22 History (Tylenol) acetaminophen 325 mg tablet 650 mg PO Q6 PRN temp>100 01/16/22 01/16/22 History (Tylenol) diclofenac sodium 1 % topical gel 4 g topical QID 01/16/22 01/16/22 History digestive enzymes 1 tab PO WM 01/16/22 01/16/22 History food supplemt, lactose-reduced 1 ea PO .DAILY IN AFTERNOON 01/16/22 01/16/22 History levothyroxine 50 mcg tablet 50 mcg PO DAILY 01/16/22 01/16/22 History lidocaine 4 % topical patch 1 patch topical .EVERY DAY SHIFT 01/16/22 01/16/22 History magnesium oxide 400 mg PO AMHS 01/16/22 01/16/22 History oxycodone-acetaminophen 5 mg-325 1 tab PO Q6H PRN mod-severe pain 01/16/22 01/16/22 History mg tablet thiamine HCl (vitamin B1) 100 mg 100 mg PO AMHS 01/16/22 01/16/22 History tablet triamcinolone acetonide 0.1 % 1 applic topical BID 01/16/22 01/16/22 History topical cream Past Med/Surg History Medical History (Updated 01/16/22 @ 17:39 by Gairma Felder MD) Atherogenic dyslipidemia CAD (coronary artery disease), [place] coronary artery Cardiomyopathy Carotid artery stenosis CVA (cerebral vascular accident) 05/2016, retinal artery occlusion; most recently admitted 06/03/19 for CVA GERD (gastroesophageal reflux disease) diet controlled Hearing deficit [place] Hyponatremia Chronic/stable Hypothyroid Myocardial infarction Osteoarthritis Surgical History History of tonsillectomy S/P total hip arthroplasty Rt Family History Father Stroke Other No family history of adverse response to anesthesia Social History Smoking Status: Never smoker Second Hand Exposure: No; Hx Alcohol Use: No Hx Substance Use: No Preferred Language: Lao Communication Ability: Effective Visual Impairment: No Limitations Hearing Ability: Hard of Hearing Section Chief Required: No Beliefs That Will Affect Care: None marital status: Current Living Situation: Alone Current Living Situation Comment: , Jim home alone Feels Safe at Home: Yes Assistive Devices: Cane and Walker Review of Systems Review of Systems: All systems reviewed & are unremarkable except as noted in Subjective Physical Exam Physical Exam: General: A&Ox3. NAD. Cooperative. HEENT: Atraumatic, normocephalic. Patient extremely hard of hearing. Otherwise hearing and vision grossly intact Pulm: CTAB A&P. -wheezes, -rales, -rhonchi. Symmetrical chest rise. No increase in work of breathing. No respiratory distress. Cardiac: RRR, SM. Radial pulses intact and symmetrical. Abdominal: Nontender, nondistended, soft. BS present. Extremities: Cachectic. Sensation soft touch intact in hands and feet without asymmetry. PT pulse intact bilaterally. Right hip tender to palpation at proximal thigh, is resting internally rotated and slightly shortened. Pain with attempted movement. Results & Data Results & Data ([facility]) Vital Signs (Past 12 Hours) Vital Signs Temp Pulse Pulse Resp BP BP Pulse Ox 01/16/22 17:00 70 20 120/58 L 92 01/16/22 15:22 79 20 144/61 H 98 01/16/22 13:22 65 20 121/57 L 92 01/16/22 11:53 36.6 C 70 20 132/69 96 O2 Del Method 01/16/22 17:00 Room Air 01/16/22 15:22 Room Air 01/16/22 13:22 Room Air 01/16/22 11:53 Room Air PG Care Time/CCT Total # of Minutes Spent Total Time Spent with Patient: Total time spent is greater than 50% in coordination of care (as documented) at patient's floor/unit and/or counseling patient: Coding Level of Care Code INT OBSERVATION CARE 50M LVL 2 Diagnoses Falls W19.XXXA Hypokalemia E87.6 Hypertension I10 Periprosthetic fracture of proximal end of femur M97.8XXA; Z96.649 Severely underweight adult R63.6 CAD (coronary artery disease), [place] coronary artery I25.10 Cardiomyopathy I42.9 Carotid artery stenosis I65.29 Anemia D64.9
[2022-01-16] MEDS ORDERED: HYDROmorphone INJ 0.5 MG/0.5 ML SYR IV PRN (20:18)
[2022-01-16] MEDS ORDERED: POLYETHYLENE (MIRALAX) 17 GM PACK PO PRN (20:18)
[2022-01-16] MEDS ORDERED: HYDROmorphone INJ 1 MG/ML SYRINGE IV PRN (20:18)
[2022-01-16] MEDS: lisinopril 2.5 MG TAB PO SCH (21:18)
[2022-01-17] MEDS: LEVOTHYROXINE SODIUM 50 MCG TABLET PO SCH (05:35)
[2022-01-17 07:04] LABS: Basophils # (auto) 0.02 K/uL (0-0.2); Basophils % (auto) 0.4 %; Eosinophils # (auto) 0.09 K/uL (0-0.50); Eosinophils % (auto) 1.9 %; Hematocrit (blood only) 28.1 % (40.1-51.0); Immature Granulocytes # (auto) 0.02 K/uL (0.00-0.02); Immature Granulocytes % (auto) 0.4 %; Lymphocytes # (auto) 1.15 K/uL (1.2-3.4); Lymphocytes % (auto) 24.4 %; Mean Corpuscular Hemoglobin 32.8 pg (25.0-34.0); Mean Corpuscular Hgb Conc 35.6 g/dL (32.0-36.0); Mean Corpuscular Volume 92.1 fL (80.0-100.0); Mean Platelet Volume 9.7 fL (9.4-12.4); Monocytes # (auto) 0.84 K/uL (0.24-0.82); Monocytes % (auto) 17.8 %; Neutrophils # (auto) 2.59 K/uL (1.4-6.5); Neutrophils % (auto) 55.1 %; Platelet Count 142 K/uL (130-400); RDW Coefficient of Variation 12.6 % (11.5-14.5); RDW Standard Deviation 42.7 fL (36.4-46.3); Red Blood Count 3.05 M/uL (4.63-6.08); White Blood Count 4.71 K/ul (4.8-10.8)
--- NOTE | 2022-01-17 07:08 | Orthopedic Consultation ---
Date of Consultation January 17, 2022 Assessment & Plan (1) Periprosthetic fracture of proximal end of femur: I reviewed the patient's x-ray findings. These show a Pandora a periprosthetic femur fracture. Recommended treatment is nonsurgical. And weight-bear as tolerated through the right lower extremity with a walker and assistance. However activity should be minimized particularly in the first 2 to 4 weeks as it will be painful for him to weight-bear during this time. Aspirin should be sufficient for DVT prophylaxis although will defer to the internal medicine service. He needs to follow-up with me in my outpatient orthopedic clinic 2 weeks from now for repeat x-rays. From an orthopedic standpoint, he can discharge from the hospital as soon as placement is found for him and he is medically stable. Feel free to contact me or my team with any questions regarding Mr. Lopez. History of Present Illness Reason for Consultation: Right femur fracture Attending Physician: Jese Srivastava MD History of Present Illness Mario is an 86-year-old male with a past medical history of CAD, cardiomyopathy, [place], hypothyroidism, CVA, RAMIRO, cerebral aneurysm, hyponatremia, and protein calorie malnutrition with BMI of 15.8 who hell yesterday at home when pivoting landing directly onto his right hip. He had immediate onset of pain and difficulty ambulating. I have previously done a right total hip arthroplasty on him several years ago. He was brought to the emergency room where he was found to have a nondisplaced periprosthetic fracture involving the proximal right femur. He was admitted by internal medicine yesterday evening for pain control and management of concurrent hyponatremia. Orthopaedics was consulted for management of right periprosthetic femur fracture. Patient reports he was not lightheaded, dizzy, with any chest pain or shortness of breath, or syncope that led to his fall. Was pivoting and lost his balance falling and striking his hip without head injury and no loss of consciousness. Immediate pain in the right hip. He has minimal pain at rest but immediately has up to 10/10 pain with any attempted movement or attempts to bear weight. No numbness or tingling in the leg. Is able to wiggle toes without difficulty. Notes that he was recently treated for heart attack and low-sodium, and is aware that he is not a good surgical candidate. Reports normal sodium is around 130 Allergies Allergy/AdvReac Type Severity Reaction Status Date / Time aspirin Allergy Abdominal Verified 01/16/22 16:45 Pain Home Medications Medication Instructions Recorded Confirmed Type lisinopril 2.5 mg tablet 2.5 mg PO HS #30 tabs 06/04/19 01/16/22 Rx clopidogrel 75 mg tablet 75 mg PO QAM #30 tabs 11/08/21 01/16/22 Rx ezetimibe 10 mg tablet 10 mg PO QAM #30 tabs 11/08/21 01/16/22 Rx metoprolol succinate 25 mg 25 mg PO QAM #30 tabs 11/08/21 01/16/22 Rx tablet,extended release 24 hr Saccharomyces boulardii 250 mg 250 mg PO BID 01/16/22 01/16/22 History capsule (Florastor) acetaminophen 325 mg tablet 650 mg PO Q6 PRN Pain 01/16/22 01/16/22 History (Tylenol) acetaminophen 325 mg tablet 650 mg PO Q6 PRN temp>100 01/16/22 01/16/22 History (Tylenol) diclofenac sodium 1 % topical gel 4 g topical QID 01/16/22 01/16/22 History digestive enzymes 1 tab PO WM 01/16/22 01/16/22 History food supplemt, lactose-reduced 1 ea PO .DAILY IN AFTERNOON 01/16/22 01/16/22 History levothyroxine 50 mcg tablet 50 mcg PO DAILY 01/16/22 01/16/22 History lidocaine 4 % topical patch 1 patch topical .EVERY DAY SHIFT 01/16/22 01/16/22 History magnesium oxide 400 mg PO AMHS 01/16/22 01/16/22 History oxycodone-acetaminophen 5 mg-325 1 tab PO Q6H PRN mod-severe pain 01/16/22 01/16/22 History mg tablet thiamine HCl (vitamin B1) 100 mg 100 mg PO AMHS 01/16/22 01/16/22 History tablet triamcinolone acetonide 0.1 % 1 applic topical BID 01/16/22 01/16/22 History topical cream Patient History Medical History Atherogenic dyslipidemia CAD (coronary artery disease), [place] coronary artery Cardiomyopathy Carotid artery stenosis CVA (cerebral vascular accident) 05/2016, retinal artery occlusion; most recently admitted 06/03/19 for CVA GERD (gastroesophageal reflux disease) diet controlled Hearing deficit [place] Hyponatremia Chronic/stable Hypothyroid Myocardial infarction Osteoarthritis Surgical History History of tonsillectomy S/P total hip arthroplasty Rt Family History Father Stroke Other No family history of adverse response to anesthesia Social History Smoking Status: Never smoker Second Hand Exposure: No; Do You Dip or Chew Tobacco: No; Tobacco Cessation Education Requested by Patient: No Hx Alcohol Use: No Hx Substance Use: No Preferred Language: Syrian Communication Ability: Effective Visual Impairment: No Limitations Hearing Ability: Hard of Hearing 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 He points to the lateral aspect of his right leg where he feels the pain. On palpation he is maximally tender over the greater trochanter. Minimal tenderness distal to this however. There are no skin lesions. He is incision from his total hip arthroplasty is well-healed. Distally neurovascularly intact. Results & Data ([facility]) Vital Signs (Past 12 Hours) Vital Signs Temp Pulse Pulse Resp BP BP Pulse Ox 01/17/22 01:52 94 01/17/22 00:32 36.8 C 79 18 137/80 91 01/16/22 20:00 01/16/22 20:00 36.4 C L 88 20 171/77 H 98 01/16/22 20:18 36.4 C L 88 20 171/77 H 98 01/16/22 19:45 74 20 134/74 98 O2 Del Method 01/17/22 01:52 Room Air 01/17/22 00:32 Room Air 01/16/22 20:00 Room Air 01/16/22 20:00 Room Air 01/16/22 20:18 Room Air 01/16/22 19:45 Room Air Diagnostic Findings Laboratory Results WBC 4.71 K/ul (4.8-10.8) L 01/17/22 06:40 RBC 3.05 M/uL (4.63-6.08) L 01/17/22 06:40 Hgb 10.0 g/dl (14.0-18.0) L 01/17/22 06:40 Hct 28.1 % (40.1-51.0) L 01/17/22 06:40 MCV 92.1 fL (80.0-100.0) 01/17/22 06:40 MCH 32.8 pg (25.0-34.0) 01/17/22 06:40 MCHC 35.6 g/dL (32.0-36.0) 01/17/22 06:40 RDW Std Deviation 42.7 fL (36.4-46.3) 01/17/22 06:40 RDW Coeff of Arvind 12.6 % (11.5-14.5) 01/17/22 06:40 Plt Count 142 K/uL (130-400) 01/17/22 06:40 MPV 9.7 fL (9.4-12.4) 01/17/22 06:40 Immature Gran % (Auto) 0.4 % 01/17/22 06:40 Neut % (Auto) 55.1 % 01/17/22 06:40 Lymph % (Auto) 24.4 % 01/17/22 06:40 [place] % (Auto) 17.8 % 01/17/22 06:40 Eos % (Auto) 1.9 % 01/17/22 06:40 Baso % (Auto) 0.4 % 01/17/22 06:40 Neut # (Auto) 2.59 K/uL (1.4-6.5) 01/17/22 06:40 Lymph # (Auto) 1.15 K/uL (1.2-3.4) L 01/17/22 06:40 [place] # (Auto) 0.84 K/uL (0.24-0.82) H 01/17/22 06:40 Eos # (Auto) 0.09 K/uL (0-0.50) 01/17/22 06:40 Baso # (Auto) 0.02 K/uL (0-0.2) 01/17/22 06:40 Immature Gran # (Auto) 0.02 K/uL (0.00-0.02) 01/17/22 06:40 Sodium 126 mmol/L (136-145) L 01/16/22 12:44 Potassium 4.6 mmol/L (3.5-5.1) 01/16/22 12:44 Chloride 95 mmol/L (98-107) L 01/16/22 12:44 Carbon Dioxide 27 mmol/L (21-32) 01/16/22 12:44 Anion Gap 4 (3-11) 01/16/22 12:44 BUN 24 mg/dl (6-23) H 01/16/22 12:44 Creatinine 0.90 mg/dl (0.6-1.4) 01/16/22 12:44 Est Cr Clr Drug Dosing 42.4 ml/min 01/16/22 12:44 Est GFR ( Amer) 89.9 ml/min 01/16/22 12:44 Est GFR (Non-Af Amer) 77.6 ml/min 01/16/22 12:44 BUN/Creatinine Ratio 26.7 (10-20) H 01/16/22 12:44 Glucose 88 mg/dl (70-99(Fasting)) 01/16/22 12:44 Calcium 9.3 mg/dl (8.5-10.1) 01/16/22 12:44 Total Bilirubin 0.6 mg/dl (0.2-1.0) 01/16/22 12:44 AST 23 U/L (13-39) 01/16/22 12:44 ALT 15 U/L (7-52) 01/16/22 12:44 Alkaline Phosphatase 54 U/L (34-104) 01/16/22 12:44 Total Protein 6.7 gm/dl (6.0-8.3) 01/16/22 12:44 Albumin 3.8 gm/dl (3.4-5.0) 01/16/22 12:44 Globulin 2.9 gm/dl (2.5-4.0) 01/16/22 12:44 Albumin/Globulin Ratio 1.3 (0.9-2) 01/16/22 12:44 SARS-CoV-2, RNA, NAAT NEGATIVE (NEGATIVE) 01/16/22 17:48 Impressions Femur X-Ray 01/16/22 12:35 XR pelvis 1-2V routine, XR femur RT 2V routine CLINICAL HISTORY: right hip pain s/p fall COMPARISON STUDY: Pelvis and right hip 06/03/2021. FINDINGS: The bones are osteopenic. There is a right total hip arthroplasty again noted. The hardware appears intact. There is nondisplaced periprosthetic fracture involving the proximal residual femur. This is located at the base of the greater trochanter. The mid to distal right femur is intact. No dislocation. IMPRESSION: 1. Nondisplaced periprosthetic fracture involving the proximal residual femur. 2. Right total hip arthroplasty again noted. 3. The visualized pelvic bones appear intact. ACT 112: Negative or not required by law. Electronically signed by: Charlie Nicole M.D. 01/16/2022 2:33 PM Pelvis X-Ray 01/16/22 12:35 XR pelvis 1-2V routine, XR femur RT 2V routine CLINICAL HISTORY: right hip pain s/p fall COMPARISON STUDY: Pelvis and right hip 06/03/2021. FINDINGS: The bones are osteopenic. There is a right total hip arthroplasty again noted. The hardware appears intact. There is nondisplaced periprosthetic fracture involving the proximal residual femur. This is located at the base of the greater trochanter. The mid to distal right femur is intact. No dislocation. IMPRESSION: 1. Nondisplaced periprosthetic fracture involving the proximal residual femur. 2. Right total hip arthroplasty again noted. 3. The visualized pelvic bones appear intact. ACT 112: Negative or not required by law. Electronically signed by: Charlie Nicole M.D. 01/16/2022 2:33 PM Chest X-Ray 01/16/22 14:18 XR chest 1V portable CLINICAL HISTORY: Preoperative evaluation. Right hip fracture. COMPARISON STUDY: Chest radiograph November 01, 2021. FINDINGS: Patient is rotated. Lung volumes are normal. Linear left basilar opacity is suggestive of atelectasis. There is no pneumothorax or pleural effusion. Cardiac size is normal. Mediastinal contours are normal. There is no evidence for pulmonary edema. IMPRESSION: No acute cardiopulmonary findings. ACT 112: Negative or not required by law. Electronically signed by: Tan Briseno M.D. 01/16/2022 2:46 PM
[2022-01-17 07:27] LABS: BUN Creatinine Ratio 26.7 (10-20); Calcium 8.8 mg/dl (8.5-10.1); Creatinine Clr Calc Pharmacy 50.8 ml/min; Est GFR (African American) 96.9 ml/min; Est GFR (Non-African American) 83.6 ml/min; Potassium 4.3 mmol/L (3.5-5.1)
[2022-01-17] MEDS: EZETIMIBE 10 MG TABLET PO SCH (09:42)
[2022-01-17] MEDS: METOPROLOL SUCC 25MG EXT REL TAB PO SCH (09:42)
[2022-01-17] MEDS: CLOPIDOGREL BISULFATE 75 MG TAB PO SCH (09:42)
[2022-01-17] MEDS: ACETAMINOPHEN 325 MG TAB PO PRN (09:43)
--- NOTE | 2022-01-17 15:27 | Hospitalist Progress Note ---
Date of Service January 17, 2022 Assessment & Plan (1) Falls: Plan: Fall with periprosthetic fracture and h/o recurrent falls secondary to generalized weakness and deconditioning Femur x-ray: 1. Nondisplaced periprosthetic fracture involving the proximal residual femur. 2. Right total hip arthroplasty again noted. 3. The visualized pelvic bones appear intact. CXR: No acute findings No leukocytosis, hemoglobin 10.4 Orthopedics consulted, following with medical management at this time Inadequate oral pain control, scale pain control ordered - Kept NPO but per ortho, no plans for surgical intervention, diet ordered - WBAT per ortho, PT/OT eval's pending Lumbar compression fractures, T11-L3 Chronic, can use TLSO brace if worsened Calcium/vitamin D as outpatient (2) Hyponatremia: Plan: Suspected SIADH Sodium 126 on admission, prior baseline approximately 130 Creatinine normal at baseline, 0.9 on admission - Urine/serum osmol + urine Na all c/w SIADH - Continue fluid restriction and repeat Na in AM (3) Hypokalemia: Plan: - Replaced/resolved (4) Hypertension: Plan: - continue low dose lisinopril and metoprolol (5) Severely underweight adult: Plan: Severe protein calorie malnutrition, BMI less than 15 Nutrition consult placed, boost as able to tolerate (6) CAD (coronary artery disease), [place] coronary artery: Plan: Follows with Dr. Flores Multivessel coronary disease not amenable to PCI, not a surgical candidate due to comorbidities Continue Plavix, lisinopril, metoprolol, atorvastatin Generally euvolemic, followed clinically for Lasix as needed, deferred at last visit in October Cardiomyopathy, Last EF 35-40% Is recommended for consideration of Entresto and SGLT2 at prior discharge, following up with cardiology for these and deferred as inpatient (7) Anemia: Plan: - H&H stable (8) Hypothyroid: Plan: Continue Synthroid TSH from 01/09 WNL at 3.232 Plan PT/OT eval's pending. Can otherwise return to [facility] from medical standpoint as fx is nonop. Will need f/u scheduled with ortho prior to dc. CM consulted and working on this. Plan d/w Dr. Stringer. Admission and Anticipated Discharge Date Admission Date: January 16, 2022 Subjective Patient seen on rounds this morning. He is resting comfortably in bed, reports some left lower rib pain and when asked about this R leg pain he states "it's there." He denies cp or dyspnea. Review of Systems Review of Systems: All systems reviewed and are unremarkable except as noted in HPI and below. +[place] Denies fever, chills, fatigue, headache, nasal congestion, sore throat, cough, chest pain, shortness of breath, palpitations, orthopnea, PND, abdominal pain, n/v/d, constipation, dysuria, hematuria, frequency, back pain, joint pain or swelling, easy bruising or bleeding, skin lesions or rashes. Physical Exam Physical Exam: GENERAL: 86 yo Well-developed, well-nourished elderly WM. NAD. LUNGS: Clear to auscultation bilaterally. No accessory muscle use. No W/R/R. CARDIOVASCULAR: Regular rate and rhythm. ABDOMEN: Soft, non-tender and non-distended. Bs normoactive x 4 quad. EXTREMITIES: No edema. Non-tender. Peripheral pulses +2/4. NEUROLOGIC: A&O x3. Nonfocal PSYCHIATRIC: Cooperative. Appropriate mood and affect. SKIN: Warm, dry, intact. No rashes or lesions. Results & Data Results & Data ([facility]) Vital Signs (Past 12 Hours) Vital Signs Temp Pulse Resp BP Pulse Ox O2 Del Method 01/17/22 14:54 37 C 74 16 132/95 95 Room Air 01/17/22 07:42 37.1 C 68 18 147/73 H 94 Room Air Laboratory Results 01/17/22 06:40 01/17/22 06:40 PG Care Time/CCT Total # of Minutes Spent Total Time Spent with Patient: Total time spent is greater than 50% in coordination of care (as documented) at patient's floor/unit and/or counseling patient: Coding Level of Care Code 74488 Subseq Obs Care Lvl 2 Diagnoses Falls W19.XXXA Hyponatremia E87.1 Hypokalemia E87.6 Hypertension I10 Severely underweight adult R63.6 CAD (coronary artery disease), [place] coronary artery I25.10 Anemia D64.9 Hypothyroid E03.9
[2022-01-17] MEDS: lisinopril 2.5 MG TAB PO SCH (19:25)
[2022-01-17] MEDS: PANCREAZE (LIPASE 10,500U) CAP PO SCH ×2 (19:31→19:32)
[2022-01-17 19:45] LABS: Urine Potassium 47.7 mmol/L
[2022-01-18] MEDS: LEVOTHYROXINE SODIUM 50 MCG TABLET PO SCH (06:11)
[2022-01-18] MEDS: ACETAMINOPHEN 325 MG TAB PO PRN ×2 (07:25→15:05)
[2022-01-18 07:29] LABS: BUN Creatinine Ratio 27.4 (10-20); Calcium 8.7 mg/dl (8.5-10.1); Creatinine Clr Calc Pharmacy 52.2 ml/min; Est GFR (Non-African American) 84.6 ml/min; Potassium 4.3 mmol/L (3.5-5.1)
[2022-01-18] MEDS: PANCREAZE (LIPASE 10,500U) CAP PO SCH ×2 (08:15→12:19)
[2022-01-18] MEDS: METOPROLOL SUCC 25MG EXT REL TAB PO SCH (08:15)
[2022-01-18] MEDS: CLOPIDOGREL BISULFATE 75 MG TAB PO SCH (08:15)
[2022-01-18] MEDS: EZETIMIBE 10 MG TABLET PO SCH (08:15)
--- NOTE | 2022-01-18 12:29 | Discharge Summary ---
Date of Service January 18, 2022 Admission HPI Per Admitting Provider Mario is an 86-year-old male with a past medical history of CAD, cardiomyopathy, ME, hypothyroidism, CVA, RAMIRO, cerebral aneurysm, hyponatremia, and protein calorie malnutrition with BMI of 15.8 who presented after a fall and was found to have a nondisplaced periprosthetic fracture involving the proximal right femur. He is recommended for admission for pain control and management of concurrent hyponatremia Fall pivoting Like R hip always hurts at baseline No cp cp sob syncope that led to fall Patient reports he was not lightheaded, dizzy, with any chest pain or shortness of breath, or syncope that led to his fall. Was pivoting and lost his balance falling and striking his hip without head injury and no loss of consciousness. Immediate pain in the right hip. He has minimal pain at rest but immediately has up to 10/10 pain with any attempted movement or attempts to bear weight. No numbness or tingling in the leg. Is able to wiggle toes without difficulty. Notes that he was recently treated for heart attack and low-sodium, and is aware that he is not a good surgical candidate. Reports normal sodium is around 130 Medical History: Reviewed Medications: Reviewed Surgical History: Reviewed Allergies: Reviewed Social History: Reviewed Code Status: Full code, discussed with patient Principal Diagnosis 1. Fall with R periprosthetic fracture 2. Hyponatremia d/t SIADH Discharge Exam GENERAL: 86 yo Well-developed, well-nourished elderly WM. NAD. LUNGS: Nonlabored, no conversational dyspnea. Bibasilar crackles. No w/r CARDIOVASCULAR: Regular rate and rhythm. ABDOMEN: Soft, non-tender and non-distended. Bs normoactive x 4 quad. EXTREMITIES: No edema. Non-tender. Peripheral pulses +2/4. NEUROLOGIC: A&O x3. Nonfocal PSYCHIATRIC: Cooperative. Appropriate mood and affect. SKIN: Warm, dry, intact. No rashes or lesions. Discharge Data Allergies Allergy/AdvReac Type Severity Reaction Status Date / Time aspirin Allergy Abdominal Verified 01/16/22 16:45 Pain Consultations 01/16/22 17:34 Consult Orthopedic Surgery Stat ED Decision to Admit Stat Ordered Studies Femur X-Ray 01/16/22 12:35 XR pelvis 1-2V routine, XR femur RT 2V routine CLINICAL HISTORY: right hip pain s/p fall COMPARISON STUDY: Pelvis and right hip 06/03/2021. FINDINGS: The bones are osteopenic. There is a right total hip arthroplasty again noted. The hardware appears intact. There is nondisplaced periprosthetic fracture involving the proximal residual femur. This is located at the base of the greater trochanter. The mid to distal right femur is intact. No dislocation. IMPRESSION: 1. Nondisplaced periprosthetic fracture involving the proximal residual femur. 2. Right total hip arthroplasty again noted. 3. The visualized pelvic bones appear intact. ACT 112: Negative or not required by law. Electronically signed by: Charlie Nicole M.D. 01/16/2022 2:33 PM Pelvis X-Ray 01/16/22 12:35 XR pelvis 1-2V routine, XR femur RT 2V routine CLINICAL HISTORY: right hip pain s/p fall COMPARISON STUDY: Pelvis and right hip 06/03/2021. FINDINGS: The bones are osteopenic. There is a right total hip arthroplasty again noted. The hardware appears intact. There is nondisplaced periprosthetic fracture involving the proximal residual femur. This is located at the base of the greater trochanter. The mid to distal right femur is intact. No dislocation. IMPRESSION: 1. Nondisplaced periprosthetic fracture involving the proximal residual femur. 2. Right total hip arthroplasty again noted. 3. The visualized pelvic bones appear intact. ACT 112: Negative or not required by law. Electronically signed by: Charlie Nicole M.D. 01/16/2022 2:33 PM Chest X-Ray 01/16/22 14:18 XR chest 1V portable CLINICAL HISTORY: Preoperative evaluation. Right hip fracture. COMPARISON STUDY: Chest radiograph November 01, 2021. FINDINGS: Patient is rotated. Lung volumes are normal. Linear left basilar opacity is suggestive of atelectasis. There is no pneumothorax or pleural effusion. Cardiac size is normal. Mediastinal contours are normal. There is no evidence for pulmonary edema. IMPRESSION: No acute cardiopulmonary findings. ACT 112: Negative or not required by law. Electronically signed by: Tan Briseno M.D. 01/16/2022 2:46 PM Hospital Course (1) Falls: Fall with periprosthetic fracture and h/o recurrent falls secondary to generalized weakness and deconditioning Femur x-ray: 1. Nondisplaced periprosthetic fracture involving the proximal residual femur. 2. Right total hip arthroplasty again noted. 3. The visualized pelvic bones appear intact. CXR: No acute findings No leukocytosis, hemoglobin 10.4 Orthopedics consulted, following with medical management at this time Inadequate oral pain control, scale pain control ordered - Kept NPO but per ortho, no plans for surgical intervention, diet ordered - WBAT per ortho, PT/OT eval completed, advise SNF with rehab - Continue APAP and diclofenac gel PRN pain (has not required any doses of IV narcotics for pain control) - Will be placed on 35 days of Xarelto 10mg daily for DVT ppx Lumbar compression fractures, T11-L3 Chronic, can use TLSO brace if worsened Calcium/vitamin D as outpatient (2) Hyponatremia: Suspected SIADH Sodium 126 on admission, prior baseline approximately 130 Creatinine normal at baseline, 0.9 on admission - Urine/serum osmol + urine Na all c/w SIADH - Continued fluid restriction, repeat Na this AM 125 - Will start on Salt tabs 1g BID (3) Hypokalemia: - Replaced/resolved (4) Hypertension: - continue low dose lisinopril and metoprolol (5) Severely underweight adult: Severe protein calorie malnutrition, BMI less than 15 Nutrition consult placed, boost as able to tolerate (6) CAD (coronary artery disease), hoopa coronary artery: Follows with Dr. Flores Multivessel coronary disease not amenable to PCI, not a surgical candidate due to comorbidities Continue Plavix, lisinopril, metoprolol, atorvastatin Generally euvolemic, followed clinically for Lasix as needed, deferred at last visit in October Cardiomyopathy, Last EF 35-40% Is recommended for consideration of Entresto and SGLT2 at prior discharge, following up with cardiology for these and deferred as inpatient (7) Anemia: - H&H stable (8) Hypothyroid: Continue Synthroid TSH from 01/09 WNL at 3.232 Plan He is medically and hemodynamically stable for discharge back to [facility] today with rehab. Follow up as outpatient with orthopedics. Plan d/w Dr. Stringer who has also seen and evaluated this patient prior to discharge and agrees with aforementioned. Total Time Total Time Spent Total Time Spent (In Minutes): <30 minutes Discharge Plan Discharge Items Patient Disposition: Transfer Nursing Home Fac Reason For Visit: FALL, HIP FXR Discharge Diagnosis: fall with hip fracture around existing hardware Activity: As commented below Activity Comment: weight bearing as tolerated Non-emergency contact: Primary Care Provider Call non-emergency contact if: you have any medication questions Follow-up/Referrals: [facility] [Primary Care Provider] - Jese Ryan MD [Physician] - 01/31/22 11:00 am Diet: Regular Addtl Attending Provider Instructions: You were hospitalized after sustaining a fall that resulted in a fracture around the artificial hip hardware. You were seen by orthopedics who determined that your fracture does not require surgical repair and you can bear weight on this leg as tolerated. You are going to need to continue to participate in physical and occupational therapy. You will also need to follow up with orthopedics as scheduled. You can continue to take Tylenol as needed for pain. You can also use the Diclofenac gel to this area also. You are being prescribed Xarelto 10mg once a day to take for the next 35 days to prevent blood clots from developing in your legs and traveling to your lungs. It is noted that you have low sodium that has been ongoing for the past few years which is felt to be related to your body getting rid of an excessive amount of salt. For that reason, you are being started on salt tablets that you will take twice a day to help replace the salt that you are losing. Please take as prescribed. It is advised that you follow up with your primary care provider within 1 week of discharge. If you have any questions following your discharge, please contact the nonemergency number listed on your discharge paperwork. Addtl Physician Assistant Primary Care Provider Instructions: Weight bear as tolerated right lower extremity with walker and assistance May need to limit ambulation and activities due to pain in the right hip Allowed for full Range of motion of lower extremity joints as tolerated Ice to right hip as needed for pain/swelling. Aspirin for DVT prophylaxis or as per medicine service. Follow up with Dr. Ryan as scheduled on 01/31/22. Please call [phone] with questions or concerns or need to reschedule appointment. Pending Studies at Discharge: No Stand-Alone Forms: [facility] Sk[facility] Patient informed of condition?: Yes DNR: No Discharge Level of Care: Skilled Communicable Disease: No Discharge Prognosis: Stable Lines: None Urinary Catheter: No Medications and DC Order Prescriptions: New Xarelto 10 mg tablet 10 mg PO DAILY 35 Days Qty: 35 0RF sodium chloride 1 gram tablet 1,000 mg PO BID Qty: 60 0RF Continued lisinopril 2.5 mg tablet 2.5 mg PO HS Qty: 30 0RF acetaminophen [Tylenol] 325 mg Tablet 650 mg PO Q6 MDD 3g PRN (Reason: temp>100) acetaminophen [Tylenol] 325 mg Tablet 650 mg PO Q6 PRN (Reason: Pain) lidocaine 4 % Adhesive Patch,Medicated 1 patch TOPICAL .EVERY DAY SHIFT Rx Instructions: apply to left hip/thigh apply in AM, remove in PM thiamine HCl (vitamin B1) 100 mg Tablet 100 mg PO [facility] levothyroxine 50 mcg Tablet 50 mcg PO DAILY magnesium oxide 400 mg magnesium Tablet 400 mg PO [facility] oxycodone-acetaminophen 5-325 mg tablet 1 tab PO Q6H PRN (Reason: mod-severe pain) digestive enzymes Tablet 1 tab PO WM food supplemt, lactose-reduced Liquid 1 ea PO .DAILY IN AFTERNOON Saccharomyces boulardii [Florastor] 250 mg Capsule 250 mg PO BID triamcinolone acetonide 0.1 % Cream 1 applic TOPICAL BID Rx Instructions: apply to right posterior calf for eczematous rash for 2 weeks.start 01/10/22 diclofenac sodium 1 % Gel 4 g TOPICAL QID Rx Instructions: apply to left knee clopidogrel 75 mg Tablet 75 mg PO QAM Qty: 30 5RF ezetimibe 10 mg Tablet 10 mg PO QAM Qty: 30 5RF metoprolol succinate 25 mg Tablet Extended Release 24 Hr 25 mg PO QAM Qty: 30 5RF Discharge Orders: Discharge Order (Routine); Ordered 01/18/22 Ordered By: Danielle Gonzalez Admission Data Admit Date/Time: 01/16/22 18:18 Attending Provider: Pancho Stringer Admit Provider: Jese Srivastava Primary Care Provider: [facility] Other Providers: Jese Ryan ; Jese Srivastava Other Interventions: Discharge Summary Assessment (RN) Last Done: 01/18/22 13:11 Supervising Physician Co-Signing Physician Notes I personally saw and examined the patient. I verified all riojas points and agree with Danielle Gonzalez PA-C with the following exceptions and/or additions: 86-year-old male Coding Level of Care Code 08434 OBS Care - Discharge Diagnoses Falls W19.XXXA Hyponatremia E87.1 Hypokalemia E87.6 Hypertension I10 Severely underweight adult R63.6 CAD (coronary artery disease), hoopa coronary artery I25.10 Anemia D64.9 Hypothyroid E03.9
== END 2022-01-18 15:11 ==
LOC: ED 11:59 → 3W 11:59 → SUATTDRO 18:18 → 3W 19:45